=== PATIENT | male | born 1960 | race Caucasian/White ===

== ENCOUNTER 2018-02-21 11:53 | Inpatient (IN) ==
[2018-02-21 12:33] LABS: Basophils # 0.1 K/mcL (0.0-0.2); Basophils % 0.4 %; Eosinophils # 0.3 K/mcL (0.0-0.6); Eosinophils % 2.4 %; Hematocrit 29.4 % (37.5-50.1); Hemoglobin 9.6 g/dL (12.9-16.9); Immature Granulocytes % 0.3 % (0-4); Lymphocytes # 1.3 K/mcL (0.6-4.6); Lymphocytes % 10.5 %; Mean Corpuscular HGB Conc 32.7 g/dL (31.6-35.5); Mean Corpuscular Hemoglobin 32.9 pg (28.0-33.3); Mean Corpuscular Volume 100.7 fL (83.0-100.0); Mean Platelet Volume 10.5 fL (9.4-12.4); Monocytes % 7.6 %; Neutrophils # 9.9 K/mcL (1.6-8.9); Platelet Count 193 K/mcL (140-400); Red Blood Count 2.92 M/mcL (4.19-5.50); Red Cell Distribution Width 15.3 % (11.5-14.5); Segmented Neutrophils % 78.8 %
[2018-02-21 12:40] LABS: Prothrombin Time 10.8 Seconds (9.4-12.1)
[2018-02-21 12:43] LABS: Activated Partial Thrombo Time 26.6 Seconds (26.0-36.0)
[2018-02-21 12:55] LABS: Alanine Aminotransferase 22 Units/L (7-52); Albumin 2.5 g/dL (3.5-5.7); Albumin/Globulin Ratio 0.8 (1.1-2.2); Alkaline Phosphatase 65 Units/L (34-104); Aspartate Amino Transferase 26 Units/L (13-39); BUN/Creatinine Ratio 18 (6-26); Bilirubin,Direct 0.2 mg/dL (0.0-0.2); Bilirubin,Indirect 0.3 mg/dL (0.0-1.2); Bilirubin,Total 0.5 mg/dL (0.3-1.0); Blood Urea Nitrogen 62 mg/dL (6-20); Calcium 7.8 mg/dL (8.6-10.3); Carbon Dioxide 25 mEq/L (23-29); Chloride 92 mEq/L (98-107); Glucose 368 mg/dL (70-105); Osmolality,Calculated 291 (280-300); Sodium 124 mEq/L (136-145); Total Protein 5.5 g/dL (6.4-8.9); eGFR For African Americans 22 (> 60); eGFR For Non-African Americans 18 (> 60)
[2018-02-21 12:56] LABS: Troponin I < 0.03 ng/mL (< 0.04)
--- NOTE | 2018-02-21 14:05 | Emergency Department Note ---
Disposition Clinical Impression: Pleural effusion, Hyperkalemia, End stage renal disease Disposition: Admitted As Inpatient Condition: Fair Time of Disposition: 15:20 General Adult HPI - General Chief complaint: ED General Medical Stated complaint: ill Time Seen by Provider: 02/21/18 12:03 Source: EMS Mode of arrival: EMS Limitations: no limitations Nursing Notes Reviewed: Yes Vital Signs Reviewed: Yes - History of Present Illness HPI Narrative: Patient presents emergency room from [facility] where he had issues today with his tracheostomy tube as well as possibly pulling out his dialysis catheter is in his right chest wall. They also requested blood cultures being drawn considering the patient did have a newly elevated white blood cell count today. No other acute issues noted. Patient was brought here by EMS. Onset (ago): hour(s) Location: chest Radiation: non-radiation Pain Severity: moderate Pain Scale: 7 Quality: constant Consistency: constant Improves with: nothing Worsens with: nothing Associated symptoms: Reports: cough, diaphoresis, shortness of breath - Related Data Home Medications Medication Instructions Recorded Confirmed Amlodipine Besylate 10 mg GTUBE DAILY 11/25/17 11/25/17 Atorvastatin Calcium [Lipitor] 40 mg GTUBE DAILY 11/25/17 11/25/17 Cyanocobalamin (B-12) [Vitamin B12] 1,000 mcg GTUBE DAILY 11/25/17 11/25/17 Docusate [Colace] 50 mg GTUBE DAILY 11/25/17 11/25/17 Folic Acid 1 mg GTUBE DAILY 11/25/17 11/25/17 Folic Acid/Vit Bcomp,C [Renal 1 tab GTUBE DAILY 11/25/17 11/25/17 Vitamin Tablet] Insulin Regular Human [HumuLIN R] 0 unit 11/25/17 11/25/17 LORazepam [Ativan] 0.5 mg GTUBE Q6H 11/25/17 11/25/17 Levothyroxine Sodium [Synthroid] 300 mcg GTUBE DAILY 11/25/17 11/25/17 Metoprolol Tartrate [Lopressor] 50 mg GTUBE BID 11/25/17 11/25/17 Oxycodone HCl [Oxaydo] 5 mg GTUBE Q6H PRN 11/25/17 11/25/17 Pantoprazole Sodium [Protonix] 40 mg GTUBE DAILY 11/25/17 11/25/17 Sennosides/Docusate Sodium 1 each GTUBE BID 11/25/17 11/25/17 [Senna-S Tablet] cloNIDine HCl [CloNIDine HCl] 0.1 mg GTUBE BID 11/25/17 11/25/17 hydrOXYzine HCl [Hydroxyzine HCl] 25 mg GTUBE Q6H PRN 11/25/17 11/25/17 Acetaminophen [Non-Aspirin] 650 mg PO Q4H PRN 02/21/18 02/21/18 Aspirin [Lo-Dose Aspirin EC] 81 mg GTUBE DAILY 02/21/18 02/21/18 Calcitriol 0.5 mcg GTUBE TID 02/21/18 02/21/18 Carvedilol [Coreg] 25 mg GTUBE BID 02/21/18 02/21/18 Dextrose [Glucose Gel] 15 gm PO AD PRN 02/21/18 02/21/18 Diphenhydramine HCl/Zinc Acet 1 appl TP TID PRN 02/21/18 02/21/18 [Itch Relief Cream] Insulin Glargine,Hum.rec.anlog 5 unit SQ HS 02/21/18 02/21/18 [Basaglar Kwikpen U-100] LORazepam [Ativan] 0.5 mg GTUBE Q6H PRN 02/21/18 02/21/18 Renal Vitamin [Renal Caps Softgel] 1 mg GTUBE DAILY 02/21/18 02/21/18 Ticagrelor [Brilinta] 90 mg GTUBE BID 02/21/18 02/21/18 hydrALAZINE [HydrALAZINE] 25 mg PO Q6HR 02/21/18 02/21/18 Allergies Allergy/AdvReac Type Severity Reaction Status Date / Time No Known Allergies Allergy Verified 11/25/17 20:12 All systems ED: reviewed and negative except as stated. Review of Systems: As Per HPI Constitutional: Denies: fever, chills, weakness Cardiovascular: Reports: dyspnea on exertion, orthopnea. Denies: chest pain, palpitations, edema Respiratory: Reports: dyspnea, sputum production. Denies: cough, wheezes Gastrointestinal: Denies: nausea, vomiting, diarrhea Genitourinary: Denies: dysuria, frequency Musculoskeletal: Denies: back pain, neck pain Neurological: Denies: headache Past Medical History - Past Medical History Attestation: Yes The following information was validated with the patient. Source: patient Medical history: Reports: cardiomyopathy, CVA, diabetes, dialysis, GERD, hyperlipidemia, hypertension, liver disease, renal disease, thyroid disease, other Surgical history: Reports: tracheostomy, other (AV shunt - left arm, vascular access line - right upper arm) Psychiatric history: Reports: anxiety - Social History Smoking Status: Former smoker Alcohol use: Reports: none Drug use: Reports: none Physical Exam - General Limitations: no limitations General appearance: alert, in no apparent distress - Head Head exam: atraumatic, normocephalic, normal inspection - Eye Eye exam: Present: normal appearance, PERRL, EOMI - ENT ENT exam: normal exam, normal oropharynx, mucous membranes moist - Neck Neck exam: Present: normal inspection, full ROM, trachea midline. Absent: tenderness - Chest Chest inspection: Present: normal inspection - Respiratory Respiratory exam: Present: respiratory distress, accessory muscle use, other. Absent: wheezes, stridor - Cardiovascular Cardiovascular exam: Present: regular rate, normal rhythm, normal heart sounds - Abdominal Exam Abdominal exam: Present: soft, Non-Tender. Absent: tenderness, distention, guarding, rebound, rigidity - Extremities Exam Extremities exam: Present: normal inspection, full ROM, normal capillary refill. Absent: tenderness - Back Exam Back exam: Present: normal inspection - Neurological Exam Neurological exam: Present: alert, oriented X3 - Skin Skin exam: Present: warm, dry, intact, normal color Course Course Narrative: Patient seen and examined some arrival by EMS. 57-year-old male presents to the emergency room for evaluation of shortness of breath and congestion here today. He has a tracheostomy as well as a right permacath in the chest wall and a fissure on the left lower forearm. Patient has not had any fevers. Patient is currently getting vancomycin at his nursing facility. Patient had elevated white blood cell count yesterday. Nursing staff is concerned about possible infection requested blood cultures be drawn. Patient has stable vital signs on presentation. He is alert she follows commands and answers questions appropriately. He has had difficulty talking as he does not have the piece for his tracheostomy to speak. Let us do this morning because he felt like he could not breathe. Second incident with that happened the patient probably could not move. Patient told that his anterior chest wall and grabbed onto the dialysis catheter. I am concerned that he may have pulled out. The dialysis catheter appears to be an appropriate place at this time with sutures still intact. Patient's fissure on the left arm appears to be stable. He did get dialysis yesterday. Screening labs will be completed at this time chest x-ray and EKG. Patient otherwise is in no distress at this point. Lungs are diminished on the left side right side does have some intermittent coarse crackles. He does have secretions coming out from the tracheostomy site. Disposition pending the full workup and treatment course. Otherwise the patient has no other complaints. He said he pulled it out on accident when he got scared with his difficulty in breathing. Disposition pending the full workup and treatment course - Reevaluation(s) Reevaluation #1: Chest x-ray shows a left-sided opacified pleural effusion. This could be the source the patient's shortness of breath is causing the symptoms here today. Vital signs remain stable. Patient's labs appear to be unremarkable except for elevated creatinine as well as BUN and and potassium today. Patient did give her course of dialysis yesterday. Unknown etiology to this at this time. Interventional radiology was contacted and are happy to evaluate the patient discussed thoracentesis to see if it helps with the symptomatic presentation. Dr. Mahoney the on-call neurologist was also contacted 11 know about the abnormal labs at this time. Patient will most have a requirement admission secondary to the labs as well as the patient will require observation after the thoracentesis was completed. The fluid will be sent for culture. Patient is otherwise comfortable. Interventional radiology will evaluate Time: 14:00 Reevaluation #2: Patient was discussed with the hospitalist Dr. Chavez. She works at the patient for further management. No other acute concerns or issues noted this time. Patient is otherwise clinically stable Time: 15:13 Vital Signs Temperature 99.0 F 02/21/18 11:56 Pulse Rate 70 02/21/18 11:56 Respiratory Rate 18 02/21/18 11:56 Blood Pressure 148/53 02/21/18 11:56 O2 Sat by Pulse Oximetry 98 02/21/18 11:56 Temperature 99.0 F 02/21/18 11:56 Pulse Rate 69 02/21/18 13:57 Respiratory Rate 12 02/21/18 13:57 Blood Pressure 153/82 02/21/18 13:57 O2 Sat by Pulse Oximetry 100 02/21/18 13:57 Oxygen Delivery Oxygen Delivery Trach Mask Medical Decision Making - MDM Narrative Medical decision making narrative: Shortness of breath, right pleural effusion, - Medical Records Medical records reviewed: Yes I reviewed the patient's medical records. - Lab Data Lab results reviewed: Yes I reviewed the patient's lab results. Result diagrams: 02/21/18 12:09 02/21/18 12:09 Lab Results 02/21/18 02/21/18 02/21/18 Range/Units 12:09 12:09 12:09 WBC 12.5 H (4.3-11.1) K/mcL RBC 2.92 L (4.19-5.50) M/mcL Hgb 9.6 L (12.9-16.9) g/dL Hct 29.4 L (37.5-50.1) % MCV 100.7 H (83.0-100.0) fL MCH 32.9 (28.0-33.3) pg MCHC 32.7 (31.6-35.5) g/dL RDW 15.3 H (11.5-14.5) % Plt Count 193 (140-400) K/mcL MPV 10.5 (9.4-12.4) fL Immature Gran % 0.3 (0-4) % Seg Neutrophils % 78.8 % Lymphocytes % 10.5 % Monocytes % 7.6 % Eosinophils % 2.4 % Basophils % 0.4 % Neutrophils # 9.9 H (1.6-8.9) K/mcL Lymphocytes # 1.3 (0.6-4.6) K/mcL Monocytes # 1.0 (0.0-1.3) K/mcL Eosinophils # 0.3 (0.0-0.6) K/mcL Basophils # 0.1 (0.0-0.2) K/mcL PT 10.8 (9.4-12.1) Seconds INR 1.0 APTT 26.6 (26.0-36.0) Seconds Sodium 124 L (136-145) mEq/L Potassium 6.0 H (3.5-5.1) mEq/L Chloride 92 L (98-107) mEq/L Carbon Dioxide 25 (23-29) mEq/L BUN 62 H (6-20) mg/dL Creatinine 3.51 H (0.70-1.30) mg/dL Est GFR ( Amer) 22 L (> 60) Est GFR (Non-Af Amer) 18 L (> 60) BUN/Creatinine Ratio 18 (6-26) Glucose 368 H (70-105) mg/dL Calculated Osmolality 291 (280-300) Calcium 7.8 L (8.6-10.3) mg/dL Phosphorus 4.0 (2.7-4.5) mg/dL Magnesium 2.0 (1.6-2.6) mg/dL Total Bilirubin 0.5 (0.3-1.0) mg/dL Direct Bilirubin 0.2 (0.0-0.2) mg/dL Indirect Bilirubin 0.3 (0.0-1.2) mg/dL AST 26 (13-39) Units/L ALT 22 (7-52) Units/L Alkaline Phosphatase 65 (34-104) Units/L Troponin I < 0.03 (< 0.04) ng/mL Serum Total Protein 5.5 L (6.4-8.9) g/dL Albumin 2.5 L (3.5-5.7) g/dL Globulin 3.0 (2.4-3.5) g/dL Albumin/Globulin Ratio 0.8 L (1.1-2.2) - Radiology Data Radiology results reviewed: Yes I reviewed the patient's radiology results. Chest x-ray completed that shows left-sided - EKG Data EKG #1 EKG attestation: Yes I reviewed and interpreted this EKG. EKG results narrative: EKG shows sinus rhythm. Ventricular rate is 70. AK interval 190. QRS duration of 128. QTC of 469. [place] appears to be slightly rightward deviated. The EKG from 12/04/17 was reviewed and shows similar morphology as well as intervals. Patient is otherwise currently stable. No acute signs of ST segment elevation or abnormality at this time. No acute signs of WPW or Brugada syndrome.
[2018-02-21] MEDS ORDERED: Insulin Human Regular 10 UNIT in 0.9 % Sodium Chloride 10 ML IV ONE (15:16)
[2018-02-21 15:43] LABS: RBC,Pleural Fluid < 0.002 M/mcL
[2018-02-21 15:44] LABS: Appearance of Pleural Fl Clear (Clear)
[2018-02-21] MEDS ORDERED: Naloxone 0.4 MG/ML INJ IVP PRN (16:43)
[2018-02-21] MEDS ORDERED: Acetaminophen 325 MG TABLET PO PRN (16:43)
[2018-02-21] MEDS ORDERED: hydrOXYzine pamoate 25 MG CAPSULE PO PRN (16:57)
[2018-02-21] MEDS ORDERED: *HR* LORazepam 0.5 MG TABLET GTUBE PRN (16:57)
[2018-02-21] MEDS ORDERED: DiphenhydraMINE CREAM 28.4 GM TUBE TP PRN (16:57)
[2018-02-21] MEDS ORDERED: *HR* OxyCODONE Immed Rel 5 MG TABLET GTUBE PRN (16:57)
[2018-02-21] MEDS ORDERED: D5% in Water 1,000 ML IVC PRN (17:06)
[2018-02-21] MEDS ORDERED: Dextrose Gel 15 GM/37.5 ML TUBE PO PRN ×2 (17:06)
[2018-02-21] MEDS: hydrALAZINE 25 MG TABLET PO SCH ×2 (17:35→23:12)
[2018-02-21] MEDS: *HR* LORazepam 0.5 MG TABLET GTUBE SCH ×2 (17:35→22:13)
[2018-02-21] MEDS ORDERED: Levofloxacin 750 MG/150 ML 750 MG/150 ML BAG IVPB ONE (18:00)
[2018-02-21 18:59] LABS: Hepatitis B Surface Antigen Nonreactive (Nonreactive)
--- NOTE | 2018-02-21 19:42 | Internal Med History&Physical ---
<SurajArtem Hendrix - Last Filed: 02/21/18 22:34> Date of Encounter: 02/21/18 Time of Encounter: 14:30 Internal Medicine - H&P: HPI Chief complaint: SOB/Dyspnea Admitted From: Emergency Dept Plans for Post Hospital Care: Home History of present illness: Mr. 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 Due to sx, pt. pulled out his tracheostomy tube and tried to pull out his dialysis catheter from his right chest wall d/t panic and confusion. Patient reports cough, diaphoresis, SOB, and dyspnea but denies recent illness, fever, chills, nausea, vomiting, headache , changes in vision, chest congestion, chest pain, palpitations, unusual bleeding, abdominal pain, diarrhea, constipation, dizziness, lightheadedness, pre-syncope, or syncope. Past Med Surg Social Fam HX - Past Medical History Source: patient, old records reviewed Medical history: cardiomyopathy, CVA (2012 x1, 2016 x2), diabetes, dialysis, GERD, hyperlipidemia, hypertension, liver disease, renal disease, thyroid disease, other Psychiatric history: anxiety - Past Surgical History Surgical History: tracheostomy, other - Social History Smoking Status: Former smoker Packs per day: 1 PPD - Reports quitting in 2012 Alcohol use: none Drug use: none Current living situation: Assisted Living Activity Level: Wheelchair bound Recent Out of Country Travel Within the Last 8 Weeks: No Exposure or Possible Exposure to Illness During Travel: No - Family History Mother History Unknown: Yes Race: Family Member Ethnicity: Non- Living Status: Age at : 83 Cause of : Heart valve failure Hx Family Cardiac Disorders: Yes (CAD) Father Race: Family Member Ethnicity: Non- Living Status: Age at : 80 Hx Family Cardiac Disorders: Yes (HD) Brother Race: Family Member Ethnicity: Non- Living Status: Age at : 33 Cause of : AIDS Hx Family Autoimmune Disorders: Yes (AIDS) Internal Medicine - H&P: Meds Amlodipine Besylate 10 mg GTUBE DAILY 11/25/17 [History] Atorvastatin Calcium [Lipitor] 40 mg GTUBE DAILY 11/25/17 [History] Cyanocobalamin (B-12) [Vitamin B12] 1,000 mcg GTUBE DAILY 11/25/17 [History] Docusate [Colace] 50 mg GTUBE DAILY 11/25/17 [History] Folic Acid 1 mg GTUBE DAILY 11/25/17 [History] Folic Acid/Vit Bcomp,C [Renal Vitamin Tablet] 1 tab GTUBE DAILY 11/25/17 [ History] Insulin Regular Human [HumuLIN R] 0 unit SQ QID PRN 11/25/17 [History] LORazepam [Ativan] 0.5 mg GTUBE Q6H 11/25/17 [History] Levothyroxine Sodium [Synthroid] 300 mcg GTUBE DAILY 11/25/17 [History] Oxycodone HCl [Oxaydo] 5 mg GTUBE Q6H PRN 11/25/17 [History] Pantoprazole Sodium [Protonix] 40 mg GTUBE DAILY 11/25/17 [History] Sennosides/Docusate Sodium [Senna-S Tablet] 1 each GTUBE BID 11/25/17 [History] cloNIDine HCl [CloNIDine HCl] 0.1 mg GTUBE BID 11/25/17 [History] hydrOXYzine HCl [Hydroxyzine HCl] 25 mg GTUBE Q6H PRN 11/25/17 [History] Acetaminophen [Non-Aspirin] 650 mg PO Q4H PRN 02/21/18 [History] Aspirin [Lo-Dose Aspirin EC] 81 mg GTUBE DAILY 02/21/18 [History] Calcitriol 0.5 mcg GTUBE MOWEFR 02/21/18 [History] Carvedilol [Coreg] 25 mg GTUBE BID 02/21/18 [History] Dextrose [Glucose Gel] 15 gm PO AD PRN 02/21/18 [History] Diphenhydramine HCl/Zinc Acet [Itch Relief Cream] 1 appl TP TID PRN 02/21/18 [ History] Insulin Glargine,Hum.rec.anlog [Basaglar Kwikpen U-100] 5 unit SQ HS 02/21/18 [ History] LORazepam [Ativan] 0.5 mg GTUBE Q6H PRN 02/21/18 [History] Renal Vitamin [Renal Caps Softgel] 1 mg GTUBE DAILY 02/21/18 [History] Ticagrelor [Brilinta] 90 mg GTUBE BID 02/21/18 [History] hydrALAZINE [HydrALAZINE] 25 mg PO Q6HR 02/21/18 [History] 3 Allergy/AdvReac Type Severity Reaction Status Date / Time No Known Allergies Allergy Verified 11/25/17 20:12 All Systems PM: A 10-system review of systems was performed and is negative for pertinent findings except as documented above in the HPI. - Constitutional Constitutional: as per HPI, no chills, no fever(s), no night sweats - EENT Eyes: no change in vision, no discharge, no pain, no photophobia Ears: no ear discharge, no ear pain, no tinnitus Nose, mouth and throat: no dysphagia, no nasal discharge, no neck pain, no sore throat - Cardiovascular Cardiovascular ROS IM: as per HPI, diaphoresis, dyspnea, dyspnea on exertion, no chest pain, no lightheadedness, no palpitations, no syncope - Respiratory Respiratory: as per HPI, cough, dyspnea, dyspnea on exertion, no wheezing, no excessive phlegm production - Gastrointestinal Gastrointestinal: as per HPI, no abdominal pain, no diarrhea, no hematemesis, no hematochezia, no melena, no nausea, no vomiting - Genitourinary Genitourinary ROS male: as per HPI - Musculoskeletal Musculoskeletal ROS IM: no numbness, no tingling - Integumentary Integumentary IM: no rash, no unusual bruising - Neurological Neurological ROS: no confusion, no convulsions, no focal weakness, no numbness, no tingling, no tremor(s) - Psychiatric Psychiatric: as per HPI, anxiety - Endocrine Endocrine IM: as per HPI - Hematologic/Lymphatic Hematologic/Lymphatic: no easy bruising - Allergic/Immunologic Allergic/Immunologic: as per HPI - Constitutional Vitals: Temp Pulse Resp BP Pulse Ox 98 F 64 18 156/78 99 02/21/18 16:41 02/21/18 16:41 02/21/18 16:41 02/21/18 16:41 02/21/18 16:41 General appearance: Present: cooperative, mild distress (Respiratory w/coughing) , A&O X 3, pleasant, answers questions appropriately - Head Head exam: Present: atraumatic, normocephalic - Eye Eye exam: Present: PERRL, conjuntiva pink, sclera anicteric Pupils: Present: PERRL - ENT ENT exam: Present: normal exam - Neck Neck exam general surgery: Present: normal inspection, supple, trachea midline. Absent: lymphadenopathy - Respiratory Respiratory exam: Present: CTAB. Absent: accessory muscle use, rales, rhonchi, wheezes - Cardiovascular Cardiovascular exam: Present: RRR, +S1, +S2. Absent: diastolic murmur, gallop, rubs, systolic murmur - GI/Abdominal GI/Abdominal exam: Present: normal bowel sounds, soft, no peritoneal signs. Absent: distended, tenderness - Rectal Rectal exam: Present: deferred - Additional comments: exam deferred. - Extremities Exam Extremities exam: Present: warm, radial pulses palpable and symmetrical. Absent : calf tenderness, cyanotic, pedal edema - Back Exam Back exam: Present: normal inspection - Neurological Exam Neurological exam: Present: alert, CN II-XII intact, oriented X3, no focal deficits. Absent: pronater drift, facial droop, speech deficit - Psychiatric Psychiatric exam: Present: anxious - Skin Skin exam: Present: erythema (Bilateral arms), excoriation (Bilateral arms) Internal Med - H&P Results - Labs CBC & Chem 7: 02/21/18 12:09 02/21/18 13:43 - EKG Data EKG shows normal: sinus rhythm - EKG Data Prior EKG available for review: yes Interpretation IM: suggestive of ischemia EKG comments: 02/21/18 19:51 EKG dated 12/04/17 shows sinus rhythm with borderline right axis deviation, low QRS voltage in extremity leads, and nonspecific ST and T-wave abnormality. EKG dated 02/21/18 shows sinus rhythm with marked right axis deviation and septal myocardial infarction of indeterminate age. - Diagnostic Studies Chest x-ray Additional comments: Impressions Chest X-Ray 02/21/18 12:13 IMPRESSION: 1. Large left pleural effusion with complete opacification of the left thorax 2. Pulmonary vascular congestion with small right pleural effusion D/ / Francisco Javier Valencia MD / Francisco Javier Valencia MD Interpreting Provider: Francisco Javier Valencia MD Chest X-Ray 02/21/18 14:08 IMPRESSION: Overlying items external to the patient limit evaluation but no definite evidence for pneumothorax is seen status post thoracentesis. Marked interval improvement to left pleural effusion with possible trace persisting effusion. Marked improved aeration to the left lung with still some patchy/streaky opacities to the left mid to lower lung zones which may relate to atelectasis or infiltrates. Stable streaky right basilar opacities which may relate to atelectasis or infiltrates as well. Stable pulmonary vascular congestion. D/ / 02/21/2018 14:34:52 Rob Augustine MD / jay Interpreting Provider: Rob Augustine MD Other Images Additional comments: Impressions Thoracentesis Ultrasound 02/21/18 00:00 IMPRESSION: Successful ultrasound guided thoracentesis. D/ / Marshall Ortega MD / Marshall Ortega MD Interpreting Provider: Marshall Ortega MD - Assessment and plan (1) Leukocytosis Current Visit: Yes Status: Acute Assessment and plan: Acute leukocytosis w/WBC of 12.5 [address] admission. CXR and CT of chest today shows marked improved aeration to left lung with still some patchy/dyspnea bases to left mid to lower lung zones which may relate to atelectasis or infiltrates. Stable streaky right basilar cup bases which may relate to atelectasis or infiltrates as well. Pt. reports that he has been at a SNF for 8 months for rehabilitation. CXR suspicious for infection process. Will treat as HCAP d/t current LOS at SNF. Pt. does not currently meet sepsis criteria w/HR of 68 and RR of 15. Lactic acid pending. Will monitor pt. and f/u labs for signs of increasing infection and/or sepsis criteria. IVPB levaquin 750 mg ONCE today followed by 500 mg Q48HR starting on d/t current renal dysfunction. Blood cultures 2 ordered sputum culture with Gram stain ordered. Respiratory infection panel ordered. Legionella and strep pneumoniae antigens ordered. Will adjust abx coverage based on culture and panel results. Pt. discussed w/ Dr. Chavez who agrees w/plan of care. Pt. is high risk for further morbidity d/ t current hypoxia/SOB/dyspnea, suspected infection process and leukocytosis, ESRD on dialysis, hx, and risk factors. Inpatient. Qualifiers: Leukocytosis type: unspecified Qualified Code(s): D72.829 - Elevated white blood cell count, unspecified (2) SOB (shortness of breath) Current Visit: Yes Status: Acute Assessment and plan: Acute SOB and dyspnea r/t left pleural effusion and suspected HCAP. DuoNebs Q4HR scheduled. Mucinex for cough. Supplemental O2 w/titration and SpO2 monitoring. Falls/safety precautions. (3) Hyperkalemia Current Visit: Yes Status: Acute Assessment and plan: Acute hyperkalemia w/potassium of 6.0 on admission. Pt. received calcium gluconate in the ED. Monitor follow-up labs for potassium level at 04:00. (4) Pleural effusion Current Visit: Yes Status: Acute Assessment and plan: Hx of left pleural effusion. CXR today shows marked interval improvement in left pleural effusion with possible trace persisting effusion. (5) History of CVA (cerebrovascular accident) Current Visit: Yes Status: Chronic Assessment and plan: Hx of CVA in 2012 and two in 2016 w/residual left-sided weakness. Pt. reports using wheelchair. PT/OT consults ordered for rehabilitation needs. Falls/safety precautions, up with assist, and bed rest w/bedside commode w/assist only. (6) Diabetes Current Visit: Yes Status: Chronic Assessment and plan: Hx of chronic diabetes. Continue patient's Levemir 5 units SQ at bedtime and add low-dose correction sliding scale insulin with hypoglycemic protocol. BG checks before meals at bedtime. A1c in a.m. labs. Qualifiers: Diabetes mellitus type: type 2 Diabetes mellitus buttermaker continuous churn insulin use: unspecified buttermaker continuous churn insulin use status Diabetes mellitus complication status : with unspecified complications Qualified Code(s): E11.8 - Type 2 diabetes mellitus with unspecified complications (7) ESRD on dialysis Current Visit: Yes Status: Chronic Assessment and plan: Hx of ESRD on dialysis. Renal diet. Continue pts. renal vitamin. Will use IV fluids judiciously if warranted. Nephrology consulted in ED and I appreciate the consult. (8) GERD (gastroesophageal reflux disease) Current Visit: Yes Status: Chronic Assessment and plan: Hx of chronic GERD. IVP Phenergan 12.5 mg Q6HR PRN for N/V. Continue pts. PO Protonix. Qualifiers: Esophagitis presence: esophagitis presence not specified Qualified Code(s) : K21.9 - Gastro-esophageal reflux disease without esophagitis (9) HLD (hyperlipidemia) Current Visit: Yes Status: Chronic Assessment and plan: Hx of chronic HLD. Lipid panel in a.m. labs. Continue pts. Lipitor. Qualifiers: Hyperlipidemia type: pure hypercholesterolemia Qualified Code(s): E78.00 - Pure hypercholesterolemia, unspecified; E78.0 - Pure hypercholesterolemia (10) HTN (hypertension) Current Visit: Yes Status: Chronic Assessment and plan: Hx of chronic HTN. Monitor pt. and VS. Continue pts. Amlodipine and hydralazine. Qualifiers: Hypertension type: essential hypertension Qualified Code(s): I10 - Essential (primary) hypertension (11) Thyroid disease Current Visit: Yes Status: Chronic Assessment and plan: Hx of chronic thyroid disease. TSH and Free T4 in a.m. labs. Continue pts. Synthroid. (12) Liver disease Current Visit: Yes Status: Chronic Assessment and plan: Hx of chronic liver disease. AST 26 and ALT 22 on admission. Hepatitis B panel ordered. (13) Anemia Current Visit: Yes Status: Chronic Assessment and plan: Hx of chronic anemia w/Hgb of 9.6 qand Hct of 29.4 on admission which is at or near pts. recent baselines. Pt. denies unusual bleeding. Monitor H/H in f/u labs and continue patient's folic acid and B12. Qualifiers: Anemia type: unspecified type Qualified Code(s): D64.9 - Anemia, unspecified (14) DVT prophylaxis Current Visit: Yes Status: Acute Assessment and plan: Continue patient's Brilinta for DVT prophylaxis. Monitor patient for signs of bleeding. - Time Spent With Patient Total time spent is greater than 50% in coordination of care (as documented) at patient's floor/unit and/or counseling patient: Greater than 35 minutes <Inge Chavez - Last Filed: 03/03/18 02:02> Date of Encounter: 02/21/18 Internal Medicine - H&P: HPI History of present illness: Mr. Landaverde is a 57 year old male All Systems PM: A 10-system review of systems was performed and is negative for pertinent findings except as documented above in the HPI. - Constitutional Vitals: Temp Pulse Resp BP Pulse Ox 98.7 F 62 18 1555/74 98 02/22/18 07:14 02/22/18 07:14 02/22/18 07:23 02/22/18 07:14 02/22/18 07:23 Internal Med - H&P Results - Labs CBC & Chem 7: 03/02/18 08:35 03/01/18 04:00 Labs: Short CBC 02/22/18 Range/Units 03:25 WBC 10.0 (4.3-11.1) K/mcL Hgb 9.1 L (12.9-16.9) g/dL Hct 26.6 L (37.5-50.1) % Plt Count 175 (140-400) K/mcL Neutrophils # 6.5 (1.6-8.9) K/mcL BMP 02/22/18 03:25 Sodium 127 L Potassium 5.1 Chloride 94 L Carbon Dioxide 26 BUN 69 H Creatinine 3.69 H Glucose 68 L Calcium 7.9 L Liver Function 02/22/18 Range/Units 03:25 Total Bilirubin 0.3 (0.3-1.0) mg/dL AST 17 (13-39) Units/L ALT 18 (7-52) Units/L Alkaline Phosphatase 60 (34-104) Units/L Albumin 2.3 L (3.5-5.7) g/dL - Attending Attestation I personally and independently interviewed and examined the patient with MANUFACTURING LABORER, and I reviewed the patient's medical record . I am in agreement with the assessment and proposed treatment plan. I discussed my findings and recommendation with the patient and answer all questions. The patient's medical records were edited to accurately reflect this encounter. - Assessment and plan (1) Pleural effusion Current Visit: Yes Status: Acute (2) Hyperkalemia Current Visit: Yes Status: Resolved (3) History of CVA (cerebrovascular accident) Current Visit: Yes Status: Chronic (4) Diabetes Current Visit: Yes Status: Chronic Qualifiers: Diabetes mellitus type: type 2 Diabetes mellitus buttermaker continuous churn insulin use: unspecified buttermaker continuous churn insulin use status Diabetes mellitus complication status : with unspecified complications Qualified Code(s): E11.8 - Type 2 diabetes mellitus with unspecified complications (5) ESRD on dialysis Current Visit: Yes Status: Chronic (6) GERD (gastroesophageal reflux disease) Current Visit: Yes Status: Chronic Qualifiers: Esophagitis presence: esophagitis presence not specified Qualified Code(s) : K21.9 - Gastro-esophageal reflux disease without esophagitis (7) HLD (hyperlipidemia) Current Visit: Yes Status: Chronic Qualifiers: Hyperlipidemia type: pure hypercholesterolemia Qualified Code(s): E78.00 - Pure hypercholesterolemia, unspecified; E78.0 - Pure hypercholesterolemia (8) HTN (hypertension) Current Visit: Yes Status: Chronic Qualifiers: Hypertension type: essential hypertension Qualified Code(s): I10 - Essential (primary) hypertension (9) Thyroid disease Current Visit: Yes Status: Chronic (10) Liver disease Current Visit: Yes Status: Chronic (11) DVT prophylaxis Current Visit: Yes Status: Acute (12) SOB (shortness of breath) Current Visit: Yes Status: Acute (13) Leukocytosis Current Visit: Yes Status: Acute Qualifiers: Leukocytosis type: unspecified Qualified Code(s): D72.829 - Elevated white blood cell count, unspecified (14) Anemia Current Visit: Yes Status: Chronic Qualifiers: Anemia type: unspecified type Qualified Code(s): D64.9 - Anemia, unspecified - Time Spent With Patient Total time spent is greater than 50% in coordination of care (as documented) at patient's floor/unit and/or counseling patient:
[2018-02-21] MEDS: Insulin DETEMIR 100 UNIT/ML X5UNITS SQ SCH (19:48)
[2018-02-21] MEDS: cloNIDine HCl 0.1 MG TABLET GTUBE SCH (19:48)
[2018-02-21] MEDS: Sennosides/Docusate Sodium TABLET GTUBE SCH (19:48)
[2018-02-21] MEDS: *HR* Ticagrelor 90 MG TABLET GTUBE SCH (19:48)
[2018-02-21] MEDS: Nystatin POWDER 30 GM BOTTLE TP SCH (19:52)
[2018-02-21 20:00] LABS: Adenovirus Not Detected (Not Detect); Bordetella Pertussis Not Detected (Not Detect); Chlamydophila pneumoniae Not Detected (Not Detect); Coronavirus 229E Not Detected (Not Detect); Coronavirus HKU1 Not Detected (Not Detect); Coronavirus NL63 Not Detected (Not Detect); Coronavirus OC43 Not Detected (Not Detect); Human Metapneumovirus Not Detected (Not Detect); Human Rhinovirus/Enterovirus Not Detected (Not Detect); Influenza A Subtype 2009 H1 Not Detected (Not Detect); Influenza A Untypeable Not Detected (Not Detect); Influenza B Not Detected (Not Detect); Mycoplasma pneumoniae Not Detected (Not Detect); Parainfluenza Virus 1 Not Detected (Not Detect); Parainfluenza Virus 2 Not Detected (Not Detect); Parainfluenza Virus 3 Not Detected (Not Detect); Parainfluenza Virus 4 Not Detected (Not Detect); Respiratory Syncytial Virus Not Detected (Not Detect)
[2018-02-21] MEDS ORDERED: *HR* Promethazine 25 MG/ML VIAL IVP PRN (20:24)
[2018-02-21] MEDS: Ipratropium/Albuterol Neb 3 ML IH SCH (21:35)
[2018-02-21] MEDS: Insulin LISPRO 300 UNITS/3 ML VIAL SQ SCH (21:50)
[2018-02-21] MEDS: 0.9 % Sodium Chloride 1,000 ML IVC SCH (23:40)
[2018-02-22] MEDS: Ipratropium/Albuterol Neb 3 ML IH SCH ×7 (00:12→23:28)
[2018-02-22 03:39] LABS: Basophils # 0.1 K/mcL (0.0-0.2); Basophils % 0.6 %; Eosinophils % 9.6 %; Hematocrit 26.6 % (37.5-50.1); Hemoglobin 9.1 g/dL (12.9-16.9); Immature Granulocytes % 0.3 % (0-4); Lymphocytes # 1.4 K/mcL (0.6-4.6); Lymphocytes % 13.7 %; Mean Corpuscular HGB Conc 34.2 g/dL (31.6-35.5); Mean Corpuscular Hemoglobin 34.5 pg (28.0-33.3); Mean Corpuscular Volume 100.8 fL (83.0-100.0); Mean Platelet Volume 10.3 fL (9.4-12.4); Monocytes # 1.1 K/mcL (0.0-1.3); Neutrophils # 6.5 K/mcL (1.6-8.9); Platelet Count 175 K/mcL (140-400); Red Blood Count 2.64 M/mcL (4.19-5.50); Red Cell Distribution Width 15.2 % (11.5-14.5); Segmented Neutrophils % 64.8 %
[2018-02-22 03:52] LABS: Hepatitis B Surface Antibody 144.68 mIU/mL
[2018-02-22 04:02] LABS: Albumin 2.3 g/dL (3.5-5.7); Albumin/Globulin Ratio 0.9 (1.1-2.2); Bilirubin,Total 0.3 mg/dL (0.3-1.0); Calcium 7.9 mg/dL (8.6-10.3); Globulin 2.6 g/dL (2.4-3.5); Potassium 5.1 mEq/L (3.5-5.1); Total Protein 4.9 g/dL (6.4-8.9)
[2018-02-22 04:17] LABS: Thyroid Stimulating Hormone 15.077 mcIU/mL (0.340-5.600)
[2018-02-22] MEDS: Sennosides/Docusate Sodium TABLET GTUBE SCH ×2 (06:31→21:24)
[2018-02-22] MEDS: Docusate Oral Soln 100 MG/10 ML UDC PO SCH ×2 (06:31→08:14)
[2018-02-22] MEDS: *HR* Dextrose 50 % in Water (Syg) 50 ML SYRINGE IVP PRN (06:37)
--- NOTE | 2018-02-22 07:18 | Electrocardiograph Report ---
[employer] Test Date: 2018-02-21 Pat Name: Sriram Landaverde Department: 102 Room: 2A16 Gender: M [employer]: Am : 1960 Requested By: Giacomo Vides Order Number: [id number] Reading MD: Ricardo Chavez Measurements Intervals [place] Rate: 70 P: 79 [place]: 190 QRS: 112 QRSD: 128 T: 119 QT: 448 QTc: 469 Interpretive Statements SINUS RHYTHM MARKED RIGHT AXIS DEVIATION [QRS AXIS > 100] SEPTAL MYOCARDIAL INFARCTION [40+ ms Q WAVE IN V1/V2], OF INDETERMINATE AGE Electronically Signed On 02-22-2018 7:16:36 EDT by Ricardo Chavez
[2018-02-22] MEDS: Insulin LISPRO 300 UNITS/3 ML VIAL SQ SCH ×4 (07:31→21:36)
[2018-02-22] MEDS: hydrALAZINE 25 MG TABLET PO SCH ×3 (08:14→23:51)
[2018-02-22] MEDS ORDERED: VIT BCOMP C GTUBE SCH (09:00)
[2018-02-22] MEDS ORDERED: FOLIC ACID GTUBE SCH (09:00)
[2018-02-22] MEDS ORDERED: [UNRECOGNIZED DRUG - OTHER] GTUBE SCH (09:00)
[2018-02-22] MEDS: *HR* LORazepam 0.5 MG TABLET GTUBE SCH ×4 (09:16→22:48)
[2018-02-22] MEDS: Aspirin Enteric Coated 81 MG Tablet PO SCH (09:17)
[2018-02-22] MEDS: Renal Vitamin 1 MG CAPSULE PO SCH (09:18)
[2018-02-22] MEDS: Folic Acid 1 MG TABLET GTUBE SCH (09:18)
[2018-02-22] MEDS: Cyanocobalamin (B-12) 1,000 MCG TABLET GTUBE SCH (09:18)
[2018-02-22] MEDS: *HR* Ticagrelor 90 MG TABLET GTUBE SCH ×2 (09:19→21:35)
--- NOTE | 2018-02-22 11:17 | Pulmonology Consult Note ---
<Bill Jordan - Last Filed: 02/22/18 12:45> Date of Encounter: 02/22/18 Time of Encounter: 10:59 Assessment and Plan (1) Pleural effusion Current Visit: Yes Status: Acute After reviewing the chest x-rays patient did have a left-sided pleural effusion as well as a small right-sided pleural effusion. Emergency Department 750 mL of straw-colored fluid was removed from the left side of the chest. Patient does have history of chronic pleural effusions. This most likely is a transudate of substance and is secondarily to his CHF and ESRD causing it. Patient most likely will need chronic removal fluid from his chest is going to be a chronic issue for him. After the fluid removed he was completely symptom free and had no shortness of breath after that. Patient is feeling well at this time. Patient currently is being treated with vancomycin and is currently on day 8 from the nursing facility. This is all due to secondary from a pneumonia. He does not show any signs of sepsis or infection at this time so it is very low likelihood that the effusion is caused by an infectious process. If so he is still being treated with antibiotics anyways. There is nothing that needs to be done at this time urgently from a pulmonology standpoint. Most of his lungs to be taken on the outpatient clinic. Pulmonology would recommend a Pleurx catheter they can be placed in the outpatient setting and also follow-up with pulmonology taking get regular follow -ups to be sure the pleural effusion to be well taking care of. Otherwise pulmonology is signing off the case if you have any further questions feel free to contact us (2) Tracheostomy care Current Visit: Yes Status: Acute Patient does have a tracheostomy tube which was replaced yesterday. It does seem to the clean there is no sites of infection. Continue normal tracheostomy care. (3) End stage renal disease Current Visit: Yes Status: Chronic Patient does have chronic kidney disease is dialysis 3 days a week. This can definitely make his pleural effusions were says he does have poor renal function therefore fluid does build up in the lungs. Recommend he continues to his normal dialysis treatment. Patient's creatinine today is 3.69 this is around his baseline. We will allow the nephrology and primary team to care for this (4) Diabetes Current Visit: Yes Status: Chronic Patient does have type 2 diabetes he is insulin-dependent will have primary team Qualifiers: Diabetes mellitus type: type 2 Diabetes mellitus termite technician insulin use: unspecified termite technician insulin use status Diabetes mellitus complication status : with unspecified complications Qualified Code(s): E11.8 - Type 2 diabetes mellitus with unspecified complications (5) DVT prophylaxis Current Visit: Yes Status: Acute Primary team is managing with subcutaneous heparin History of Present Illness Consult date: 02/22/18 Requesting physician: Kendrick Salgado Reason for consult: pleural effusion Chief complaint: Pulled trach and dialysis catheter out History of present illness: 57-year-old male with past medical history of tracheostomy, ESRD with dialysis, 3 days a week dialysis, hypertension, cardiomegaly, GERD, hyperlipidemia, diabetes mellitus, CHF, stop smoking approximately 5 years ago but did have a 40 -pack-year history. He otherwise has had no lung problems as far as heis been no COPD or asthma Presented to the emergency department on 02/21/18 for pulling out his tracheostomy as well as possibly his dialysis catheter. This is all due to that they believed his agitation and confusion. Patient is in a assisted has been for approximately 8 months. The trach was replaced in the emergency department. He hemodialysis catheter was in place and did not need to be replaced. It is still functioning fine. We did a chest x-ray to check placement of the trach they did notice a left-sided pleural effusion as patient also had complaints of shortness of breath. In this setting they had interventional radiology do a thoracentesis with a move 750 mL of straw-colored fluid. Patient does have chronic history of pleural effusions as these most likely are transient sedated from CHF and nephrotic syndrome from his ESRD. Patient has had a thoracentesis done approximately 3 times since this October. Patient is unsure if he is following pulmonology as he is very confused when you get a history. Although he said his previous thoracentesis have been done at [facility]. After the thoracentesis patient said that his shortness of breath was completely alleviated and he felt much better. He also reports the trachea is feeling much better. He says that he is always back to where he feels like is his baseline. Past Med Surg Social Fam HX - Past Medical History Medical history: cardiomyopathy, CVA (2013 x1, 2016 x2), diabetes, dialysis, GERD, hyperlipidemia, hypertension, liver disease, renal disease, thyroid disease, other Psychiatric history: anxiety - Past Surgical History Surgical History: tracheostomy, other - Social History Smoking Status: Former smoker Packs per day: 1 PPD - Reports quitting in 2012 Alcohol use: none Drug use: none - Family History Mother History Unknown: Yes Race: Family Member Ethnicity: Non- Living Status: Age at : 83 Cause of : Heart valve failure Hx Family Cardiac Disorders: Yes (CAD) Father Race: Family Member Ethnicity: Non- Living Status: Age at : 80 Hx Family Cardiac Disorders: Yes (HD) Brother Race: Family Member Ethnicity: Non- Living Status: Age at : 33 Cause of : AIDS Hx Family Autoimmune Disorders: Yes (AIDS) Medications and Allergies Amlodipine Besylate 10 mg GTUBE DAILY 11/25/17 [History] Atorvastatin Calcium [Lipitor] 40 mg GTUBE DAILY 11/25/17 [History] Cyanocobalamin (B-12) [Vitamin B12] 1,000 mcg GTUBE DAILY 11/25/17 [History] Docusate [Colace] 50 mg GTUBE DAILY 11/25/17 [History] Folic Acid 1 mg GTUBE DAILY 11/25/17 [History] Folic Acid/Vit Bcomp,C [Renal Vitamin Tablet] 1 tab GTUBE DAILY 11/25/17 [ History] Insulin Regular Human [HumuLIN R] 0 unit SQ QID PRN 11/25/17 [History] LORazepam [Ativan] 0.5 mg GTUBE Q6H 11/25/17 [History] Levothyroxine Sodium [Synthroid] 300 mcg GTUBE DAILY 11/25/17 [History] Oxycodone HCl [Oxaydo] 5 mg GTUBE Q6H PRN 11/25/17 [History] Pantoprazole Sodium [Protonix] 40 mg GTUBE DAILY 11/25/17 [History] Sennosides/Docusate Sodium [Senna-S Tablet] 1 each GTUBE BID 11/25/17 [History] cloNIDine HCl [CloNIDine HCl] 0.1 mg GTUBE BID 11/25/17 [History] hydrOXYzine HCl [Hydroxyzine HCl] 25 mg GTUBE Q6H PRN 11/25/17 [History] Acetaminophen [Non-Aspirin] 650 mg PO Q4H PRN 02/21/18 [History] Aspirin [Lo-Dose Aspirin EC] 81 mg GTUBE DAILY 02/21/18 [History] Calcitriol 0.5 mcg GTUBE MOWEFR 02/21/18 [History] Carvedilol [Coreg] 25 mg GTUBE BID 02/21/18 [History] Dextrose [Glucose Gel] 15 gm PO AD PRN 02/21/18 [History] Diphenhydramine HCl/Zinc Acet [Itch Relief Cream] 1 appl TP TID PRN 02/21/18 [ History] Insulin Glargine,Hum.rec.anlog [Basaglar Kwikpen U-100] 5 unit SQ HS 02/21/18 [ History] LORazepam [Ativan] 0.5 mg GTUBE Q6H PRN 02/21/18 [History] Renal Vitamin [Renal Caps Softgel] 1 mg GTUBE DAILY 02/21/18 [History] Ticagrelor [Brilinta] 90 mg GTUBE BID 02/21/18 [History] hydrALAZINE [HydrALAZINE] 25 mg PO Q6HR 02/21/18 [History] 3 Allergy/AdvReac Type Severity Reaction Status Date / Time No Known Allergies Allergy Verified 11/25/17 20:12 All Systems: The remainder of the systems were reviewed and are negative - Constitutional Constitutional: no chills, no fatigue, no fever(s), no headache(s), no weakness - EENT Eyes: no loss of vision Ears: no decreased hearing, no tinnitus Nose, mouth and throat: no dizziness, no dry mouth, no sore throat - Cardiovascular Cardiovascular: no chest pain, no dyspnea, no edema, no palpitations - Respiratory Respiratory: no cough, no dyspnea, no hemoptysis, no wheezing, no snoring, no chest congestion, no pain with cough - Gastrointestinal Gastrointestinal: no abdominal pain, no cramping, no diarrhea, no nausea, no vomiting - Genitourinary Genitourinary: no dysuria - Musculoskeletal Musculoskeletal: no joint pain, no weakness, no back pain, no joint swelling - Integumentary Integumentary: no erythema, no rash - Neurological Neurological: no dizziness, no headache(s), no lack of coordination, no numbness , no paresthesias, no syncope, no weakness - Endocrine Endocrine: no cold intolerance, no fatigue, no flushing - Hematologic/Lymphatic Hematologic/Lymphatic: no easy bleeding, no easy bruising - Allergic/Immunologic Allergic/Immunologic: no tongue swelling, no throat swelling, no uticaria, no wheezing Physical Examination Vital Signs: Vital Signs, Last 4 Hours Temp Pulse Resp BP Pulse Ox 02/22/18 10:49 97.8 F 70 18 163/93 96 02/22/18 07:23 18 98 02/22/18 07:14 98.7 F 62 18 1555/74 98 General appearance: no acute distress Eyes: nonicteric ENT: oropharynx moist Neck: supple, other (Tracheostomy tube is present looks clean cc no infection around the site no competition) Effort: normal Inspection: normal Auscultation: right: rales, bilateral: wheezes Cardiovascular: regular rate and rhythm Gastrointestinal: normoactive bowel sounds, non-distended Integumentary: normal Extremities: no cyanosis, no edema, no clubbing Musculoskeletal: no deformities, ROM normal normal mental status, non-focal exam, pupils equal and round, motor strength normal and symmetric Results - Laboratory Findings CBC and BMP: 02/22/18 03:25 02/22/18 03:25 PT/INR, D-dimer PT 10.8 Seconds (9.4-12.1) 02/21/18 12:09 Abnormal lab findings: Abnormal lab results RBC 2.64 M/mcL (4.19-5.50) L 02/22/18 03:25 Hgb 9.1 g/dL (12.9-16.9) L 02/22/18 03:25 Hct 26.6 % (37.5-50.1) L 02/22/18 03:25 MCV 100.8 fL (83.0-100.0) H 02/22/18 03:25 MCH 34.5 pg (28.0-33.3) H 02/22/18 03:25 RDW 15.2 % (11.5-14.5) H 02/22/18 03:25 Eosinophils # 1.0 K/mcL (0.0-0.6) H 02/22/18 03:25 Sodium 127 mEq/L (136-145) L 02/22/18 03:25 Chloride 94 mEq/L (98-107) L 02/22/18 03:25 BUN 69 mg/dL (6-20) H 02/22/18 03:25 Creatinine 3.69 mg/dL (0.70-1.30) H 02/22/18 03:25 Est GFR ( Amer) 21 (> 60) L 02/22/18 03:25 Est GFR (Non-Af Amer) 17 (> 60) L 02/22/18 03:25 Glucose 68 mg/dL (70-105) L 02/22/18 03:25 Calcium 7.9 mg/dL (8.6-10.3) L 02/22/18 03:25 Serum Total Protein 4.9 g/dL (6.4-8.9) L 02/22/18 03:25 Albumin 2.3 g/dL (3.5-5.7) L 02/22/18 03:25 Albumin/Globulin Ratio 0.9 (1.1-2.2) L 02/22/18 03:25 HDL Cholesterol 25 mg/dL (40-59) L 02/22/18 03:25 TSH 15.077 mcIU/mL (0.340-5.600) H 02/22/18 03:25 - Microbiology Findings Microbiology Findings: Microbiology, Last 48 Hours 02/21/18 18:00 Sputum Culture - Preliminary Sputum 02/21/18 18:50 Legionella Antigen - Final Urine,Clean Catch Streptococcus pneumoniae Antigen (M - Final - Diagnostic Findings Chest x-ray: report reviewed, image reviewed - Clinical Findings Intake & Output: Intake & Output 02/21/18 02/22/18 02/22/18 23:59 07:59 15:59 Intake Total 260 / 260 360 / 360 360 / 360 Balance 260 / 260 360 / 360 360 / 360 Weight 66.9 kg Consult Discharge Plan - Plan Referrals: Paco Sheikh MD [Primary Care Provider] - <Vicky Husain M - Last Filed: 02/22/18 16:13> Date of Encounter: 02/22/18 All Systems: The remainder of the systems were reviewed and are negative Physical Examination Vital Signs: Vital Signs, Last 4 Hours Temp Pulse Resp BP Pulse Ox 02/22/18 15:26 97.9 F 77 16 146/74 97 Results - Laboratory Findings CBC and BMP: 02/22/18 03:25 02/22/18 03:25 PT/INR, D-dimer PT 10.8 Seconds (9.4-12.1) 02/21/18 12:09 Abnormal lab findings: Abnormal lab results RBC 2.64 M/mcL (4.19-5.50) L 02/22/18 03:25 Hgb 9.1 g/dL (12.9-16.9) L 02/22/18 03:25 Hct 26.6 % (37.5-50.1) L 02/22/18 03:25 MCV 100.8 fL (83.0-100.0) H 02/22/18 03:25 MCH 34.5 pg (28.0-33.3) H 02/22/18 03:25 RDW 15.2 % (11.5-14.5) H 02/22/18 03:25 Eosinophils # 1.0 K/mcL (0.0-0.6) H 02/22/18 03:25 Sodium 127 mEq/L (136-145) L 02/22/18 03:25 Chloride 94 mEq/L (98-107) L 02/22/18 03:25 BUN 69 mg/dL (6-20) H 02/22/18 03:25 Creatinine 3.69 mg/dL (0.70-1.30) H 02/22/18 03:25 Est GFR ( Amer) 21 (> 60) L 02/22/18 03:25 Est GFR (Non-Af Amer) 17 (> 60) L 02/22/18 03:25 Glucose 68 mg/dL (70-105) L 02/22/18 03:25 POC Glucose 119 mg/dL (70-99) H 02/22/18 10:56 Calcium 7.9 mg/dL (8.6-10.3) L 02/22/18 03:25 Serum Total Protein 4.9 g/dL (6.4-8.9) L 02/22/18 03:25 Albumin 2.3 g/dL (3.5-5.7) L 02/22/18 03:25 Albumin/Globulin Ratio 0.9 (1.1-2.2) L 02/22/18 03:25 HDL Cholesterol 25 mg/dL (40-59) L 02/22/18 03:25 TSH 15.077 mcIU/mL (0.340-5.600) H 02/22/18 03:25 - Microbiology Findings Microbiology Findings: Microbiology, Last 48 Hours 02/22/18 11:45 Sputum Culture - Preliminary Sputum 02/21/18 18:00 Sputum Culture - Preliminary Sputum 02/21/18 18:50 Legionella Antigen - Final Urine,Clean Catch Streptococcus pneumoniae Antigen (M - Final - Clinical Findings Intake & Output: Intake & Output 02/22/18 02/22/18 02/22/18 07:59 15:59 23:59 Intake Total 360 / 360 1600 / 1600 Balance 360 / 360 1600 / 1600 Weight 66.9 kg - Attending Attestation I examined this patient and my medical decision-making was reviewed with the Resident Physician. I agree with the documented findings, disposition and treatment plan as described except to the extent set forth below. Patient seen and examined. Labs, radiology, chart personally reviewed. Agree with resident's history and physical, assessment, plan with following comments: COUNTY TREASURER: Patient follows commands, Pulmonary: Acceptable oxygenation and ventilation and patient has a tracheostomy. Review chest x-ray and evidence of large pleural effusion which was drained and clinically patient has improved. They suspect this is transudate if in nature and checking with lab to see if they have the fluid for analysis. Patient with underlying renal and cardiac disease and this is expected to reaccumulate and they have explained to him syndrome Pleurx pleural catheter for management in the future since symptomatically he has improved with thoracentesis and he will think about it. An alternative would be repeated thoracentesis in the future. Thank you for the consultation and please call for any questions.
[2018-02-22] MEDS: cloNIDine HCl 0.1 MG TABLET GTUBE SCH ×2 (11:22→21:35)
--- NOTE | 2018-02-22 12:24 | Nephrology Consult Note ---
Date of Encounter: 02/22/18 Time of Encounter: 12:22 Assessment and Plan (1) End stage renal disease Current Visit: Yes Status: Chronic Patient will undergo dialysis today using his tunneled dialysis catheter. Be placed on Aranesp for maintenance of his anemia. (2) Anemia in CKD (chronic kidney disease) Current Visit: Yes Status: Acute Qualifiers: Chronic kidney disease stage: on chronic dialysis Qualified Code(s): N18.6 - End stage renal disease; D63.1 - Anemia in chronic kidney disease; Z99.2 - Dependence on renal dialysis (3) Pleural effusion Current Visit: Yes Status: Acute History of Present Illness - History of Present Illness This is a 57-year-old male with end-stage renal disease. He receives dialysis and [place] every Tuesday. Patient was admitted with worsening shortness of breath. Chest x-ray showed complete opacification of the left chest. He underwent a thoracentesis in the emergency room with improvement in his symptoms. He is scheduled for his usual dialysis today. Patient has chronic respiratory failure and has a trach collar in place. He says he feels better but continues to experience some shortness of breath. He denies any fevers chills or chest pain. He has a right tunnel dialysis catheter in place to the left arm AV fistula which is not quite mature. Past Med Surg Social Fam HX - Past Medical History Medical history: cardiomyopathy, CVA (2012 x1, 2016 x2), diabetes, dialysis, GERD, hyperlipidemia, hypertension, liver disease, renal disease, thyroid disease, other Psychiatric history: anxiety - Past Surgical History Surgical History: tracheostomy, other - Social History Smoking Status: Former smoker Packs per day: 1 PPD - Reports quitting in 2012 Alcohol use: none Drug use: none - Family History Mother History Unknown: Yes Race: Family Member Ethnicity: Non- Living Status: Age at : 83 Cause of : Heart valve failure Hx Family Cardiac Disorders: Yes (CAD) Father Race: Family Member Ethnicity: Non- Living Status: Age at : 80 Hx Family Cardiac Disorders: Yes (HD) Brother Race: Family Member Ethnicity: Non- Living Status: Age at : 33 Cause of : AIDS Hx Family Autoimmune Disorders: Yes (AIDS) Medications and Allergies Amlodipine Besylate 10 mg GTUBE DAILY 11/25/17 [History] Atorvastatin Calcium [Lipitor] 40 mg GTUBE DAILY 11/25/17 [History] Cyanocobalamin (B-12) [Vitamin B12] 1,000 mcg GTUBE DAILY 11/25/17 [History] Docusate [Colace] 50 mg GTUBE DAILY 11/25/17 [History] Folic Acid 1 mg GTUBE DAILY 11/25/17 [History] Folic Acid/Vit Bcomp,C [Renal Vitamin Tablet] 1 tab GTUBE DAILY 11/25/17 [ History] Insulin Regular Human [HumuLIN R] 0 unit SQ QID PRN 11/25/17 [History] LORazepam [Ativan] 0.5 mg GTUBE Q6H 11/25/17 [History] Levothyroxine Sodium [Synthroid] 300 mcg GTUBE DAILY 11/25/17 [History] Oxycodone HCl [Oxaydo] 5 mg GTUBE Q6H PRN 11/25/17 [History] Pantoprazole Sodium [Protonix] 40 mg GTUBE DAILY 11/25/17 [History] Sennosides/Docusate Sodium [Senna-S Tablet] 1 each GTUBE BID 11/25/17 [History] cloNIDine HCl [CloNIDine HCl] 0.1 mg GTUBE BID 11/25/17 [History] hydrOXYzine HCl [Hydroxyzine HCl] 25 mg GTUBE Q6H PRN 11/25/17 [History] Acetaminophen [Non-Aspirin] 650 mg PO Q4H PRN 02/21/18 [History] Aspirin [Lo-Dose Aspirin EC] 81 mg GTUBE DAILY 02/21/18 [History] Calcitriol 0.5 mcg GTUBE MOWEFR 02/21/18 [History] Carvedilol [Coreg] 25 mg GTUBE BID 02/21/18 [History] Dextrose [Glucose Gel] 15 gm PO AD PRN 02/21/18 [History] Diphenhydramine HCl/Zinc Acet [Itch Relief Cream] 1 appl TP TID PRN 02/21/18 [ History] Insulin Glargine,Hum.rec.anlog [Basaglar Kwikpen U-100] 5 unit SQ HS 02/21/18 [ History] LORazepam [Ativan] 0.5 mg GTUBE Q6H PRN 02/21/18 [History] Renal Vitamin [Renal Caps Softgel] 1 mg GTUBE DAILY 02/21/18 [History] Ticagrelor [Brilinta] 90 mg GTUBE BID 02/21/18 [History] hydrALAZINE [HydrALAZINE] 25 mg PO Q6HR 02/21/18 [History] 3 Allergy/AdvReac Type Severity Reaction Status Date / Time No Known Allergies Allergy Verified 11/25/17 20:12 Review of Systems Constitutional: as per HPI, weakness Eyes: bilateral: blurred vision (patient denies), diplopia (patient denies) Nose, mouth and throat: no dizziness, no headache(s) Cardiovascular: as per HPI, dyspnea, dyspnea on exertion Respiratory: cough, dyspnea, dyspnea on exertion Gastrointestinal: no abdominal pain, no change in bowel habits Musculoskeletal: no muscle weakness, no numbness Integumentary: no hirsutism, no striae Neurological: as per HPI Psychiatric: no depression, no difficulty concentrating Endocrine: as per HPI Hematologic/Lymphatic: no easy bruising, no lymphadenopathy Allergic/Immunologic: as per HPI Exam - Vital Signs Vital signs: Initial Vital Signs Temp Pulse Resp BP Pulse Ox 99.0 F 70 18 148/53 98 02/21/18 11:56 02/21/18 11:56 02/21/18 11:56 02/21/18 11:56 02/21/18 11:56 Vital Signs - Last 8 Hours Temp Pulse Resp BP Pulse Ox 02/22/18 11:27 18 97 02/22/18 10:49 97.8 F 70 18 163/93 96 02/22/18 07:23 18 98 02/22/18 07:14 98.7 F 62 18 1555/74 98 Intake and Output 02/21/18 02/22/18 02/22/18 23:59 07:59 15:59 Intake Total 260 / 260 360 / 360 360 / 360 Balance 260 / 260 360 / 360 360 / 360 Intake: Oral 260 / 260 360 / 360 360 / 360 Other: Meal MEATLOAF AND MASHED POTATOES sneha grah[employer] Breakfast Percent of Meal Consumed 80% 100% 100% # Urine Diapers 1 Weight 66.9 kg Blood Glucose* 307 84 119 Patient Weight 02/22/18 23:59 Weight 66.9 kg - General Appearance Exam: Patient is alert and oriented. He is in no acute distress. He is able to talk. Trach collar is in place. Blood pressures 163/93. Temperature 97.8. Lungs mage breath sounds bilaterally. Heart regular rate and rhythm with a 2/6 EJECTION murmur. Abdomen is benign. There is no lower extremity swelling. As a tunnel dialysis catheter in the right chest and an immature AV fistula in the left upper extremity. Results - Lab Results 02/22/18 03:25 02/22/18 03:25 Most recent lab results Calcium 7.9 mg/dL (8.6-10.3) L 02/22/18 03:25 Phosphorus 4.0 mg/dL (2.7-4.5) 02/21/18 12:09 Magnesium 2.0 mg/dL (1.6-2.6) 02/22/18 03:25 Consult Discharge Plan - Plan Referrals: Paco Sheikh MD [Primary Care Provider] -
[2018-02-22] MEDS ORDERED: *HR* Heparin 10,000 UNIT/10 ML VIAL IV PRN (12:28)
[2018-02-22] MEDS ORDERED: 0.9 % Sodium Chloride 250 ML IVC PRN ×2 (12:28)
[2018-02-22] MEDS ORDERED: 0.9 % Sodium Chloride 1,000 ML PRIME SCH (12:30)
[2018-02-22] MEDS: 0.9 % Sodium Chloride 1,000 ML IVC SCH (12:49)
[2018-02-22] MEDS ORDERED: Darbepoetin 100 MCG/0.5 ML SYRINGE SQ SCH (15:00)
[2018-02-22] MEDS: *HR* Heparin 5,000 UNIT/ML VIAL SQ SCH (17:10)
--- NOTE | 2018-02-22 19:45 | Internal Med Progress Note ---
Date of Encounter: 02/23/18 Time of Encounter: 11:00 - Assessment and plan (1) HCAP (healthcare-associated pneumonia) Current Visit: Yes Status: Acute Assessment and plan: Patient with leukocytosis with concerns for infiltrate on imaging Continue coverage for HCAP now (2) Pleural effusion Current Visit: Yes Status: Acute Assessment and plan: Status post thoracentesis, chest x-ray showed marked interval improvement in left pleural effusion with possible trace persisting effusion. Pulmonology consulted with recommendations for Pleurx catheter as an outpatient (3) Hyperkalemia Current Visit: Yes Status: Acute Assessment and plan: Acute hyperkalemia w/potassium of 6.0 on admission. Pt. received calcium gluconate in the ED. Continue to monitor (4) Diabetes Current Visit: Yes Status: Chronic Assessment and plan: Continue home medications Qualifiers: Diabetes mellitus type: type 2 Diabetes mellitus termite treater insulin use: unspecified termite treater insulin use status Diabetes mellitus complication status : with unspecified complications Qualified Code(s): E11.8 - Type 2 diabetes mellitus with unspecified complications (5) ESRD on dialysis Current Visit: Yes Status: Chronic Assessment and plan: Hx of ESRD on dialysis. Renal diet. Nephrology following (6) GERD (gastroesophageal reflux disease) Current Visit: Yes Status: Chronic Assessment and plan: Continue home medications Qualifiers: Esophagitis presence: esophagitis presence not specified Qualified Code(s) : K21.9 - Gastro-esophageal reflux disease without esophagitis (7) HLD (hyperlipidemia) Current Visit: Yes Status: Chronic Assessment and plan: Continue Statin Qualifiers: Hyperlipidemia type: pure hypercholesterolemia Qualified Code(s): E78.00 - Pure hypercholesterolemia, unspecified; E78.0 - Pure hypercholesterolemia (8) HTN (hypertension) Current Visit: Yes Status: Chronic Qualifiers: Hypertension type: essential hypertension Qualified Code(s): I10 - Essential (primary) hypertension - Time Spent With Patient Total time spent is greater than 50% in coordination of care (as documented) at patient's floor/unit and/or counseling patient: - Subjective Interval history: Patient reported that shortness of breath has improved this morning - Constitutional Vitals: Temp Pulse Resp BP Pulse Ox 97.9 F 77 18 146/74 98 02/22/18 15:26 02/22/18 15:26 02/22/18 16:25 02/22/18 17:09 02/22/18 16:25 General appearance: Present: cooperative, mild distress (Respiratory w/coughing) , A&O X 3, pleasant, answers questions appropriately - Respiratory Respiratory exam: Present: CTAB. Absent: accessory muscle use (Decreased breath sounds all left side), rales, rhonchi, wheezes - Cardiovascular Cardiovascular exam: Present: RRR, +S1, +S2. Absent: diastolic murmur, gallop, rubs, systolic murmur Internal Medicine: Result - Labs CBC & Chem 7: 02/23/18 04:00 02/23/18 04:00 Labs: Short CBC 02/22/18 Range/Units 03:25 WBC 10.0 (4.3-11.1) K/mcL Hgb 9.1 L (12.9-16.9) g/dL Hct 26.6 L (37.5-50.1) % Plt Count 175 (140-400) K/mcL Neutrophils # 6.5 (1.6-8.9) K/mcL BMP 02/22/18 03:25 Sodium 127 L Potassium 5.1 Chloride 94 L Carbon Dioxide 26 BUN 69 H Creatinine 3.69 H Glucose 68 L Calcium 7.9 L Liver Function 02/22/18 Range/Units 03:25 Total Bilirubin 0.3 (0.3-1.0) mg/dL AST 17 (13-39) Units/L ALT 18 (7-52) Units/L Alkaline Phosphatase 60 (34-104) Units/L Albumin 2.3 L (3.5-5.7) g/dL - ABG Interpretation ABG results: PT/INR, D-dimer PT 10.8 Seconds (9.4-12.1) 02/21/18 12:09 Consult Discharge Plan - Plan Referrals: Paco Sheikh MD [Primary Care Provider] -
[2018-02-22] MEDS: Insulin DETEMIR 100 UNIT/ML X5UNITS SQ SCH (21:35)
[2018-02-22] MEDS: amLODIPine 5 MG TABLET GTUBE SCH (21:35)
[2018-02-22] MEDS: Nystatin POWDER 30 GM BOTTLE TP SCH ×2 (21:49→23:47)
[2018-02-22] MEDS: Piperacillin/Tazobactam 3.375 GM in 0.9 % Sodium Chloride Mini Bag 100 ML IVPB SCH (22:48)
[2018-02-23] MEDS: *HR* OxyCODONE Immed Rel 5 MG TABLET GTUBE PRN (01:05)
[2018-02-23 02:39] LABS: blaKPC Carbapenem-Resist Gene Not Detected (Not Detect)
[2018-02-23] MEDS: *HR* Dextrose 50 % in Water (Syg) 50 ML SYRINGE IVP PRN ×3 (02:39→08:14)
[2018-02-23 02:40] LABS: Acinetobacter baumannii by PCR Not Detected (Not Detect); Candida albicans by PCR Not Detected (Not Detect); Candida glabrata by PCR Not Detected (Not Detect); Candida krusei by PCR Not Detected (Not Detect); Candida parapsilosis by PCR Not Detected (Not Detect); Candida tropicalis by PCR Not Detected (Not Detect); Enterococcus by PCR Not Detected (Not Detect); Escherichia coli by PCR Not Detected (Not Detect); Klebsiella oxytoca by PCR Not Detected (Not Detect); Klebsiella pneumoniae by PCR Not Detected (Not Detect); Pseudomonas aeruginosa by PCR Not Detected (Not Detect); Serratia marcescens by PCR Not Detected (Not Detect); Staphylococcus aureus by PCR Not Detected (Not Detect); Streptococcus agalactiae(B)PCR Not Detected (Not Detect); Streptococcus by PCR Not Detected (Not Detect); Streptococcus pneumoniae PCR Not Detected (Not Detect); Streptococcus pyogenes (A) PCR Not Detected (Not Detect); mecA Methicillin-Resist Gene ***DETECTED*** (Not Detect); vanA/B Vancomycin-Resist Genes Not Detected (Not Detect)
[2018-02-23] MEDS: Ipratropium/Albuterol Neb 3 ML IH SCH ×6 (03:16→23:29)
[2018-02-23 04:44] LABS: Basophils # 0.1 K/mcL (0.0-0.2); Basophils % 0.6 %; Eosinophils # 0.7 K/mcL (0.0-0.6); Eosinophils % 7.2 %; Hemoglobin 9.5 g/dL (12.9-16.9); Immature Granulocytes % 0.3 % (0-4); Lymphocytes # 0.6 K/mcL (0.6-4.6); Lymphocytes % 6.1 %; Mean Corpuscular HGB Conc 32.8 g/dL (31.6-35.5); Mean Corpuscular Hemoglobin 32.5 pg (28.0-33.3); Mean Corpuscular Volume 99.3 fL (83.0-100.0); Mean Platelet Volume 10.2 fL (9.4-12.4); Monocytes # 0.9 K/mcL (0.0-1.3); Monocytes % 9.6 %; Neutrophils # 7.4 K/mcL (1.6-8.9); Platelet Count 190 K/mcL (140-400); Red Blood Count 2.92 M/mcL (4.19-5.50); Red Cell Distribution Width 15.2 % (11.5-14.5); Segmented Neutrophils % 76.2 %
[2018-02-23 04:53] LABS: Albumin 2.4 g/dL (3.5-5.7); Albumin/Globulin Ratio 0.9 (1.1-2.2); Bilirubin,Total 0.4 mg/dL (0.3-1.0); Calcium 7.7 mg/dL (8.6-10.3); Globulin 2.8 g/dL (2.4-3.5); Potassium 4.2 mEq/L (3.5-5.1); Total Protein 5.2 g/dL (6.4-8.9)
[2018-02-23] MEDS: Piperacillin/Tazobactam 3.375 GM in 0.9 % Sodium Chloride Mini Bag 100 ML IVPB SCH ×2 (06:05→18:22)
[2018-02-23] MEDS: hydrALAZINE 25 MG TABLET PO SCH ×4 (06:06→17:08)
[2018-02-23] MEDS: *HR* LORazepam 0.5 MG TABLET GTUBE SCH ×3 (06:06→17:08)
[2018-02-23] MEDS: Renal Vitamin 1 MG CAPSULE PO SCH (08:15)
[2018-02-23] MEDS: *HR* Ticagrelor 90 MG TABLET GTUBE SCH (08:15)
[2018-02-23] MEDS: Docusate Oral Soln 100 MG/10 ML UDC PO SCH (08:15)
[2018-02-23] MEDS: Cyanocobalamin (B-12) 1,000 MCG TABLET GTUBE SCH (08:15)
[2018-02-23] MEDS: amLODIPine 5 MG TABLET GTUBE SCH (08:15)
[2018-02-23] MEDS: Sennosides/Docusate Sodium TABLET GTUBE SCH ×2 (08:15→21:43)
[2018-02-23] MEDS: cloNIDine HCl 0.1 MG TABLET GTUBE SCH (08:15)
[2018-02-23] MEDS: Aspirin Enteric Coated 81 MG Tablet PO SCH (08:15)
[2018-02-23] MEDS: Folic Acid 1 MG TABLET GTUBE SCH (08:15)
[2018-02-23] MEDS: Insulin LISPRO 300 UNITS/3 ML VIAL SQ SCH ×4 (08:16→21:45)
[2018-02-23] MEDS: *HR* Heparin 5,000 UNIT/ML VIAL SQ SCH ×2 (08:16→18:21)
[2018-02-23] MEDS: Nystatin POWDER 30 GM BOTTLE TP SCH ×2 (08:26→21:49)
[2018-02-23] MEDS ORDERED: Aminoglycoside Consult 1 EACH MC ONE (09:15)
--- NOTE | 2018-02-23 09:50 | Nephrology Progress Note ---
Date of Encounter: 02/23/18 Time of Encounter: 08:50 - Assessment and Plan (1) ESRD on dialysis Current Visit: Yes Status: Chronic No HD today, keeping MWF schedule. (2) Pleural effusion Current Visit: Yes Status: Acute Subjective Interval history: Sitting up in bed, watching tv. States breathing easier. No new complaints. Objective - Vital Signs Vital signs: Vital Signs Temp Pulse Resp BP Pulse Ox 02/23/18 07:33 18 97 02/23/18 06:47 96.8 F L 67 16 129/68 97 02/23/18 04:38 97.4 F L 61 18 130/70 96 02/23/18 03:16 18 96 02/23/18 01:30 82 143/74 02/23/18 01:06 83 155/77 02/23/18 00:35 81 159/79 02/23/18 00:00 85 188/98 02/22/18 23:28 18 96 02/22/18 23:20 99.2 F 82 18 207/80 96 02/22/18 22:30 97.3 F L 20 179/73 02/22/18 22:15 171/68 02/22/18 22:00 176/78 02/22/18 21:52 98 02/22/18 21:45 184/71 02/22/18 21:30 176/67 02/22/18 21:15 163/63 02/22/18 21:00 153/62 02/22/18 20:45 146/56 02/22/18 20:30 150/59 02/22/18 20:15 150/59 02/22/18 20:00 161/66 02/22/18 19:45 169/69 02/22/18 19:30 168/68 02/22/18 19:15 97.2 F L 18 164/69 02/22/18 17:09 146/74 02/22/18 16:25 18 98 02/22/18 15:26 97.9 F 77 16 146/74 97 02/22/18 11:27 18 97 02/22/18 10:49 97.8 F 70 18 163/93 96 Intake and Output 02/22/18 02/23/18 02/23/18 23:59 07:59 15:59 Intake Total 600 / 600 1000 / 1000 Output Total 3600 / 3600 Balance -3000 / -3000 1000 / 1000 Intake: IV Fluids 1000 / 1000 0.9 % Sodium Chloride 1,000 ML 900 / 900 @ 75 mls/hr IVC .[id number] [facility] Rx #:[id number] Zosyn 3.375 GM In 0.9 % Sodium 100 / 100 Chloride (Mini-Bag +) 100 ML @ 25 mls/hr IVPB Q12HR [facility] Rx#: [id number] Oral 0 / 0 Intake, Rinseback and Flushes 600 / 600 Output: Urine 0 / 0 Total Dialysis (HD) Output 3600 / 3600 Other: Blood Glucose* 298 41 130 Hemodialysis Net Fluid Removed 3000 (mL) - General Appearance General appearance: Present: well-developed, well-nourished, appears started age EENT: Present: mucous membranes moist Neck: Present: no JVD Respiratory: Present: clear Cardiology: Present: no edema Dialysis Vascular Access: Venous Catheter Gastrointestinal: Present: normoactive bowel sounds, no tenderness Integumentary: Present: warm and dry Neurologic: Present: alert and oriented x3 - Lab 02/23/18 04:00 02/23/18 04:00 Most recent lab results Calcium 7.7 mg/dL (8.6-10.3) L 02/23/18 04:00 Phosphorus 4.0 mg/dL (2.7-4.5) 02/21/18 12:09 Magnesium 2.0 mg/dL (1.6-2.6) 02/22/18 03:25 Consult Discharge Plan - Plan Referrals: Paco Sheikh MD [Primary Care Provider] -
[2018-02-23 12:42] LABS: Triiodothyronine (T3) Free 1.4 pg/mL (2.50-3.90)
[2018-02-23] MEDS: Acetaminophen 325 MG TABLET PO PRN (17:08)
[2018-02-23] MEDS ORDERED: Levofloxacin 500 MG/100 ML 500 MG/100 ML BAG IVPB SCH (18:00)
--- NOTE | 2018-02-23 19:14 | Internal Med Progress Note ---
Date of Encounter: 02/23/18 Time of Encounter: 11:00 - Assessment and plan (1) HCAP (healthcare-associated pneumonia) Current Visit: Yes Status: Acute Assessment and plan: Patient with leukocytosis with concerns for infiltrate on imaging Patient growing gram-negative rods and sputum culture; sensitivities pending Continue coverage for HCAP with IV Levaquin, IV Zosyn and IV vancomycin (2) Pleural effusion Current Visit: Yes Status: Acute Assessment and plan: Status post thoracentesis, chest x-ray showed marked interval improvement in left pleural effusion with possible trace persisting effusion. Pulmonology consulted with recommendations for Pleurx catheter as an outpatient (3) Hyperkalemia Current Visit: Yes Status: Resolved Assessment and plan: Resolved; continue to monitor (4) Diabetes Current Visit: Yes Status: Chronic Assessment and plan: Continue home medications Qualifiers: Diabetes mellitus type: type 2 Diabetes mellitus terminal make up operator insulin use: unspecified terminal make up operator insulin use status Diabetes mellitus complication status : with unspecified complications Qualified Code(s): E11.8 - Type 2 diabetes mellitus with unspecified complications (5) ESRD on dialysis Current Visit: Yes Status: Chronic Assessment and plan: Hx of ESRD on dialysis. Renal diet. Nephrology following (6) GERD (gastroesophageal reflux disease) Current Visit: Yes Status: Chronic Assessment and plan: Continue home medications Qualifiers: Esophagitis presence: esophagitis presence not specified Qualified Code(s) : K21.9 - Gastro-esophageal reflux disease without esophagitis (7) HLD (hyperlipidemia) Current Visit: Yes Status: Chronic Assessment and plan: Continue Statin Qualifiers: Hyperlipidemia type: pure hypercholesterolemia Qualified Code(s): E78.00 - Pure hypercholesterolemia, unspecified; E78.0 - Pure hypercholesterolemia (8) HTN (hypertension) Current Visit: Yes Status: Chronic Assessment and plan: Hx of chronic HTN. Monitor pt. and VS. Continue pts. Amlodipine and hydralazine. Qualifiers: Hypertension type: essential hypertension Qualified Code(s): I10 - Essential (primary) hypertension (9) DVT prophylaxis Current Visit: Yes Status: Acute Assessment and plan: Subcutaneous heparin - Time Spent With Patient Total time spent is greater than 50% in coordination of care (as documented) at patient's floor/unit and/or counseling patient: - Subjective Interval history: Patient reported that shortness of breath has improved this morning Patient was found to have gram-negative rods in sputum culture in addition to Gram-positive cocci and blood cultures - Constitutional Vitals: Temp Pulse Resp BP Pulse Ox 97.3 F L 70 16 129/51 95 02/23/18 16:10 02/23/18 16:10 02/23/18 16:10 02/23/18 16:10 02/23/18 16:10 General appearance: Present: cooperative, mild distress (Respiratory w/coughing) , A&O X 3, pleasant, no acute distress, answers questions appropriately - Respiratory Respiratory exam: Present: CTAB. Absent: accessory muscle use, rales, rhonchi, wheezes - Cardiovascular Cardiovascular exam: Present: RRR, +S1, +S2. Absent: diastolic murmur, gallop, rubs, systolic murmur Internal Medicine: Result - Labs CBC & Chem 7: 02/23/18 04:00 02/23/18 04:00 Labs: Short CBC 02/23/18 Range/Units 04:00 WBC 9.7 (4.3-11.1) K/mcL Hgb 9.5 L (12.9-16.9) g/dL Hct 29.0 L (37.5-50.1) % Plt Count 190 (140-400) K/mcL Neutrophils # 7.4 (1.6-8.9) K/mcL BMP 02/23/18 04:00 Sodium 133 L Potassium 4.2 Chloride 98 Carbon Dioxide 28 BUN 39 H Creatinine 2.75 H Glucose 98 Calcium 7.7 L Liver Function 02/23/18 Range/Units 04:00 Total Bilirubin 0.4 (0.3-1.0) mg/dL AST 22 (13-39) Units/L ALT 19 (7-52) Units/L Alkaline Phosphatase 64 (34-104) Units/L Albumin 2.4 L (3.5-5.7) g/dL - ABG Interpretation ABG results: PT/INR, D-dimer PT 10.8 Seconds (9.4-12.1) 02/21/18 12:09 Consult Discharge Plan - Plan Referrals: Paco Sheikh MD [Primary Care Provider] -
[2018-02-23] MEDS: cloNIDine HCl 0.1 MG TABLET PO SCH (21:43)
[2018-02-23] MEDS: *HR* Ticagrelor 90 MG TABLET PO SCH (21:44)
[2018-02-24] MEDS: hydrALAZINE 25 MG TABLET PO SCH ×5 (00:20→23:02)
[2018-02-24] MEDS: *HR* LORazepam 0.5 MG TABLET GTUBE SCH ×5 (00:20→22:11)
[2018-02-24] MEDS: *HR* OxyCODONE Immed Rel 5 MG TABLET GTUBE PRN (00:21)
[2018-02-24] MEDS: Ipratropium/Albuterol Neb 3 ML IH SCH ×5 (03:50→19:35)
[2018-02-24 05:03] LABS: Basophils # 0.1 K/mcL (0.0-0.2); Basophils % 1.4 %; Eosinophils % 15.6 %; Hematocrit 26.5 % (37.5-50.1); Immature Granulocytes % 0.5 % (0-4); Lymphocytes # 1.2 K/mcL (0.6-4.6); Mean Corpuscular Hemoglobin 34.1 pg (28.0-33.3); Mean Corpuscular Volume 100.4 fL (83.0-100.0); Mean Platelet Volume 10.4 fL (9.4-12.4); Monocytes # 1.1 K/mcL (0.0-1.3); Platelet Count 188 K/mcL (140-400); Red Blood Count 2.64 M/mcL (4.19-5.50); Red Cell Distribution Width 15.3 % (11.5-14.5); Segmented Neutrophils % 46.5 %
[2018-02-24 05:26] LABS: Albumin 2.3 g/dL (3.5-5.7); Albumin/Globulin Ratio 0.9 (1.1-2.2); Bilirubin,Total 0.4 mg/dL (0.3-1.0); Calcium 7.8 mg/dL (8.6-10.3); Globulin 2.6 g/dL (2.4-3.5); Potassium 5.9 mEq/L (3.5-5.1); Total Protein 4.9 g/dL (6.4-8.9)
[2018-02-24] MEDS: Piperacillin/Tazobactam 3.375 GM in 0.9 % Sodium Chloride Mini Bag 100 ML IVPB SCH (05:35)
[2018-02-24] MEDS: *HR* Heparin 5,000 UNIT/ML VIAL SQ SCH ×2 (05:35→17:12)
[2018-02-24] MEDS: Docusate Oral Soln 100 MG/10 ML UDC PO SCH (07:58)
[2018-02-24] MEDS: amLODIPine 5 MG TABLET GTUBE SCH (07:58)
[2018-02-24] MEDS: cloNIDine HCl 0.1 MG TABLET PO SCH ×2 (07:58→21:19)
[2018-02-24] MEDS: *HR* Ticagrelor 90 MG TABLET PO SCH ×2 (08:25→21:19)
[2018-02-24] MEDS: Cyanocobalamin (B-12) 1,000 MCG TABLET GTUBE SCH (08:25)
[2018-02-24] MEDS: Renal Vitamin 1 MG CAPSULE PO SCH (08:26)
[2018-02-24] MEDS: Folic Acid 1 MG TABLET GTUBE SCH (08:26)
[2018-02-24] MEDS: Insulin LISPRO 300 UNITS/3 ML VIAL SQ SCH ×4 (08:26→20:58)
[2018-02-24] MEDS: Aspirin Enteric Coated 81 MG Tablet PO SCH (08:26)
[2018-02-24] MEDS: Nystatin POWDER 30 GM BOTTLE TP SCH ×2 (08:26→22:04)
[2018-02-24] MEDS: Sennosides/Docusate Sodium TABLET GTUBE SCH ×2 (08:27→21:19)
[2018-02-24] MEDS ORDERED: Insulin DETEMIR 100 UNIT/ML X5UNITS SQ SCH (11:45)
--- NOTE | 2018-02-24 13:52 | Nephrology Progress Note ---
Date of Encounter: 02/24/18 Time of Encounter: 13:10 - Assessment and Plan (1) ESRD on dialysis Current Visit: Yes Status: Chronic HD today, keeping MWF schedule. Orders given. (2) Pleural effusion Current Visit: Yes Status: Acute Subjective Interval history: Sitting up in bed, watching tv. States breathing easier. No new complaints. Trach>O2 Objective - Vital Signs Vital signs: Vital Signs Temp Pulse Resp BP Pulse Ox 02/24/18 11:30 18 97 02/24/18 11:05 97.8 F 68 17 185/82 97 02/24/18 08:37 97 02/24/18 07:00 98.9 F 74 18 130/70 97 02/24/18 05:20 98.2 F 66 18 122/70 99 02/24/18 03:51 14 97 02/23/18 23:29 16 97 02/23/18 22:51 97.6 F 67 16 131/56 99 02/23/18 20:14 97.8 F 71 18 114/68 95 02/23/18 19:55 16 98 02/23/18 16:10 97.3 F L 70 16 129/51 95 02/23/18 15:44 18 96 Intake and Output 02/23/18 02/24/18 02/24/18 23:59 07:59 15:59 Intake Total 800 / 800 240 / 240 Output Total 50 / 50 Balance 800 / 800 190 / 190 Intake: IV Fluids 800 / 800 Dextrose 5% 1,000 ML @ 100 mls/ 700 / 700 hr IVC .Q10H [facility] Rx#:[id number] Zosyn 3.375 GM In 0.9 % Sodium 100 / 100 Chloride (Mini-Bag +) 100 ML @ 25 mls/hr IVPB Q12HR [facility] Rx#: [id number] Oral 240 / 240 Output: Urine 50 / 50 Other: Meal Breakfast Percent of Meal Consumed 100% # Voids 1 Blood Glucose* 406 396 295 - General Appearance General appearance: Present: well-developed, well-nourished, appears started age EENT: Present: mucous membranes moist Neck: Present: no JVD Respiratory: Present: clear Cardiology: Present: no edema, regular rate, regular rhythm Gastrointestinal: Present: normoactive bowel sounds, no tenderness Integumentary: Present: warm and dry - Lab 02/24/18 04:00 05/25/18 04:54 Most recent lab results Calcium 7.8 mg/dL (8.6-10.3) L 02/24/18 04:54 Phosphorus 4.0 mg/dL (2.7-4.5) 02/21/18 12:09 Magnesium 2.0 mg/dL (1.6-2.6) 02/22/18 03:25 Consult Discharge Plan - Plan Referrals: Paco Sheikh MD [Primary Care Provider] - (patient is from [facility])
[2018-02-24] MEDS ORDERED: *HR* Heparin 10,000 UNIT/10 ML VIAL IV PRN (14:01)
[2018-02-24] MEDS ORDERED: 0.9 % Sodium Chloride 250 ML IVC PRN (14:01)
[2018-02-24] MEDS ORDERED: 0.9 % Sodium Chloride 1,000 ML PRIME SCH (14:15)
--- NOTE | 2018-02-24 19:25 | Internal Med Progress Note ---
Date of Encounter: 02/24/18 Time of Encounter: 11:00 - Assessment and plan (1) HCAP (healthcare-associated pneumonia) Current Visit: Yes Status: Acute Assessment and plan: Patient with leukocytosis with concerns for infiltrate on imaging Patient growing Klebsiella with ESBL; sensitivities pending Continue coverage for HCAP with IV Levaquin, IV Zosyn and IV vancomycin (2) Pleural effusion Current Visit: Yes Status: Acute Assessment and plan: Status post thoracentesis, chest x-ray showed marked interval improvement in left pleural effusion with possible trace persisting effusion. Pulmonology consulted with recommendations for Pleurx catheter as an outpatient (3) Hyperkalemia Current Visit: Yes Status: Resolved Assessment and plan: Resolved; continue to monitor (4) Diabetes Current Visit: Yes Status: Chronic Assessment and plan: Continue home medications Qualifiers: Diabetes mellitus type: type 2 Diabetes mellitus terminal block assembler insulin use: unspecified terminal block assembler insulin use status Diabetes mellitus complication status : with unspecified complications Qualified Code(s): E11.8 - Type 2 diabetes mellitus with unspecified complications (5) ESRD on dialysis Current Visit: Yes Status: Chronic Assessment and plan: Hx of ESRD on dialysis. Renal diet. Nephrology following (6) GERD (gastroesophageal reflux disease) Current Visit: Yes Status: Chronic Assessment and plan: Continue home medications Qualifiers: Esophagitis presence: esophagitis presence not specified Qualified Code(s) : K21.9 - Gastro-esophageal reflux disease without esophagitis (7) HLD (hyperlipidemia) Current Visit: Yes Status: Chronic Assessment and plan: Continue Statin Qualifiers: Hyperlipidemia type: pure hypercholesterolemia Qualified Code(s): E78.00 - Pure hypercholesterolemia, unspecified; E78.0 - Pure hypercholesterolemia (8) HTN (hypertension) Current Visit: Yes Status: Chronic Assessment and plan: Hx of chronic HTN. Monitor pt. and VS. Continue pts. Amlodipine and hydralazine. Qualifiers: Hypertension type: essential hypertension Qualified Code(s): I10 - Essential (primary) hypertension (9) DVT prophylaxis Current Visit: Yes Status: Acute Assessment and plan: Subcutaneous heparin - Time Spent With Patient Total time spent is greater than 50% in coordination of care (as documented) at patient's floor/unit and/or counseling patient: - Subjective Interval history: Patient reports improvement in shortness of breath since starting IV antibiotics. - Constitutional Vitals: Temp Pulse Resp BP Pulse Ox 98.1 F 70 22 137/56 100 02/24/18 19:01 02/24/18 16:57 02/24/18 19:01 02/24/18 19:01 02/24/18 16:57 General appearance: Present: cooperative, mild distress (Respiratory w/coughing) , A&O X 3, pleasant, no acute distress, answers questions appropriately - Respiratory Respiratory exam: Present: CTAB. Absent: accessory muscle use, rales, rhonchi, wheezes - Cardiovascular Cardiovascular exam: Present: RRR, +S1, +S2. Absent: diastolic murmur, gallop, rubs, systolic murmur - GI/Abdominal GI/Abdominal exam: Present: soft. Absent: distended Internal Medicine: Result - Labs CBC & Chem 7: 02/24/18 04:00 02/24/18 04:54 Labs: Short CBC 02/24/18 Range/Units 04:00 WBC 6.4 (4.3-11.1) K/mcL Hgb 9.0 L (12.9-16.9) g/dL Hct 26.5 L (37.5-50.1) % Plt Count 188 (140-400) K/mcL Neutrophils # 3.0 (1.6-8.9) K/mcL BMP 02/24/18 04:54 Sodium 125 L Potassium 5.9 H Chloride 92 L Carbon Dioxide 25 BUN 50 H Creatinine 3.46 H Glucose 380 H Calcium 7.8 L Liver Function 02/24/18 Range/Units 04:54 Total Bilirubin 0.4 (0.3-1.0) mg/dL AST 19 (13-39) Units/L ALT 17 (7-52) Units/L Alkaline Phosphatase 58 (34-104) Units/L Albumin 2.3 L (3.5-5.7) g/dL - ABG Interpretation ABG results: PT/INR, D-dimer PT 10.8 Seconds (9.4-12.1) 02/21/18 12:09 Consult Discharge Plan - Plan Referrals: Paco Sheikh MD [Primary Care Provider] - (patient is from [facility])
[2018-02-24] MEDS: *HR* Dextrose 50 % in Water (Syg) 50 ML SYRINGE IVP PRN (20:48)
[2018-02-25] MEDS: Ipratropium/Albuterol Neb 3 ML IH SCH ×7 (00:01→23:26)
[2018-02-25] MEDS: *HR* LORazepam 0.5 MG TABLET GTUBE SCH ×4 (04:19→22:49)
[2018-02-25 04:55] LABS: Basophils # 0.1 K/mcL (0.0-0.2); Eosinophils # 0.8 K/mcL (0.0-0.6); Eosinophils % 9.6 %; Hematocrit 28.1 % (37.5-50.1); Hemoglobin 9.2 g/dL (12.9-16.9); Immature Granulocytes % 0.6 % (0-4); Lymphocytes # 1.3 K/mcL (0.6-4.6); Mean Corpuscular HGB Conc 32.7 g/dL (31.6-35.5); Mean Corpuscular Hemoglobin 32.4 pg (28.0-33.3); Mean Corpuscular Volume 98.9 fL (83.0-100.0); Mean Platelet Volume 10.3 fL (9.4-12.4); Monocytes # 1.3 K/mcL (0.0-1.3); Monocytes % 15.7 %; Neutrophils # 4.6 K/mcL (1.6-8.9); Platelet Count 213 K/mcL (140-400); Red Blood Count 2.84 M/mcL (4.19-5.50); Red Cell Distribution Width 15.4 % (11.5-14.5); Segmented Neutrophils % 57.1 %
[2018-02-25] MEDS: hydrALAZINE 25 MG TABLET PO SCH ×4 (05:07→22:08)
[2018-02-25] MEDS: *HR* Heparin 5,000 UNIT/ML VIAL SQ SCH ×2 (05:07→18:10)
[2018-02-25] MEDS: *HR* OxyCODONE Immed Rel 5 MG TABLET GTUBE PRN ×2 (05:07→22:09)
[2018-02-25 05:09] LABS: Albumin 2.3 g/dL (3.5-5.7); Albumin/Globulin Ratio 0.8 (1.1-2.2); Bilirubin,Total 0.4 mg/dL (0.3-1.0); Calcium 7.8 mg/dL (8.6-10.3); Potassium 5.3 mEq/L (3.5-5.1); Total Protein 5.3 g/dL (6.4-8.9)
--- NOTE | 2018-02-25 08:30 | Nephrology Progress Note ---
Date of Encounter: 02/25/18 Time of Encounter: 08:10 - Assessment and Plan (1) ESRD on dialysis Current Visit: Yes Status: Chronic HD today, keeping MWF schedule. Orders given. (2) Pleural effusion Current Visit: Yes Status: Acute Subjective Interval history: Sitting up in bed, watching tv. States breathing easier. No new complaints. Feeding self breakfast. Trach>O2 Objective - Vital Signs Vital signs: Vital Signs Temp Pulse Resp BP Pulse Ox 02/25/18 07:25 16 95 02/25/18 07:20 98.3 F 82 18 159/70 95 02/25/18 06:07 97.6 F 71 16 142/70 93 02/25/18 03:37 15 97 02/25/18 01:30 98.2 F 82 15 159/83 97 02/25/18 00:03 15 95 02/24/18 20:00 97.8 F 91 15 129/78 95 02/24/18 19:38 18 95 02/24/18 19:01 98.1 F 22 137/56 02/24/18 18:15 131/42 02/24/18 18:00 129/44 02/24/18 17:45 128/44 02/24/18 17:30 123/42 02/24/18 17:15 133/47 02/24/18 17:00 121/41 02/24/18 16:57 97.4 F L 70 18 124/49 100 02/24/18 16:45 124/49 02/24/18 16:30 116/74 02/24/18 16:15 125/48 02/24/18 16:00 113/48 02/24/18 15:45 130/42 02/24/18 15:30 97.3 F L 18 131/48 02/24/18 11:30 18 97 02/24/18 11:05 97.8 F 68 17 185/82 97 02/24/18 08:37 97 Intake and Output 02/24/18 02/25/18 02/25/18 23:59 07:59 15:59 Intake Total 380 / 380 340 / 340 Output Total 2600 / 2600 40 / 40 Balance -2220 / -2220 300 / 300 Intake: Oral 360 / 360 340 / 340 Other 20 / 20 Output: Urine 0 / 0 40 / 40 Total Dialysis (HD) Output 2600 / 2600 Other: Blood Glucose* 90 274 Hemodialysis Net Fluid Removed 2000 (mL) - General Appearance General appearance: Present: well-developed, well-nourished, appears started age EENT: Present: mucous membranes moist Neck: Present: no JVD Respiratory: Present: clear Cardiology: Present: no edema, regular rate, regular rhythm Dialysis Vascular Access: Venous Catheter Gastrointestinal: Present: normoactive bowel sounds, no tenderness Integumentary: Present: warm and dry Psychiatric: Present: mood/affect appropriate, cooperative - Lab 02/25/18 04:00 02/25/18 04:00 Most recent lab results Calcium 7.8 mg/dL (8.6-10.3) L 02/25/18 04:00 Phosphorus 4.0 mg/dL (2.7-4.5) 02/21/18 12:09 Magnesium 2.0 mg/dL (1.6-2.6) 02/22/18 03:25 Consult Discharge Plan - Plan Referrals: Paco Sheikh MD [Primary Care Provider] - (patient is from [facility])
[2018-02-25] MEDS: Docusate Oral Soln 100 MG/10 ML UDC PO SCH (10:37)
[2018-02-25] MEDS: *HR* Ticagrelor 90 MG TABLET PO SCH ×2 (10:37→22:09)
[2018-02-25] MEDS: amLODIPine 5 MG TABLET GTUBE SCH (10:37)
[2018-02-25] MEDS: Renal Vitamin 1 MG CAPSULE PO SCH (10:37)
[2018-02-25] MEDS: Sennosides/Docusate Sodium TABLET GTUBE SCH ×2 (10:37→22:09)
[2018-02-25] MEDS: Aspirin Enteric Coated 81 MG Tablet PO SCH (10:37)
[2018-02-25] MEDS: Cyanocobalamin (B-12) 1,000 MCG TABLET GTUBE SCH (10:38)
[2018-02-25] MEDS: cloNIDine HCl 0.1 MG TABLET PO SCH ×2 (10:38→22:09)
[2018-02-25] MEDS: Folic Acid 1 MG TABLET GTUBE SCH (10:38)
[2018-02-25] MEDS: Insulin LISPRO 300 UNITS/3 ML VIAL SQ SCH ×4 (10:38→21:37)
[2018-02-25] MEDS ORDERED: Ipratropium/Albuterol Neb 3 ML IH PRN ×2 (10:50→13:49)
[2018-02-25] MEDS: Nystatin POWDER 30 GM BOTTLE TP SCH ×2 (11:50→22:28)
[2018-02-25] MEDS ORDERED: levoFLOXacin 500 MG TABLET PO SCH (18:00)
--- NOTE | 2018-02-25 18:46 | Internal Med Progress Note ---
Date of Encounter: 02/25/18 Time of Encounter: 11:00 - Assessment and plan (1) HCAP (healthcare-associated pneumonia) Current Visit: Yes Status: Acute Assessment and plan: Patient with leukocytosis with concerns for infiltrate on imaging Patient growing Klebsiella with ESBL in addition to Acinetobacter with multi- drug-resistant Continue coverage for HCAP with IV Levaquin, IV Zosyn and IV vancomycin Infectious disease consulted for recommendations (2) Pleural effusion Current Visit: Yes Status: Acute Assessment and plan: Status post thoracentesis, chest x-ray showed marked interval improvement in left pleural effusion with possible trace persisting effusion. Pulmonology consulted with recommendations for Pleurx catheter as an outpatient (3) Hyperkalemia Current Visit: Yes Status: Resolved Assessment and plan: Resolved; continue to monitor (4) Diabetes Current Visit: Yes Status: Chronic Assessment and plan: Continue home medications Qualifiers: Diabetes mellitus type: type 2 Diabetes mellitus shelter insulin use: unspecified shelter insulin use status Diabetes mellitus complication status : with unspecified complications Qualified Code(s): E11.8 - Type 2 diabetes mellitus with unspecified complications (5) ESRD on dialysis Current Visit: Yes Status: Chronic Assessment and plan: Hx of ESRD on dialysis. Renal diet. Nephrology following (6) GERD (gastroesophageal reflux disease) Current Visit: Yes Status: Chronic Assessment and plan: Continue home medications Qualifiers: Esophagitis presence: esophagitis presence not specified Qualified Code(s) : K21.9 - Gastro-esophageal reflux disease without esophagitis (7) HLD (hyperlipidemia) Current Visit: Yes Status: Chronic Assessment and plan: Continue Statin Qualifiers: Hyperlipidemia type: pure hypercholesterolemia Qualified Code(s): E78.00 - Pure hypercholesterolemia, unspecified; E78.0 - Pure hypercholesterolemia (8) HTN (hypertension) Current Visit: Yes Status: Chronic Assessment and plan: Hx of chronic HTN. Monitor pt. and VS. Continue pts. Amlodipine and hydralazine. Qualifiers: Hypertension type: essential hypertension Qualified Code(s): I10 - Essential (primary) hypertension (9) DVT prophylaxis Current Visit: Yes Status: Acute Assessment and plan: Subcutaneous heparin - Time Spent With Patient Total time spent is greater than 50% in coordination of care (as documented) at patient's floor/unit and/or counseling patient: - Subjective Interval history: Patient reports improvement in shortness of breath since starting IV antibiotics. Patient found to have Acinetobacter on cultures today - Constitutional Vitals: Temp Pulse Resp BP Pulse Ox 97.9 F 66 16 140/73 96 02/25/18 15:07 02/25/18 15:07 02/25/18 15:56 02/25/18 15:07 02/25/18 15:56 General appearance: Present: cooperative, mild distress (Respiratory w/coughing) , A&O X 3, pleasant, no acute distress, answers questions appropriately - Respiratory Respiratory exam: Present: CTAB. Absent: accessory muscle use, rales, rhonchi, wheezes - Cardiovascular Cardiovascular exam: Present: RRR, +S1, +S2. Absent: diastolic murmur, gallop, rubs, systolic murmur Internal Medicine: Result - Labs CBC & Chem 7: 02/25/18 04:00 02/25/18 04:00 Labs: Short CBC 02/25/18 Range/Units 04:00 WBC 8.0 (4.3-11.1) K/mcL Hgb 9.2 L (12.9-16.9) g/dL Hct 28.1 L (37.5-50.1) % Plt Count 213 (140-400) K/mcL Neutrophils # 4.6 (1.6-8.9) K/mcL BMP 02/25/18 04:00 Sodium 130 L Potassium 5.3 H Chloride 95 L Carbon Dioxide 27 BUN 31 H Creatinine 2.55 H Glucose 248 H Calcium 7.8 L Liver Function 02/25/18 Range/Units 04:00 Total Bilirubin 0.4 (0.3-1.0) mg/dL AST 22 (13-39) Units/L ALT 18 (7-52) Units/L Alkaline Phosphatase 61 (34-104) Units/L Albumin 2.3 L (3.5-5.7) g/dL - ABG Interpretation ABG results: PT/INR, D-dimer PT 10.8 Seconds (9.4-12.1) 02/21/18 12:09 Consult Discharge Plan - Plan Referrals: Paco Sheikh MD [Primary Care Provider] - (patient is from [facility])
[2018-02-26] MEDS: Ipratropium/Albuterol Neb 3 ML IH SCH ×6 (03:42→23:28)
[2018-02-26 04:52] LABS: Basophils # 0.1 K/mcL (0.0-0.2); Basophils % 1.2 %; Eosinophils # 1.3 K/mcL (0.0-0.6); Eosinophils % 17.2 %; Hematocrit 28.2 % (37.5-50.1); Hemoglobin 9.2 g/dL (12.9-16.9); Immature Granulocytes % 0.9 % (0-4); Lymphocytes # 1.9 K/mcL (0.6-4.6); Lymphocytes % 24.9 %; Mean Corpuscular HGB Conc 32.6 g/dL (31.6-35.5); Mean Corpuscular Hemoglobin 32.4 pg (28.0-33.3); Mean Corpuscular Volume 99.3 fL (83.0-100.0); Mean Platelet Volume 10.1 fL (9.4-12.4); Monocytes # 1.3 K/mcL (0.0-1.3); Monocytes % 16.7 %; Platelet Count 234 K/mcL (140-400); Red Blood Count 2.84 M/mcL (4.19-5.50); Red Cell Distribution Width 15.5 % (11.5-14.5); Segmented Neutrophils % 39.1 %
[2018-02-26 05:12] LABS: Albumin 2.3 g/dL (3.5-5.7); Albumin/Globulin Ratio 0.9 (1.1-2.2); Bilirubin,Total 0.3 mg/dL (0.3-1.0); Calcium 7.9 mg/dL (8.6-10.3); Globulin 2.7 g/dL (2.4-3.5); Potassium 5.9 mEq/L (3.5-5.1)
[2018-02-26] MEDS: *HR* Heparin 5,000 UNIT/ML VIAL SQ SCH ×2 (06:03→18:34)
[2018-02-26] MEDS: *HR* LORazepam 0.5 MG TABLET GTUBE SCH ×4 (06:06→23:04)
[2018-02-26] MEDS: hydrALAZINE 25 MG TABLET PO SCH ×4 (06:06→22:21)
--- NOTE | 2018-02-26 08:34 | Nephrology Progress Note ---
Date of Encounter: 02/26/18 Time of Encounter: 08:15 - Assessment and Plan (1) ESRD on dialysis Current Visit: Yes Status: Chronic No HD today, keeping MWF schedule. (2) Pleural effusion Current Visit: Yes Status: Acute Subjective Interval history: Sitting up in bed, watching tv. States breathing easier. No new complaints. Feeding self breakfast. Trach>O2 Objective - Vital Signs Vital signs: Vital Signs Temp Pulse Resp BP Pulse Ox 02/26/18 07:06 97.4 F L 73 16 143/77 93 02/26/18 04:35 97.6 F 71 18 143/80 96 02/26/18 03:43 17 98 02/25/18 23:26 18 97 02/25/18 23:21 97.6 F 73 18 119/65 98 02/25/18 20:24 18 93 02/25/18 20:19 97.6 F 78 18 136/77 93 02/25/18 15:56 16 96 02/25/18 15:07 97.9 F 66 16 140/73 95 02/25/18 11:32 98.5 F 79 21 160/81 94 02/25/18 11:19 16 95 02/25/18 11:02 92 Intake and Output 02/25/18 02/26/18 02/26/18 23:59 07:59 15:59 Intake Total 260 / 260 100 / 100 Output Total 100 / 100 0 / 0 Balance 160 / 160 100 / 100 Intake: IV Fluids 100 / 100 INVanz 500 MG In 0.9 % Sodium 100 / 100 Chloride 100 ML @ 100 mls/hr IVPB Q24H [facility] Rx#:[id number] Oral 240 / 240 0 / 0 Other 20 / 20 Output: Urine 100 / 100 0 / 0 Other: Weight 67.3 kg Blood Glucose* 100 190 Patient Weight 02/26/18 23:59 Weight 67.3 kg - General Appearance General appearance: Present: well-developed, well-nourished, appears started age EENT: Present: mucous membranes moist Neck: Present: no JVD Respiratory: Present: clear Cardiology: Present: edema, regular rate, regular rhythm Additional Comments: mild LE Dialysis Vascular Access: Venous Catheter Gastrointestinal: Present: normoactive bowel sounds, no tenderness Integumentary: Present: warm and dry Psychiatric: Present: mood/affect appropriate, cooperative - Lab 02/26/18 04:35 02/26/18 04:35 Most recent lab results Calcium 7.9 mg/dL (8.6-10.3) L 02/26/18 04:35 Phosphorus 4.0 mg/dL (2.7-4.5) 02/21/18 12:09 Magnesium 2.0 mg/dL (1.6-2.6) 02/22/18 03:25 Consult Discharge Plan - Plan Referrals: Paco Sheikh MD [Primary Care Provider] - (patient is from [facility])
[2018-02-26] MEDS: Aspirin Enteric Coated 81 MG Tablet PO SCH (09:05)
[2018-02-26] MEDS: *HR* Ticagrelor 90 MG TABLET PO SCH ×2 (09:05→22:21)
[2018-02-26] MEDS: Sennosides/Docusate Sodium TABLET GTUBE SCH ×2 (09:06→22:21)
[2018-02-26] MEDS: amLODIPine 5 MG TABLET GTUBE SCH (09:06)
[2018-02-26] MEDS: Renal Vitamin 1 MG CAPSULE PO SCH (09:06)
[2018-02-26] MEDS: cloNIDine HCl 0.1 MG TABLET PO SCH ×2 (09:06→22:21)
[2018-02-26] MEDS: Folic Acid 1 MG TABLET GTUBE SCH (09:06)
[2018-02-26] MEDS: Cyanocobalamin (B-12) 1,000 MCG TABLET GTUBE SCH (09:06)
[2018-02-26] MEDS: Docusate Oral Soln 100 MG/10 ML UDC PO SCH (09:07)
[2018-02-26] MEDS: Insulin LISPRO 300 UNITS/3 ML VIAL SQ SCH ×4 (09:07→22:22)
[2018-02-26] MEDS: Nystatin POWDER 30 GM BOTTLE TP SCH ×2 (12:34→22:31)
[2018-02-26] MEDS: Acetaminophen 325 MG TABLET PO PRN (14:21)
--- NOTE | 2018-02-26 17:55 | Internal Med Progress Note ---
Date of Encounter: 02/26/18 Time of Encounter: 11:00 - Assessment and plan (1) HCAP (healthcare-associated pneumonia) Current Visit: Yes Status: Acute Assessment and plan: Patient found to have Klebsiella with ESBL in addition to Acinetobacter with [id number] Continue coverage with ertapenem for now Patient still with productive cough but improving Infectious disease consulted for recommendations (2) Pleural effusion Current Visit: Yes Status: Acute Assessment and plan: Status post thoracentesis, chest x-ray showed marked interval improvement in left pleural effusion with possible trace persisting effusion. Pulmonology consulted with recommendations for Pleurx catheter as an outpatient (3) Hyperkalemia Current Visit: Yes Status: Resolved Assessment and plan: Resolved; continue to monitor (4) Diabetes Current Visit: Yes Status: Chronic Assessment and plan: Continue home medications Qualifiers: Diabetes mellitus type: type 2 Diabetes mellitus prison insulin use: unspecified prison insulin use status Diabetes mellitus complication status : with unspecified complications Qualified Code(s): E11.8 - Type 2 diabetes mellitus with unspecified complications (5) ESRD on dialysis Current Visit: Yes Status: Chronic Assessment and plan: Hx of ESRD on dialysis. Renal diet. Nephrology following (6) GERD (gastroesophageal reflux disease) Current Visit: Yes Status: Chronic Assessment and plan: Continue home medications Qualifiers: Esophagitis presence: esophagitis presence not specified Qualified Code(s) : K21.9 - Gastro-esophageal reflux disease without esophagitis (7) HLD (hyperlipidemia) Current Visit: Yes Status: Chronic Assessment and plan: Continue Statin Qualifiers: Hyperlipidemia type: pure hypercholesterolemia Qualified Code(s): E78.00 - Pure hypercholesterolemia, unspecified; E78.0 - Pure hypercholesterolemia (8) HTN (hypertension) Current Visit: Yes Status: Chronic Assessment and plan: Hx of chronic HTN. Monitor pt. and VS. Continue pts. Amlodipine and hydralazine. Qualifiers: Hypertension type: essential hypertension Qualified Code(s): I10 - Essential (primary) hypertension (9) DVT prophylaxis Current Visit: Yes Status: Acute Assessment and plan: Subcutaneous heparin - Time Spent With Patient Total time spent is greater than 50% in coordination of care (as documented) at patient's floor/unit and/or counseling patient: - Subjective Interval history: Patient with HCAP secondary to Klebsiella pneumonia ESBL and Acinetobacter Patient with improving productive cough on IV antibiotics - Constitutional Vitals: Temp Pulse Resp BP Pulse Ox 98.4 F 69 18 151/67 97 02/26/18 15:45 02/26/18 15:45 02/26/18 15:45 02/26/18 15:45 02/26/18 15:45 General appearance: Present: cooperative, mild distress (Respiratory w/coughing) , A&O X 3, pleasant, no acute distress, answers questions appropriately - Respiratory Respiratory exam: Present: CTAB. Absent: accessory muscle use, rales, rhonchi, wheezes - Cardiovascular Cardiovascular exam: Present: RRR, +S1, +S2. Absent: diastolic murmur, gallop, rubs, systolic murmur - Skin Skin exam: Present: normal color Internal Medicine: Result - Labs CBC & Chem 7: 02/26/18 04:35 02/26/18 04:35 Labs: Short CBC 02/26/18 Range/Units 04:35 WBC 7.6 (4.3-11.1) K/mcL Hgb 9.2 L (12.9-16.9) g/dL Hct 28.2 L (37.5-50.1) % Plt Count 234 (140-400) K/mcL Neutrophils # 3.0 (1.6-8.9) K/mcL BMP 02/26/18 04:35 Sodium 129 L Potassium 5.9 H Chloride 94 L Carbon Dioxide 29 BUN 40 H Creatinine 3.53 H Glucose 168 H Calcium 7.9 L Liver Function 02/26/18 Range/Units 04:35 Total Bilirubin 0.3 (0.3-1.0) mg/dL AST 35 (13-39) Units/L ALT 22 (7-52) Units/L Alkaline Phosphatase 60 (34-104) Units/L Albumin 2.3 L (3.5-5.7) g/dL - ABG Interpretation ABG results: PT/INR, D-dimer PT 10.8 Seconds (9.4-12.1) 02/21/18 12:09 Consult Discharge Plan - Plan Referrals: Paco Sheikh MD [Primary Care Provider] - (patient is from [facility])
[2018-02-26] MEDS: *HR* OxyCODONE Immed Rel 5 MG TABLET GTUBE PRN (22:21)
[2018-02-27] MEDS: Acetaminophen 325 MG TABLET PO PRN ×2 (01:37→17:56)
[2018-02-27] MEDS: Ipratropium/Albuterol Neb 3 ML IH SCH ×6 (03:31→23:45)
[2018-02-27] MEDS: *HR* LORazepam 0.5 MG TABLET GTUBE SCH ×4 (05:53→23:16)
[2018-02-27] MEDS: hydrALAZINE 25 MG TABLET PO SCH ×4 (05:53→23:16)
[2018-02-27] MEDS: *HR* Heparin 5,000 UNIT/ML VIAL SQ SCH ×2 (05:53→19:23)
[2018-02-27] MEDS: Insulin LISPRO 300 UNITS/3 ML VIAL SQ SCH ×4 (07:37→20:27)
[2018-02-27] MEDS: Cyanocobalamin (B-12) 1,000 MCG TABLET GTUBE SCH (07:41)
[2018-02-27] MEDS: *HR* Ticagrelor 90 MG TABLET PO SCH ×2 (07:41→20:21)
[2018-02-27] MEDS: Aspirin Enteric Coated 81 MG Tablet PO SCH (07:41)
[2018-02-27] MEDS: Docusate Oral Soln 100 MG/10 ML UDC PO SCH (07:41)
[2018-02-27] MEDS: Folic Acid 1 MG TABLET GTUBE SCH (07:41)
[2018-02-27] MEDS: Renal Vitamin 1 MG CAPSULE PO SCH (07:41)
[2018-02-27] MEDS: Sennosides/Docusate Sodium TABLET GTUBE SCH ×2 (07:41→20:21)
[2018-02-27] MEDS: Nystatin POWDER 30 GM BOTTLE TP SCH ×2 (07:42→20:50)
[2018-02-27] MEDS: cloNIDine HCl 0.1 MG TABLET PO SCH ×2 (07:52→20:21)
[2018-02-27] MEDS: amLODIPine 5 MG TABLET GTUBE SCH (07:52)
--- NOTE | 2018-02-27 08:43 | Nephrology Progress Note ---
Date of Encounter: 02/27/18 Time of Encounter: 08:15 - Assessment and Plan (1) ESRD on dialysis Current Visit: Yes Status: Chronic HD today, keeping MWF schedule. Orders given. (2) Pleural effusion Current Visit: Yes Status: Acute Subjective Interval history: Sitting up in bed, watching tv. States feels breathing somewhat more difficult. Conversing well, no respiratory difficulty noted. Feeding self breakfast. Trach >O2 Objective - Vital Signs Vital signs: Vital Signs Temp Pulse Resp BP Pulse Ox 02/27/18 08:01 97 02/27/18 07:30 16 97 02/27/18 07:18 98.5 F 73 22 139/66 97 02/27/18 03:41 97.5 F L 72 18 144/78 96 02/27/18 03:37 16 98 02/27/18 00:06 97.5 F L 71 18 134/80 100 02/26/18 23:34 14 98 02/26/18 21:05 14 97 02/26/18 19:44 94.4 F L 67 18 124/57 96 02/26/18 15:45 98.4 F 69 18 151/67 97 02/26/18 15:11 16 151/67 99 02/26/18 11:08 16 151/67 97 02/26/18 10:29 99.6 F 88 19 119/77 97 02/26/18 09:51 93 Intake and Output 02/26/18 02/27/18 02/27/18 23:59 07:59 15:59 Intake Total 360 / 360 480 / 480 Output Total 115 / 115 Balance 360 / 360 365 / 365 Intake: IV Fluids 100 / 100 INVanz 500 MG In 0.9 % Sodium 100 / 100 Chloride 100 ML @ 100 mls/hr IVPB Q24H LAMIN Rx#:[id number] Oral 240 / 240 480 / 480 Other 20 / 20 Output: Urine 115 / 115 Other: Meal sneha ghrams Percent of Meal Consumed 100% Stool Size Moderate Moderate Stool Consistency loose loose Stool Color Brown Brown # Bowel Movements 1 1 Weight 67 kg Blood Glucose* 279 450 Patient Weight 02/27/18 23:59 Weight 67 kg - General Appearance General appearance: Present: well-developed, well-nourished, appears started age EENT: Present: mucous membranes moist Neck: Present: no JVD Respiratory: Present: clear Cardiology: Present: no edema, regular rate, regular rhythm Dialysis Vascular Access: Venous Catheter Gastrointestinal: Present: normoactive bowel sounds, no tenderness Integumentary: Present: warm and dry Psychiatric: Present: mood/affect appropriate, cooperative - Lab 02/26/18 04:35 02/26/18 04:35 Most recent lab results Calcium 7.9 mg/dL (8.6-10.3) L 02/26/18 04:35 Phosphorus 4.0 mg/dL (2.7-4.5) 02/21/18 12:09 Magnesium 2.0 mg/dL (1.6-2.6) 02/22/18 03:25 Consult Discharge Plan - Plan Referrals: Paco Sheikh MD [Primary Care Provider] - (patient is from [facility])
[2018-02-27 09:10] LABS: Basophils # 0.1 K/mcL (0.0-0.2); Basophils % 1.3 %; Eosinophils # 1.3 K/mcL (0.0-0.6); Eosinophils % 15.9 %; Hematocrit 26.9 % (37.5-50.1); Immature Granulocytes % 1.4 % (0-4); Lymphocytes # 1.7 K/mcL (0.6-4.6); Lymphocytes % 19.7 %; Mean Corpuscular HGB Conc 33.5 g/dL (31.6-35.5); Mean Corpuscular Volume 101.5 fL (83.0-100.0); Mean Platelet Volume 10.6 fL (9.4-12.4); Monocytes # 0.7 K/mcL (0.0-1.3); Monocytes % 8.2 %; Neutrophils # 4.5 K/mcL (1.6-8.9); Nucleated Red Blood Cells 0.2 /100 WBC (0); Platelet Count 276 K/mcL (140-400); Red Blood Count 2.65 M/mcL (4.19-5.50); Red Cell Distribution Width 15.9 % (11.5-14.5); Segmented Neutrophils % 53.5 %
[2018-02-27 09:22] LABS: Albumin 2.4 g/dL (3.5-5.7); Albumin/Globulin Ratio 0.9 (1.1-2.2); Bilirubin,Total 0.3 mg/dL (0.3-1.0); Calcium 7.9 mg/dL (8.6-10.3); Globulin 2.8 g/dL (2.4-3.5); Total Protein 5.2 g/dL (6.4-8.9)
[2018-02-27] MEDS ORDERED: 0.9 % Sodium Chloride 250 ML IVC PRN (12:10)
[2018-02-27] MEDS ORDERED: 0.9 % Sodium Chloride 1,000 ML PRIME SCH (12:15)
[2018-02-27] MEDS ORDERED: Albuterol 2.5 MG/3 ML NEBULIZER IH PRN (14:38)
[2018-02-27] MEDS ORDERED: *HR* LORazepam 2 MG/ML VIAL IVP ONE ×2 (15:47→16:54)
[2018-02-27 16:01] LABS: ABG Base Excess 6 mEq/L (-2 to 3); ABG HCO3 29 mEq/L (21-27); ABG Oxygen Saturation 92 % (95-98); ABG PCO2 35 mmHg (35-45); ABG PH 7.53 pH Units (7.32-7.45); ABG PO2 57 mmHg (85-104); ABG TCO2 30 mEq/L (20-26)
[2018-02-27] MEDS: *HR* Dextrose 50 % in Water (Syg) 50 ML SYRINGE IVP PRN ×4 (16:12→19:24)
[2018-02-27] MEDS ORDERED: *HR* LORazepam 2 MG/ML VIAL ONE (16:56)
[2018-02-27] MEDS ORDERED: Furosemide 40 MG/4 ML VIAL ONE (17:13)
--- NOTE | 2018-02-27 18:38 | Internal Med Progress Note ---
Date of Encounter: 02/27/18 Time of Encounter: 11:00 - Assessment and plan (1) Acute and chronic respiratory failure with hypoxia Current Visit: Yes Status: Acute Assessment and plan: Patient reports of increasing difficulty with breathing and now febrile this afternoon with hypoxia Patient was suctioned by respiratory therapist with no improvement in symptoms ABGs showed pH of 7.53, PCO2 of 35 and PaO2 of 57 Transportation Engineering Technician notified and evaluated the patient this afternoon with recommendations to transfer to intensive care unit and place on ventilator (2) HCAP (healthcare-associated pneumonia) Current Visit: Yes Status: Acute Assessment and plan: Patient found to have Klebsiella with ESBL in addition to Acinetobacter with [id number] Patient had been on ertapenem but resistant Infectious disease consult pending Discussed with pharmacist earlier on in the afternoon to discuss options. Pharmacist called back later on in the day due to concerns of change in status of patient reported by floor nurse with recommendations to start Colistin until patient can be evaluated by infectious disease Infectious disease consult pending for recommendations (3) Pleural effusion Current Visit: Yes Status: Acute Assessment and plan: Status post thoracentesis, chest x-ray showed marked interval improvement in left pleural effusion with possible trace persisting effusion. 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 Renal diet. Nephrology following (7) GERD (gastroesophageal reflux disease) Current Visit: Yes Status: Chronic Assessment and plan: Continue home medications Qualifiers: Esophagitis presence: esophagitis presence not specified Qualified Code(s) : K21.9 - Gastro-esophageal reflux disease without esophagitis (8) HLD (hyperlipidemia) Current Visit: Yes Status: Chronic Assessment and plan: Continue Statin Qualifiers: Hyperlipidemia type: pure hypercholesterolemia Qualified Code(s): E78.00 - Pure hypercholesterolemia, unspecified; E78.0 - Pure hypercholesterolemia (9) HTN (hypertension) Current Visit: Yes Status: Chronic Assessment and plan: Hx of chronic HTN. Monitor pt. and VS. Continue pts. Amlodipine and hydralazine. Qualifiers: Hypertension type: essential hypertension Qualified Code(s): I10 - Essential (primary) hypertension (10) DVT prophylaxis Current Visit: Yes Status: Acute Assessment and plan: Subcutaneous heparin - Time Spent With Patient Total time spent is greater than 50% in coordination of care (as documented) at patient's floor/unit and/or counseling patient: - Subjective Interval history: Patient with HCAP secondary to Klebsiella pneumonia ESBL and Acinetobacter with multidrug resistance Patient now febrile this afternoon with hypoxia Transportation Engineering Technician notified and evaluated the patient this afternoon with recommendations to transfer to intensive care unit and place on ventilator - Constitutional Vitals: Temp Pulse Resp BP Pulse Ox 102.6 F H 98 34 162/64 100 02/27/18 18:00 02/27/18 18:00 02/27/18 18:00 02/27/18 18:00 02/27/18 18:00 General appearance: Present: cooperative, mild distress (Respiratory w/coughing) , A&O X 3, pleasant, no acute distress, answers questions appropriately - Respiratory Respiratory exam: Present: accessory muscle use, respiratory distress - Cardiovascular Cardiovascular exam: Present: RRR, +S1, +S2. Absent: diastolic murmur, gallop, rubs, systolic murmur Internal Medicine: Result - Labs CBC & Chem 7: 02/27/18 08:42 02/27/18 08:42 Labs: Short CBC 02/27/18 Range/Units 08:42 WBC 8.4 (4.3-11.1) K/mcL Hgb 9.0 L (12.9-16.9) g/dL Hct 26.9 L (37.5-50.1) % Plt Count 276 (140-400) K/mcL Neutrophils # 4.5 (1.6-8.9) K/mcL BMP 02/27/18 08:42 Sodium 127 L Potassium 6.0 H Chloride 92 L Carbon Dioxide 23 BUN 49 H Creatinine 4.48 H Glucose 418 H Calcium 7.9 L Liver Function 02/27/18 Range/Units 08:42 Total Bilirubin 0.3 (0.3-1.0) mg/dL AST 40 H (13-39) Units/L ALT 27 (7-52) Units/L Alkaline Phosphatase 67 (34-104) Units/L Albumin 2.4 L (3.5-5.7) g/dL - ABG Interpretation ABG results: ABG ABG pH 7.53 pH Units (7.32-7.45) H 02/27/18 15:56 ABG pCO2 35 mmHg (35-45) 02/27/18 15:56 ABG pO2 57 mmHg (85-104) L 02/27/18 15:56 ABG O2 Saturation 92 % (95-98) L 02/27/18 15:56 PT/INR, D-dimer PT 10.8 Seconds (9.4-12.1) 02/21/18 12:09 - Impressions Impressions Chest X-Ray 02/27/18 15:41 IMPRESSION: Increase in left pleural effusion. D/ / Maxine Jesus MD / Maxine Jesus MD Interpreting Provider: Maxine Jesus MD Consult Discharge Plan - Plan Referrals: Paco Sheikh MD [Primary Care Provider] - (patient is from [facility])
[2018-02-27] MEDS ORDERED: COLISTIN IVPB SCH (19:00)
[2018-02-27] MEDS ORDERED: SODIUM CHLORIDE 0.9% IVPB SCH (19:00)
--- NOTE | 2018-02-27 19:11 | Pulmonology Progress Note ---
Date of Encounter: 02/27/18 Time of Encounter: 16:50 Assessment and Plan (1) Acute and chronic respiratory failure with hypoxia Current Visit: Yes Status: Acute Patient has worsening Acute on Chronic respiratory failure . The ABG shows worsening hypoxic respiratory failure with respiratory alkalosis will repeat CXR as these shortness of breadth for the past few days suspect his pleural effusion might have worsened will repeat CXR . For the current V/Q mismatch worsening contributed most likely due to worsening pleural effusion with bilateral bibasilar atelectasis which is chronic . Will transfer him to the ICU for his acute worsening of chronic hypoxic respiratory failure . (2) Pleural effusion Current Visit: Yes Status: Acute Patient has chronic left sided pleural effusion suspect this slowly accumulating over few days will repeat CXR if it worsening will do Thoracentesis might need Pleurex catheter insertion as an outpatient . (3) CHF (congestive heart failure) Current Visit: Yes Status: Acute Patient has CHF managment according to primary Qualifiers: Heart failure chronicity: acute on chronic Qualified Code(s): I50.9 - Heart failure, unspecified (4) ESRD on dialysis Current Visit: Yes Status: Acute Patient is on MWF Hemodialysis . Subjective Principal diagnosis: Acute on chronic hypoxic respiratory failure Interval history: 57 year old male with past medical history significant for CHF , ESRD pulmonary was consulted for pleural effusion which was drained initially in the ER patient was doing well after thoracentesis suddenly was past one day he increased shortness of breadth called by the hospitalist that increased shortness of breadth ABG showed Respiratory alkalosis with acute on chronic hypoxic respiratory failure , patient denies any chest pain just only shortness of breadth not much secretions from the tracheostomy . Because of worsening work of breathing with worsening hypoxic respiratory failure shifted to ICU for positive pressure ventilation . Objective PUL Vital signs: Last Vital Signs Temp 102.6 F H 02/27/18 18:00 Pulse 98 02/27/18 18:00 Resp 34 02/27/18 18:00 BP 162/64 02/27/18 18:00 Pulse Ox 100 02/27/18 18:00 General appearance: appears uncomfortable Effort: mildly labored Auscultation: left: diminished breath sounds, bilateral: rales (some scattered bibasilar rales ) Ventilator Settings Ventilator Settings: Ventilator Settings, Last 8 Hours Ventilator Tidal Volume 400 Setting Ventilator Tidal Volume 400 Setting Ventilator Respiratory Rate 12 Setting Ventilator Respiratory Rate 12 Setting Actual Respiratory Rate 33 Actual Respiratory Rate 37 Positive End Expiratory 5 Pressure Positive End Expiratory 5 Pressure Peak Inspiratory Airway 18 Pressure Peak Inspiratory Airway 14 Pressure Results - Laboratory Findings CBC and BMP: 02/27/18 08:42 02/27/18 08:42 ABG ABG pH 7.53 pH Units (7.32-7.45) H 02/27/18 15:56 ABG pCO2 35 mmHg (35-45) 02/27/18 15:56 ABG pO2 57 mmHg (85-104) L 02/27/18 15:56 ABG O2 Saturation 92 % (95-98) L 02/27/18 15:56 PT/INR, D-dimer PT 10.8 Seconds (9.4-12.1) 02/21/18 12:09 Abnormal lab findings: Abnormal lab results RBC 2.65 M/mcL (4.19-5.50) L 02/27/18 08:42 Hgb 9.0 g/dL (12.9-16.9) L 02/27/18 08:42 Hct 26.9 % (37.5-50.1) L 02/27/18 08:42 MCV 101.5 fL (83.0-100.0) H 02/27/18 08:42 MCH 34.0 pg (28.0-33.3) H 02/27/18 08:42 RDW 15.9 % (11.5-14.5) H 02/27/18 08:42 Eosinophils # 1.3 K/mcL (0.0-0.6) H 02/27/18 08:42 Nucleated RBCs/100 WBC 0.2 /100 WBC (0) H 02/27/18 08:42 ABG pH 7.53 pH Units (7.32-7.45) H 02/27/18 15:56 ABG pO2 57 mmHg (85-104) L 02/27/18 15:56 ABG HCO3 29 mEq/L (21-27) H 02/27/18 15:56 ABG Total CO2 30 mEq/L (20-26) H 02/27/18 15:56 ABG O2 Saturation 92 % (95-98) L 02/27/18 15:56 ABG Base Excess 6 mEq/L (-2 to 3) H 02/27/18 15:56 Sodium 127 mEq/L (136-145) L 02/27/18 08:42 Potassium 6.0 mEq/L (3.5-5.1) H 02/27/18 08:42 Chloride 92 mEq/L (98-107) L 02/27/18 08:42 BUN 49 mg/dL (6-20) H 02/27/18 08:42 Creatinine 4.48 mg/dL (0.70-1.30) H 02/27/18 08:42 Est GFR ( Amer) 16 (> 60) L 02/27/18 08:42 Est GFR (Non-Af Amer) 14 (> 60) L 02/27/18 08:42 Glucose 418 mg/dL (70-105) H 02/27/18 08:42 POC Glucose 400 mg/dL (70-99) H 02/27/18 07:10 Calcium 7.9 mg/dL (8.6-10.3) L 02/27/18 08:42 AST 40 Units/L (13-39) H 02/27/18 08:42 Serum Total Protein 5.2 g/dL (6.4-8.9) L 02/27/18 08:42 Albumin 2.4 g/dL (3.5-5.7) L 02/27/18 08:42 Albumin/Globulin Ratio 0.9 (1.1-2.2) L 02/27/18 08:42 HDL Cholesterol 25 mg/dL (40-59) L 02/22/18 03:25 TSH 15.077 mcIU/mL (0.340-5.600) H 02/22/18 03:25 Free T3 1.40 pg/mL (2.50-3.90) L 02/23/18 11:54 Staphylococcus sp PCR DETECTED (Not Detect) A 02/21/18 12:09 mecA-Methicil Res Gene DETECTED (Not Detect) A 02/21/18 12:09 - Microbiology Findings Microbiology Findings: Microbiology, Last 48 Hours 02/22/18 11:45 Sputum Culture - Final Sputum Acinetobacter baumannii MDRO#2 Acinetobacter baumannii MDRO - Clinical Findings Intake & Output: Intake & Output 02/27/18 02/27/18 02/27/18 07:59 15:59 23:59 Intake Total 480 / 480 600 / 600 100 / 100 Output Total 115 / 115 3600 / 3600 Balance 365 / 365 -3000 / -3000 100 / 100 Weight 67 kg 67 kg Consult Discharge Plan - Plan Referrals: Paco Sheikh MD [Primary Care Provider] - (patient is from [facility])
[2018-02-28] MEDS: Ipratropium/Albuterol Neb 3 ML IH SCH ×5 (03:39→19:53)
[2018-02-28] MEDS: hydrALAZINE 25 MG TABLET PO SCH ×4 (04:34→23:20)
[2018-02-28] MEDS: *HR* LORazepam 0.5 MG TABLET GTUBE SCH ×4 (04:34→23:19)
[2018-02-28] MEDS: *HR* Heparin 5,000 UNIT/ML VIAL SQ SCH ×2 (04:39→17:35)
--- NOTE | 2018-02-28 07:12 | Pulmonology Progress Note ---
<Bill Jordan - Last Filed: 02/28/18 12:54> Date of Encounter: 02/28/18 Time of Encounter: 07:11 Assessment and Plan (1) Acute and chronic respiratory failure with hypoxia Current Visit: Yes Status: Acute Patient with worsening acute on chronic respiratory failure ABG showed worsening hypoxic respiratory failure with respiratory alkalosis. Repeat chest x-rays done which did show a pleural effusion. It is recommended that we do thoracentesis to remove this. When further evaluating patient wepatient did have a LifeVest and after doing chart review we did not find where he seen cardiology here says probably had an outside facility that he has these cardiac problems and is being seen there. This most likely is chronic pleural effusion that he is currently having. He did come back with positive sputum's including Klebsiella with ESBL in addition to Acetobacter with multidrug resistance. Patient was placed on ertapenem IDs also consulted and they recommended Colestin. Plan is to do a thoracentesis after we get echocardiogram to be sure patient's heart function can handle as well as getting basic labs. Plan Ventilator management with tracheostomy care. Thoracentesis to remove pleural effusion feel fluid as well as getting Gram stain and cell counts DuoNeb's as needed (2) HCAP (healthcare-associated pneumonia) Current Visit: Yes Status: Acute Patient does live in a nursing facility so when he got diagnosed with pneumonia and had positive sputum cultures he was treated his hospital acquired pneumonia. Cultures came back positive for Klebsiella with ESBL in addition to back to with [id number]. He is currently on ertapenem as well as Colstin Infectious disease is following we appreciate their recommendations Tylenol for fever Daily monitoring of labs (3) Pleural effusion Current Visit: Yes Status: Acute Patient does have pleural effusion based on chest x-ray that is worsening from when he is previously drained in the emergency department. It is unknown the sources part is chronic due to patient's worsening CHF or could be an underlying disease. Thoracentesis Repeat chest x-ray Gram stain and cell count of pleural fluid. (4) Tracheostomy care Current Visit: Yes Status: Acute Continue tracheostomy care (5) End stage renal disease Current Visit: Yes Status: Chronic History of ESRD on dialysis. Renal diet. Nephrology is following. 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 Patient does have a tracheostomy tube. He did have a pleural effusion that seems to be worsening from when we first saw him as a consult earlier in the week after he had it first drained in the emergency department department when he first arrived here. He did have worsening shortness of breath and that is why we are cold again. ABG was done and showed her story alkalosis with acute on chronic hypoxic respiratory failure patient that time did not have any chest pain only short of breath. Patient did well overnight after transferring to the ICU. He was moved to the ventilator which is helping with his shortness of breath. Objective PUL Vital signs: Last Vital Signs Temp 98.3 F 02/28/18 04:00 Pulse 77 02/28/18 06:00 Resp 19 02/28/18 06:00 BP 147/64 02/28/18 06:00 Pulse Ox 97 02/28/18 06:00 General appearance: no acute distress, alert Eyes: nonicteric ENT: oropharynx moist Neck: supple Effort: normal Auscultation: bilateral: diminished breath sounds, rales Cardiovascular: regular rate and rhythm Gastrointestinal: normoactive bowel sounds, soft, non-tender, non-distended Integumentary: normal Extremities: no cyanosis, no edema, no clubbing Musculoskeletal: no deformities, ROM normal normal mental status, non-focal exam, pupils equal and round, motor strength normal and symmetric Ventilator Settings Ventilator Settings: Ventilator Settings, Last 8 Hours Ventilator Tidal Volume 400 Setting Ventilator Tidal Volume 400 Setting Ventilator Tidal Volume 400 Setting Ventilator Tidal Volume 400 Setting Ventilator Tidal Volume 400 Setting Ventilator Tidal Volume 400 Setting Ventilator Tidal Volume 400 Setting Ventilator Tidal Volume 400 Setting Ventilator Tidal Volume 400 Setting Ventilator Tidal Volume 400 Setting Ventilator Tidal Volume 400 Setting Ventilator Respiratory Rate 12 Setting Ventilator Respiratory Rate 12 Setting Ventilator Respiratory Rate 12 Setting Ventilator Respiratory Rate 12 Setting Ventilator Respiratory Rate 12 Setting Ventilator Respiratory Rate 12 Setting Ventilator Respiratory Rate 12 Setting Ventilator Respiratory Rate 12 Setting Ventilator Respiratory Rate 12 Setting Ventilator Respiratory Rate 12 Setting Ventilator Respiratory Rate 12 Setting Actual Respiratory Rate 19 Actual Respiratory Rate 20 Actual Respiratory Rate 31 Actual Respiratory Rate 19 Actual Respiratory Rate 20 Actual Respiratory Rate 19 Actual Respiratory Rate 18 Actual Respiratory Rate 22 Actual Respiratory Rate 22 Actual Respiratory Rate 19 Actual Respiratory Rate 18 Positive End Expiratory 5 Pressure Positive End Expiratory 5 Pressure Positive End Expiratory 5 Pressure Positive End Expiratory 5 Pressure Positive End Expiratory 5 Pressure Positive End Expiratory 5 Pressure Positive End Expiratory 5 Pressure Positive End Expiratory 5 Pressure Positive End Expiratory 5 Pressure Positive End Expiratory 5 Pressure Positive End Expiratory 5 Pressure Peak Inspiratory Airway 11 Pressure Peak Inspiratory Airway 11 Pressure Peak Inspiratory Airway 17 Pressure Peak Inspiratory Airway 12 Pressure Peak Inspiratory Airway 11 Pressure Peak Inspiratory Airway 12 Pressure Peak Inspiratory Airway 12 Pressure Peak Inspiratory Airway 11 Pressure Peak Inspiratory Airway 11 Pressure Peak Inspiratory Airway 11 Pressure Peak Inspiratory Airway 10 Pressure Results - Laboratory Findings CBC and BMP: 02/28/18 07:16 02/28/18 07:16 ABG ABG pH 7.53 pH Units (7.32-7.45) H 02/27/18 15:56 ABG pCO2 35 mmHg (35-45) 02/27/18 15:56 ABG pO2 57 mmHg (85-104) L 02/27/18 15:56 ABG O2 Saturation 92 % (95-98) L 02/27/18 15:56 PT/INR, D-dimer PT 10.8 Seconds (9.4-12.1) 02/21/18 12:09 Abnormal lab findings: Abnormal lab results RBC 2.65 M/mcL (4.19-5.50) L 02/27/18 08:42 Hgb 9.0 g/dL (12.9-16.9) L 02/27/18 08:42 Hct 26.9 % (37.5-50.1) L 02/27/18 08:42 MCV 101.5 fL (83.0-100.0) H 02/27/18 08:42 MCH 34.0 pg (28.0-33.3) H 02/27/18 08:42 RDW 15.9 % (11.5-14.5) H 02/27/18 08:42 Eosinophils # 1.3 K/mcL (0.0-0.6) H 02/27/18 08:42 Nucleated RBCs/100 WBC 0.2 /100 WBC (0) H 02/27/18 08:42 ABG pH 7.53 pH Units (7.32-7.45) H 02/27/18 15:56 ABG pO2 57 mmHg (85-104) L 02/27/18 15:56 ABG HCO3 29 mEq/L (21-27) H 02/27/18 15:56 ABG Total CO2 30 mEq/L (20-26) H 02/27/18 15:56 ABG O2 Saturation 92 % (95-98) L 02/27/18 15:56 ABG Base Excess 6 mEq/L (-2 to 3) H 02/27/18 15:56 Sodium 127 mEq/L (136-145) L 02/27/18 08:42 Potassium 6.0 mEq/L (3.5-5.1) H 02/27/18 08:42 Chloride 92 mEq/L (98-107) L 02/27/18 08:42 BUN 49 mg/dL (6-20) H 02/27/18 08:42 Creatinine 4.48 mg/dL (0.70-1.30) H 02/27/18 08:42 Est GFR ( Amer) 16 (> 60) L 02/27/18 08:42 Est GFR (Non-Af Amer) 14 (> 60) L 02/27/18 08:42 Glucose 418 mg/dL (70-105) H 02/27/18 08:42 POC Glucose 108 mg/dL (70-99) H 02/27/18 23:23 Calcium 7.9 mg/dL (8.6-10.3) L 02/27/18 08:42 AST 40 Units/L (13-39) H 02/27/18 08:42 Serum Total Protein 5.2 g/dL (6.4-8.9) L 02/27/18 08:42 Albumin 2.4 g/dL (3.5-5.7) L 02/27/18 08:42 Albumin/Globulin Ratio 0.9 (1.1-2.2) L 02/27/18 08:42 HDL Cholesterol 25 mg/dL (40-59) L 02/22/18 03:25 TSH 15.077 mcIU/mL (0.340-5.600) H 02/22/18 03:25 Free T3 1.40 pg/mL (2.50-3.90) L 02/23/18 11:54 Staphylococcus sp PCR DETECTED (Not Detect) A 02/21/18 12:09 mecA-Methicil Res Gene DETECTED (Not Detect) A 02/21/18 12:09 - Microbiology Findings Microbiology Findings: Microbiology, Last 48 Hours 02/22/18 11:45 Sputum Culture - Final Sputum Acinetobacter baumannii MDRO#2 Acinetobacter baumannii MDRO - Diagnostic Findings Chest x-ray: report reviewed, image reviewed - Clinical Findings Intake & Output: Intake & Output 02/27/18 02/27/18 02/28/18 15:59 23:59 07:59 Intake Total 600 / 600 250 / 250 0 / 0 Output Total 3600 / 3600 0 / 0 0 / 0 Balance -3000 / -3000 250 / 250 0 / 0 Weight 67 kg Consult Discharge Plan - Plan Referrals: Paco Sheikh MD [Primary Care Provider] - (patient is from [facility]) <Vicente Meadows - Last Filed: 02/28/18 22:15> Date of Encounter: 02/28/18 Assessment and Plan (1) Acute and chronic respiratory failure with hypoxia Current Visit: Yes Status: Acute (2) Pleural effusion Current Visit: Yes Status: Acute (3) CHF (congestive heart failure) Current Visit: Yes Status: Acute Qualifiers: Heart failure chronicity: acute on chronic Qualified Code(s): I50.9 - Heart failure, unspecified (4) ESRD on dialysis Current Visit: Yes Status: Acute Objective PUL Vital signs: Last Vital Signs Temp 96.8 F L 02/28/18 20:00 Pulse 64 02/28/18 22:00 Resp 16 02/28/18 22:00 BP 106/50 02/28/18 22:00 Pulse Ox 93 02/28/18 22:00 Results - Laboratory Findings CBC and BMP: 02/28/18 07:16 02/28/18 07:16 ABG ABG pH 7.53 pH Units (7.32-7.45) H 02/27/18 15:56 ABG pCO2 35 mmHg (35-45) 02/27/18 15:56 ABG pO2 57 mmHg (85-104) L 02/27/18 15:56 ABG O2 Saturation 92 % (95-98) L 02/27/18 15:56 PT/INR, D-dimer PT 11.6 Seconds (9.4-12.1) 02/28/18 06:51 Abnormal lab findings: Abnormal lab results WBC 17.8 K/mcL (4.3-11.1) H D 02/28/18 07:16 RBC 2.38 M/mcL (4.19-5.50) L 02/28/18 07:16 Hgb 8.1 g/dL (12.9-16.9) L 02/28/18 07:16 Hct 24.6 % (37.5-50.1) L 02/28/18 07:16 MCV 103.4 fL (83.0-100.0) H 02/28/18 07:16 MCH 34.0 pg (28.0-33.3) H 02/28/18 07:16 RDW 16.8 % (11.5-14.5) H 02/28/18 07:16 Neutrophils # 12.7 K/mcL (1.6-8.9) H 02/28/18 07:16 Monocytes # 1.5 K/mcL (0.0-1.3) H 02/28/18 07:16 Eosinophils # 1.3 K/mcL (0.0-0.6) H 02/28/18 07:16 Nucleated RBCs/100 WBC 0.2 /100 WBC (0) H 02/27/18 08:42 APTT 44.6 Seconds (26.0-36.0) H D 02/28/18 06:51 ABG pH 7.53 pH Units (7.32-7.45) H 02/27/18 15:56 ABG pO2 57 mmHg (85-104) L 02/27/18 15:56 ABG HCO3 29 mEq/L (21-27) H 02/27/18 15:56 ABG Total CO2 30 mEq/L (20-26) H 02/27/18 15:56 ABG O2 Saturation 92 % (95-98) L 02/27/18 15:56 ABG Base Excess 6 mEq/L (-2 to 3) H 02/27/18 15:56 Sodium 131 mEq/L (136-145) L 02/28/18 07:16 Chloride 95 mEq/L (98-107) L 02/28/18 07:16 BUN 31 mg/dL (6-20) H 02/28/18 07:16 Creatinine 3.48 mg/dL (0.70-1.30) H 02/28/18 07:16 Est GFR ( Amer) 22 (> 60) L 02/28/18 07:16 Est GFR (Non-Af Amer) 18 (> 60) L 02/28/18 07:16 Glucose 289 mg/dL (70-105) H 02/28/18 07:16 POC Glucose 103 mg/dL (70-99) H 02/28/18 19:29 Calcium 7.7 mg/dL (8.6-10.3) L 02/28/18 07:16 AST 40 Units/L (13-39) H 02/27/18 08:42 Serum Total Protein 5.2 g/dL (6.4-8.9) L 02/27/18 08:42 Albumin 2.4 g/dL (3.5-5.7) L 02/27/18 08:42 Albumin/Globulin Ratio 0.9 (1.1-2.2) L 02/27/18 08:42 HDL Cholesterol 25 mg/dL (40-59) L 02/22/18 03:25 TSH 15.077 mcIU/mL (0.340-5.600) H 02/22/18 03:25 Free T3 1.40 pg/mL (2.50-3.90) L 02/23/18 11:54 Pleural Appearance Hazy (Clear) A 02/28/18 15:20 Staphylococcus sp PCR DETECTED (Not Detect) A 02/21/18 12:09 mecA-Methicil Res Gene DETECTED (Not Detect) A 02/21/18 12:09 - Microbiology Findings Microbiology Findings: Microbiology, Last 48 Hours 02/22/18 11:45 Sputum Culture - Final Sputum Acinetobacter baumannii MDRO#2 Acinetobacter baumannii MDRO - Clinical Findings Intake & Output: Intake & Output 02/28/18 02/28/18 02/28/18 07:59 15:59 23:59 Intake Total 50 / 50 50 / 50 410 / 410 Output Total 0 / 0 900 / 900 Balance 50 / 50 50 / 50 -490 / -490 Weight 67 kg - Attending Attestation I saw and evaluated this patient and my medical decision-making was reviewed with the Resident Physician. I agree with the documented findings, disposition and treatment plan as described except to the extent set forth below. We independently had [id number] contact with the patient Patient seen and examined at bedside Labs, radiology, chart personally reviewed. Management was reviewed during multidisciplinary critical care rounds. TWISTER HAND:Patient is conscious follows commands when he becomes hypoglycemic he becomes drowsy Pulm: Patient is on ventilatory with minimal PEEP and FIO2 acceptable oxygenation and ventilation . The CXR showed Left sided pleural effusion concern for transudative vs exudative parapneumonic effusion with increased white count and Fever will tap the pleural effusion. HCAP with MDRO Acinetobacter and Klebsiella on Ertapenem and Colistin according to ID . Will get CT chest w/o contrast to look for any pneumonia or signs of CHF Cards: Fluid overload contributed by systolic heart failure and diastolic dysfunction .Salt and water restriction and fluid managment with dialysis FEN-GI:Advance diet as tolerated Renal:ESRD on MWF dialysis ID: Patient has probable bacterial tracheobronchitis vs pneumonia sputum growing MDRO organisms Heme/Onc: Reviewed on DVT prophylaxis Endo: Glucose Monitored Patient has brittle diabetes will reduce the dose of supplemental insulin will do Q1 hr blood sugar checks Integ/MSK: Skin Care per routine ICU Nursing Protocol to prevent ulcers. Lines: All lines examined without evidence of infection : Dispo: High chance of respiratory decline CODE: Full Code
[2018-02-28] MEDS: cloNIDine HCl 0.1 MG TABLET PO SCH ×2 (07:16→21:01)
[2018-02-28] MEDS: Folic Acid 1 MG TABLET GTUBE SCH (07:16)
[2018-02-28] MEDS: Sennosides/Docusate Sodium TABLET GTUBE SCH ×2 (07:16→21:21)
[2018-02-28] MEDS: *HR* Ticagrelor 90 MG TABLET PO SCH ×2 (07:16→21:22)
[2018-02-28] MEDS: amLODIPine 5 MG TABLET GTUBE SCH (07:16)
[2018-02-28] MEDS: Docusate Oral Soln 100 MG/10 ML UDC PO SCH (07:16)
[2018-02-28] MEDS: Cyanocobalamin (B-12) 1,000 MCG TABLET GTUBE SCH (07:16)
[2018-02-28] MEDS: Aspirin Enteric Coated 81 MG Tablet PO SCH (07:17)
[2018-02-28 07:42] LABS: INR 1.1; Prothrombin Time 11.6 Seconds (9.4-12.1)
[2018-02-28] MEDS: Insulin LISPRO 300 UNITS/3 ML VIAL SQ SCH ×4 (07:43→20:29)
[2018-02-28 07:45] LABS: Activated Partial Thrombo Time 44.6 Seconds (26.0-36.0)
[2018-02-28 07:47] LABS: Basophils # 0.1 K/mcL (0.0-0.2); Basophils % 0.7 %; Eosinophils # 1.3 K/mcL (0.0-0.6); Eosinophils % 7.4 %; Hematocrit 24.6 % (37.5-50.1); Hemoglobin 8.1 g/dL (12.9-16.9); Immature Granulocytes % 0.5 % (0-4); Lymphocytes % 11.5 %; Mean Corpuscular HGB Conc 32.9 g/dL (31.6-35.5); Mean Corpuscular Volume 103.4 fL (83.0-100.0); Mean Platelet Volume 10.4 fL (9.4-12.4); Monocytes # 1.5 K/mcL (0.0-1.3); Monocytes % 8.3 %; Platelet Count 243 K/mcL (140-400); Red Blood Count 2.38 M/mcL (4.19-5.50); Red Cell Distribution Width 16.8 % (11.5-14.5); Segmented Neutrophils % 71.6 %
[2018-02-28 07:48] LABS: Lymphocytes # 2.1 K/mcL (0.6-4.6); Neutrophils # 12.7 K/mcL (1.6-8.9)
[2018-02-28] MEDS: Renal Vitamin 1 MG CAPSULE PO SCH (07:48)
[2018-02-28 07:55] LABS: Calcium 7.7 mg/dL (8.6-10.3); Potassium 5.1 mEq/L (3.5-5.1)
--- NOTE | 2018-02-28 08:58 | Infectious Disease Consult ---
Date of Encounter: 02/28/18 Time of Encounter: 08:39 Assessment and Plan (1) Sepsis Status: Acute Assessment and plan: Patient has leukocytosis and fever Presumed source is pneumonia due to Acinetobacter and Klebsiella ESBL Currently on colistin and ertapenem Patient's fever and white count are new last 24 hours Initial blood cultures are negative, will recheck today Qualifiers: Sepsis type: sepsis due to unspecified organism Qualified Code(s): A41.9 - Sepsis, unspecified organism (2) Tracheobronchitis Status: Acute Assessment and plan: Causative organism: Acinetobacter and ESBL Klebsiella Chest x-ray shows bibasilar opacities and an increased left pleural effusion, no clear pneumonia Sputum culture was positive for Acinetobacter baumannii and Klebsiella pneumonia ESBL Colonization vs true infection Patient had a fever last night increased leukocytosis this morning Currently on colistin 100 mg daily and ertapenem 500 mg daily Initial blood cultures are no growth to date Repeat blood cultures pending Will order chest CT to further evaluate chest pathology (3) Pleural effusion Status: Acute Assessment and plan: Cause unclear May be parapneumonic effusion setting pneumonia as discussed above Could also be related to underlying cardiomyopathy and end-stage renal disease Initial thoracentesis performed in the emergency department revealed 216 total nucleated cells with 52% neutrophils Cytology was negative for malignant cells Unfortunately this initial fluid was not sent for culture or LDH/protein analysis Repeat thoracentesis is planned for today per primary team Recommend cell count, pH, Gram stain, culture, LDH, total protein (4) Acute and chronic respiratory failure with hypoxia Status: Acute Assessment and plan: Chronic tracheostomy present Requiring ventilatory support at this time Further management per pulmonary (5) ESRD on dialysis Status: Chronic Assessment and plan: Currently has right chest permacath for access Access area appears clean dry and intact Will perform peripheral blood cultures today If positive the patient may need blood cultures drawn from his permacath Further management per nephrology (6) History of CVA (cerebrovascular accident) Status: Chronic (7) Diabetes Status: Chronic Qualifiers: Diabetes mellitus type: type 2 Diabetes mellitus retirement insulin use: unspecified intermodal 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 service insulin use status Diabetes mellitus complication status : with unspecified complications Qualified Code(s): E11.8 - Type 2 diabetes mellitus with unspecified complications (8) GERD (gastroesophageal reflux disease) Status: Chronic Qualifiers: Esophagitis presence: esophagitis presence not specified Qualified Code(s) : K21.9 - Gastro-esophageal reflux disease without esophagitis (9) HLD (hyperlipidemia) Status: Chronic Qualifiers: Hyperlipidemia type: pure hypercholesterolemia Qualified Code(s): E78.00 - Pure hypercholesterolemia, unspecified; E78.0 - Pure hypercholesterolemia Infectious Disease HPI - Data of Consult Patient: new to practice Consult date: 02/28/18 Requesting Physician: Kendrick Salgado Primary Care Provider: Paco Sheikh MD - Consult Narrative Reason for consult: Acinetobacter pneumonia History of present illness: Mr. Landaverde is a 57 year old male with history of cardiomyopathy, multiple CVAs, ESRD on dialysis, diabetes, hypertension, hyperlipidemia, chronic respiratory failure with tracheostomy present. Patient was admitted on February 21 due to concerns for shortness of breath and confusion. Infectious disease was consulted due to Acinetobacter and Klebsiella pneumonia. Patient is a 57-year-old male with history as stated above. Patient currently cannot speak with his tracheostomy that to the present so history is obtained from the medical record. There is no family at bedside. Patient was apparently becoming more short of breath and [facility]. He was pulling at his trach and pulling at his right chest permacath. Provider at [facility] ([facility]) had requested the blood cultures be drawn due to concerns for infection. Patient was being treated for an unclear infection with vancomycin as an outpatient. During the patient's hospitalization sputum culture returns positive for Klebsiella ESBL and Acinetobacter. At this time patient states that he feels okay and feels like his breathing is okay. He denies that he is not in any pain. He is unable to verbalize any specific complaints. Upon arrival patient was afebrile, had a leukocytosis of 12.5. His white count had normalized however this morning had increased to 17.8. Patient had a temperature of 102.6 Fahrenheit last night. CC: Kendrick Salgado Past Med Surg Social Fam HX - Past Medical History Medical history: cardiomyopathy, CVA (2013 x1, 2016 x2), diabetes, dialysis, GERD, hyperlipidemia, hypertension, liver disease, renal disease, thyroid disease, other Psychiatric history: anxiety - Past Surgical History Surgical History: tracheostomy, other - Social History Smoking Status: Former smoker Packs per day: 1 PPD - Reports quitting in 2012 Alcohol use: none Drug use: none - Family History Mother History Unknown: Yes Race: Family Member Ethnicity: Non- Living Status: Age at : 83 Cause of : Heart valve failure Hx Family Cardiac Disorders: Yes (CAD) Father Race: Family Member Ethnicity: Non- Living Status: Age at : 80 Hx Family Cardiac Disorders: Yes (HD) Brother Race: Family Member Ethnicity: Non- Living Status: Age at : 33 Cause of : AIDS Hx Family Autoimmune Disorders: Yes (AIDS) Infectious Disease-CN:Meds Amlodipine Besylate 10 mg GTUBE DAILY 11/25/17 [History] Atorvastatin Calcium [Lipitor] 40 mg GTUBE DAILY 11/25/17 [History] Cyanocobalamin (B-12) [Vitamin B12] 1,000 mcg GTUBE DAILY 11/25/17 [History] Docusate [Colace] 50 mg GTUBE DAILY 11/25/17 [History] Folic Acid 1 mg GTUBE DAILY 11/25/17 [History] Folic Acid/Vit Bcomp,C [Renal Vitamin Tablet] 1 tab GTUBE DAILY 11/25/17 [ History] Insulin Regular Human [HumuLIN R] 0 unit SQ QID PRN 11/25/17 [History] LORazepam [Ativan] 0.5 mg GTUBE Q6H 11/25/17 [History] Levothyroxine Sodium [Synthroid] 300 mcg GTUBE DAILY 11/25/17 [History] Oxycodone HCl [Oxaydo] 5 mg GTUBE Q6H PRN 11/25/17 [History] Pantoprazole Sodium [Protonix] 40 mg GTUBE DAILY 11/25/17 [History] Sennosides/Docusate Sodium [Senna-S Tablet] 1 each GTUBE BID 11/25/17 [History] cloNIDine HCl [CloNIDine HCl] 0.1 mg GTUBE BID 11/25/17 [History] hydrOXYzine HCl [Hydroxyzine HCl] 25 mg GTUBE Q6H PRN 11/25/17 [History] Acetaminophen [Non-Aspirin] 650 mg PO Q4H PRN 02/21/18 [History] Aspirin [Lo-Dose Aspirin EC] 81 mg GTUBE DAILY 02/21/18 [History] Calcitriol 0.5 mcg GTUBE MOWEFR 02/21/18 [History] Carvedilol [Coreg] 25 mg GTUBE BID 02/21/18 [History] Dextrose [Glucose Gel] 15 gm PO AD PRN 02/21/18 [History] Diphenhydramine HCl/Zinc Acet [Itch Relief Cream] 1 appl TP TID PRN 02/21/18 [ History] Insulin Glargine,Hum.rec.anlog [Basaglar Kwikpen U-100] 5 unit SQ HS 02/21/18 [ History] LORazepam [Ativan] 0.5 mg GTUBE Q6H PRN 02/21/18 [History] Renal Vitamin [Renal Caps Softgel] 1 mg GTUBE DAILY 02/21/18 [History] Ticagrelor [Brilinta] 90 mg GTUBE BID 02/21/18 [History] hydrALAZINE [HydrALAZINE] 25 mg PO Q6HR 02/21/18 [History] 3 Allergy/AdvReac Type Severity Reaction Status Date / Time No Known Allergies Allergy Verified 11/25/17 20:12 ROS unobtainable: other (due to tracheostomy) Exam - Constitutional Vitals: Temp Pulse Resp BP Pulse Ox 97.8 F 72 23 188/88 98 02/28/18 08:00 02/28/18 08:00 02/28/18 08:00 02/28/18 08:00 02/28/18 08:00 General appearance: cooperative, no acute distress - Head Head exam: Present: atraumatic, normal inspection, normocephalic - Eye Eye exam: Present: EOMI, PERRL - ENT ENT exam: Present: mucous membranes moist - Neck Additional comments: Tracheostomy present - Respiratory Respiratory exam: Present: decreased breath sounds. Absent: rales, rhonchi, wheezes - Cardiovascular Cardiovascular exam: Present: RRR. Absent: diastolic murmur, systolic murmur - GI/Abdominal GI/Abdominal exam: Present: diminished bowel sounds, soft. Absent: distended, tenderness - Extremities Exam Extremities exam: Absent: pedal edema - Neurological Exam Neurological exam: Present: alert - Psychiatric Psychiatric exam: Present: normal affect, normal mood Infectious Disease CN: Results - Labs CBC & Chem 7: 03/01/18 04:00 03/01/18 04:00 Cultures: Cultures 02/22/18 11:45 Sputum Culture - Final Sputum Acinetobacter baumannii MDRO#2 Acinetobacter baumannii MDRO 02/23/18 11:54 Blood Culture - Preliminary Peripheral Venipuncture No growth. 02/23/18 11:54 Blood Culture - Preliminary Peripheral Venipuncture No growth. 02/21/18 18:00 Sputum Culture - Final Sputum Klebsiella pneumoniae ESBL 02/21/18 18:50 Legionella Antigen - Final Urine,Clean Catch Streptococcus pneumoniae Antigen (M - Final Serology: Serology 02/21/18 02/21/18 Range/Units 18:08 17:36 Chlamy pneumoniae PCR Not Detected (Not Detect) Adenovirus (PCR) Not Detected (Not Detect) B. pertussis DNA (PCR) Not Detected (Not Detect) B.parapertussis DNA PCR Not Detected (Not Detect) Coronavirus OC43 (PCR) Not Detected (Not Detect) Coronavirus HKU1 (PCR) Not Detected (Not Detect) Coronavirus 229E (PCR) Not Detected (Not Detect) Coronavirus NL63 (PCR) Not Detected (Not Detect) Hep Bs Antigen Nonreactive (Nonreactive) Hep Bs Antibody 144.68 mIU/mL Human Metapneumovir PCR Not Detected (Not Detect) Influenza A (H1) PCR Not Detected (Not Detect) Influ A (H1N1/09) PCR Not Detected (Not Detect) Influenza A (H3) PCR Not Detected (Not Detect) Influenza A Untype (PCR) Not Detected (Not Detect) Influenza Type B (PCR) Not Detected (Not Detect) M.pneumoniae DNA (PCR) Not Detected (Not Detect) Parainfluenza 1 (PCR) Not Detected (Not Detect) Parainfluenza 2 (PCR) Not Detected (Not Detect) Parainfluenza 3 (PCR) Not Detected (Not Detect) Parainfluenza 4 (PCR) Not Detected (Not Detect) RSV (PCR) Not Detected (Not Detect) Entero/Rhino (PCR) Not Detected (Not Detect) Consult Discharge Plan - Plan Referrals: Paco Sheikh MD [Primary Care Provider] - (patient is from [facility]) - Attending Attestation I examined this patient and my medical decision-making was reviewed with the Resident Physician. I agree with the documented findings, disposition and treatment plan as described except to the extent set forth below. This is an addendum to original report dictated by resident physician. Please refer to his note for full details. patient with PMH mentioned below including chronic respiratory failure with tracheostomy and PEG tube who is unable to give me a good history so most of the info taken from medical records and nursing staff.patient had Acute on chronic respiratory distress. patient came in and was evaluated. initial Xray revealed pleural effusion but didnt mention a nayan pneumonia. sputum grew puente resistant A baumanni two types and ESBL. patient was started on colistin and ertapenem and we were asked to evaluate the patient make further recommendations.exam of the patient shows no abdominal pain, no diarrhea, dialysls cath right chest okay with no obvious infection. patient is complaining of hand pain on the left but nursing tells me that he was tied down when he was confused. NO decubitus ulcers.CT was eventually performed today and it revealed multi lobar pneumonia and large pleural effusion. Thoracentesis performed and 900 or so ML sent for analysis. A/P: sepsis multi lobar pneumonia - causative organism is Acinetobacter and ESBL large pleural effusion - previous thoracentesis reveals transudative. repeat pending chronic respiratory failure peg tube hand pain - etiology not clear; if no improvement, consider imaging ESRD on HD Recommendations: get blood cultures x 2 check urine legionella and pneumococcal antigen check RIP continue colistin (dose adjust based on dialysis) continue ertapenemduration of treatment 14 days await fluid analysis and cultures on thoracentesis monitor labs and for drug toxicity
--- NOTE | 2018-02-28 09:49 | Nephrology Progress Note ---
Date of Encounter: 02/28/18 Time of Encounter: 09:20 - Assessment and Plan (1) ESRD on dialysis Current Visit: Yes Status: Chronic No HD today, keeping MWF schedule. (2) Pleural effusion Current Visit: Yes Status: Acute Subjective Principal diagnosis: Acute on chronic hypoxic respiratory failure Interval history: Transferred to ICU for increasing respiratpry failure. Trach>vent FIO2 30, peep 5. CXR-increased pleural effusion. Per nursing ECHO today followed by thorocentesis. Objective - Vital Signs Vital signs: Vital Signs Temp Pulse Resp BP Pulse Ox 02/28/18 09:00 64 24 144/55 97 02/28/18 08:59 18 98 02/28/18 08:00 97.8 F 72 23 188/88 98 02/28/18 07:31 24 95 02/28/18 07:30 78 02/28/18 07:00 73 25 141/103 94 02/28/18 06:00 77 19 147/64 97 02/28/18 05:52 20 202/82 97 02/28/18 05:00 71 31 202/82 93 02/28/18 04:00 98.3 F 73 19 142/50 96 02/28/18 03:40 20 171/62 96 02/28/18 03:00 75 19 171/62 96 02/28/18 02:00 98.3 F 74 18 187/76 96 02/28/18 01:02 22 137/47 100 02/28/18 01:00 76 22 137/47 100 02/28/18 00:00 73 19 152/70 100 02/27/18 23:45 18 182/69 100 02/27/18 23:00 98.4 F 74 21 137/46 100 02/27/18 22:00 79 26 117/45 100 02/27/18 21:42 20 144/58 100 02/27/18 21:00 78 22 161/60 100 02/27/18 20:00 84 23 155/61 100 02/27/18 19:50 22 152/58 100 02/27/18 19:45 87 22 152/58 100 02/27/18 19:00 86 22 152/58 100 02/27/18 18:00 102.6 F H 98 34 162/64 100 02/27/18 17:50 37 162/88 100 02/27/18 16:52 100.0 F H 112 42 162/88 93 02/27/18 15:35 16 96 02/27/18 15:10 97.4 F L 18 149/56 02/27/18 14:50 137/42 02/27/18 14:35 121/47 02/27/18 14:20 145/58 02/27/18 14:05 147/45 02/27/18 13:50 141/58 02/27/18 13:35 133/67 02/27/18 13:20 113/48 02/27/18 13:05 124/40 02/27/18 12:50 119/44 02/27/18 12:35 114/40 02/27/18 12:20 117/38 02/27/18 12:05 121/38 02/27/18 11:50 98.6 F 22 126/40 02/27/18 11:28 16 97 02/27/18 10:35 98.4 F 67 20 123/66 96 Intake and Output 02/27/18 02/28/18 02/28/18 23:59 07:59 15:59 Intake Total 250 / 250 50 / 50 Output Total 0 / 0 0 / 0 Balance 250 / 250 50 / 50 Intake: IV Fluids 150 / 150 Coly-Mycin M PARENTERAL 250 MG 50 / 50 In 0.9 % Sodium Chloride 50 ML @ 100 mls/hr IVPB Q48H [facility] Rx#: [id number] INVanz 500 MG In 0.9 % Sodium 100 / 100 Chloride 100 ML @ 100 mls/hr IVPB Q24H [facility] Rx#:[id number] Oral 0 / 0 Free Water 100 / 100 50 / 50 Output: Urine 0 / 0 0 / 0 Other: Weight 67 kg Blood Glucose* 108 206 291 Patient Weight 02/28/18 23:59 Weight 67 kg - General Appearance General appearance: Present: well-developed, well-nourished, appears started age EENT: Present: mucous membranes moist Neck: Present: no JVD Respiratory: Present: clear Cardiology: Present: regular rate, regular rhythm Additional Comments: pedal Dialysis Vascular Access: Venous Catheter Gastrointestinal: Present: hypoactive bowel sounds Integumentary: Present: warm and dry Psychiatric: Present: cooperative - Lab 02/28/18 07:16 02/28/18 07:16 Most recent lab results ABG pH 7.53 pH Units (7.32-7.45) H 02/27/18 15:56 ABG pCO2 35 mmHg (35-45) 02/27/18 15:56 ABG pO2 57 mmHg (85-104) L 02/27/18 15:56 ABG HCO3 29 mEq/L (21-27) H 02/27/18 15:56 ABG O2 Saturation 92 % (95-98) L 02/27/18 15:56 Calcium 7.7 mg/dL (8.6-10.3) L 02/28/18 07:16 Phosphorus 4.0 mg/dL (2.7-4.5) 02/21/18 12:09 Magnesium 2.0 mg/dL (1.6-2.6) 02/22/18 03:25 Consult Discharge Plan - Plan Referrals: Paco Sheikh MD [Primary Care Provider] - (patient is from [facility])
[2018-02-28] MEDS ORDERED: Lacri-Lube 3.5 GM TUBE BOTH EYES PRN (10:41)
[2018-02-28] MEDS: Nystatin POWDER 30 GM BOTTLE TP SCH ×2 (10:57→21:22)
[2018-02-28] MEDS: Lacri-Lube 3.5 GM TUBE BOTH EYES SCH ×4 (11:42→23:20)
[2018-02-28] MEDS: Acetaminophen 325 MG TABLET PO PRN ×2 (13:14→23:28)
--- NOTE | 2018-02-28 15:36 | Procedure Note ---
<Bill Jordan - Last Filed: 02/28/18 15:33> Date of procedure: 02/28/18 Pre-op diagnosis: Pleural effusion Post-op diagnosis: same Procedure: Thoracentesis Date: 02/28/18 Time: 1534 Indictation: Pleural effusion Academy Director: Dr. Bill Jordan Field Nurse: Dr. Miah Bravo Attending: Dr. Meadows Timeout was completed verifying correct patient, procedure, site, positioning, as special equipment if applicable. The patient's left side was prepped and draped in a sterile manner after the appropriate infiltration level was confirmed by ultrasound and marked. 1% lidocaine was used to NSI and the surrounding skin. A finder needle was then used to locate the fluid and [ default value] fluid was obtained. An 11 blade scalpel was used to make the incision. The thoracentesis catheter was then threaded without difficulty. The patient had 900ml. The attending physician was present for the entire procedure. A postprocedure chest x-ray was ordered. Estimated blood loss: Minimal. The patient tolerated the procedure well and there were no consultations. Anesthesia: local Surgeon: Bill Jordan Was there an assistant at surgery present: Yes Field Nurse: Miah Bravo Estimated blood loss (cc): 2 Specimen: Pleural fluid for cytology Pathology: none sent Condition: stable Disposition: ICU <Vicente Meadows - Last Filed: 02/28/18 22:04> Procedure: I was present during the entire procedure assisted the resident in critical steps
[2018-02-28 16:01] LABS: RBC,Pleural Fluid 0.002 M/mcL
[2018-02-28 16:07] LABS: Appearance of Pleural Fl Hazy (Clear)
[2018-02-28 16:34] LABS: Amylase,Pleural Fluid 16 Units/L (No Ref Range); Glucose,Pleural Fluid 112 mg/dL (No Ref Range); LDH,Pleural Fluid 68 Units/L (No Ref Range); Total Protein,Pleural Fluid < 3.0 g/dL (No Ref Range); Triglycerides, Pleural Fluid 10 mg/dL (No Ref Range)
[2018-02-28] MEDS ORDERED: Colistin (Colistimethate) 100 MG in 0.9 % Sodium Chloride 50 ML IVPB SCH (18:00)
[2018-02-28] MEDS: Chlorhexidine Rinse 15 ML MOUTHWASH MM SCH (21:05)
[2018-03-01] MEDS: *HR* OxyCODONE Immed Rel 5 MG TABLET GTUBE PRN ×4 (00:46→23:05)
[2018-03-01] MEDS: Lacri-Lube 3.5 GM TUBE BOTH EYES SCH ×2 (02:16→07:25)
[2018-03-01] MEDS: Ipratropium/Albuterol Neb 3 ML IH SCH ×7 (03:34→23:24)
[2018-03-01] MEDS: *HR* LORazepam 0.5 MG TABLET GTUBE SCH ×4 (03:41→23:05)
[2018-03-01 03:52] LABS: Basophils # 0.1 K/mcL (0.0-0.2); Basophils % 0.6 %; Eosinophils # 1.3 K/mcL (0.0-0.6); Eosinophils % 10.1 %; Hematocrit 26.7 % (37.5-50.1); Hemoglobin 8.9 g/dL (12.9-16.9); Immature Granulocytes % 0.7 % (0-4); Lymphocytes # 1.3 K/mcL (0.6-4.6); Lymphocytes % 10.1 %; Mean Corpuscular HGB Conc 33.3 g/dL (31.6-35.5); Mean Corpuscular Hemoglobin 34.2 pg (28.0-33.3); Mean Corpuscular Volume 102.7 fL (83.0-100.0); Mean Platelet Volume 10.6 fL (9.4-12.4); Monocytes % 7.6 %; Platelet Count 264 K/mcL (140-400); Red Cell Distribution Width 16.9 % (11.5-14.5); Segmented Neutrophils % 70.9 %
[2018-03-01 04:04] LABS: Calcium 8.2 mg/dL (8.6-10.3); Potassium 5.4 mEq/L (3.5-5.1)
[2018-03-01] MEDS: *HR* Heparin 5,000 UNIT/ML VIAL SQ SCH ×2 (05:01→17:36)
[2018-03-01] MEDS: hydrALAZINE 25 MG TABLET PO SCH ×3 (05:02→17:37)
[2018-03-01] MEDS ORDERED: *HR* Heparin 10,000 UNIT/10 ML VIAL IV PRN ×3 (05:22→10:51)
[2018-03-01] MEDS ORDERED: 0.9 % Sodium Chloride 250 ML IVC PRN ×2 (05:22→10:51)
[2018-03-01] MEDS ORDERED: 0.9 % Sodium Chloride 2,000 ML ONE (07:10)
[2018-03-01] MEDS: Chlorhexidine Rinse 15 ML MOUTHWASH MM SCH (07:26)
[2018-03-01] MEDS: Docusate Oral Soln 100 MG/10 ML UDC PO SCH (07:42)
[2018-03-01] MEDS: Sennosides/Docusate Sodium TABLET GTUBE SCH (07:43)
[2018-03-01] MEDS: Aspirin Enteric Coated 81 MG Tablet PO SCH (07:43)
[2018-03-01] MEDS: Renal Vitamin 1 MG CAPSULE PO SCH (07:43)
[2018-03-01] MEDS: Folic Acid 1 MG TABLET GTUBE SCH (07:43)
[2018-03-01] MEDS: Cyanocobalamin (B-12) 1,000 MCG TABLET GTUBE SCH (07:43)
[2018-03-01] MEDS: *HR* Ticagrelor 90 MG TABLET PO SCH (07:43)
[2018-03-01] MEDS: Insulin LISPRO 300 UNITS/3 ML VIAL SQ SCH (07:55)
[2018-03-01] MEDS ORDERED: Insulin LISPRO 300 UNITS/3 ML VIAL SQ SCH ×2 (08:00→12:00)
[2018-03-01] MEDS ORDERED: Pantoprazole 40 MG VIAL IVP SCH (09:00)
--- NOTE | 2018-03-01 09:17 | Pulmonology Progress Note ---
<Bill Jordan - Last Filed: 03/01/18 11:02> Date of Encounter: 03/01/18 Time of Encounter: 09:14 Assessment and Plan (1) Acute and chronic respiratory failure with hypoxia Current Visit: Yes Status: Acute Patient with worsening acute on chronic respiratory failure ABG showed worsening hypoxic respiratory failure with respiratory alkalosis. Repeat chest x-rays done which did show a pleural effusion. It is recommended that we do thoracentesis to remove this. When further evaluating patient wepatient did have a LifeVest and after doing chart review we did not find where he seen cardiology here says probably had an outside facility that he has these cardiac problems and is being seen there. This most likely is chronic pleural effusion that he is currently having. He did come back with positive sputum's including Klebsiella with ESBL in addition to Acinobacter with multidrug resistance. Patient was placed on ertapenem IDs also consulted and they recommended Colestin. Patient is no longer on the ventilator Echocardiogram was done which showed 25% aVF with diastolic dysfunction, pulmonary hypertension. LifeVest was taken off while he was in the ICU. This most likely nonmalignant based on cell count. Culture still pending. Plan tracheostomy care. Thoracentesis done yesterday we will repeat again on the right side today. Left side was done yesterday DuoNeb's as needed (2) HCAP (healthcare-associated pneumonia) Current Visit: Yes Status: Acute Patient does live in a nursing facility so when he got diagnosed with pneumonia and had positive sputum cultures he was treated his hospital acquired pneumonia. Cultures came back positive for Klebsiella with ESBL in addition to back to with [id number]. He is currently on ertapenem as well as Colstin Infectious disease is following we appreciate their recommendations Tylenol for fever Daily monitoring of labs (3) Pleural effusion Current Visit: Yes Status: Acute Patient does have pleural effusion based on chest x-ray that is worsening from when he is previously drained in the emergency department. It is unknown the sources part is chronic due to patient's worsening CHF or could be an underlying disease. Thoracentesis Repeat chest x-ray Gram stain and cell count of pleural fluid. (4) Tracheostomy care Current Visit: Yes Status: Acute Continue tracheostomy care (5) End stage renal disease Current Visit: Yes Status: Chronic History of ESRD on dialysis. Renal diet. Nephrology is following. Tuesday dialysis schedule (6) Diabetes Current Visit: Yes Status: Chronic Continue home medications Patient did become hypoglycemic when he was placed on the full sliding scale. Due to this we had to give D50 patient responded well. Patient is now eating food by mouth. Changed sliding scale to the HS scale but to be done ACHS Qualifiers: Diabetes mellitus type: type 2 Diabetes mellitus detention insulin use: unspecified detention insulin use status Diabetes mellitus complication status : with unspecified complications Qualified Code(s): E11.8 - Type 2 diabetes mellitus with unspecified complications (7) DVT prophylaxis Current Visit: Yes Status: Acute Subcutaneous heparin Subjective Principal diagnosis: Acute on chronic hypoxic respiratory failure Interval history: Patient did well overnight he is beginning to take food by mouth. Patient did have a hypoglycemic episode yesterday her blood sugar was down to 22 doses was likely due to him being on a too high of insulin sliding scale as he was given 8 units in the morning due to an elevated glucose. Patient responded well to D50. He also should do better now he is now eating solid food. Patient doing well at this time. CT of his chest was done which did show pleural effusion also on his right side. Plan is to thoracentesis today. Patient is doing well and was likely is not needing ICU treatment so plan is to transfer out today Objective PUL Vital signs: Last Vital Signs Temp 98.2 F 03/01/18 08:00 Pulse 84 03/01/18 07:55 Resp 22 03/01/18 07:00 BP 151/69 03/01/18 07:00 Pulse Ox 91 03/01/18 07:00 General appearance: no acute distress, alert Eyes: nonicteric ENT: oropharynx moist Neck: supple Effort: normal Auscultation: right: rales, bilateral: diminished breath sounds Cardiovascular: regular rate and rhythm Gastrointestinal: normoactive bowel sounds, soft, non-tender, non-distended Integumentary: normal Extremities: no cyanosis, no edema, no clubbing Musculoskeletal: no deformities, ROM normal normal mental status, non-focal exam, pupils equal and round, motor strength normal and symmetric Results - Laboratory Findings CBC and BMP: 03/01/18 04:00 03/01/18 04:00 ABG ABG pH 7.53 pH Units (7.32-7.45) H 02/27/18 15:56 ABG pCO2 35 mmHg (35-45) 02/27/18 15:56 ABG pO2 57 mmHg (85-104) L 02/27/18 15:56 ABG O2 Saturation 92 % (95-98) L 02/27/18 15:56 PT/INR, D-dimer PT 11.6 Seconds (9.4-12.1) 02/28/18 06:51 Abnormal lab findings: Abnormal lab results WBC 12.7 K/mcL (4.3-11.1) H 03/01/18 04:00 RBC 2.60 M/mcL (4.19-5.50) L 03/01/18 04:00 Hgb 8.9 g/dL (12.9-16.9) L 03/01/18 04:00 Hct 26.7 % (37.5-50.1) L 03/01/18 04:00 MCV 102.7 fL (83.0-100.0) H 03/01/18 04:00 MCH 34.2 pg (28.0-33.3) H 03/01/18 04:00 RDW 16.9 % (11.5-14.5) H 03/01/18 04:00 Neutrophils # 9.0 K/mcL (1.6-8.9) H 03/01/18 04:00 Eosinophils # 1.3 K/mcL (0.0-0.6) H 03/01/18 04:00 Nucleated RBCs/100 WBC 0.2 /100 WBC (0) H 02/27/18 08:42 APTT 44.6 Seconds (26.0-36.0) H D 02/28/18 06:51 ABG pH 7.53 pH Units (7.32-7.45) H 02/27/18 15:56 ABG pO2 57 mmHg (85-104) L 02/27/18 15:56 ABG HCO3 29 mEq/L (21-27) H 02/27/18 15:56 ABG Total CO2 30 mEq/L (20-26) H 02/27/18 15:56 ABG O2 Saturation 92 % (95-98) L 02/27/18 15:56 ABG Base Excess 6 mEq/L (-2 to 3) H 02/27/18 15:56 Sodium 132 mEq/L (136-145) L 03/01/18 04:00 Potassium 5.4 mEq/L (3.5-5.1) H 03/01/18 04:00 Chloride 95 mEq/L (98-107) L 03/01/18 04:00 BUN 34 mg/dL (6-20) H 03/01/18 04:00 Creatinine 4.01 mg/dL (0.70-1.30) H 03/01/18 04:00 Est GFR ( Amer) 19 (> 60) L 03/01/18 04:00 Est GFR (Non-Af Amer) 15 (> 60) L 03/01/18 04:00 Glucose 200 mg/dL (70-105) H 03/01/18 04:00 POC Glucose 144 mg/dL (70-99) H 02/28/18 23:34 Calcium 8.2 mg/dL (8.6-10.3) L 03/01/18 04:00 AST 40 Units/L (13-39) H 02/27/18 08:42 Serum Total Protein 5.2 g/dL (6.4-8.9) L 02/27/18 08:42 Albumin 2.4 g/dL (3.5-5.7) L 02/27/18 08:42 Albumin/Globulin Ratio 0.9 (1.1-2.2) L 02/27/18 08:42 HDL Cholesterol 25 mg/dL (40-59) L 02/22/18 03:25 TSH 15.077 mcIU/mL (0.340-5.600) H 02/22/18 03:25 Free T3 1.40 pg/mL (2.50-3.90) L 02/23/18 11:54 Pleural Appearance Hazy (Clear) A 02/28/18 15:20 Staphylococcus sp PCR DETECTED (Not Detect) A 02/21/18 12:09 mecA-Methicil Res Gene DETECTED (Not Detect) A 02/21/18 12:09 - Microbiology Findings Microbiology Findings: Microbiology, Last 48 Hours 02/23/18 11:54 Blood Culture - Final Peripheral Venipuncture No growth. 02/23/18 11:54 Blood Culture - Final Peripheral Venipuncture No growth. 02/28/18 15:20 Body Fluid Culture - Preliminary Pleural Fluid 02/22/18 11:45 Sputum Culture - Final Sputum Acinetobacter baumannii MDRO#2 Acinetobacter baumannii MDRO - Clinical Findings Intake & Output: Intake & Output 02/28/18 03/01/18 03/01/18 23:59 07:59 15:59 Intake Total 510 / 510 Output Total 900 / 900 0 / 0 Balance -390 / -390 Weight 73.5 kg Consult Discharge Plan - Plan Referrals: Paco Sheikh MD [Primary Care Provider] - (patient is from [facility]) <Vicente Meadows - Last Filed: 03/01/18 22:19> Date of Encounter: 03/01/18 Assessment and Plan (1) Acute and chronic respiratory failure with hypoxia Current Visit: Yes Status: Acute (2) Pleural effusion Current Visit: Yes Status: Acute (3) CHF (congestive heart failure) Current Visit: Yes Status: Acute Qualifiers: Heart failure chronicity: acute on chronic Qualified Code(s): I50.9 - Heart failure, unspecified (4) ESRD on dialysis Current Visit: Yes Status: Acute Objective PUL Vital signs: Last Vital Signs Temp 99.3 F 03/01/18 21:18 Pulse 86 03/01/18 20:00 Resp 20 03/01/18 20:00 BP 152/59 03/01/18 20:00 Pulse Ox 89 03/01/18 20:00 Results - Laboratory Findings CBC and BMP: 03/01/18 04:00 03/01/18 04:00 ABG ABG pH 7.53 pH Units (7.32-7.45) H 02/27/18 15:56 ABG pCO2 35 mmHg (35-45) 02/27/18 15:56 ABG pO2 57 mmHg (85-104) L 02/27/18 15:56 ABG O2 Saturation 92 % (95-98) L 02/27/18 15:56 PT/INR, D-dimer PT 11.6 Seconds (9.4-12.1) 02/28/18 06:51 Abnormal lab findings: Abnormal lab results WBC 12.7 K/mcL (4.3-11.1) H 03/01/18 04:00 RBC 2.60 M/mcL (4.19-5.50) L 03/01/18 04:00 Hgb 8.9 g/dL (12.9-16.9) L 03/01/18 04:00 Hct 26.7 % (37.5-50.1) L 03/01/18 04:00 MCV 102.7 fL (83.0-100.0) H 03/01/18 04:00 MCH 34.2 pg (28.0-33.3) H 03/01/18 04:00 RDW 16.9 % (11.5-14.5) H 03/01/18 04:00 Neutrophils # 9.0 K/mcL (1.6-8.9) H 03/01/18 04:00 Eosinophils # 1.3 K/mcL (0.0-0.6) H 03/01/18 04:00 Nucleated RBCs/100 WBC 0.2 /100 WBC (0) H 02/27/18 08:42 APTT 44.6 Seconds (26.0-36.0) H D 02/28/18 06:51 ABG pH 7.53 pH Units (7.32-7.45) H 02/27/18 15:56 ABG pO2 57 mmHg (85-104) L 02/27/18 15:56 ABG HCO3 29 mEq/L (21-27) H 02/27/18 15:56 ABG Total CO2 30 mEq/L (20-26) H 02/27/18 15:56 ABG O2 Saturation 92 % (95-98) L 02/27/18 15:56 ABG Base Excess 6 mEq/L (-2 to 3) H 02/27/18 15:56 Sodium 132 mEq/L (136-145) L 03/01/18 04:00 Potassium 5.4 mEq/L (3.5-5.1) H 03/01/18 04:00 Chloride 95 mEq/L (98-107) L 03/01/18 04:00 BUN 34 mg/dL (6-20) H 03/01/18 04:00 Creatinine 4.01 mg/dL (0.70-1.30) H 03/01/18 04:00 Est GFR ( Amer) 19 (> 60) L 03/01/18 04:00 Est GFR (Non-Af Amer) 15 (> 60) L 03/01/18 04:00 Glucose 200 mg/dL (70-105) H 03/01/18 04:00 POC Glucose 144 mg/dL (70-99) H 02/28/18 23:34 Calcium 8.2 mg/dL (8.6-10.3) L 03/01/18 04:00 AST 40 Units/L (13-39) H 02/27/18 08:42 Serum Total Protein 5.2 g/dL (6.4-8.9) L 02/27/18 08:42 Albumin 2.4 g/dL (3.5-5.7) L 02/27/18 08:42 Albumin/Globulin Ratio 0.9 (1.1-2.2) L 02/27/18 08:42 HDL Cholesterol 25 mg/dL (40-59) L 02/22/18 03:25 TSH 15.077 mcIU/mL (0.340-5.600) H 02/22/18 03:25 Free T3 1.40 pg/mL (2.50-3.90) L 02/23/18 11:54 Pleural Appearance Hazy (Clear) A 02/28/18 15:20 Staphylococcus sp PCR DETECTED (Not Detect) A 02/21/18 12:09 mecA-Methicil Res Gene DETECTED (Not Detect) A 02/21/18 12:09 - Microbiology Findings Microbiology Findings: Microbiology, Last 48 Hours 02/23/18 11:54 Blood Culture - Final Peripheral Venipuncture No growth. 02/23/18 11:54 Blood Culture - Final Peripheral Venipuncture No growth. 02/28/18 15:20 Body Fluid Culture - Preliminary Pleural Fluid - Clinical Findings Intake & Output: Intake & Output 03/01/18 03/01/18 03/01/18 07:59 15:59 23:59 Intake Total 960 / 960 170 / 170 Output Total 0 / 0 2600 / 2600 0 / 0 Balance -1640 / -1640 170 / 170 Weight 73.5 kg 75 kg - Attending Attestation - Attending Attestation I saw and evaluated this patient and my medical decision-making was reviewed with the Resident Physician. I agree with the documented findings, disposition and treatment plan as described except to the extent set forth below. We independently had [id number] contact with the patient Patient seen and examined at bedside Labs, radiology, chart personally reviewed. Management was reviewed during multidisciplinary critical care rounds. CENTER MGR:Patient is conscious follows commands when he becomes hypoglycemic he becomes drowsy Pulm: Patient is on Trach collar off ventilator patient had thoracentesis and dialysis has acceptable oxygenation and ventilation Cards: Fluid overload contributed by systolic heart failure and diastolic dysfunction .Salt and water restriction and fluid managment with dialysis FEN-GI:Advance diet as tolerated Renal:ESRD on MWF dialysis ID: Patient has probable bacterial tracheobronchitis vs pneumonia sputum growing MDRO organisms ID following antibiotics according to ID . Heme/Onc: Reviewed on DVT prophylaxis Endo: Glucose Monitored Patient has brittle diabetes will STOP short acting insulin will switch back to his home basal insulin Integ/MSK: Skin Care per routine ICU Nursing Protocol to prevent ulcers. Lines: All lines examined without evidence of infection : Dispo: Patient can be transferred to [facility] tele CODE: Full Code
--- NOTE | 2018-03-01 09:28 | Infectious Disease Progress No ---
Date of Encounter: 03/01/18 Time of Encounter: 09:26 - Assessment and Plan (1) Sepsis Current Visit: Yes Status: Acute Patient had leukocytosis and fever Leukocytosis improved and patient afebrile the past 24 hours Presumed source is pneumonia due to Acinetobacter and Klebsiella ESBL Currently on colistin and ertapenem Initial blood cultures are negative Repeat blood cultures are pending Qualifiers: Sepsis type: sepsis due to unspecified organism Qualified Code(s): A41.9 - Sepsis, unspecified organism (2) Pneumonia Current Visit: Yes Status: Acute Causative organism: Acinetobacter and ESBL Klebsiella Chest x-ray shows bibasilar opacities and an increased left pleural effusion Chest CT shows multiple focal pneumonia with large pleural effusion Sputum culture was positive for Acinetobacter baumannii and Klebsiella pneumonia ESBL Leukocytosis improved, afebrile past 24 hours Currently on colistin 100 mg daily and ertapenem 500 mg daily Continue both for now as the patient is clinically improving, consider discontinuing ertapenem if the patient continues to improve however if this is changed we will need to add coverage for strep pneumoniae as colistin has no strep pneumo coverage Duration will be based on clinical course but likely 14 days Initial blood cultures are no growth to date Repeat blood cultures pending Risk for infection panel pending Strep and legionella urinary antigens are unable to be obtained as the patient does not make any urine Pleural fluid culture pending, Gram stain was negative Patient is ESRD, dose adjust antibiotics accordingly Qualifiers: Pneumonia type: due to other aerobic Gram-negative bacteria Laterality: unspecified laterality Lung location: unspecified part of lung Qualified Code(s): J15.6 - Pneumonia due to other Gram-negative bacteria (3) Pleural effusion Current Visit: Yes Status: Acute Transitive effusion with predominance of mesothelial cells Gram stain negative, Culture pending (4) Acute and chronic respiratory failure with hypoxia Current Visit: Yes Status: Acute Chronic tracheostomy present Now requiring trach mask Further management per pulmonary (5) ESRD on dialysis Current Visit: Yes Status: Chronic Currently his right chest PermCath for access Area appears clean dry and intact Further management per nephrology (6) History of CVA (cerebrovascular accident) Current Visit: Yes Status: Chronic (7) Diabetes Current Visit: Yes Status: Chronic Qualifiers: Diabetes mellitus type: type 2 Diabetes mellitus fdc insulin use: unspecified fdc insulin use status Diabetes mellitus complication status : with unspecified complications Qualified Code(s): E11.8 - Type 2 diabetes mellitus with unspecified complications (8) GERD (gastroesophageal reflux disease) Current Visit: Yes Status: Chronic Qualifiers: Esophagitis presence: esophagitis presence not specified Qualified Code(s) : K21.9 - Gastro-esophageal reflux disease without esophagitis (9) HLD (hyperlipidemia) Current Visit: Yes Status: Chronic Qualifiers: Hyperlipidemia type: pure hypercholesterolemia Qualified Code(s): E78.00 - Pure hypercholesterolemia, unspecified; E78.0 - Pure hypercholesterolemia - Subjective Interval history: Patient seen and examined at bedside. Patient is awake and alert however not performed given his tracheostomy and not having a speaking valve at this time. He reports pain in his back but denies shortness of breath, cough, increased sputum production. Infect Dis PN-Objective Data - Labs CBC & Chem 7: 03/01/18 04:00 03/01/18 04:00 Labs: Laboratory Results - last 24 hr 02/28/18 02/28/18 02/28/18 03:49 11:40 15:03 WBC RBC Hgb Hct MCV MCH MCHC RDW Plt Count MPV Immature Gran % Seg Neutrophils % Lymphocytes % Monocytes % Eosinophils % Basophils % Neutrophils # Lymphocytes # Monocytes # Eosinophils # Basophils # Sodium Potassium Chloride Carbon Dioxide BUN Creatinine Est GFR ( Amer) Est GFR (Non-Af Amer) BUN/Creatinine Ratio Glucose POC Glucose 206 H 78 22 L* Calculated Osmolality Calcium Lactate Dehydrogenase Pleural Fluid Volume Pleural Appearance Pleural pH Pleural RBC Pleural Tot Nuc Cell Pleural Neutrophils Pleural Band Neuts Pleural Eosinophils Pleural Basophils Pleural Lymphocytes % Pleural Monocytes % Pleural Other Cells % Pleural Total Protein Pleural Albumin Pleural LDH Pleural Glucose Pleural Amylase Pleural Cholesterol Pleural Triglycerides 02/28/18 02/28/18 02/28/18 15:04 15:20 15:20 WBC RBC Hgb Hct MCV MCH MCHC RDW Plt Count MPV Immature Gran % Seg Neutrophils % Lymphocytes % Monocytes % Eosinophils % Basophils % Neutrophils # Lymphocytes # Monocytes # Eosinophils # Basophils # Sodium Potassium Chloride Carbon Dioxide BUN Creatinine Est GFR ( Amer) Est GFR (Non-Af Amer) BUN/Creatinine Ratio Glucose POC Glucose 22 L* 94 Calculated Osmolality Calcium Lactate Dehydrogenase Pleural Fluid Volume 800.0 Pleural Appearance Hazy A Pleural pH 8.00 Pleural RBC 0.002 Pleural Tot Nuc Cell 225 Pleural Neutrophils 30.0 Pleural Band Neuts Test Not Performed Pleural Eosinophils 5.0 Pleural Basophils Test Not Performed Pleural Lymphocytes % 14.0 Pleural Monocytes % 10.0 Pleural Other Cells % 41.0 Pleural Total Protein Pleural Albumin Pleural LDH Pleural Glucose Pleural Amylase Pleural Cholesterol Pleural Triglycerides 02/28/18 02/28/18 02/28/18 15:20 15:54 16:25 WBC RBC Hgb Hct MCV MCH MCHC RDW Plt Count MPV Immature Gran % Seg Neutrophils % Lymphocytes % Monocytes % Eosinophils % Basophils % Neutrophils # Lymphocytes # Monocytes # Eosinophils # Basophils # Sodium Potassium Chloride Carbon Dioxide BUN Creatinine Est GFR ( Amer) Est GFR (Non-Af Amer) BUN/Creatinine Ratio Glucose POC Glucose 64 L 125 H Calculated Osmolality Calcium Lactate Dehydrogenase Pleural Fluid Volume Pleural Appearance Pleural pH Pleural RBC Pleural Tot Nuc Cell Pleural Neutrophils Pleural Band Neuts Pleural Eosinophils Pleural Basophils Pleural Lymphocytes % Pleural Monocytes % Pleural Other Cells % Pleural Total Protein < 3.0 Pleural Albumin < 1.5 Pleural LDH 68 Pleural Glucose 112 Pleural Amylase 16 Pleural Cholesterol < 25 Pleural Triglycerides 10 02/28/18 02/28/18 03/01/18 19:29 23:34 04:00 WBC 12.7 H RBC 2.60 L Hgb 8.9 L Hct 26.7 L MCV 102.7 H MCH 34.2 H MCHC 33.3 RDW 16.9 H Plt Count 264 MPV 10.6 Immature Gran % 0.7 Seg Neutrophils % 70.9 Lymphocytes % 10.1 Monocytes % 7.6 Eosinophils % 10.1 Basophils % 0.6 Neutrophils # 9.0 H Lymphocytes # 1.3 Monocytes # 1.0 Eosinophils # 1.3 H Basophils # 0.1 Sodium Potassium Chloride Carbon Dioxide BUN Creatinine Est GFR ( Amer) Est GFR (Non-Af Amer) BUN/Creatinine Ratio Glucose POC Glucose 103 H 144 H Calculated Osmolality Calcium Lactate Dehydrogenase Pleural Fluid Volume Pleural Appearance Pleural pH Pleural RBC Pleural Tot Nuc Cell Pleural Neutrophils Pleural Band Neuts Pleural Eosinophils Pleural Basophils Pleural Lymphocytes % Pleural Monocytes % Pleural Other Cells % Pleural Total Protein Pleural Albumin Pleural LDH Pleural Glucose Pleural Amylase Pleural Cholesterol Pleural Triglycerides 03/01/18 04:00 WBC RBC Hgb Hct MCV MCH MCHC RDW Plt Count MPV Immature Gran % Seg Neutrophils % Lymphocytes % Monocytes % Eosinophils % Basophils % Neutrophils # Lymphocytes # Monocytes # Eosinophils # Basophils # Sodium 132 L Potassium 5.4 H Chloride 95 L Carbon Dioxide 27 BUN 34 H Creatinine 4.01 H Est GFR ( Amer) 19 L Est GFR (Non-Af Amer) 15 L BUN/Creatinine Ratio 8 Glucose 200 H POC Glucose Calculated Osmolality 287 Calcium 8.2 L Lactate Dehydrogenase 151 Pleural Fluid Volume Pleural Appearance Pleural pH Pleural RBC Pleural Tot Nuc Cell Pleural Neutrophils Pleural Band Neuts Pleural Eosinophils Pleural Basophils Pleural Lymphocytes % Pleural Monocytes % Pleural Other Cells % Pleural Total Protein Pleural Albumin Pleural LDH Pleural Glucose Pleural Amylase Pleural Cholesterol Pleural Triglycerides Cultures: Cultures 02/23/18 11:54 Blood Culture - Final Peripheral Venipuncture No growth. 02/23/18 11:54 Blood Culture - Final Peripheral Venipuncture No growth. 02/28/18 15:20 Body Fluid Culture - Preliminary Pleural Fluid 02/22/18 11:45 Sputum Culture - Final Sputum Acinetobacter baumannii MDRO#2 Acinetobacter baumannii MDRO 02/21/18 18:00 Sputum Culture - Final Sputum Klebsiella pneumoniae ESBL 02/21/18 18:50 Legionella Antigen - Final Urine,Clean Catch Streptococcus pneumoniae Antigen (M - Final Serology 02/28/18 02/28/18 02/21/18 Range/Units 15:20 15:20 18:08 Pleural Fluid Volume 800.0 mL Pleural Appearance Hazy A (Clear) Pleural pH 8.00 (No Ref Range) pH Units Pleural RBC 0.002 (0.000 - 0.002) M/mcL Pleural Tot Nuc Cell 225 (0-1000) TNC/mcL Pleural Neutrophils 30.0 % Pleural Band Neuts Test Not Performed Pleural Eosinophils 5.0 % Pleural Basophils Test Not Performed Pleural Lymphocytes % 14.0 % Pleural Monocytes % 10.0 % Pleural Other Cells % 41.0 % Pleural Total Protein < 3.0 (No Ref Range) g/dL Pleural Albumin < 1.5 (No Ref Range) g/dL Pleural LDH 68 (No Ref Range) Units/L Pleural Glucose 112 (No Ref Range) mg/dL Pleural Amylase 16 (No Ref Range) Units/L Pleural Cholesterol < 25 (No Ref Range) mg/dL Pleural Triglycerides 10 (No Ref Range) mg/dL Chlamy pneumoniae PCR Not Detected (Not Detect) Adenovirus (PCR) Not Detected (Not Detect) B. pertussis DNA (PCR) Not Detected (Not Detect) B.parapertussis DNA PCR Not Detected (Not Detect) Coronavirus OC43 (PCR) Not Detected (Not Detect) Coronavirus HKU1 (PCR) Not Detected (Not Detect) Coronavirus 229E (PCR) Not Detected (Not Detect) Coronavirus NL63 (PCR) Not Detected (Not Detect) Hep Bs Antigen (Nonreactive) Hep Bs Antibody mIU/mL Human Metapneumovir PCR Not Detected (Not Detect) Influenza A (H1) PCR Not Detected (Not Detect) Influ A (H1N1/09) PCR Not Detected (Not Detect) Influenza A (H3) PCR Not Detected (Not Detect) Influenza A Untype (PCR) Not Detected (Not Detect) Influenza Type B (PCR) Not Detected (Not Detect) M.pneumoniae DNA (PCR) Not Detected (Not Detect) Parainfluenza 1 (PCR) Not Detected (Not Detect) Parainfluenza 2 (PCR) Not Detected (Not Detect) Parainfluenza 3 (PCR) Not Detected (Not Detect) Parainfluenza 4 (PCR) Not Detected (Not Detect) RSV (PCR) Not Detected (Not Detect) Entero/Rhino (PCR) Not Detected (Not Detect) 02/21/18 Range/Units 17:36 Pleural Fluid Volume mL Pleural Appearance (Clear) Pleural pH (No Ref Range) pH Units Pleural RBC (0.000 - 0.002) M/mcL Pleural Tot Nuc Cell (0-1000) TNC/mcL Pleural Neutrophils % Pleural Band Neuts Pleural Eosinophils % Pleural Basophils Pleural Lymphocytes % % Pleural Monocytes % % Pleural Other Cells % % Pleural Total Protein (No Ref Range) g/dL Pleural Albumin (No Ref Range) g/dL Pleural LDH (No Ref Range) Units/L Pleural Glucose (No Ref Range) mg/dL Pleural Amylase (No Ref Range) Units/L Pleural Cholesterol (No Ref Range) mg/dL Pleural Triglycerides (No Ref Range) mg/dL Chlamy pneumoniae PCR (Not Detect) Adenovirus (PCR) (Not Detect) B. pertussis DNA (PCR) (Not Detect) B.parapertussis DNA PCR (Not Detect) Coronavirus OC43 (PCR) (Not Detect) Coronavirus HKU1 (PCR) (Not Detect) Coronavirus 229E (PCR) (Not Detect) Coronavirus NL63 (PCR) (Not Detect) Hep Bs Antigen Nonreactive (Nonreactive) Hep Bs Antibody 144.68 mIU/mL Human Metapneumovir PCR (Not Detect) Influenza A (H1) PCR (Not Detect) Influ A (H1N1/09) PCR (Not Detect) Influenza A (H3) PCR (Not Detect) Influenza A Untype (PCR) (Not Detect) Influenza Type B (PCR) (Not Detect) M.pneumoniae DNA (PCR) (Not Detect) Parainfluenza 1 (PCR) (Not Detect) Parainfluenza 2 (PCR) (Not Detect) Parainfluenza 3 (PCR) (Not Detect) Parainfluenza 4 (PCR) (Not Detect) RSV (PCR) (Not Detect) Entero/Rhino (PCR) (Not Detect) - Impressions Impressions Echocardiogram 02/28/18 11:06 Impressions: LVEF 30%. Moderate concentric left ventricular hypertrophy. Moderate left ventricular diastolic dysfunction. Mildly dilated right ventricle with mildly reduced function. Mild aortic regurgitation. Mild tricuspid regurgitation. Borderline mild pulmonary hypertension. Left Ventricular Wall Motion: Rest Echo Findings The apex, apical inferior, mid inferior, basal inferior, apical anterior, mid anterior, basal anterior, apical septal, mid inferior septal, basal inferior septal, apical lateral, mid anterior lateral, basal anterior lateral, mid anterior septal, mid inferior lateral, basal anterior septal and basal inferior lateral wilder were hypokinetic. Findings: Study Quality * Technically adequate exam. ECG Findings * Normal sinus rhythm. Left Ventricle * LVEF 30%. * Normal LV chamber size. * Moderate concentric left ventricular hypertrophy. * Moderate left ventricular diastolic dysfunction. Right Ventricle * Mildly dilated right ventricle with mildly reduced function. Left Atrium * Severely dilated left atrium. Right Atrium * Mildly dilated right atrium. Aortic Valve * No aortic stenosis. * Trileaflet aortic valve. * Mild aortic regurgitation. Mitral Valve * Mildly thickened mitral valve leaflets. * Trace mitral regurgitation. * No mitral stenosis. Tricuspid Valve * Normal tricuspid valve structure. * Mild tricuspid regurgitation. * Bordelrine mild pulmonary hypertension. Pulmonic Valve * Normal pulmonic valve structure and function. * Trace pulmonic regurgitation. Aorta * Normally sized aortic root. Pericardium * The pericardium appears normal. IVC * The IVC is not well evaluated. Pleural Effusion * Plleural effusion. Pulmonary Artery * Normal visualized portions of the main pulmonary artery. Chest X-Ray 02/28/18 15:30 IMPRESSION: Decreased size of left-sided pleural effusion. No evidence of pneumothorax status post thoracentesis. Persistent findings of pulmonary edema with bilateral pleural effusions and bibasilar airspace disease. D/ / Suzanne Cox MD / Suzanne Cox MD Interpreting Provider: Suzanne Cox MD Chest CT 02/28/18 16:00 IMPRESSION: [id number] right and moderate left pleural effusions with multifocal bilateral airspace disease likely representing pneumonia, with probable component of passive atelectasis dependently. . Four-chamber cardiac enlargement. Some ground-glass opacity within the right lung as well as a few septal lines raises the possibility of edema. D/ / Annalise Addison Cha, MD / Annalise Addison Cha, MD Interpreting Provider: Annalise Addison Cha, MD Exam - Constitutional Vitals: Temp Pulse Resp BP Pulse Ox 98.2 F 84 22 151/69 91 03/01/18 08:00 03/01/18 07:55 03/01/18 07:00 03/01/18 07:00 03/01/18 07:00 General appearance: no acute distress - Neck Additional comments: Tracheostomy with trach mask present - Respiratory Respiratory exam: Present: decreased breath sounds. Absent: rales, rhonchi, wheezes - Cardiovascular Cardiovascular exam: Present: RRR. Absent: diastolic murmur, systolic murmur - GI/Abdominal GI/Abdominal exam: Present: soft. Absent: distended, tenderness - Extremities Exam Extremities exam: Absent: pedal edema - Neurological Exam Neurological exam: Present: alert Consult Discharge Plan - Plan Referrals: Paco Sheikh MD [Primary Care Provider] - (patient is from [facility]) - Attending Attestation I examined this patient and my medical decision-making was reviewed with the Resident Physician. I agree with the documented findings, disposition and treatment plan as described except to the extent set forth below.
[2018-03-01] MEDS: Nystatin POWDER 30 GM BOTTLE TP SCH (09:56)
[2018-03-01] MEDS: amLODIPine 5 MG TABLET GTUBE SCH (09:56)
[2018-03-01] MEDS: cloNIDine HCl 0.1 MG TABLET PO SCH (09:56)
[2018-03-01] MEDS ORDERED: hydrOXYzine pamoate 25 MG CAPSULE PO PRN (10:51)
[2018-03-01] MEDS ORDERED: Albuterol 2.5 MG/3 ML NEBULIZER IH PRN (10:51)
[2018-03-01] MEDS ORDERED: Dextrose Gel 15 GM/37.5 ML TUBE PO PRN ×2 (10:51)
[2018-03-01] MEDS ORDERED: *HR* Promethazine 25 MG/ML VIAL IVP PRN (10:51)
[2018-03-01] MEDS ORDERED: D5% in Water 1,000 ML IVC PRN (10:51)
[2018-03-01] MEDS ORDERED: 0.9 % Sodium Chloride 1,000 ML PRIME SCH (10:51)
[2018-03-01] MEDS ORDERED: Acetaminophen 325 MG TABLET PO PRN (10:51)
[2018-03-01] MEDS ORDERED: Darbepoetin 100 MCG/0.5 ML SYRINGE SQ SCH (10:51)
[2018-03-01] MEDS ORDERED: *HR* LORazepam 0.5 MG TABLET GTUBE PRN (10:51)
[2018-03-01] MEDS ORDERED: *HR* Dextrose 50 % in Water (Syg) 50 ML SYRINGE IVP PRN (10:51)
[2018-03-01] MEDS ORDERED: DiphenhydraMINE CREAM 28.4 GM TUBE TP PRN (10:51)
[2018-03-01] MEDS ORDERED: Naloxone 0.4 MG/ML INJ IVP PRN (10:51)
--- NOTE | 2018-03-01 13:24 | Nephrology Progress Note ---
Date of Encounter: 03/01/18 Time of Encounter: 13:00 - Assessment and Plan (1) ESRD on dialysis Current Visit: Yes Status: Chronic HD today, keeping MWF schedule. Orders given. (2) Pleural effusion Current Visit: Yes Status: Acute Subjective Principal diagnosis: Acute on chronic hypoxic respiratory failure Interval history: Seen on HD in ICU. S/P left thorocentesis yesterday for 900cc with plans for right thorocentesis today. trach>O2 Objective - Vital Signs Vital signs: Vital Signs Temp Pulse Resp BP Pulse Ox 03/01/18 13:05 158/62 03/01/18 12:50 125/65 03/01/18 12:35 126/58 03/01/18 12:20 139/65 03/01/18 12:05 98.0 F 151/65 03/01/18 11:50 156/70 03/01/18 11:35 179/70 03/01/18 11:28 24 93 03/01/18 11:20 150/59 03/01/18 11:05 117/56 03/01/18 11:00 92 24 127/56 91 03/01/18 10:50 135/61 03/01/18 10:35 123/46 03/01/18 10:20 136/54 03/01/18 10:05 99.3 F 22 133/62 03/01/18 09:00 84 22 143/64 92 03/01/18 08:00 98.2 F 03/01/18 07:55 84 03/01/18 07:36 30 92 03/01/18 07:00 82 22 151/69 91 03/01/18 06:00 82 18 154/64 90 03/01/18 05:00 83 22 156/60 91 03/01/18 04:00 97.9 F 78 20 150/65 90 03/01/18 03:35 21 89 03/01/18 03:00 78 22 150/65 90 03/01/18 02:00 69 20 139/61 89 03/01/18 01:00 67 20 130/60 90 03/01/18 00:00 96.0 F L 61 16 105/40 96 02/28/18 23:00 61 18 102/36 92 02/28/18 22:00 64 16 106/50 93 05/29/18 21:00 58 16 99/43 94 02/28/18 20:00 96.8 F L 56 18 98/46 96 02/28/18 19:53 23 96 02/28/18 19:00 60 20 107/47 97 02/28/18 18:00 56 22 98/53 90 02/28/18 17:07 54 16 105/43 95 02/28/18 16:13 22 02/28/18 16:00 54 02/28/18 15:50 22 100 02/28/18 15:00 52 12 160/93 95 02/28/18 14:00 62 24 98 Intake and Output 02/28/18 03/01/18 03/01/18 23:59 07:59 15:59 Intake Total 510 / 510 960 / 960 Output Total 900 / 900 0 / 0 0 / 0 Balance -390 / -390 10 960 / 960 Intake: IV Fluids 150 / 150 Coly-Mycin M PARENTERAL 100 MG 50 / 50 In 0.9 % Sodium Chloride 50 ML @ 100 mls/hr IVPB Q24H [facility] Rx#: [id number] INVanz 500 MG In 0.9 % Sodium 100 / 100 Chloride 100 ML @ 100 mls/hr IVPB Q24H [facility] Rx#:[id number] Oral 360 / 360 10 / 10 360 / 360 Intake, Rinseback and Flushes 600 / 600 Output: Urine 0 / 0 0 / 0 Thoracentesis 900 / 900 Other: Meal snack/sneha grahams Lunch Percent of Meal Consumed 100% 10% Weight 73.5 kg 75 kg Blood Glucose* 144 80 Hemodialysis Net Fluid Removed 2600 (mL) Patient Weight 03/01/18 23:59 Weight 75 kg - General Appearance General appearance: Present: well-developed, well-nourished, appears started age EENT: Present: mucous membranes moist Neck: Present: no JVD Respiratory: Present: clear Additional Comments: diminished Cardiology: Present: edema, regular rate, regular rhythm Additional Comments: left ankle Dialysis Vascular Access: Venous Catheter Gastrointestinal: Present: normoactive bowel sounds, no tenderness Integumentary: Present: warm and dry Psychiatric: Present: mood/affect appropriate, cooperative - Lab 03/01/18 04:00 03/01/18 04:00 Most recent lab results ABG pH 7.53 pH Units (7.32-7.45) H 02/27/18 15:56 ABG pCO2 35 mmHg (35-45) 02/27/18 15:56 ABG pO2 57 mmHg (85-104) L 02/27/18 15:56 ABG HCO3 29 mEq/L (21-27) H 02/27/18 15:56 ABG O2 Saturation 92 % (95-98) L 02/27/18 15:56 Calcium 8.2 mg/dL (8.6-10.3) L 03/01/18 04:00 Phosphorus 4.0 mg/dL (2.7-4.5) 02/21/18 12:09 Magnesium 2.0 mg/dL (1.6-2.6) 02/22/18 03:25 Consult Discharge Plan - Plan Referrals: Paco Sheikh MD [Primary Care Provider] - (patient is from [facility])
--- NOTE | 2018-03-01 14:17 | Event Note ---
Date of Encounter: 03/01/18 Time of Encounter: 14:15 Attempted thoracentesis we did look with ultrasound and prepped the area during that time patient decided he did not want to be done and he halted the procedure. At that time we removed the drape clean them off and laid him back down in bed. We did call his power of employment attorney who said okay he can make his own decisions. At this time patient is able to make his own decisions he is alert and oriented. Patient is still going to be transferred to another floor. Patient just did undergo dialysis's they did remove 2 L of fluid. This probably did help with his pleural effusion as well.
[2018-03-01 14:54] LABS: Adenovirus Not Detected (Not Detect); Bordetella Pertussis Not Detected (Not Detect); Chlamydophila pneumoniae Not Detected (Not Detect); Coronavirus 229E Not Detected (Not Detect); Coronavirus HKU1 Not Detected (Not Detect); Coronavirus NL63 Not Detected (Not Detect); Coronavirus OC43 Not Detected (Not Detect); Human Metapneumovirus Not Detected (Not Detect); Human Rhinovirus/Enterovirus Not Detected (Not Detect); Influenza A Subtype 2009 H1 Not Detected (Not Detect); Influenza A Untypeable Not Detected (Not Detect); Influenza B Not Detected (Not Detect); Mycoplasma pneumoniae Not Detected (Not Detect); Parainfluenza Virus 1 Not Detected (Not Detect); Parainfluenza Virus 2 Not Detected (Not Detect); Parainfluenza Virus 3 Not Detected (Not Detect); Parainfluenza Virus 4 Not Detected (Not Detect); Respiratory Syncytial Virus Not Detected (Not Detect)
[2018-03-01] MEDS ORDERED: Colistin (Colistimethate) 100 MG in 0.9 % Sodium Chloride 50 ML IVPB SCH (18:00)
[2018-03-01] MEDS ORDERED: cloNIDine HCl 0.1 MG TABLET PO SCH (21:00)
[2018-03-01] MEDS ORDERED: Nystatin POWDER 30 GM BOTTLE TP SCH (21:00)
[2018-03-01] MEDS ORDERED: Sennosides/Docusate Sodium TABLET GTUBE SCH (21:00)
[2018-03-01] MEDS ORDERED: *HR* Ticagrelor 90 MG TABLET PO SCH (21:00)
[2018-03-02] MEDS: hydrALAZINE 25 MG TABLET PO SCH ×5 (00:03→23:57)
[2018-03-02] MEDS: Ipratropium/Albuterol Neb 3 ML IH SCH ×6 (03:41→19:51)
[2018-03-02] MEDS: *HR* LORazepam 0.5 MG TABLET GTUBE SCH ×4 (05:25→22:34)
[2018-03-02] MEDS: *HR* Heparin 5,000 UNIT/ML VIAL SQ SCH ×2 (05:25→16:54)
[2018-03-02] MEDS ORDERED: 0.9 % Sodium Chloride 1,000 ML PRIME SCH (07:37)
[2018-03-02] MEDS ORDERED: hydrOXYzine pamoate 25 MG CAPSULE PO PRN (07:37)
[2018-03-02] MEDS ORDERED: Albuterol 2.5 MG/3 ML NEBULIZER IH PRN (07:37)
[2018-03-02] MEDS ORDERED: DiphenhydraMINE CREAM 28.4 GM TUBE TP PRN (07:37)
[2018-03-02] MEDS ORDERED: Dextrose Gel 15 GM/37.5 ML TUBE PO PRN ×2 (07:37)
[2018-03-02] MEDS ORDERED: *HR* Heparin 10,000 UNIT/10 ML VIAL IV PRN ×2 (07:37)
[2018-03-02] MEDS ORDERED: *HR* Promethazine 25 MG/ML VIAL IVP PRN (07:37)
[2018-03-02] MEDS ORDERED: 0.9 % Sodium Chloride 250 ML IVC PRN (07:37)
[2018-03-02] MEDS ORDERED: Naloxone 0.4 MG/ML INJ IVP PRN (07:37)
[2018-03-02] MEDS ORDERED: D5% in Water 1,000 ML IVC PRN (07:37)
[2018-03-02] MEDS ORDERED: Darbepoetin 100 MCG/0.5 ML SYRINGE SQ SCH (07:37)
--- NOTE | 2018-03-02 08:58 | Nephrology Progress Note ---
Date of Encounter: 03/02/18 Time of Encounter: 08:25 - Assessment and Plan (1) ESRD on dialysis Current Visit: Yes Status: Chronic No HD today, keeping MWF schedule. (2) Pleural effusion Current Visit: Yes Status: Acute Subjective Principal diagnosis: Acute on chronic hypoxic respiratory failure Interval history: Trach > vent during night, back on O2 collar this AM. refused right thorocentesis yesterday. Objective - Vital Signs Vital signs: Vital Signs Temp Pulse Resp BP Pulse Ox 03/02/18 08:00 82 03/02/18 07:40 98.2 F 03/02/18 07:30 22 100 03/02/18 06:00 81 26 146/69 93 03/02/18 05:16 22 107/48 93 03/02/18 04:00 98.5 F 78 22 107/48 95 03/02/18 03:42 26 107/48 94 03/02/18 02:00 79 25 95 03/02/18 01:02 28 113/43 93 03/02/18 01:00 86 28 92 03/02/18 00:00 85 28 87 03/01/18 23:25 18 88 03/01/18 23:00 98.5 F 86 20 113/43 87 03/01/18 22:00 86 18 86 03/01/18 21:18 99.3 F 03/01/18 20:00 86 20 152/59 89 03/01/18 19:38 28 89 03/01/18 15:47 98.5 F 03/01/18 15:28 32 91 03/01/18 15:00 98 18 130/75 91 03/01/18 13:20 98.4 F 18 159/66 03/01/18 13:05 158/62 03/01/18 12:50 125/65 03/01/18 12:35 126/58 03/01/18 12:20 139/65 03/01/18 12:05 98.0 F 151/65 03/01/18 11:50 156/70 03/01/18 11:35 179/70 03/01/18 11:28 24 93 03/01/18 11:20 150/59 03/01/18 11:05 117/56 03/01/18 11:00 92 24 127/56 91 03/01/18 10:50 135/61 03/01/18 10:35 123/46 03/01/18 10:20 136/54 03/01/18 10:05 99.3 F 22 133/62 03/01/18 09:00 84 22 143/64 92 Intake and Output 03/01/18 03/02/18 03/02/18 23:59 07:59 15:59 Intake Total 220 / 220 0 / 0 Output Total 0 / 0 0 / 0 0 / 0 Balance 220 / 220 0 / 0 0 / 0 Intake: IV Fluids 50 / 50 Coly-Mycin M PARENTERAL 100 MG 50 / 50 In 0.9 % Sodium Chloride 50 ML @ 100 mls/hr IVPB Q24H [facility] Rx#: [id number] Oral 170 / 170 0 / 0 Output: Urine 0 / 0 0 / 0 Catheter 0 / 0 Other: Blood Glucose* 103 104 - General Appearance General appearance: Present: well-developed, well-nourished, appears started age EENT: Present: mucous membranes moist Neck: Present: no JVD Respiratory: Present: clear Additional Comments: diminished Cardiology: Present: edema, regular rate, regular rhythm Additional Comments: LLE only Dialysis Vascular Access: Venous Catheter Gastrointestinal: Present: normoactive bowel sounds, no tenderness Integumentary: Present: warm and dry Psychiatric: Present: mood/affect appropriate, cooperative - Lab 03/01/18 04:00 03/01/18 04:00 Most recent lab results ABG pH 7.53 pH Units (7.32-7.45) H 02/27/18 15:56 ABG pCO2 35 mmHg (35-45) 02/27/18 15:56 ABG pO2 57 mmHg (85-104) L 02/27/18 15:56 ABG HCO3 29 mEq/L (21-27) H 02/27/18 15:56 ABG O2 Saturation 92 % (95-98) L 02/27/18 15:56 Calcium 8.2 mg/dL (8.6-10.3) L 03/01/18 04:00 Phosphorus 4.0 mg/dL (2.7-4.5) 02/21/18 12:09 Magnesium 2.0 mg/dL (1.6-2.6) 02/22/18 03:25 Consult Discharge Plan - Plan Referrals: Paco Sheikh MD [Primary Care Provider] - (patient is from [facility])
[2018-03-02] MEDS ORDERED: Cyanocobalamin (B-12) 1,000 MCG TABLET GTUBE SCH (09:00)
[2018-03-02] MEDS ORDERED: Aspirin Enteric Coated 81 MG Tablet PO SCH (09:00)
[2018-03-02] MEDS ORDERED: amLODIPine 5 MG TABLET GTUBE SCH (09:00)
[2018-03-02] MEDS ORDERED: Folic Acid 1 MG TABLET GTUBE SCH (09:00)
[2018-03-02] MEDS ORDERED: Renal Vitamin 1 MG CAPSULE PO SCH (09:00)
[2018-03-02] MEDS ORDERED: Docusate Oral Soln 100 MG/10 ML UDC PO SCH (09:00)
[2018-03-02] MEDS ORDERED: Insulin DETEMIR 100 UNIT/ML X5UNITS SQ SCH ×2 (09:00)
--- NOTE | 2018-03-02 09:45 | Pulmonology Progress Note ---
<Bill Jordan - Last Filed: 03/02/18 09:42> Date of Encounter: 03/02/18 Time of Encounter: 09:43 Assessment and Plan (1) Acute and chronic respiratory failure with hypoxia Current Visit: Yes Status: Acute Patient with worsening acute on chronic respiratory failure ABG showed worsening hypoxic respiratory failure with respiratory alkalosis. Repeat chest x-rays done which did show a pleural effusion. It is recommended that we do thoracentesis to remove this. When further evaluating patient wepatient did have a LifeVest and after doing chart review we did not find where he seen cardiology here says probably had an outside facility that he has these cardiac problems and is being seen there. This most likely is chronic pleural effusion that he is currently having. He did come back with positive sputum's including Klebsiella with ESBL in addition to Acinobacter with multidrug resistance. Patient was placed on ertapenem IDs also consulted and they recommended Colestin. Patient is still needing the ventilator at night. Due to desaturations. This can still be managed in 2 N. Transfer orders and Echocardiogram was done which showed 25% aVF with diastolic dysfunction, pulmonary hypertension. LifeVest was taken off while he was in the ICU. This most likely nonmalignant based on cell count. Culture still pending. Plan tracheostomy care. Thoracentesis done on 529 of the left side. Patient declined having thoracentesis done on the right side. DuoNeb's as needed (2) HCAP (healthcare-associated pneumonia) Current Visit: Yes Status: Acute Patient does live in a nursing facility so when he got diagnosed with pneumonia and had positive sputum cultures he was treated his hospital acquired pneumonia. Cultures came back positive for Klebsiella with ESBL in addition to back to with [id number]. He is currently on ertapenem as well as Colstin Infectious disease is following we appreciate their recommendations Tylenol for fever Daily monitoring of labs (3) Pleural effusion Current Visit: Yes Status: Acute Patient does have pleural effusion based on chest x-ray that is worsening from when he is previously drained in the emergency department. It is unknown the sources part is chronic due to patient's worsening CHF or could be an underlying disease. Cell count of pleural fluid on the left side was transudate it. Final cultures are still pending Thoracentesis done 02/28/18 Repeat chest x-ray Gram stain and cell count of pleural fluid. (4) Tracheostomy care Current Visit: Yes Status: Acute Continue tracheostomy care (5) End stage renal disease Current Visit: Yes Status: Chronic History of ESRD on dialysis. Renal diet. Nephrology is following. Tuesday dialysis schedule (6) Diabetes Current Visit: Yes Status: Chronic Continue home medications Patient did become hypoglycemic when he was placed on the full sliding scale. Due to this we had to give D50 patient responded well. Patient is now eating food by mouth. Patient did not do well on sliding scale as he did become hypoglycemic a few times. Due to this we initially changed him over to Levemir daily. After checking blood sugars this morning he was 102 so we felt that given low blood sugars if we gave Levemir it would just further causing to be hypoglycemic. Due to this we put a stop and his Levemir we will just monitor it. 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 Overnight patient did have mild desaturation so is placed back on the ventilator and did well with that. Due to this we will change patient from being transferred to 2 a to 2 N. so that they can continue ventilator treatment at night. Patient did not have the thoracentesis yesterday of the right pleural cavity as he declined to have it done. Patient says is short of breath is getting better. Diuresis via dialysis is working well plan is still for dialysis tomorrow Objective PUL Vital signs: Last Vital Signs Temp 98.2 F 03/02/18 07:40 Pulse 82 03/02/18 08:00 Resp 22 03/02/18 07:30 BP 146/69 03/02/18 06:00 Pulse Ox 100 03/02/18 07:30 General appearance: no acute distress Eyes: nonicteric ENT: oropharynx moist Neck: supple Effort: normal Auscultation: right: diminished breath sounds, bilateral: rales Cardiovascular: regular rate and rhythm Gastrointestinal: normoactive bowel sounds, soft, non-tender, non-distended Integumentary: normal Extremities: no cyanosis, no edema, no clubbing Musculoskeletal: no deformities, ROM normal normal mental status, non-focal exam, pupils equal and round, motor strength normal and symmetric Ventilator Settings Ventilator Settings: Ventilator Settings, Last 8 Hours Ventilator Tidal Volume 400 Setting Ventilator Tidal Volume 400 Setting Ventilator Tidal Volume 400 Setting Ventilator Tidal Volume 400 Setting Ventilator Tidal Volume 400 Setting Ventilator Respiratory Rate 12 Setting Ventilator Respiratory Rate 12 Setting Ventilator Respiratory Rate 12 Setting Ventilator Respiratory Rate 12 Setting Ventilator Respiratory Rate 12 Setting Actual Respiratory Rate 26 Actual Respiratory Rate 22 Actual Respiratory Rate 22 Actual Respiratory Rate 26 Actual Respiratory Rate 25 Positive End Expiratory 5 Pressure Positive End Expiratory 5 Pressure Positive End Expiratory 5 Pressure Positive End Expiratory 5 Pressure Positive End Expiratory 5 Pressure Peak Inspiratory Airway 22 Pressure Peak Inspiratory Airway 21 Pressure Peak Inspiratory Airway 18 Pressure Peak Inspiratory Airway 12 Pressure Peak Inspiratory Airway 20 Pressure Results - Laboratory Findings CBC and BMP: 03/01/18 04:00 03/01/18 04:00 ABG ABG pH 7.53 pH Units (7.32-7.45) H 02/27/18 15:56 ABG pCO2 35 mmHg (35-45) 02/27/18 15:56 ABG pO2 57 mmHg (85-104) L 02/27/18 15:56 ABG O2 Saturation 92 % (95-98) L 02/27/18 15:56 PT/INR, D-dimer PT 11.6 Seconds (9.4-12.1) 02/28/18 06:51 Abnormal lab findings: Abnormal lab results WBC 12.7 K/mcL (4.3-11.1) H 03/01/18 04:00 RBC 2.60 M/mcL (4.19-5.50) L 03/01/18 04:00 Hgb 8.9 g/dL (12.9-16.9) L 03/01/18 04:00 Hct 26.7 % (37.5-50.1) L 03/01/18 04:00 MCV 102.7 fL (83.0-100.0) H 03/01/18 04:00 MCH 34.2 pg (28.0-33.3) H 03/01/18 04:00 RDW 16.9 % (11.5-14.5) H 03/01/18 04:00 Neutrophils # 9.0 K/mcL (1.6-8.9) H 03/01/18 04:00 Eosinophils # 1.3 K/mcL (0.0-0.6) H 03/01/18 04:00 Nucleated RBCs/100 WBC 0.2 /100 WBC (0) H 02/27/18 08:42 APTT 44.6 Seconds (26.0-36.0) H D 02/28/18 06:51 ABG pH 7.53 pH Units (7.32-7.45) H 02/27/18 15:56 ABG pO2 57 mmHg (85-104) L 02/27/18 15:56 ABG HCO3 29 mEq/L (21-27) H 02/27/18 15:56 ABG Total CO2 30 mEq/L (20-26) H 02/27/18 15:56 ABG O2 Saturation 92 % (95-98) L 02/27/18 15:56 ABG Base Excess 6 mEq/L (-2 to 3) H 02/27/18 15:56 Sodium 132 mEq/L (136-145) L 03/01/18 04:00 Potassium 5.4 mEq/L (3.5-5.1) H 03/01/18 04:00 Chloride 95 mEq/L (98-107) L 03/01/18 04:00 BUN 34 mg/dL (6-20) H 03/01/18 04:00 Creatinine 4.01 mg/dL (0.70-1.30) H 03/01/18 04:00 Est GFR ( Amer) 19 (> 60) L 03/01/18 04:00 Est GFR (Non-Af Amer) 15 (> 60) L 03/01/18 04:00 Glucose 200 mg/dL (70-105) H 03/01/18 04:00 POC Glucose 103 mg/dL (70-99) H 03/01/18 22:27 Calcium 8.2 mg/dL (8.6-10.3) L 03/01/18 04:00 AST 40 Units/L (13-39) H 02/27/18 08:42 Serum Total Protein 5.2 g/dL (6.4-8.9) L 02/27/18 08:42 Albumin 2.4 g/dL (3.5-5.7) L 02/27/18 08:42 Albumin/Globulin Ratio 0.9 (1.1-2.2) L 02/27/18 08:42 HDL Cholesterol 25 mg/dL (40-59) L 02/22/18 03:25 TSH 15.077 mcIU/mL (0.340-5.600) H 02/22/18 03:25 Free T3 1.40 pg/mL (2.50-3.90) L 02/23/18 11:54 Pleural Appearance Hazy (Clear) A 02/28/18 15:20 Staphylococcus sp PCR DETECTED (Not Detect) A 02/21/18 12:09 mecA-Methicil Res Gene DETECTED (Not Detect) A 02/21/18 12:09 - Microbiology Findings Microbiology Findings: Microbiology, Last 48 Hours 02/28/18 09:17 Blood Culture - Preliminary Peripheral Venipuncture No growth. 02/28/18 09:22 Blood Culture - Preliminary Peripheral Venipuncture No growth. 02/28/18 15:20 Body Fluid Culture - Preliminary Pleural Fluid 02/23/18 11:54 Blood Culture - Final Peripheral Venipuncture No growth. 02/23/18 11:54 Blood Culture - Final Peripheral Venipuncture No growth. - Clinical Findings Intake & Output: Intake & Output 03/01/18 03/02/18 03/02/18 23:59 07:59 15:59 Intake Total 220 / 220 0 / 0 120 / 120 Output Total 0 / 0 0 / 0 0 / 0 Balance 220 / 220 0 / 0 120 / 120 Consult Discharge Plan - Plan Referrals: Paco Sheikh MD [Primary Care Provider] - (patient is from [facility]) <Vicente Meadows - Last Filed: 03/03/18 00:38> Date of Encounter: 03/03/18 Assessment and Plan (1) Acute and chronic respiratory failure with hypoxia Current Visit: Yes Status: Acute (2) Pleural effusion Current Visit: Yes Status: Acute (3) CHF (congestive heart failure) Current Visit: Yes Status: Acute Qualifiers: Heart failure chronicity: acute on chronic Qualified Code(s): I50.9 - Heart failure, unspecified (4) ESRD on dialysis Current Visit: Yes Status: Acute Objective PUL Vital signs: Last Vital Signs Temp 97.9 F 03/03/18 00:11 Pulse 71 03/03/18 00:10 Resp 18 03/03/18 00:00 BP 136/69 03/03/18 00:00 Pulse Ox 99 03/03/18 00:00 Results - Laboratory Findings CBC and BMP: 03/02/18 08:35 03/01/18 04:00 ABG ABG pH 7.53 pH Units (7.32-7.45) H 02/27/18 15:56 ABG pCO2 35 mmHg (35-45) 02/27/18 15:56 ABG pO2 57 mmHg (85-104) L 02/27/18 15:56 ABG O2 Saturation 92 % (95-98) L 02/27/18 15:56 PT/INR, D-dimer PT 11.6 Seconds (9.4-12.1) 02/28/18 06:51 Abnormal lab findings: Abnormal lab results RBC 2.06 M/mcL (4.19-5.50) L 03/02/18 08:35 Hgb 7.1 g/dL (12.9-16.9) L D 03/02/18 08:35 Hct 21.4 % (37.5-50.1) L 03/02/18 08:35 MCV 103.9 fL (83.0-100.0) H 03/02/18 08:35 MCH 34.5 pg (28.0-33.3) H 03/02/18 08:35 RDW 16.7 % (11.5-14.5) H 03/02/18 08:35 Eosinophils # 0.9 K/mcL (0.0-0.6) H 03/02/18 08:35 Nucleated RBCs/100 WBC 0.2 /100 WBC (0) H 02/27/18 08:42 APTT 44.6 Seconds (26.0-36.0) H D 02/28/18 06:51 ABG pH 7.53 pH Units (7.32-7.45) H 02/27/18 15:56 ABG pO2 57 mmHg (85-104) L 02/27/18 15:56 ABG HCO3 29 mEq/L (21-27) H 02/27/18 15:56 ABG Total CO2 30 mEq/L (20-26) H 02/27/18 15:56 ABG O2 Saturation 92 % (95-98) L 02/27/18 15:56 ABG Base Excess 6 mEq/L (-2 to 3) H 02/27/18 15:56 Sodium 132 mEq/L (136-145) L 03/01/18 04:00 Potassium 5.4 mEq/L (3.5-5.1) H 03/01/18 04:00 Chloride 95 mEq/L (98-107) L 03/01/18 04:00 BUN 34 mg/dL (6-20) H 03/01/18 04:00 Creatinine 4.01 mg/dL (0.70-1.30) H 03/01/18 04:00 Est GFR ( Amer) 19 (> 60) L 03/01/18 04:00 Est GFR (Non-Af Amer) 15 (> 60) L 03/01/18 04:00 Glucose 200 mg/dL (70-105) H 03/01/18 04:00 POC Glucose 103 mg/dL (70-99) H 03/01/18 22:27 Calcium 8.2 mg/dL (8.6-10.3) L 03/01/18 04:00 AST 40 Units/L (13-39) H 02/27/18 08:42 Serum Total Protein 5.2 g/dL (6.4-8.9) L 02/27/18 08:42 Albumin 2.4 g/dL (3.5-5.7) L 02/27/18 08:42 Albumin/Globulin Ratio 0.9 (1.1-2.2) L 02/27/18 08:42 HDL Cholesterol 25 mg/dL (40-59) L 02/22/18 03:25 TSH 15.077 mcIU/mL (0.340-5.600) H 02/22/18 03:25 Free T3 1.40 pg/mL (2.50-3.90) L 02/23/18 11:54 Pleural Appearance Hazy (Clear) A 02/28/18 15:20 Staphylococcus sp PCR DETECTED (Not Detect) A 02/21/18 12:09 mecA-Methicil Res Gene DETECTED (Not Detect) A 02/21/18 12:09 - Microbiology Findings Microbiology Findings: Microbiology, Last 48 Hours 02/28/18 09:17 Blood Culture - Preliminary Peripheral Venipuncture No growth. 02/28/18 09:22 Blood Culture - Preliminary Peripheral Venipuncture No growth. 02/28/18 15:20 Body Fluid Culture - Preliminary Pleural Fluid 02/23/18 11:54 Blood Culture - Final Peripheral Venipuncture No growth. 02/23/18 11:54 Blood Culture - Final Peripheral Venipuncture No growth. - Clinical Findings Intake & Output: Intake & Output 03/02/18 03/02/18 03/03/18 15:59 23:59 07:59 Intake Total 240 / 240 290 / 290 Output Total 0 / 0 Balance 240 / 240 290 / 290 Weight 75 kg 68.1 kg - Attending Attestation - Attending Attestation I saw and evaluated this patient and my medical decision-making was reviewed with the Resident Physician. I agree with the documented findings, disposition and treatment plan as described except to the extent set forth below. We independently had [id number] contact with the patient Patient seen and examined at bedside Labs, radiology, chart personally reviewed. Management was reviewed during multidisciplinary critical care rounds. 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 To use Ventilator at night.. Cards: Fluid overload contributed by systolic heart failure and diastolic dysfunction .Salt and water restriction and fluid managment with dialysis FEN-GI:Advance diet as tolerated Renal:ESRD on MWF dialysis ID: Patient has probable bacterial tracheobronchitis vs pneumonia sputum growing MDRO organisms ID following antibiotics according to ID . Heme/Onc: Reviewed on DVT prophylaxis Endo: Glucose Monitored Patient has brittle diabetes will STOP all insulin regimen Integ/MSK: Skin Care per routine ICU Nursing Protocol to prevent ulcers. Lines: All lines examined without evidence of infection : Dispo: Patient can be transferred to locr CODE: Full Code
[2018-03-02] MEDS: Docusate Oral Soln 100 MG/10 ML UDC PO SCH (09:53)
[2018-03-02] MEDS: amLODIPine 5 MG TABLET GTUBE SCH (09:53)
[2018-03-02] MEDS: Aspirin Enteric Coated 81 MG Tablet PO SCH (09:54)
[2018-03-02] MEDS: Cyanocobalamin (B-12) 1,000 MCG TABLET GTUBE SCH (09:54)
[2018-03-02] MEDS: Renal Vitamin 1 MG CAPSULE PO SCH (09:54)
[2018-03-02] MEDS: *HR* Ticagrelor 90 MG TABLET PO SCH ×2 (09:54→21:05)
[2018-03-02] MEDS: Folic Acid 1 MG TABLET GTUBE SCH (09:55)
[2018-03-02] MEDS: Nystatin POWDER 30 GM BOTTLE TP SCH ×2 (09:55→21:14)
[2018-03-02] MEDS: Sennosides/Docusate Sodium TABLET GTUBE SCH ×2 (09:55→21:05)
[2018-03-02] MEDS: cloNIDine HCl 0.1 MG TABLET PO SCH ×2 (09:55→21:05)
[2018-03-02 10:16] LABS: Basophils % 0.4 %; Eosinophils # 0.9 K/mcL (0.0-0.6); Eosinophils % 8.4 %; Hematocrit 21.4 % (37.5-50.1); Immature Granulocytes % 0.5 % (0-4); Lymphocytes # 1.6 K/mcL (0.6-4.6); Lymphocytes % 14.6 %; Mean Corpuscular HGB Conc 33.2 g/dL (31.6-35.5); Mean Corpuscular Hemoglobin 34.5 pg (28.0-33.3); Mean Corpuscular Volume 103.9 fL (83.0-100.0); Mean Platelet Volume 10.1 fL (9.4-12.4); Monocytes # 1.3 K/mcL (0.0-1.3); Monocytes % 11.6 %; Neutrophils # 7.2 K/mcL (1.6-8.9); Platelet Count 211 K/mcL (140-400); Red Blood Count 2.06 M/mcL (4.19-5.50); Red Cell Distribution Width 16.7 % (11.5-14.5); Segmented Neutrophils % 64.5 %
[2018-03-02 10:17] LABS: Hemoglobin 7.1 g/dL (12.9-16.9)
--- NOTE | 2018-03-02 10:25 | Infectious Disease Progress No ---
Date of Encounter: 03/02/18 Time of Encounter: 10:22 - Assessment and Plan (1) Sepsis Current Visit: Yes Status: Acute Patient had leukocytosis and fever Leukocytosis continues to improve and patient afebrile the past 48 hours Presumed source is pneumonia due to Acinetobacter and Klebsiella ESBL Currently on colistin and ertapenem Continue for now Initial blood cultures are negative Repeat blood cultures are no growth to date Qualifiers: Sepsis type: sepsis due to unspecified organism Qualified Code(s): A41.9 - Sepsis, unspecified organism (2) Pneumonia Current Visit: Yes Status: Acute Causative organism: Acinetobacter and ESBL Klebsiella Chest x-ray shows bibasilar opacities and an increased left pleural effusion Chest CT shows multiple focal pneumonia with large pleural effusion Sputum culture was positive for Acinetobacter baumannii and Klebsiella pneumonia ESBL Leukocytosis improved, afebrile past 24 hours Currently on colistin 100 mg daily and ertapenem 500 mg daily Continue colistin and ertapenem for now Duration will be based on clinical course but likely 14 days Initial blood cultures are no growth to date Repeat blood cultures NGTD Respiratory infection panel negative Strep and legionella urinary antigens are unable to be obtained as the patient does not make any urine Pleural fluid culture NGTD, Gram stain was negative Patient is ESRD, dose adjust antibiotics accordingly Qualifiers: Pneumonia type: due to other aerobic Gram-negative bacteria Laterality: unspecified laterality Lung location: unspecified part of lung Qualified Code(s): J15.6 - Pneumonia due to other Gram-negative bacteria (3) Pleural effusion Current Visit: Yes Status: Acute Transitive effusion with predominance of mesothelial cells Gram stain negative, Culture pending (4) Acute and chronic respiratory failure with hypoxia Current Visit: Yes Status: Acute Chronic tracheostomy present Now requiring trach mask Further management per pulmonary (5) ESRD on dialysis Current Visit: Yes Status: Chronic Currently his right chest PermCath for access Area appears clean dry and intact Further management per nephrology (6) History of CVA (cerebrovascular accident) Current Visit: Yes Status: Chronic (7) Diabetes Current Visit: Yes Status: Chronic Qualifiers: Diabetes mellitus type: type 2 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 mellitus 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 insulin 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: unspecified [facility] insulin use status Diabetes mellitus complication status : with unspecified complications Qualified Code(s): E11.8 - Type 2 diabetes mellitus with unspecified complications (8) GERD (gastroesophageal reflux disease) Current Visit: Yes Status: Chronic Qualifiers: Esophagitis presence: esophagitis presence not specified Qualified Code(s) : K21.9 - Gastro-esophageal reflux disease without esophagitis (9) HLD (hyperlipidemia) Current Visit: Yes Status: Chronic Qualifiers: Hyperlipidemia type: pure hypercholesterolemia Qualified Code(s): E78.00 - Pure hypercholesterolemia, unspecified; E78.0 - Pure hypercholesterolemia - Subjective Interval history: Patient seen and examined at bedside. Patient is awake and alert however not cannot speak given his tracheostomy and not having a speaking valve at this time. He reports that he feels better today, denies any pain. Denies fever, chills, shortness of breath, cough, increased sputum production. Overnight the patient had episodes of desaturation and was placed back on mechanical ventilation, he is tolerating trach mask well at this time Infect Dis PN-Objective Data - Labs CBC & Chem 7: 03/02/18 08:35 03/01/18 04:00 Labs: Laboratory Results - last 24 hr 03/01/18 03/01/18 03/01/18 07:43 11:24 13:25 WBC RBC Hgb Hct MCV MCH MCHC RDW Plt Count MPV Immature Gran % Seg Neutrophils % Lymphocytes % Monocytes % Eosinophils % Basophils % Neutrophils # Lymphocytes # Monocytes # Eosinophils # Basophils # POC Glucose 208 H 80 Chlamy pneumoniae PCR Not Detected Adenovirus (PCR) Not Detected B. pertussis DNA (PCR) Not Detected B.parapertussis DNA PCR Not Detected Coronavirus OC43 (PCR) Not Detected Coronavirus HKU1 (PCR) Not Detected Coronavirus 229E (PCR) Not Detected Coronavirus NL63 (PCR) Not Detected Human Metapneumovir PCR Not Detected Influenza A (H1) PCR Not Detected Influ A (H1N1/09) PCR Not Detected Influenza A (H3) PCR Not Detected Influenza A Untype (PCR) Not Detected Influenza Type B (PCR) Not Detected M.pneumoniae DNA (PCR) Not Detected Parainfluenza 1 (PCR) Not Detected Parainfluenza 2 (PCR) Not Detected Parainfluenza 3 (PCR) Not Detected Parainfluenza 4 (PCR) Not Detected RSV (PCR) Not Detected Entero/Rhino (PCR) Not Detected 03/01/18 03/01/18 03/01/18 14:02 15:35 20:15 WBC RBC Hgb Hct MCV MCH MCHC RDW Plt Count MPV Immature Gran % Seg Neutrophils % Lymphocytes % Monocytes % Eosinophils % Basophils % Neutrophils # Lymphocytes # Monocytes # Eosinophils # Basophils # POC Glucose 80 72 84 Chlamy pneumoniae PCR Adenovirus (PCR) B. pertussis DNA (PCR) B.parapertussis DNA PCR Coronavirus OC43 (PCR) Coronavirus HKU1 (PCR) Coronavirus 229E (PCR) Coronavirus NL63 (PCR) Human Metapneumovir PCR Influenza A (H1) PCR Influ A (H1N1) PCR Influenza A (H3) PCR Influenza A Untype (PCR) Influenza Type B (PCR) M.pneumoniae DNA (PCR) Parainfluenza 1 (PCR) Parainfluenza 2 (PCR) Parainfluenza 3 (PCR) Parainfluenza 4 (PCR) RSV (PCR) Entero/Rhino (PCR) 03/01/18 03/02/18 22:27 08:35 WBC 11.1 RBC 2.06 L Hgb 7.1 L D Hct 21.4 L MCV 103.9 H MCH 34.5 H MCHC 33.2 RDW 16.7 H Plt Count 211 MPV 10.1 Immature Gran % 0.5 Seg Neutrophils % 64.5 Lymphocytes % 14.6 Monocytes % 11.6 Eosinophils % 8.4 Basophils % 0.4 Neutrophils # 7.2 Lymphocytes # 1.6 Monocytes # 1.3 Eosinophils # 0.9 H Basophils # 0.0 POC Glucose 103 H Chlamy pneumoniae PCR Adenovirus (PCR) B. pertussis DNA (PCR) B.parapertussis DNA PCR Coronavirus OC43 (PCR) Coronavirus HKU1 (PCR) Coronavirus 229E (PCR) Coronavirus NL63 (PCR) Human Metapneumovir PCR Influenza A (H1) PCR Influ A (H1N1) PCR Influenza A (H3) PCR Influenza A Untype (PCR) Influenza Type B (PCR) M.pneumoniae DNA (PCR) Parainfluenza 1 (PCR) Parainfluenza 2 (PCR) Parainfluenza 3 (PCR) Parainfluenza 4 (PCR) RSV (PCR) Entero/Rhino (PCR) Cultures: Cultures 02/28/18 09:17 Blood Culture - Preliminary Peripheral Venipuncture No growth. 02/28/18 09:22 Blood Culture - Preliminary Peripheral Venipuncture No growth. 02/28/18 15:20 Body Fluid Culture - Preliminary Pleural Fluid 02/23/18 11:54 Blood Culture - Final Peripheral Venipuncture No growth. 02/23/18 11:54 Blood Culture - Final Peripheral Venipuncture No growth. 02/22/18 11:45 Sputum Culture - Final Sputum Acinetobacter baumannii MDRO#2 Acinetobacter baumannii MDRO 02/21/18 18:00 Sputum Culture - Final Sputum Klebsiella pneumoniae ESBL 02/21/18 18:50 Legionella Antigen - Final Urine,Clean Catch Streptococcus pneumoniae Antigen (M - Final Serology 03/01/18 02/28/18 02/28/18 Range/Units 13:25 15:20 15:20 Pleural Fluid Volume 800.0 mL Pleural Appearance Hazy A (Clear) Pleural pH 8.00 (No Ref Range) pH Units Pleural RBC 0.002 (0.000 - 0.002) M/mcL Pleural Tot Nuc Cell 225 (0-1000) TNC/mcL Pleural Neutrophils 30.0 % Pleural Band Neuts Test Not Performed Pleural Eosinophils 5.0 % Pleural Basophils Test Not Performed Pleural Lymphocytes % 14.0 % Pleural Monocytes % 10.0 % Pleural Other Cells % 41.0 % Pleural Total Protein < 3.0 (No Ref Range) g/dL Pleural Albumin < 1.5 (No Ref Range) g/dL Pleural LDH 68 (No Ref Range) Units/L Pleural Glucose 112 (No Ref Range) mg/dL Pleural Amylase 16 (No Ref Range) Units/L Pleural Cholesterol < 25 (No Ref Range) mg/dL Pleural Triglycerides 10 (No Ref Range) mg/dL Chlamy pneumoniae PCR Not Detected (Not Detect) Adenovirus (PCR) Not Detected (Not Detect) B. pertussis DNA (PCR) Not Detected (Not Detect) B.parapertussis DNA PCR Not Detected (Not Detect) Coronavirus OC43 (PCR) Not Detected (Not Detect) Coronavirus HKU1 (PCR) Not Detected (Not Detect) Coronavirus 229E (PCR) Not Detected (Not Detect) Coronavirus NL63 (PCR) Not Detected (Not Detect) Hep Bs Antigen (Nonreactive) Hep Bs Antibody mIU/mL Human Metapneumovir PCR Not Detected (Not Detect) Influenza A (H1) PCR Not Detected (Not Detect) Influ A (H1N1/09) PCR Not Detected (Not Detect) Influenza A (H3) PCR Not Detected (Not Detect) Influenza A Untype (PCR) Not Detected (Not Detect) Influenza Type B (PCR) Not Detected (Not Detect) M.pneumoniae DNA (PCR) Not Detected (Not Detect) Parainfluenza 1 (PCR) Not Detected (Not Detect) Parainfluenza 2 (PCR) Not Detected (Not Detect) Parainfluenza 3 (PCR) Not Detected (Not Detect) Parainfluenza 4 (PCR) Not Detected (Not Detect) RSV (PCR) Not Detected (Not Detect) Entero/Rhino (PCR) Not Detected (Not Detect) 02/21/18 02/21/18 Range/Units 18:08 17:36 Pleural Fluid Volume mL Pleural Appearance (Clear) Pleural pH (No Ref Range) pH Units Pleural RBC (0.000 - 0.002) M/mcL Pleural Tot Nuc Cell (0-1000) TNC/mcL Pleural Neutrophils % Pleural Band Neuts Pleural Eosinophils % Pleural Basophils Pleural Lymphocytes % % Pleural Monocytes % % Pleural Other Cells % % Pleural Total Protein (No Ref Range) g/dL Pleural Albumin (No Ref Range) g/dL Pleural LDH (No Ref Range) Units/L Pleural Glucose (No Ref Range) mg/dL Pleural Amylase (No Ref Range) Units/L Pleural Cholesterol (No Ref Range) mg/dL Pleural Triglycerides (No Ref Range) mg/dL Chlamy pneumoniae PCR Not Detected (Not Detect) Adenovirus (PCR) Not Detected (Not Detect) B. pertussis DNA (PCR) Not Detected (Not Detect) B.parapertussis DNA PCR Not Detected (Not Detect) Coronavirus OC43 (PCR) Not Detected (Not Detect) Coronavirus HKU1 (PCR) Not Detected (Not Detect) Coronavirus 229E (PCR) Not Detected (Not Detect) Coronavirus NL63 (PCR) Not Detected (Not Detect) Hep Bs Antigen Nonreactive (Nonreactive) Hep Bs Antibody 144.68 mIU/mL Human Metapneumovir PCR Not Detected (Not Detect) Influenza A (H1) PCR Not Detected (Not Detect) Influ A (H1N1/09) PCR Not Detected (Not Detect) Influenza A (H3) PCR Not Detected (Not Detect) Influenza A Untype (PCR) Not Detected (Not Detect) Influenza Type B (PCR) Not Detected (Not Detect) M.pneumoniae DNA (PCR) Not Detected (Not Detect) Parainfluenza 1 (PCR) Not Detected (Not Detect) Parainfluenza 2 (PCR) Not Detected (Not Detect) Parainfluenza 3 (PCR) Not Detected (Not Detect) Parainfluenza 4 (PCR) Not Detected (Not Detect) RSV (PCR) Not Detected (Not Detect) Entero/Rhino (PCR) Not Detected (Not Detect) Exam - Constitutional Vitals: Temp Pulse Resp BP Pulse Ox 98.2 F 84 22 146/69 97 03/02/18 07:40 03/02/18 09:00 03/02/18 09:00 03/02/18 09:55 03/02/18 09:00 - Neck Additional comments: Tracheostomy present - Respiratory Respiratory exam: Present: decreased breath sounds. Absent: rales, rhonchi, wheezes - Cardiovascular Cardiovascular exam: Present: RRR. Absent: diastolic murmur, systolic murmur - GI/Abdominal GI/Abdominal exam: Present: soft. Absent: distended, tenderness - Neurological Exam Neurological exam: Present: alert, no focal deficits Consult Discharge Plan - Plan Referrals: Paco Sheikh MD [Primary Care Provider] - (patient is from [facility]) - Attending Attestation I examined this patient and my medical decision-making was reviewed with the Resident Physician. I agree with the documented findings, disposition and treatment plan as described except to the extent set forth below.
[2018-03-02] MEDS: *HR* OxyCODONE Immed Rel 5 MG TABLET GTUBE PRN ×2 (16:48→22:34)
[2018-03-02] MEDS: Colistin (Colistimethate) 100 MG in 0.9 % Sodium Chloride 50 ML IVPB SCH (16:53)
[2018-03-03] MEDS: Ipratropium/Albuterol Neb 3 ML IH SCH ×7 (00:49→23:05)
[2018-03-03 04:12] LABS: Basophils % 0.3 %; Eosinophils # 0.9 K/mcL (0.0-0.6); Eosinophils % 8.8 %; Hematocrit 20.3 % (37.5-50.1); Hemoglobin 6.7 g/dL (12.9-16.9); Immature Granulocytes % 0.3 % (0-4); Lymphocytes # 1.5 K/mcL (0.6-4.6); Mean Corpuscular Hemoglobin 33.7 pg (28.0-33.3); Mean Platelet Volume 10.2 fL (9.4-12.4); Monocytes # 1.2 K/mcL (0.0-1.3); Monocytes % 12.7 %; Neutrophils # 5.9 K/mcL (1.6-8.9); Platelet Count 221 K/mcL (140-400); Red Blood Count 1.99 M/mcL (4.19-5.50); Red Cell Distribution Width 16.2 % (11.5-14.5); Segmented Neutrophils % 61.9 %
[2018-03-03 04:30] LABS: Calcium 8.1 mg/dL (8.6-10.3); Potassium 5.6 mEq/L (3.5-5.1)
[2018-03-03] MEDS: hydrALAZINE 25 MG TABLET PO SCH ×4 (05:21→23:52)
[2018-03-03] MEDS: *HR* Heparin 5,000 UNIT/ML VIAL SQ SCH ×2 (05:21→17:25)
[2018-03-03] MEDS: *HR* LORazepam 0.5 MG TABLET GTUBE SCH ×4 (05:21→23:58)
[2018-03-03] MEDS ORDERED: 0.9 % Sodium Chloride 250 ML ONE (06:35)
--- NOTE | 2018-03-03 08:32 | Infectious Disease Progress No ---
Date of Encounter: 03/03/18 Time of Encounter: 08:30 - Assessment and Plan (1) Sepsis Current Visit: Yes Status: Acute Patient had leukocytosis and fever Leukocytosis continues to improve and patient afebrile the past 48 hours Presumed source is pneumonia due to Acinetobacter and Klebsiella ESBL Currently on colistin and ertapenem Continue for now Initial blood cultures are negative Repeat blood cultures are no growth to date Qualifiers: Sepsis type: sepsis due to unspecified organism Qualified Code(s): A41.9 - Sepsis, unspecified organism (2) Pneumonia Current Visit: Yes Status: Acute Causative organism: Acinetobacter and ESBL Klebsiella Chest x-ray shows bibasilar opacities and an increased left pleural effusion Chest CT shows multiple focal pneumonia with large pleural effusion Sputum culture was positive for Acinetobacter baumannii and Klebsiella pneumonia ESBL Leukocytosis resolved, afebrile past 48 hours Currently on colistin 100 mg daily and ertapenem 500 mg daily Continue colistin and ertapenem for now Duration will be based on clinical course but likely 14 days Initial blood cultures are no growth to date Repeat blood cultures NGTD Respiratory infection panel negative Strep and legionella urinary antigens are unable to be obtained as the patient does not make any urine Pleural fluid culture NGTD, Gram stain was negative Patient is ESRD, dose adjust antibiotics accordingly Qualifiers: Pneumonia type: due to other aerobic Gram-negative bacteria Laterality: unspecified laterality Lung location: unspecified part of lung Qualified Code(s): J15.6 - Pneumonia due to other Gram-negative bacteria (3) Pleural effusion Current Visit: Yes Status: Acute Transitive effusion with predominance of mesothelial cells Gram stain negative, Culture NGTD (4) Acute and chronic respiratory failure with hypoxia Current Visit: Yes Status: Acute Chronic tracheostomy present Now requiring trach mask Further management per pulmonary (5) ESRD on dialysis Current Visit: Yes Status: Chronic Currently his right chest PermCath for access Area appears clean dry and intact Further management per nephrology (6) History of CVA (cerebrovascular accident) Current Visit: Yes Status: Chronic (7) Diabetes Current Visit: Yes Status: Chronic Qualifiers: Diabetes mellitus type: type 2 Diabetes mellitus alf insulin use: unspecified alf insulin use status Diabetes mellitus complication status : with unspecified complications Qualified Code(s): E11.8 - Type 2 diabetes mellitus with unspecified complications (8) GERD (gastroesophageal reflux disease) Current Visit: Yes Status: Chronic Qualifiers: Esophagitis presence: esophagitis presence not specified Qualified Code(s) : K21.9 - Gastro-esophageal reflux disease without esophagitis (9) HLD (hyperlipidemia) Current Visit: Yes Status: Chronic Qualifiers: Hyperlipidemia type: pure hypercholesterolemia Qualified Code(s): E78.00 - Pure hypercholesterolemia, unspecified; E78.0 - Pure hypercholesterolemia - Subjective Interval history: Patient seen and examined at bedside. Patient is awake and alert however not cannot speak given his tracheostomy and not having a speaking valve at this time. He reports that he feels pretty good today, denies any pain. Denies fever , chills, shortness of breath, cough, increased sputum production. Infect Dis PN-Objective Data - Labs CBC & Chem 7: 03/03/18 04:00 03/03/18 04:00 Labs: Laboratory Results - last 24 hr 03/02/18 03/02/18 03/02/18 04:37 07:12 08:35 WBC 11.1 RBC 2.06 L Hgb 7.1 L D Hct 21.4 L MCV 103.9 H MCH 34.5 H MCHC 33.2 RDW 16.7 H Plt Count 211 MPV 10.1 Immature Gran % 0.5 Seg Neutrophils % 64.5 Lymphocytes % 14.6 Monocytes % 11.6 Eosinophils % 8.4 Basophils % 0.4 Neutrophils # 7.2 Lymphocytes # 1.6 Monocytes # 1.3 Eosinophils # 0.9 H Basophils # 0.0 Sodium Potassium Chloride Carbon Dioxide BUN Creatinine Est GFR ( Amer) Est GFR (Non-Af Amer) BUN/Creatinine Ratio Glucose POC Glucose 93 104 H Calculated Osmolality Calcium Blood Type Antibody Screen Crossmatch 03/02/18 03/02/18 03/02/18 11:42 15:46 20:05 WBC RBC Hgb Hct MCV MCH MCHC RDW Plt Count MPV Immature Gran % Seg Neutrophils % Lymphocytes % Monocytes % Eosinophils % Basophils % Neutrophils # Lymphocytes # Monocytes # Eosinophils # Basophils # Sodium Potassium Chloride Carbon Dioxide BUN Creatinine Est GFR ( Amer) Est GFR (Non-Af Amer) BUN/Creatinine Ratio Glucose POC Glucose 149 H 151 H 120 H Calculated Osmolality Calcium Blood Type Antibody Screen Crossmatch 03/02/18 03/03/18 03/03/18 23:48 04:00 04:00 WBC 9.6 RBC 1.99 L Hgb 6.7 L Hct 20.3 L MCV 102.0 H MCH 33.7 H MCHC 33.0 RDW 16.2 H Plt Count 221 MPV 10.2 Immature Gran % 0.3 Seg Neutrophils % 61.9 Lymphocytes % 16.0 Monocytes % 12.7 Eosinophils % 8.8 Basophils % 0.3 Neutrophils # 5.9 Lymphocytes # 1.5 Monocytes # 1.2 Eosinophils # 0.9 H Basophils # 0.0 Sodium 133 L Potassium 5.6 H Chloride 98 Carbon Dioxide 27 BUN 33 H Creatinine 3.96 H Est GFR ( Amer) 19 L Est GFR (Non-Af Amer) 16 L BUN/Creatinine Ratio 8 Glucose 113 H POC Glucose 133 H Calculated Osmolality 284 Calcium 8.1 L Blood Type Antibody Screen Crossmatch 03/03/18 05:20 WBC RBC Hgb Hct MCV MCH MCHC RDW Plt Count MPV Immature Gran % Seg Neutrophils % Lymphocytes % Monocytes % Eosinophils % Basophils % Neutrophils # Lymphocytes # Monocytes # Eosinophils # Basophils # Sodium Potassium Chloride Carbon Dioxide BUN Creatinine Est GFR ( Amer) Est GFR (Non-Af Amer) BUN/Creatinine Ratio Glucose POC Glucose Calculated Osmolality Calcium Blood Type A POSITIVE Antibody Screen NEGATIVE Crossmatch See Detail Cultures: Cultures 02/28/18 15:20 Body Fluid Culture - Final Pleural Fluid 02/28/18 09:17 Blood Culture - Preliminary Peripheral Venipuncture No growth. 02/28/18 09:22 Blood Culture - Preliminary Peripheral Venipuncture No growth. 02/23/18 11:54 Blood Culture - Final Peripheral Venipuncture No growth. 02/23/18 11:54 Blood Culture - Final Peripheral Venipuncture No growth. 02/22/18 11:45 Sputum Culture - Final Sputum Acinetobacter baumannii MDRO#2 Acinetobacter baumannii MDRO 02/21/18 18:00 Sputum Culture - Final Sputum Klebsiella pneumoniae ESBL 02/21/18 18:50 Legionella Antigen - Final Urine,Clean Catch Streptococcus pneumoniae Antigen (M - Final Serology 03/01/18 02/28/18 02/28/18 Range/Units 13:25 15:20 15:20 Pleural Fluid Volume 800.0 mL Pleural Appearance Hazy A (Clear) Pleural pH 8.00 (No Ref Range) pH Units Pleural RBC 0.002 (0.000 - 0.002) M/mcL Pleural Tot Nuc Cell 225 (0-1000) TNC/mcL Pleural Neutrophils 30.0 % Pleural Band Neuts Test Not Performed Pleural Eosinophils 5.0 % Pleural Basophils Test Not Performed Pleural Lymphocytes % 14.0 % Pleural Monocytes % 10.0 % Pleural Other Cells % 41.0 % Pleural Total Protein < 3.0 (No Ref Range) g/dL Pleural Albumin < 1.5 (No Ref Range) g/dL Pleural LDH 68 (No Ref Range) Units/L Pleural Glucose 112 (No Ref Range) mg/dL Pleural Amylase 16 (No Ref Range) Units/L Pleural Cholesterol < 25 (No Ref Range) mg/dL Pleural Triglycerides 10 (No Ref Range) mg/dL Chlamy pneumoniae PCR Not Detected (Not Detect) Adenovirus (PCR) Not Detected (Not Detect) B. pertussis DNA (PCR) Not Detected (Not Detect) B.parapertussis DNA PCR Not Detected (Not Detect) Coronavirus OC43 (PCR) Not Detected (Not Detect) Coronavirus HKU1 (PCR) Not Detected (Not Detect) Coronavirus 229E (PCR) Not Detected (Not Detect) Coronavirus NL63 (PCR) Not Detected (Not Detect) Hep Bs Antigen (Nonreactive) Hep Bs Antibody mIU/mL Human Metapneumovir PCR Not Detected (Not Detect) Influenza A (H1) PCR Not Detected (Not Detect) Influ A (H1N1/09) PCR Not Detected (Not Detect) Influenza A (H3) PCR Not Detected (Not Detect) Influenza A Untype (PCR) Not Detected (Not Detect) Influenza Type B (PCR) Not Detected (Not Detect) M.pneumoniae DNA (PCR) Not Detected (Not Detect) Parainfluenza 1 (PCR) Not Detected (Not Detect) Parainfluenza 2 (PCR) Not Detected (Not Detect) Parainfluenza 3 (PCR) Not Detected (Not Detect) Parainfluenza 4 (PCR) Not Detected (Not Detect) RSV (PCR) Not Detected (Not Detect) Entero/Rhino (PCR) Not Detected (Not Detect) 02/21/18 02/21/18 Range/Units 18:08 17:36 Pleural Fluid Volume mL Pleural Appearance (Clear) Pleural pH (No Ref Range) pH Units Pleural RBC (0.000 - 0.002) M/mcL Pleural Tot Nuc Cell (0-1000) TNC/mcL Pleural Neutrophils % Pleural Band Neuts Pleural Eosinophils % Pleural Basophils Pleural Lymphocytes % % Pleural Monocytes % % Pleural Other Cells % % Pleural Total Protein (No Ref Range) g/dL Pleural Albumin (No Ref Range) g/dL Pleural LDH (No Ref Range) Units/L Pleural Glucose (No Ref Range) mg/dL Pleural Amylase (No Ref Range) Units/L Pleural Cholesterol (No Ref Range) mg/dL Pleural Triglycerides (No Ref Range) mg/dL Chlamy pneumoniae PCR Not Detected (Not Detect) Adenovirus (PCR) Not Detected (Not Detect) B. pertussis DNA (PCR) Not Detected (Not Detect) B.parapertussis DNA PCR Not Detected (Not Detect) Coronavirus OC43 (PCR) Not Detected (Not Detect) Coronavirus HKU1 (PCR) Not Detected (Not Detect) Coronavirus 229E (PCR) Not Detected (Not Detect) Coronavirus NL63 (PCR) Not Detected (Not Detect) Hep Bs Antigen Nonreactive (Nonreactive) Hep Bs Antibody 144.68 mIU/mL Human Metapneumovir PCR Not Detected (Not Detect) Influenza A (H1) PCR Not Detected (Not Detect) Influ A (H1N1/09) PCR Not Detected (Not Detect) Influenza A (H3) PCR Not Detected (Not Detect) Influenza A Untype (PCR) Not Detected (Not Detect) Influenza Type B (PCR) Not Detected (Not Detect) M.pneumoniae DNA (PCR) Not Detected (Not Detect) Parainfluenza 1 (PCR) Not Detected (Not Detect) Parainfluenza 2 (PCR) Not Detected (Not Detect) Parainfluenza 3 (PCR) Not Detected (Not Detect) Parainfluenza 4 (PCR) Not Detected (Not Detect) RSV (PCR) Not Detected (Not Detect) Entero/Rhino (PCR) Not Detected (Not Detect) Exam - Constitutional Vitals: Temp Pulse Resp BP Pulse Ox 98.2 F 79 20 121/62 97 03/03/18 07:22 03/03/18 07:22 03/03/18 07:22 03/03/18 07:22 03/03/18 07:22 - Respiratory Respiratory exam: Present: rhonchi (Right side). Absent: rales, wheezes - Cardiovascular Cardiovascular exam: Present: RRR. Absent: diastolic murmur, systolic murmur - GI/Abdominal GI/Abdominal exam: Present: normal bowel sounds, soft. Absent: distended, tenderness - Extremities Exam Extremities exam: Present: normal inspection - Neurological Exam Neurological exam: Present: alert. Absent: altered Consult Discharge Plan - Plan Referrals: Paco Sheikh MD [Primary Care Provider] - (patient is from [facility]) - Attending Attestation I examined this patient and my medical decision-making was reviewed with the Resident Physician. I agree with the documented findings, disposition and treatment plan as described except to the extent set forth below.
[2018-03-03] MEDS: Renal Vitamin 1 MG CAPSULE PO SCH (09:14)
[2018-03-03] MEDS: Docusate Oral Soln 100 MG/10 ML UDC PO SCH (09:14)
[2018-03-03] MEDS: Aspirin Enteric Coated 81 MG Tablet PO SCH (09:15)
[2018-03-03] MEDS: Folic Acid 1 MG TABLET GTUBE SCH (09:15)
[2018-03-03] MEDS: Sennosides/Docusate Sodium TABLET GTUBE SCH ×2 (09:15→20:08)
[2018-03-03] MEDS: amLODIPine 5 MG TABLET GTUBE SCH (09:16)
[2018-03-03] MEDS: cloNIDine HCl 0.1 MG TABLET PO SCH ×2 (09:16→20:08)
[2018-03-03] MEDS: *HR* Ticagrelor 90 MG TABLET PO SCH ×2 (09:16→20:08)
[2018-03-03] MEDS: Nystatin POWDER 30 GM BOTTLE TP SCH ×2 (09:18→22:30)
[2018-03-03] MEDS: Cyanocobalamin (B-12) 1,000 MCG TABLET GTUBE SCH (09:23)
--- NOTE | 2018-03-03 10:07 | Nephrology Progress Note ---
Date of Encounter: 03/03/18 Time of Encounter: 09:30 - Assessment and Plan (1) ESRD on dialysis Current Visit: Yes Status: Chronic Noted PRBC x 2 units ordered for Hgb 6.7. HD today, keeping MWF schedule. Orders given. (2) Pleural effusion Current Visit: Yes Status: Acute Subjective Principal diagnosis: Acute on chronic hypoxic respiratory failure Interval history: Trach > vent during night. Objective - Vital Signs Vital signs: Vital Signs Temp Pulse Resp BP Pulse Ox 03/03/18 08:00 77 20 134/63 96 03/03/18 07:22 98.2 F 79 20 121/62 97 03/03/18 07:13 17 105/53 97 03/03/18 07:07 98.6 F 80 22 105/53 97 03/03/18 06:46 28 131/64 93 03/03/18 06:00 86 20 129/78 100 03/03/18 05:06 97.9 F 03/03/18 04:00 72 18 129/73 100 03/03/18 03:41 21 132/86 94 03/03/18 02:00 72 18 133/65 94 03/03/18 00:49 28 129/64 92 03/03/18 00:11 97.9 F 03/03/18 00:10 71 03/03/18 00:00 71 18 136/69 99 03/02/18 22:00 68 18 129/63 96 03/02/18 20:37 98.9 F 03/02/18 20:10 73 03/02/18 20:00 73 20 116/59 94 03/02/18 19:51 18 92 03/02/18 16:42 98.6 F 03/02/18 15:22 16 93 03/02/18 15:00 72 22 103/44 97 03/02/18 13:00 74 22 116/60 92 03/02/18 11:49 98.6 F 03/02/18 11:11 16 94 03/02/18 11:00 84 Intake and Output 03/02/18 03/03/18 03/03/18 23:59 07:59 15:59 Intake Total 290 / 290 100 / 100 Balance 290 / 290 100 / 100 Intake: IV Fluids 50 / 50 100 / 100 Coly-Mycin M PARENTERAL 100 MG 50 / 50 In 0.9 % Sodium Chloride 50 ML @ 100 mls/hr IVPB Q24H [facility] Rx#: [id number] INVanz 500 MG In 0.9 % Sodium 100 / 100 Chloride 100 ML @ 100 mls/hr IVPB Q24H [facility] Rx#:[id number] Oral 240 / 240 Blood Product 0 / 0 Rbcs Leuko Poor As-1 Unit 0 / 0 [id number] Other: Meal Dinner Percent of Meal Consumed 25% # Urine Diapers 1 Weight 68.1 kg Blood Glucose* 120 105 Patient Weight 03/03/18 23:59 Weight 68.1 kg - General Appearance General appearance: Present: well-developed, well-nourished, appears started age EENT: Present: mucous membranes moist Neck: Present: no JVD Respiratory: Present: clear Additional Comments: diminished Cardiology: Present: edema, regular rate, regular rhythm Additional Comments: LLE Dialysis Vascular Access: Venous Catheter Gastrointestinal: Present: hypoactive bowel sounds, no tenderness Integumentary: Present: warm and dry Psychiatric: Present: mood/affect appropriate, cooperative - Lab 03/03/18 04:00 03/03/18 04:00 Most recent lab results ABG pH 7.53 pH Units (7.32-7.45) H 02/27/18 15:56 ABG pCO2 35 mmHg (35-45) 02/27/18 15:56 ABG pO2 57 mmHg (85-104) L 02/27/18 15:56 ABG HCO3 29 mEq/L (21-27) H 02/27/18 15:56 ABG O2 Saturation 92 % (95-98) L 02/27/18 15:56 Calcium 8.1 mg/dL (8.6-10.3) L 03/03/18 04:00 Phosphorus 4.0 mg/dL (2.7-4.5) 02/21/18 12:09 Magnesium 2.0 mg/dL (1.6-2.6) 02/22/18 03:25 Consult Discharge Plan - Plan Referrals: Paco Sheikh MD [Primary Care Provider] - (patient is from [facility])
[2018-03-03] MEDS ORDERED: 0.9 % Sodium Chloride 250 ML IVC PRN (11:27)
[2018-03-03] MEDS ORDERED: 0.9 % Sodium Chloride 1,000 ML PRIME SCH (11:30)
[2018-03-03] MEDS ORDERED: 0.9 % Sodium Chloride 2,000 ML ONE (12:11)
[2018-03-03] MEDS: *HR* OxyCODONE Immed Rel 5 MG TABLET GTUBE PRN ×2 (13:59→23:58)
[2018-03-03] MEDS: Acetaminophen 325 MG TABLET PO PRN (16:35)
[2018-03-03 16:44] LABS: Hematocrit 25.4 % (37.5-50.1); Hemoglobin 8.8 g/dL (12.9-16.9)
--- NOTE | 2018-03-03 17:20 | Internal Med Progress Note ---
Date of Encounter: 03/03/18 Time of Encounter: 08:30 - Assessment and plan (1) Acute and chronic respiratory failure with hypoxia Current Visit: Yes Status: Acute Assessment and plan: Due to pleural effusion and pneumonia. Status post left-sided thoracentesis. Continue IV antibiotics and current management. Improving. Patient does have chronic tracheostomy on oxygen and nocturnal ventilator support. (2) Anemia Current Visit: Yes Status: Chronic Assessment and plan: Acute on chronic anemia, likely related to end-stage renal disease. Hemoglobin dropped to 6.7 today. Receiving 2 units PRBC transfusion. Monitor hemoglobin closely. Receives Aranesp during hemodialysis. Qualifiers: Anemia type: unspecified type Qualified Code(s): D64.9 - Anemia, unspecified (3) Pleural effusion Current Visit: Yes Status: Acute Assessment and plan: Recurrent bilateral pleural effusions. Underwent thoracentesis twice. Case discussed with pulmonology, recommend Pleurx catheter due to the recurrent nature of effusion, given his dialysis dependence and volume buildup over the weekend. Discussed with interventional radiology, recommend repeat thoracentesis today and to consider tunneled Pleurx catheter just before discharge. Pleural fluid analysis showed nonmalignant transudative effusion. (4) Hyperkalemia Current Visit: Yes Status: Acute Assessment and plan: Secondary to renal failure. Plan for hemodialysis today. (5) Diabetes Current Visit: Yes Status: Chronic Assessment and plan: Patient noted to have multiple episodes of hypoglycemia. Off insulin. Blood sugars are currently well controlled. Continue Accu-Chek blood glucose monitoring and diabetic diet. 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 (7) GERD (gastroesophageal reflux disease) Current Visit: Yes Status: Chronic Qualifiers: Esophagitis presence: esophagitis presence not specified Qualified Code(s) : K21.9 - Gastro-esophageal reflux disease without esophagitis (8) HLD (hyperlipidemia) Current Visit: Yes Status: Chronic Qualifiers: Hyperlipidemia type: unspecified Qualified Code(s): E78.5 - Hyperlipidemia , unspecified (9) HTN (hypertension) Current Visit: Yes Status: Chronic Qualifiers: Hypertension type: essential hypertension Qualified Code(s): I10 - Essential (primary) hypertension (10) DVT prophylaxis Current Visit: Yes Status: Acute (11) CHF (congestive heart failure) Current Visit: Yes Status: Chronic Assessment and plan: Echocardiogram shows reduced EF around 30%, moderate diastolic dysfunction. Continue telemetry monitoring, beta vicky and volume removal with dialysis. Qualifiers: Heart failure type: combined systolic and diastolic Heart failure chronicity: acute on chronic Qualified Code(s): I50.43 - Acute on chronic combined systolic (congestive) and diastolic (congestive) heart failure (12) HCAP (healthcare-associated pneumonia) Current Visit: Yes Status: Acute Assessment and plan: One out of 2 peripheral blood cultures grew staph epidermidis, which is likely a contaminant. Sputum culture from February 21 grew ESBL Klebsiella. Sputum culture from February 22 grew Acinetobacter baumanii; ID recommedantions appreciated ; currently on IV Colistin and Ertapenem; supportive care and supplemental O2; - Time Spent With Patient Total time spent is greater than 50% in coordination of care (as documented) at patient's floor/unit and/or counseling patient: - Subjective Interval history: Patient is able to make signs and mouth words; no chest pain or shortness of breath. Receiving blood transfusion, awaiting hemodialysis. - Constitutional Vitals: Temp Pulse Resp BP Pulse Ox 97.6 F 64 17 162/67 96 03/03/18 16:00 03/03/18 16:00 03/03/18 16:40 03/03/18 16:40 03/03/18 16:00 General appearance: Present: A&O X 3, answers questions appropriately - Respiratory Respiratory exam: Present: decreased breath sounds (left base), CTAB (coarse breath sounds B/L, intermittent rhonchi). Absent: accessory muscle use, rales, rhonchi, wheezes - Cardiovascular Cardiovascular exam: Present: RRR, +S1, +S2, tachycardia. Absent: diastolic murmur, gallop, rubs, systolic murmur - GI/Abdominal GI/Abdominal exam: Present: normal bowel sounds, soft, no peritoneal signs. Absent: distended, tenderness - Extremities Exam Extremities exam: Present: pedal edema (2+ pitting pedal edema, left>right), warm, radial pulses palpable and symmetrical. Absent: calf tenderness, cyanotic Internal Medicine: Result - Labs CBC & Chem 7: 03/03/18 16:30 03/03/18 04:00 Labs: Short CBC 03/03/18 03/03/18 Range/Units 04:00 16:30 WBC 9.6 (4.3-11.1) K/mcL Hgb 6.7 L 8.8 L D (12.9-16.9) g/dL Hct 20.3 L 25.4 L (37.5-50.1) % Plt Count 221 (140-400) K/mcL Neutrophils # 5.9 (1.6-8.9) K/mcL BMP 03/03/18 04:00 Sodium 133 L Potassium 5.6 H Chloride 98 Carbon Dioxide 27 BUN 33 H Creatinine 3.96 H Glucose 113 H Calcium 8.1 L - ABG Interpretation ABG results: ABG ABG pH 7.53 pH Units (7.32-7.45) H 02/27/18 15:56 ABG pCO2 35 mmHg (35-45) 02/27/18 15:56 ABG pO2 57 mmHg (85-104) L 02/27/18 15:56 ABG O2 Saturation 92 % (95-98) L 02/27/18 15:56 PT/INR, D-dimer PT 11.6 Seconds (9.4-12.1) 02/28/18 06:51 - Impressions Impressions Chest X-Ray 03/03/18 11:59 IMPRESSION: Increasing left pleural effusion, moderate to large in size. No significant interval change in small to moderate right pleural effusion. Persistent diffuse bilateral airspace disease. D/ / Chad Siu MD / Chad Siu MD Interpreting Provider: Chad Siu MD Consult Discharge Plan - Plan Referrals: Paco Sheikh MD [Primary Care Provider] - (patient is from [facility])
[2018-03-03] MEDS: Colistin (Colistimethate) 100 MG in 0.9 % Sodium Chloride 50 ML IVPB SCH (18:08)
--- NOTE | 2018-03-03 18:27 | IR Procedure Note ---
Date of procedure: 03/03/18 Consent Obtained: Verbal consent Timeout: Correct patient and procedure verified, Correct site verified, Time out performed, Skin prep completed Local anesthetic: Lidocaine 1% Indications: Bilateral pleural effusions, L greater than right Procedure Performed: Left thoracentesis Was there an sales office assistant present: No Site/Technique: Left chest Results/Findings: Serosanguinous pleural fluid. 2L removed. Estimated blood loss (cc): 0 Complications: None; Tolerated procedure well Post Procedure Treatment Plan: Monitoring in pts room Specimen: to lab
[2018-03-04] MEDS: *HR* Dextrose 50 % in Water (Syg) 50 ML SYRINGE IVP PRN ×4 (00:01→16:00)
[2018-03-04] MEDS: Ipratropium/Albuterol Neb 3 ML IH SCH ×6 (03:18→23:29)
[2018-03-04 04:23] LABS: Basophils % 0.4 %; Eosinophils # 1.1 K/mcL (0.0-0.6); Eosinophils % 10.8 %; Hematocrit 23.5 % (37.5-50.1); Hemoglobin 8.2 g/dL (12.9-16.9); Immature Granulocytes % 0.4 % (0-4); Lymphocytes # 1.1 K/mcL (0.6-4.6); Mean Corpuscular HGB Conc 34.9 g/dL (31.6-35.5); Mean Corpuscular Volume 97.5 fL (83.0-100.0); Mean Platelet Volume 10.4 fL (9.4-12.4); Monocytes # 0.9 K/mcL (0.0-1.3); Monocytes % 9.1 %; Neutrophils # 6.7 K/mcL (1.6-8.9); Platelet Count 199 K/mcL (140-400); Red Blood Count 2.41 M/mcL (4.19-5.50); Red Cell Distribution Width 16.7 % (11.5-14.5); Segmented Neutrophils % 68.3 %
[2018-03-04 04:47] LABS: Calcium 7.8 mg/dL (8.6-10.3); Potassium 4.1 mEq/L (3.5-5.1)
[2018-03-04] MEDS: hydrALAZINE 25 MG TABLET PO SCH ×4 (05:54→22:48)
[2018-03-04] MEDS: *HR* LORazepam 0.5 MG TABLET GTUBE SCH ×4 (05:54→22:49)
[2018-03-04] MEDS: *HR* Heparin 5,000 UNIT/ML VIAL SQ SCH ×2 (05:54→17:12)
[2018-03-04] MEDS: *HR* OxyCODONE Immed Rel 5 MG TABLET GTUBE PRN ×3 (05:55→17:31)
[2018-03-04] MEDS: Cyanocobalamin (B-12) 1,000 MCG TABLET GTUBE SCH (08:16)
[2018-03-04] MEDS: Sennosides/Docusate Sodium TABLET GTUBE SCH ×2 (08:16→22:48)
[2018-03-04] MEDS: *HR* Ticagrelor 90 MG TABLET PO SCH ×2 (08:16→22:48)
[2018-03-04] MEDS: Docusate Oral Soln 100 MG/10 ML UDC PO SCH (08:16)
[2018-03-04] MEDS: amLODIPine 5 MG TABLET GTUBE SCH (08:17)
[2018-03-04] MEDS: Aspirin Enteric Coated 81 MG Tablet PO SCH (08:17)
[2018-03-04] MEDS: Nystatin POWDER 30 GM BOTTLE TP SCH ×2 (08:17→22:58)
[2018-03-04] MEDS: cloNIDine HCl 0.1 MG TABLET PO SCH ×2 (08:17→22:49)
[2018-03-04] MEDS: Folic Acid 1 MG TABLET GTUBE SCH (08:17)
--- NOTE | 2018-03-04 08:55 | Nephrology Progress Note ---
Date of Encounter: 03/04/18 Time of Encounter: 08:30 - Assessment and Plan (1) ESRD on dialysis Current Visit: Yes Status: Chronic Noted PRBC x 2 units ordered for Hgb 6.7. Bloody pleural fld may explain drop in Hgb. Fast recurring accumulation of pleural fld concerning for underlying process. No HD today, keeping MWF schedule. (2) Pleural effusion Current Visit: Yes Status: Acute Subjective Principal diagnosis: Acute on chronic hypoxic respiratory failure Interval history: Trach > vent during night. S/P left thorocentesis 2L. Nursing staff stales pleural fluid bloody. Objective - Vital Signs Vital signs: Vital Signs Temp Pulse Resp BP Pulse Ox 03/04/18 07:39 16 96 03/04/18 05:42 22 121/41 94 03/04/18 04:00 68 22 121/49 95 03/04/18 03:18 27 119/58 95 03/04/18 03:00 97.9 F 03/04/18 01:20 22 128/55 96 03/04/18 00:00 64 24 129/66 94 03/03/18 23:50 97.0 F L 03/03/18 23:05 21 119/49 95 03/03/18 20:00 71 20 103/72 93 03/03/18 19:54 98.6 F 03/03/18 19:51 18 97 03/03/18 18:00 68 28 164/60 97 03/03/18 16:40 17 162/67 03/03/18 16:30 145/52 03/03/18 16:15 122/35 03/03/18 16:00 97.6 F 64 24 115/42 96 03/03/18 15:45 126/62 03/03/18 15:30 128/50 03/03/18 15:28 28 152/52 97 03/03/18 15:15 152/52 03/03/18 15:00 96/46 03/03/18 14:45 136/48 03/03/18 14:38 98.4 F 67 28 137/54 03/03/18 14:30 117/38 03/03/18 14:15 137/54 03/03/18 14:00 65 24 101/78 97 03/03/18 13:45 121/45 03/03/18 13:30 98.7 F 18 115/48 03/03/18 12:00 97.7 F 62 20 116/49 97 03/03/18 11:05 35 136/59 98 03/03/18 10:00 74 35 136/59 91 03/03/18 09:00 97.7 F 62 25 120/52 Intake and Output 03/03/18 03/04/18 03/04/18 23:59 07:59 15:59 Intake Total 100 / 100 Output Total 3600 / 3600 0 / 0 Balance -3600 / -3600 0 / 0 100 / 100 Intake: Free Water 100 / 100 Output: Urine 0 / 0 0 / 0 Total Dialysis (HD) Output 3600 / 3600 Other: Weight 66.1 kg Blood Glucose* 43 102 Hemodialysis Net Fluid Removed 3000 (mL) - General Appearance General appearance: Present: well-developed, well-nourished, appears started age , chronically ill EENT: Present: mucous membranes moist Neck: Present: no JVD Additional Comments: diminished Cardiology: Present: no edema, regular rate, regular rhythm Dialysis Vascular Access: Venous Catheter Gastrointestinal: Present: hypoactive bowel sounds, no tenderness Integumentary: Present: warm and dry Psychiatric: Present: cooperative - Lab 03/04/18 03:50 03/04/18 03:50 Most recent lab results ABG pH 7.53 pH Units (7.32-7.45) H 02/27/18 15:56 ABG pCO2 35 mmHg (35-45) 02/27/18 15:56 ABG pO2 57 mmHg (85-104) L 02/27/18 15:56 ABG HCO3 29 mEq/L (21-27) H 02/27/18 15:56 ABG O2 Saturation 92 % (95-98) L 02/27/18 15:56 Calcium 7.8 mg/dL (8.6-10.3) L 03/04/18 03:50 Phosphorus 4.0 mg/dL (2.7-4.5) 02/21/18 12:09 Magnesium 2.0 mg/dL (1.6-2.6) 02/22/18 03:25 Consult Discharge Plan - Plan Referrals: Paco Sheikh MD [Primary Care Provider] - (patient is from [facility])
[2018-03-04] MEDS: Acetaminophen 325 MG TABLET PO PRN (08:59)
[2018-03-04] MEDS: Renal Vitamin 1 MG CAPSULE PO SCH (10:50)
[2018-03-04] MEDS: Colistin (Colistimethate) 100 MG in 0.9 % Sodium Chloride 50 ML IVPB SCH (17:14)
--- NOTE | 2018-03-04 17:24 | Internal Med Progress Note ---
Date of Encounter: 03/04/18 Time of Encounter: 09:00 - Assessment and plan (1) Acute and chronic respiratory failure with hypoxia Current Visit: Yes Status: Acute Assessment and plan: Due to pleural effusion and pneumonia. Status post left-sided thoracentesis yesterday, which was hemorrhagic per RN. Continue IV antibiotics and current management. d/w Pulmonology, may have been subpulmonic/splenic hemorrhage? Patient does have chronic tracheostomy on oxygen and nocturnal ventilator support. (2) Anemia Current Visit: Yes Status: Chronic Assessment and plan: Acute on chronic anemia, likely related to end-stage renal disease and hematologic pleural effusion. Hemoglobin improved to 8.2 status post 2 units PRBC transfusion. Monitor hemoglobin closely. Receives Aranesp during hemodialysis. Qualifiers: Anemia type: unspecified type Qualified Code(s): D64.9 - Anemia, unspecified (3) Pleural effusion Current Visit: Yes Status: Acute Assessment and plan: Recurrent bilateral pleural effusions. Underwent thoracentesis twice. Case discussed with pulmonology, recommend Pleurx catheter due to the recurrent nature of effusion, given his dialysis dependence and volume buildup over the weekend. Underwent repeat left-sided thoracentesis yesterday by IR. Plan for Pleurx catheter placement prior to discharge. Pleural fluid analysis showed nonmalignant transudative effusion. (4) Hyperkalemia Current Visit: Yes Status: Resolved (5) Diabetes Current Visit: Yes Status: Chronic Assessment and plan: Patient noted to have multiple episodes of hypoglycemia. Off insulin. Blood sugars are currently well controlled, with lowsugars during night. Continue Accu-Chek blood glucose monitoring and diabetic diet. Discussed with dietitian, who spoke to Desiree Ortiz, patient's retirement-he takes soft diet with thickened liquids as tolerated along with twice daily 2 opiates via PEG tube. Will resume this for now and monitor oral intake. 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: without correction use Diabetes mellitus complication status: with kidney complications Diabetes mellitus complication detail: with chronic kidney disease Chronic kidney disease stage: on chronic dialysis Qualified Code(s) : E11.22 - Type 2 diabetes mellitus with diabetic chronic kidney disease; N18.6 - End stage renal disease; Z99.2 - Dependence on renal dialysis (6) ESRD on dialysis Current Visit: Yes Status: Chronic Assessment and plan: Nephrology on board for dialysis needs; (7) GERD (gastroesophageal reflux disease) Current Visit: Yes Status: Chronic Qualifiers: Esophagitis presence: esophagitis presence not specified Qualified Code(s) : K21.9 - Gastro-esophageal reflux disease without esophagitis (8) HLD (hyperlipidemia) Current Visit: Yes Status: Chronic Qualifiers: Hyperlipidemia type: unspecified Qualified Code(s): E78.5 - Hyperlipidemia , unspecified (9) HTN (hypertension) Current Visit: Yes Status: Chronic Qualifiers: Hypertension type: essential hypertension Qualified Code(s): I10 - Essential (primary) hypertension (10) DVT prophylaxis Current Visit: Yes Status: Acute (11) CHF (congestive heart failure) Current Visit: Yes Status: Chronic Assessment and plan: Echocardiogram shows reduced EF around 30%, moderate diastolic dysfunction. Continue telemetry monitoring, beta vicky and volume removal with dialysis. Qualifiers: Heart failure type: combined systolic and diastolic Heart failure chronicity: acute on chronic Qualified Code(s): I50.43 - Acute on chronic combined systolic (congestive) and diastolic (congestive) heart failure (12) HCAP (healthcare-associated pneumonia) Current Visit: Yes Status: Acute Assessment and plan: One out of 2 peripheral blood cultures grew staph epidermidis, which is likely a contaminant. Sputum culture from February 21 grew ESBL Klebsiella. Sputum culture from February 22 grew Acinetobacter baumanii; ID recommedantions appreciated ; currently on IV Colistin and Ertapenem; supportive care and supplemental O2; - Time Spent With Patient Total time spent is greater than 50% in coordination of care (as documented) at patient's floor/unit and/or counseling patient: - Subjective Interval history: Noted to be drowsy today, wakes up to verbal stimuli. Very irritable and uncooperative today, pushing away not wanting to be examined. Intermittently desaturates; - Constitutional Vitals: Temp Pulse Resp BP Pulse Ox 98.1 F 62 23 93/47 95 03/04/18 16:11 03/04/18 16:00 03/04/18 16:00 03/04/18 16:03/04/18 16:00 General appearance: Present: A&O X 1. Absent: answers questions appropriately - Respiratory Respiratory exam: Present: CTAB (anterolaterally). Absent: accessory muscle use , rales, rhonchi, wheezes - Cardiovascular Cardiovascular exam: Present: RRR, +S1, +S2. Absent: diastolic murmur, gallop, rubs, systolic murmur - GI/Abdominal GI/Abdominal exam: Present: normal bowel sounds, soft, no peritoneal signs. Absent: distended, tenderness - Extremities Exam Extremities exam: Present: pedal edema (improved), warm, radial pulses palpable and symmetrical. Absent: calf tenderness, cyanotic Internal Medicine: Result - Labs CBC & Chem 7: 03/04/18 03:50 03/04/18 03:50 Labs: Short CBC 03/04/18 Range/Units 03:50 WBC 9.7 (4.3-11.1) K/mcL Hgb 8.2 L (12.9-16.9) g/dL Hct 23.5 L (37.5-50.1) % Plt Count 199 (140-400) K/mcL Neutrophils # 6.7 (1.6-8.9) K/mcL BMP 03/04/18 03:50 Sodium 135 L Potassium 4.1 D Chloride 98 Carbon Dioxide 31 H BUN 21 H Creatinine 2.94 H Glucose 81 Calcium 7.8 L - ABG Interpretation ABG results: ABG ABG pH 7.53 pH Units (7.32-7.45) H 02/27/18 15:56 ABG pCO2 35 mmHg (35-45) 02/27/18 15:56 ABG pO2 57 mmHg (85-104) L 02/27/18 15:56 ABG O2 Saturation 92 % (95-98) L 02/27/18 15:56 PT/INR, D-dimer PT 11.6 Seconds (9.4-12.1) 02/28/18 06:51 - Impressions Impressions Thoracentesis Ultrasound 03/03/18 10:44 IMPRESSION: Successful ultrasound guided thoracentesis. D/ / Christopher Ignacio MD / Christopher Ignacio MD Interpreting Provider: Christopher Ignacio MD Consult Discharge Plan - Plan Referrals: Paco Sheikh MD [Primary Care Provider] - (patient is from [facility])
[2018-03-05] MEDS: Ipratropium/Albuterol Neb 3 ML IH SCH ×6 (03:14→23:18)
[2018-03-05] MEDS: hydrALAZINE 25 MG TABLET PO SCH ×3 (06:07→17:26)
[2018-03-05] MEDS: *HR* OxyCODONE Immed Rel 5 MG TABLET GTUBE PRN ×3 (06:07→21:19)
[2018-03-05] MEDS: *HR* Heparin 5,000 UNIT/ML VIAL SQ SCH ×2 (06:07→17:25)
[2018-03-05] MEDS: *HR* LORazepam 0.5 MG TABLET GTUBE SCH ×3 (06:08→17:26)
--- NOTE | 2018-03-05 08:36 | Nephrology Progress Note ---
Date of Encounter: 03/05/18 Time of Encounter: 08:00 - Assessment and Plan (1) ESRD on dialysis Current Visit: Yes Status: Chronic No HD today, keeping MWF schedule. (2) Pleural effusion Current Visit: Yes Status: Acute Subjective Principal diagnosis: Acute on chronic hypoxic respiratory failure Interval history: Trach > vent during night. Trach collar this AM. Awake, watching tv., cooperative though nursing states pulls at trach at night. Objective - Vital Signs Vital signs: Vital Signs Temp Pulse Resp BP Pulse Ox 03/05/18 07:48 25 95 03/05/18 06:00 65 25 131/61 95 03/05/18 05:30 27 113/50 95 03/05/18 05:00 67 25 113/50 95 03/05/18 04:25 97.6 F 03/05/18 03:14 30 117/64 95 03/05/18 03:00 67 25 117/64 93 03/05/18 02:00 64 27 120/69 93 03/05/18 01:35 24 125/48 93 03/05/18 00:52 97.4 F L 03/05/18 00:00 65 27 125/48 94 03/04/18 23:29 28 125/51 91 03/04/18 23:00 64 27 125/51 93 03/04/18 22:00 64 27 121/46 92 03/04/18 21:28 23 114/52 94 03/04/18 21:00 63 27 114/52 92 03/04/18 20:00 62 27 118/56 97 03/04/18 19:51 21 118/50 95 03/04/18 19:45 98.0 F 03/04/18 19:00 63 25 118/50 93 03/04/18 18:00 64 35 120/45 89 03/04/18 17:55 26 110/50 90 03/04/18 16:11 98.1 F 03/04/18 16:00 98.1 F 62 23 93/47 95 03/04/18 15:36 21 106/48 96 03/04/18 14:00 58 21 106/48 96 03/04/18 12:08 96.6 F L 03/04/18 12:00 59 24 117/46 92 03/04/18 11:41 18 94 03/04/18 10:00 67 22 121/55 93 Intake and Output 03/04/18 03/05/18 03/05/18 23:59 07:59 15:59 Intake Total 250 / 250 200 / 200 Output Total 0 / 0 0 / 0 Balance 250 / 250 200 / 200 Intake: IV Fluids 100 / 100 INVanz 500 MG In 0.9 % Sodium 100 / 100 Chloride 100 ML @ 100 mls/hr IVPB Q24H [facility] Rx#:[id number] Free Water Intake Amount 150 / 150 200 / 200 Output: Urine 0 / 0 0 / 0 Other: Weight 66.3 kg Blood Glucose* 81 Patient Weight 03/05/18 23:59 Weight 66.3 kg - General Appearance General appearance: Present: well-developed, well-nourished, appears started age EENT: Present: mucous membranes moist Neck: Present: no JVD Respiratory: Present: rhonchi Cardiology: Present: no edema, regular rate, regular rhythm Dialysis Vascular Access: Venous Catheter Gastrointestinal: Present: hypoactive bowel sounds, no guarding Integumentary: Present: warm and dry Psychiatric: Present: cooperative - Lab 03/04/18 03:50 03/04/18 03:50 Most recent lab results ABG pH 7.53 pH Units (7.32-7.45) H 02/27/18 15:56 ABG pCO2 35 mmHg (35-45) 02/27/18 15:56 ABG pO2 57 mmHg (85-104) L 02/27/18 15:56 ABG HCO3 29 mEq/L (21-27) H 02/27/18 15:56 ABG O2 Saturation 92 % (95-98) L 02/27/18 15:56 Calcium 7.8 mg/dL (8.6-10.3) L 03/04/18 03:50 Phosphorus 4.0 mg/dL (2.7-4.5) 02/21/18 12:09 Magnesium 2.0 mg/dL (1.6-2.6) 02/22/18 03:25 Consult Discharge Plan - Plan Referrals: Paco Sheikh MD [Primary Care Provider] - (patient is from [facility])
[2018-03-05] MEDS: Cyanocobalamin (B-12) 1,000 MCG TABLET GTUBE SCH (08:50)
[2018-03-05] MEDS: Folic Acid 1 MG TABLET GTUBE SCH (08:51)
[2018-03-05] MEDS: cloNIDine HCl 0.1 MG TABLET PO SCH ×2 (08:51→21:02)
[2018-03-05] MEDS: amLODIPine 5 MG TABLET GTUBE SCH (08:51)
[2018-03-05] MEDS: *HR* Ticagrelor 90 MG TABLET PO SCH ×2 (08:51→21:02)
[2018-03-05] MEDS: Sennosides/Docusate Sodium TABLET GTUBE SCH ×2 (08:51→21:02)
[2018-03-05] MEDS: Renal Vitamin 1 MG CAPSULE PO SCH (08:52)
[2018-03-05] MEDS: Aspirin Enteric Coated 81 MG Tablet PO SCH (08:52)
[2018-03-05] MEDS: Nystatin POWDER 30 GM BOTTLE TP SCH ×2 (08:53→21:03)
[2018-03-05] MEDS: Docusate Oral Soln 100 MG/10 ML UDC PO SCH (08:54)
--- NOTE | 2018-03-05 16:08 | Internal Med Progress Note ---
Date of Encounter: 03/05/18 Time of Encounter: 08:30 - Assessment and plan (1) Acute and chronic respiratory failure with hypoxia Current Visit: Yes Status: Acute Assessment and plan: Due to pleural effusion and pneumonia. Patient does have chronic tracheostomy on oxygen and nocturnal ventilator support. (2) Anemia Current Visit: Yes Status: Chronic Assessment and plan: Acute on chronic anemia, likely related to end-stage renal disease and hematologic pleural effusion. Hemoglobin improved to 8.2 status post 2 units PRBC transfusion. Monitor hemoglobin closely. Receives Aranesp during hemodialysis. Qualifiers: Anemia type: unspecified type Qualified Code(s): D64.9 - Anemia, unspecified (3) Pleural effusion Current Visit: Yes Status: Acute Assessment and plan: Recurrent bilateral pleural effusions. Underwent thoracentesis 3 times during this admission. Case discussed with pulmonology, recommend Pleurx catheter due to the recurrent nature of effusion, given his dialysis dependence and volume buildup over the weekend. Plan for Pleurx catheter placement prior to discharge. Pleural fluid analysis showed nonmalignant transudative effusion. (4) Hyperkalemia Current Visit: Yes Status: Resolved (5) Diabetes Current Visit: Yes Status: Chronic Assessment and plan: Patient noted to have multiple episodes of hypoglycemia. Off insulin. Blood sugars are currently well controlled, with lowsugars during night. Continue Accu-Chek blood glucose monitoring and diabetic diet. Continue tube feeding BID along with oral diet as tolerated; Qualifiers: Diabetes mellitus type: type 2 Diabetes mellitus alf insulin use: without termite inspector use Diabetes mellitus complication status: with kidney complications Diabetes mellitus complication detail: with chronic kidney disease Chronic kidney disease stage: on chronic dialysis Qualified Code(s) : E11.22 - Type 2 diabetes mellitus with diabetic chronic kidney disease; N18.6 - End stage renal disease; Z99.2 - Dependence on renal dialysis (6) ESRD on dialysis Current Visit: Yes Status: Chronic Assessment and plan: Nephrology on board for dialysis needs; anticipate HD in am; (7) GERD (gastroesophageal reflux disease) Current Visit: Yes Status: Chronic Qualifiers: Esophagitis presence: esophagitis presence not specified Qualified Code(s) : K21.9 - Gastro-esophageal reflux disease without esophagitis (8) HLD (hyperlipidemia) Current Visit: Yes Status: Chronic Qualifiers: Hyperlipidemia type: unspecified Qualified Code(s): E78.5 - Hyperlipidemia , unspecified (9) HTN (hypertension) Current Visit: Yes Status: Chronic Qualifiers: Hypertension type: essential hypertension Qualified Code(s): I10 - Essential (primary) hypertension (10) DVT prophylaxis Current Visit: Yes Status: Acute (11) CHF (congestive heart failure) Current Visit: Yes Status: Chronic Assessment and plan: Echocardiogram shows reduced EF around 30%, moderate diastolic dysfunction. Continue telemetry monitoring, beta vicky and volume removal with dialysis. Qualifiers: Heart failure type: combined systolic and diastolic Heart failure chronicity: acute on chronic Qualified Code(s): I50.43 - Acute on chronic combined systolic (congestive) and diastolic (congestive) heart failure (12) HCAP (healthcare-associated pneumonia) Current Visit: Yes Status: Acute Assessment and plan: One out of 2 peripheral blood cultures grew staph epidermidis, which is likely a contaminant. Sputum culture from February 21 grew ESBL Klebsiella. Sputum culture from February 22 grew Acinetobacter baumanii; ID recommedantions appreciated ; currently on IV Colistin and Ertapenem; supportive care and supplemental O2; - Time Spent With Patient Total time spent is greater than 50% in coordination of care (as documented) at patient's floor/unit and/or counseling patient: - Subjective Interval history: Noted to be slightly drowsy, received pain meds and Ativan earlier this am; wakes up to verbal stimuli. - Constitutional Vitals: Temp Pulse Resp BP Pulse Ox 97.6 F 61 20 131/62 93 03/05/18 04:25 03/05/18 14:19 03/05/18 15:38 03/05/18 14:19 03/05/18 15:38 General appearance: Present: A&O X 1. Absent: answers questions appropriately - Respiratory Respiratory exam: Present: CTAB (on the right). Absent: accessory muscle use, rales, rhonchi, wheezes - Cardiovascular Cardiovascular exam: Present: RRR, +S1, +S2. Absent: diastolic murmur, gallop, rubs, systolic murmur - GI/Abdominal GI/Abdominal exam: Present: normal bowel sounds, soft (PEG in place), no peritoneal signs. Absent: distended, tenderness - Extremities Exam Extremities exam: Present: pedal edema (significantly improved), warm, radial pulses palpable and symmetrical. Absent: calf tenderness, cyanotic Internal Medicine: Result - Labs CBC & Chem 7: 06/02/18 03:50 03/04/18 03:50 - ABG Interpretation ABG results: ABG ABG pH 7.53 pH Units (7.32-7.45) H 02/27/18 15:56 ABG pCO2 35 mmHg (35-45) 02/27/18 15:56 ABG pO2 57 mmHg (85-104) L 02/27/18 15:56 ABG O2 Saturation 92 % (95-98) L 02/27/18 15:56 PT/INR, D-dimer PT 11.6 Seconds (9.4-12.1) 02/28/18 06:51 Consult Discharge Plan - Plan Referrals: aPco Sheikh MD [Primary Care Provider] - (patient is from [facility])
[2018-03-05] MEDS: Colistin (Colistimethate) 100 MG in 0.9 % Sodium Chloride 50 ML IVPB SCH (17:25)
[2018-03-06] MEDS: hydrALAZINE 25 MG TABLET PO SCH ×4 (00:06→18:49)
[2018-03-06] MEDS: *HR* LORazepam 0.5 MG TABLET GTUBE SCH ×2 (00:06→05:46)
[2018-03-06] MEDS: Ipratropium/Albuterol Neb 3 ML IH SCH ×6 (03:33→23:25)
[2018-03-06 05:03] LABS: Basophils # 0.1 K/mcL (0.0-0.2); Basophils % 0.6 %; Eosinophils # 1.2 K/mcL (0.0-0.6); Eosinophils % 14.8 %; Hematocrit 24.8 % (37.5-50.1); Hemoglobin 8.1 g/dL (12.9-16.9); Immature Granulocytes % 0.4 % (0-4); Lymphocytes # 1.2 K/mcL (0.6-4.6); Lymphocytes % 14.6 %; Mean Corpuscular HGB Conc 32.7 g/dL (31.6-35.5); Mean Platelet Volume 10.6 fL (9.4-12.4); Monocytes # 0.7 K/mcL (0.0-1.3); Monocytes % 8.4 %; Neutrophils # 4.9 K/mcL (1.6-8.9); Platelet Count 176 K/mcL (140-400); Red Blood Count 2.53 M/mcL (4.19-5.50); Red Cell Distribution Width 15.5 % (11.5-14.5); Segmented Neutrophils % 61.2 %
[2018-03-06 05:15] LABS: Albumin 2.2 g/dL (3.5-5.7); Calcium 7.9 mg/dL (8.6-10.3); Phosphorous 5.8 mg/dL (2.7-4.5)
[2018-03-06] MEDS: *HR* Heparin 5,000 UNIT/ML VIAL SQ SCH ×2 (05:46→18:45)
--- NOTE | 2018-03-06 07:56 | Pulmonology Consult Note ---
<Adam Meade - Last Filed: 03/06/18 07:58> Date of Encounter: 03/06/18 Time of Encounter: 07:53 Assessment and Plan (1) Pleural effusion Current Visit: Yes Status: Acute 1. Bedside ultrasound was performed on bilateral lungs and there are multiple septations and loculations that would not be amendable to Pleurx catheter placement 2. Would recommend continued medical management and optimization of his fluid status 3. Would be happy to consult again in the future, if necessary 4. Thank you for allowing us to take part in this patient's care History of Present Illness Consult date: 03/06/18 Requesting physician: Aimee Brenner Reason for consult: pleural effusion Chief complaint: consult for pleurx catheter placement History of present illness: Patient is a 57-year-old male who is tracheostomy dependent, presenting with volume overload secondary to CHF requiring dialysis. Patient required 3 thoracentesis procedures during this hospital admission for recurrent pleural effusions and we were consulted for possible Pleurx catheter placement. Past Med Surg Social Fam HX - Past Medical History Medical history: cardiomyopathy, CVA (2012 x1, 2015 x2), diabetes, dialysis, GERD, hyperlipidemia, hypertension, liver disease, renal disease, thyroid disease, other Additional medical history: dialysis port to right chest. respr failure. dialysis on tuesday, , and tuesday. 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 ischemic cardiomyopathy. infected left knee joint with enterococcus bacteremia Psychiatric history: anxiety - Past Surgical History Surgical History: tracheostomy, other Additional surgical history: trach. gtube - Social History Smoking Status: Former smoker Packs per day: 1 PPD - Reports quitting in 2012 Alcohol use: none Drug use: none - Family History Mother History Unknown: Yes Race: Family Member Ethnicity: Non- Living Status: Age at : 83 Cause of : Heart valve failure Hx Family Cardiac Disorders: Yes (CAD) Father Race: Family Member Ethnicity: Non- Living Status: Age at : 80 Hx Family Cardiac Disorders: Yes (HD) Brother Race: Family Member Ethnicity: Non- Living Status: Age at : 33 Cause of : AIDS Hx Family Autoimmune Disorders: Yes (AIDS) Medications and Allergies Amlodipine Besylate 10 mg GTUBE DAILY 11/25/17 [History] Atorvastatin Calcium [Lipitor] 40 mg GTUBE DAILY 11/25/17 [History] Cyanocobalamin (B-12) [Vitamin B12] 1,000 mcg GTUBE DAILY 11/25/17 [History] Docusate [Colace] 50 mg GTUBE DAILY 11/25/17 [History] Folic Acid 1 mg GTUBE DAILY 11/25/17 [History] Folic Acid/Vit Bcomp,C [Renal Vitamin Tablet] 1 tab GTUBE DAILY 11/25/17 [ History] Insulin Regular Human [HumuLIN R] 0 unit SQ QID PRN 11/25/17 [History] LORazepam [Ativan] 0.5 mg GTUBE Q6H 11/25/17 [History] Levothyroxine Sodium [Synthroid] 300 mcg GTUBE DAILY 11/25/17 [History] Oxycodone HCl [Oxaydo] 5 mg GTUBE Q6H PRN 11/25/17 [History] Pantoprazole Sodium [Protonix] 40 mg GTUBE DAILY 11/25/17 [History] Sennosides/Docusate Sodium [Senna-S Tablet] 1 each GTUBE BID 11/25/17 [History] cloNIDine HCl [CloNIDine HCl] 0.1 mg GTUBE BID 11/25/17 [History] hydrOXYzine HCl [Hydroxyzine HCl] 25 mg GTUBE Q6H PRN 11/25/17 [History] Acetaminophen [Non-Aspirin] 650 mg PO Q4H PRN 02/21/18 [History] Aspirin [Lo-Dose Aspirin EC] 81 mg GTUBE DAILY 02/21/18 [History] Calcitriol 0.5 mcg GTUBE MOWEFR 02/21/18 [History] Carvedilol [Coreg] 25 mg GTUBE BID 02/21/18 [History] Dextrose [Glucose Gel] 15 gm PO AD PRN 02/21/18 [History] Diphenhydramine HCl/Zinc Acet [Itch Relief Cream] 1 appl TP TID PRN 02/21/18 [ History] Insulin Glargine,Hum.rec.anlog [Basaglar Kwikpen U-100] 5 unit SQ HS 02/21/18 [ History] LORazepam [Ativan] 0.5 mg GTUBE Q6H PRN 02/21/18 [History] Renal Vitamin [Renal Caps Softgel] 1 mg GTUBE DAILY 02/21/18 [History] Ticagrelor [Brilinta] 90 mg GTUBE BID 02/21/18 [History] hydrALAZINE [HydrALAZINE] 25 mg PO Q6HR 02/21/18 [History] 3 Allergy/AdvReac Type Severity Reaction Status Date / Time No Known Allergies Allergy Verified 11/25/17 20:12 All Systems: The remainder of the systems were reviewed and are negative - Constitutional Constitutional: no fever(s) - EENT Nose, mouth and throat: dry mouth - Cardiovascular Cardiovascular: dyspnea, edema, leg edema, no chest pain - Respiratory Respiratory: dyspnea - Gastrointestinal Gastrointestinal: no abdominal pain - Musculoskeletal Musculoskeletal: weakness - Integumentary Integumentary: no rash Physical Examination Vital Signs: Vital Signs, Last 4 Hours Pulse Resp BP Pulse Ox 03/06/18 05:30 20 120/48 95 03/06/18 05:00 59 24 120/48 95 General appearance: no acute distress, alert Eyes: nonicteric ENT: oropharynx dry (And cracked) Effort: mildly labored Inspection: normal Auscultation: bilateral: diminished breath sounds, rales Cardiovascular: regular rate and rhythm Gastrointestinal: normoactive bowel sounds, non-distended Integumentary: normal Extremities: no cyanosis, no edema, no clubbing Musculoskeletal: no deformities normal mental status mood appropriate, affect normal Ventilator Settings Ventilator Settings: Ventilator Settings, Last 8 Hours Ventilator Tidal Volume 400 Setting Ventilator Tidal Volume 400 Setting Ventilator Tidal Volume 400 Setting Ventilator Respiratory Rate 12 Setting Ventilator Respiratory Rate 12 Setting Ventilator Respiratory Rate 12 Setting Actual Respiratory Rate 20 Actual Respiratory Rate 16 Actual Respiratory Rate 28 Positive End Expiratory 5 Pressure Positive End Expiratory 5 Pressure Positive End Expiratory 5 Pressure Peak Inspiratory Airway 24 Pressure Peak Inspiratory Airway 25 Pressure Peak Inspiratory Airway 18 Pressure Results - Laboratory Findings CBC and BMP: 03/06/18 04:42 03/06/18 04:42 ABG ABG pH 7.53 pH Units (7.32-7.45) H 02/27/18 15:56 ABG pCO2 35 mmHg (35-45) 02/27/18 15:56 ABG pO2 57 mmHg (85-104) L 02/27/18 15:56 ABG O2 Saturation 92 % (95-98) L 02/27/18 15:56 PT/INR, D-dimer PT 11.6 Seconds (9.4-12.1) 02/28/18 06:51 Abnormal lab findings: Abnormal lab results RBC 2.53 M/mcL (4.19-5.50) L 03/06/18 04:42 Hgb 8.1 g/dL (12.9-16.9) L 03/06/18 04:42 Hct 24.8 % (37.5-50.1) L 03/06/18 04:42 RDW 15.5 % (11.5-14.5) H 03/06/18 04:42 Eosinophils # 1.2 K/mcL (0.0-0.6) H 03/06/18 04:42 Nucleated RBCs/100 WBC 0.2 /100 WBC (0) H 02/27/18 08:42 APTT 44.6 Seconds (26.0-36.0) H D 02/28/18 06:51 ABG pH 7.53 pH Units (7.32-7.45) H 02/27/18 15:56 ABG pO2 57 mmHg (85-104) L 02/27/18 15:56 ABG HCO3 29 mEq/L (21-27) H 02/27/18 15:56 ABG Total CO2 30 mEq/L (20-26) H 02/27/18 15:56 ABG O2 Saturation 92 % (95-98) L 02/27/18 15:56 ABG Base Excess 6 mEq/L (-2 to 3) H 02/27/18 15:56 Sodium 133 mEq/L (136-145) L 03/06/18 04:42 Chloride 96 mEq/L (98-107) L 03/06/18 04:42 Carbon Dioxide 31 mEq/L (23-29) H 03/06/18 04:42 BUN 35 mg/dL (6-20) H 03/06/18 04:42 Creatinine 4.06 mg/dL (0.70-1.30) H 03/06/18 04:42 Est GFR ( Amer) 18 (> 60) L 03/06/18 04:42 Est GFR (Non-Af Amer) 15 (> 60) L 03/06/18 04:42 Glucose 197 mg/dL (70-105) H 03/06/18 04:42 POC Glucose 258 mg/dL (70-99) H 03/05/18 21:16 Calcium 7.9 mg/dL (8.6-10.3) L 03/06/18 04:42 Phosphorus 5.8 mg/dL (2.7-4.5) H 03/06/18 04:42 AST 40 Units/L (13-39) H 02/27/18 08:42 Serum Total Protein 5.2 g/dL (6.4-8.9) L 02/27/18 08:42 Albumin 2.2 g/dL (3.5-5.7) L 03/06/18 04:42 Albumin/Globulin Ratio 0.9 (1.1-2.2) L 02/27/18 08:42 HDL Cholesterol 25 mg/dL (40-59) L 02/22/18 03:25 TSH 15.077 mcIU/mL (0.340-5.600) H 02/22/18 03:25 Free T3 1.40 pg/mL (2.50-3.90) L 02/23/18 11:54 Pleural Appearance Hazy (Clear) A 02/28/18 15:20 Staphylococcus sp PCR DETECTED (Not Detect) A 02/21/18 12:09 mecA-Methicil Res Gene DETECTED (Not Detect) A 02/21/18 12:09 - Diagnostic Findings Chest x-ray: image reviewed CT scan - chest: image reviewed - Clinical Findings Intake & Output: Intake & Output 03/05/18 03/05/18 03/06/18 15:59 23:59 07:59 Intake Total 574 / 574 387 / 387 Output Total 0 / 0 175 / 175 0 / 0 Balance 574 / 574 212 / 212 0 / 0 Weight 65.1 kg Consult Discharge Plan - Plan Referrals: Paco Sheikh MD [Primary Care Provider] - (patient is from [facility]) <Vicky Husain - Last Filed: 03/06/18 08:38> Date of Encounter: 03/06/18 All Systems: The remainder of the systems were reviewed and are negative Physical Examination Vital Signs: Vital Signs, Last 4 Hours Pulse Resp BP Pulse Ox 03/06/18 08:11 20 92 03/06/18 05:30 20 120/48 95 03/06/18 05:00 59 24 120/48 95 Ventilator Settings Ventilator Settings: Ventilator Settings, Last 8 Hours Ventilator Tidal Volume 400 Setting Ventilator Tidal Volume 400 Setting Ventilator Tidal Volume 400 Setting Ventilator Respiratory Rate 12 Setting Ventilator Respiratory Rate 12 Setting Ventilator Respiratory Rate 12 Setting Actual Respiratory Rate 20 Actual Respiratory Rate 16 Actual Respiratory Rate 28 Positive End Expiratory 5 Pressure Positive End Expiratory 5 Pressure Positive End Expiratory 5 Pressure Peak Inspiratory Airway 24 Pressure Peak Inspiratory Airway 25 Pressure Peak Inspiratory Airway 18 Pressure Results - Laboratory Findings CBC and BMP: 03/06/18 04:42 03/06/18 04:42 ABG ABG pH 7.53 pH Units (7.32-7.45) H 02/27/18 15:56 ABG pCO2 35 mmHg (35-45) 02/27/18 15:56 ABG pO2 57 mmHg (85-104) L 02/27/18 15:56 ABG O2 Saturation 92 % (95-98) L 02/27/18 15:56 PT/INR, D-dimer PT 11.6 Seconds (9.4-12.1) 02/28/18 06:51 Abnormal lab findings: Abnormal lab results RBC 2.53 M/mcL (4.19-5.50) L 03/06/18 04:42 Hgb 8.1 g/dL (12.9-16.9) L 03/06/18 04:42 Hct 24.8 % (37.5-50.1) L 03/06/18 04:42 RDW 15.5 % (11.5-14.5) H 03/06/18 04:42 Eosinophils # 1.2 K/mcL (0.0-0.6) H 03/06/18 04:42 Nucleated RBCs/100 WBC 0.2 /100 WBC (0) H 02/27/18 08:42 APTT 44.6 Seconds (26.0-36.0) H D 02/28/18 06:51 ABG pH 7.53 pH Units (7.32-7.45) H 02/27/18 15:56 ABG pO2 57 mmHg (85-104) L 02/27/18 15:56 ABG HCO3 29 mEq/L (21-27) H 02/27/18 15:56 ABG Total CO2 30 mEq/L (20-26) H 02/27/18 15:56 ABG O2 Saturation 92 % (95-98) L 02/27/18 15:56 ABG Base Excess 6 mEq/L (-2 to 3) H 02/27/18 15:56 Sodium 133 mEq/L (136-145) L 03/06/18 04:42 Chloride 96 mEq/L (98-107) L 03/06/18 04:42 Carbon Dioxide 31 mEq/L (23-29) H 03/06/18 04:42 BUN 35 mg/dL (6-20) H 03/06/18 04:42 Creatinine 4.06 mg/dL (0.70-1.30) H 03/06/18 04:42 Est GFR ( Amer) 18 (> 60) L 03/06/18 04:42 Est GFR (Non-Af Amer) 15 (> 60) L 03/06/18 04:42 Glucose 197 mg/dL (70-105) H 03/06/18 04:42 POC Glucose 258 mg/dL (70-99) H 03/05/18 21:16 Calcium 7.9 mg/dL (8.6-10.3) L 03/06/18 04:42 Phosphorus 5.8 mg/dL (2.7-4.5) H 03/06/18 04:42 AST 40 Units/L (13-39) H 02/27/18 08:42 Serum Total Protein 5.2 g/dL (6.4-8.9) L 02/27/18 08:42 Albumin 2.2 g/dL (3.5-5.7) L 03/06/18 04:42 Albumin/Globulin Ratio 0.9 (1.1-2.2) L 02/27/18 08:42 HDL Cholesterol 25 mg/dL (40-59) L 02/22/18 03:25 TSH 15.077 mcIU/mL (0.340-5.600) H 02/22/18 03:25 Free T3 1.40 pg/mL (2.50-3.90) L 02/23/18 11:54 Pleural Appearance Hazy (Clear) A 02/28/18 15:20 Staphylococcus sp PCR DETECTED (Not Detect) A 02/21/18 12:09 mecA-Methicil Res Gene DETECTED (Not Detect) A 02/21/18 12:09 - Clinical Findings Intake & Output: Intake & Output 03/05/18 03/06/18 03/06/18 23:59 07:59 15:59 Intake Total 387 / 387 Output Total 175 / 175 0 / 0 Balance 212 / 212 0 / 0 Weight 65.1 kg - Attending Attestation I examined this patient and my medical decision-making was reviewed with the Resident Physician. I agree with the documented findings, disposition and treatment plan as described except to the extent set forth below. Patient seen and examined. Labs, radiology, chart personally reviewed. Agree with resident's history and physical, assessment, plan with following comments: PATTERN CLERK: Patient follows commands, Pulmonary: Acceptable oxygenation and ventilation and patient is on ventilator chronic vent. I have changed vent setting to VC plus for comfort. Bedside ultrasound was done and evidence of loculation in the left side which typically Pleurx pleural catheter is not indicated and right side fluid amount is not large enough to put the catheter. Symptomatic management is the best course for this patient. If fluid pocket become larger in size, consider serial thoracentesis or a Pleurx pleural catheter at that time.
[2018-03-06] MEDS: Docusate Oral Soln 100 MG/10 ML UDC PO SCH (07:57)
[2018-03-06] MEDS: *HR* Ticagrelor 90 MG TABLET PO SCH ×2 (07:58→21:09)
[2018-03-06] MEDS: Cyanocobalamin (B-12) 1,000 MCG TABLET GTUBE SCH (07:58)
[2018-03-06] MEDS: Folic Acid 1 MG TABLET GTUBE SCH (07:58)
[2018-03-06] MEDS: Sennosides/Docusate Sodium TABLET GTUBE SCH ×2 (07:58→21:10)
[2018-03-06] MEDS: Aspirin Enteric Coated 81 MG Tablet PO SCH (08:02)
[2018-03-06] MEDS: cloNIDine HCl 0.1 MG TABLET PO SCH ×2 (08:03→21:05)
[2018-03-06] MEDS: amLODIPine 5 MG TABLET GTUBE SCH (08:03)
[2018-03-06] MEDS: Renal Vitamin 1 MG CAPSULE PO SCH (08:04)
[2018-03-06] MEDS ORDERED: 0.9 % Sodium Chloride 250 ML IVC PRN (08:14)
--- NOTE | 2018-03-06 08:14 | Nephrology Progress Note ---
Date of Encounter: 03/06/18 Time of Encounter: 08:12 - Assessment and Plan (1) End stage renal disease Current Visit: Yes Status: Chronic The patient will undergo dialysis today on a 3K bath. Hemoglobin is low but stable at 8.1. We will check iron levels and make sure he is on Aranesp. (2) Anemia in CKD (chronic kidney disease) Current Visit: Yes Status: Acute Qualifiers: Chronic kidney disease stage: on chronic dialysis Qualified Code(s): N18.6 - End stage renal disease; D63.1 - Anemia in chronic kidney disease; Z99.2 - Dependence on renal dialysis (3) Pleural effusion Current Visit: Yes Status: Acute Subjective Principal diagnosis: Acute on chronic hypoxic respiratory failure Interval history: Patient is currently on the ventilator. He is alert and able to respond to questions. Vital signs are stable. He is scheduled for his usual dialysis today. Objective - Vital Signs Vital signs: Vital Signs Temp Pulse Resp BP Pulse Ox 03/06/18 05:30 20 120/48 95 03/06/18 05:00 59 24 120/48 95 03/06/18 03:33 16 108/65 98 03/06/18 02:00 97.5 F L 03/06/18 01:35 28 110/50 94 03/06/18 00:14 96.8 F L 03/06/18 00:00 58 17 103/45 96 03/05/18 23:18 24 119/53 91 03/05/18 21:11 97.3 F L 03/05/18 21:00 62 20 139/65 97 03/05/18 20:45 33 139/65 91 03/05/18 17:58 64 20 99/57 89 03/05/18 16:33 61 20 116/46 95 03/05/18 16:00 97.1 F L 03/05/18 15:38 20 93 03/05/18 14:19 61 20 131/62 89 03/05/18 12:34 65 12 129/59 92 03/05/18 12:00 96.9 F L 03/05/18 11:38 12 92 03/05/18 10:18 61 127/53 92 03/05/18 08:37 65 12 124/45 92 Intake and Output 03/05/18 03/06/18 03/06/18 23:59 07:59 15:59 Intake Total 387 / 387 Output Total 175 / 175 0 / 0 Balance 212 / 212 0 / 0 Intake: IV Fluids 150 / 150 Coly-Mycin M PARENTERAL 100 MG 50 / 50 In 0.9 % Sodium Chloride 50 ML @ 100 mls/hr IVPB Q24H [facility] Rx#: [id number] INVanz 500 MG In 0.9 % Sodium 100 / 100 Chloride 100 ML @ 100 mls/hr IVPB Q24H [facility] Rx#:[id number] Tube Feeding 237 / 237 Output: Urine 0 / 0 0 / 0 Catheter 175 / 175 Other: Meal Dinner Percent of Meal Consumed 30% Stool Size Large Small Stool Consistency loose soft soft Stool Color Brown Brown # Voids 1 Weight 65.1 kg Blood Glucose* 258 Patient Weight 03/06/18 23:59 Weight 65.1 kg - General Appearance Exam: Patient is on the ventilator. He is alert he is in no acute distress. Appears chronically ill. Lungs bilateral expiratory wheezing with diminished breath sounds. Heart regular rate and rhythm. Abdomen is benign. There is some mild lower extremity swelling. There is a tunnel dialysis catheter in the right chest and an AV fistula in the left upper extremity. - Lab 03/06/18 04:42 03/06/18 04:42 Most recent lab results ABG pH 7.53 pH Units (7.32-7.45) H 02/27/18 15:56 ABG pCO2 35 mmHg (35-45) 02/27/18 15:56 ABG pO2 57 mmHg (85-104) L 02/27/18 15:56 ABG HCO3 29 mEq/L (21-27) H 02/27/18 15:56 ABG O2 Saturation 92 % (95-98) L 02/27/18 15:56 Calcium 7.9 mg/dL (8.6-10.3) L 03/06/18 04:42 Phosphorus 5.8 mg/dL (2.7-4.5) H 03/06/18 04:42 Magnesium 2.0 mg/dL (1.6-2.6) 02/22/18 03:25 Consult Discharge Plan - Plan Referrals: Paco Sheikh MD [Primary Care Provider] - (patient is from [facility])
--- NOTE | 2018-03-06 11:45 | Infectious Disease Progress No ---
Date of Encounter: 03/06/18 Time of Encounter: 11:43 - Assessment and Plan (1) Sepsis Current Visit: Yes Status: Acute Patient had leukocytosis and fever Leukocytosis has resolved and patient afebrile the past 48 hours Presumed source is pneumonia due to Acinetobacter and Klebsiella ESBL Currently on colistin and ertapenem Continue for now Initial blood cultures are negative Repeat blood cultures are no growth to date Qualifiers: Sepsis type: sepsis due to unspecified organism Qualified Code(s): A41.9 - Sepsis, unspecified organism (2) Pneumonia Current Visit: Yes Status: Acute Causative organism: Acinetobacter and ESBL Klebsiella Chest x-ray shows bibasilar opacities and an increased left pleural effusion Chest CT shows multiple focal pneumonia with large pleural effusion Sputum culture was positive for Acinetobacter baumannii and Klebsiella pneumonia ESBL Leukocytosis resolved, afebrile past 48 hours Currently on colistin 100 mg daily and ertapenem 500 mg daily Will be discharged today on colistin until March 13 and ertapenem until March 11 to complete 14 day course Initial blood cultures are no growth to date Repeat blood cultures NGTD Respiratory infection panel negative Strep and legionella urinary antigens are unable to be obtained as the patient does not make any urine Pleural fluid culture NGTD, Gram stain was negative Patient is ESRD, dose adjust antibiotics accordingly Qualifiers: Pneumonia type: due to other aerobic Gram-negative bacteria Laterality: unspecified laterality Lung location: unspecified part of lung Qualified Code(s): J15.6 - Pneumonia due to other Gram-negative bacteria (3) Pleural effusion Current Visit: Yes Status: Acute Transitive effusion with predominance of mesothelial cells Gram stain negative, Culture NGTD (4) Diabetes Current Visit: Yes Status: Chronic Qualifiers: Diabetes mellitus type: type 2 Diabetes mellitus prison insulin use: without cable television access coordinator use Diabetes mellitus complication status: with kidney complications Diabetes mellitus complication detail: with chronic kidney disease Chronic kidney disease stage: on chronic dialysis Qualified Code(s) : E11.22 - Type 2 diabetes mellitus with diabetic chronic kidney disease; N18.6 - End stage renal disease; Z99.2 - Dependence on renal dialysis (5) HLD (hyperlipidemia) Current Visit: Yes Status: Chronic Qualifiers: Hyperlipidemia type: unspecified Qualified Code(s): E78.5 - Hyperlipidemia , unspecified (6) HTN (hypertension) Current Visit: Yes Status: Chronic Qualifiers: Hypertension type: essential hypertension Qualified Code(s): I10 - Essential (primary) hypertension (7) ESRD on dialysis Current Visit: Yes Status: Acute - Subjective Interval history: Pt seen and examined. He is unable to speak due to his tracheostomy but shakes his head when asked if he was in any pain or difficulty breathing. He also declined having any fever, nausea, vomiting, diarrhea. Per RN, the plan is to discharge him to correction today. Infect Dis PN-Objective Data - Labs CBC & Chem 7: 03/06/18 04:42 03/06/18 04:42 Labs: Laboratory Results - last 24 hr 03/05/18 03/05/18 03/05/18 07:57 12:14 15:46 WBC RBC Hgb Hct MCV MCH MCHC RDW Plt Count MPV Immature Gran % Seg Neutrophils % Lymphocytes % Monocytes % Eosinophils % Basophils % Neutrophils # Lymphocytes # Monocytes # Eosinophils # Basophils # Sodium Potassium Chloride Carbon Dioxide BUN Creatinine Est GFR ( Amer) Est GFR (Non-Af Amer) BUN/Creatinine Ratio Glucose POC Glucose 116 H 148 H 175 H Calculated Osmolality Calcium Phosphorus Albumin 03/05/18 03/06/18 03/06/18 21:16 04:42 04:42 WBC 8.0 RBC 2.53 L Hgb 8.1 L Hct 24.8 L MCV 98.0 MCH 32.0 MCHC 32.7 RDW 15.5 H Plt Count 176 MPV 10.6 Immature Gran % 0.4 Seg Neutrophils % 61.2 Lymphocytes % 14.6 Monocytes % 8.4 Eosinophils % 14.8 Basophils % 0.6 Neutrophils # 4.9 Lymphocytes # 1.2 Monocytes # 0.7 Eosinophils # 1.2 H Basophils # 0.1 Sodium 133 L Potassium 4.0 Chloride 96 L Carbon Dioxide 31 H BUN 35 H Creatinine 4.06 H Est GFR ( Amer) 18 L Est GFR (Non-Af Amer) 15 L BUN/Creatinine Ratio 9 Glucose 197 H POC Glucose 258 H Calculated Osmolality 289 Calcium 7.9 L Phosphorus 5.8 H Albumin 2.2 L Cultures: Cultures 02/28/18 09:17 Blood Culture - Final Peripheral Venipuncture No growth. 02/28/18 09:22 Blood Culture - Final Peripheral Venipuncture No growth. 02/28/18 15:20 Body Fluid Culture - Final Pleural Fluid 02/23/18 11:54 Blood Culture - Final Peripheral Venipuncture No growth. 02/23/18 11:54 Blood Culture - Final Peripheral Venipuncture No growth. 02/22/18 11:45 Sputum Culture - Final Sputum Acinetobacter baumannii MDRO#2 Acinetobacter baumannii MDRO 02/21/18 18:00 Sputum Culture - Final Sputum Klebsiella pneumoniae ESBL 02/21/18 18:50 Legionella Antigen - Final Urine,Clean Catch Streptococcus pneumoniae Antigen (M - Final Serology 03/01/18 02/28/18 02/28/18 Range/Units 13:25 15:20 15:20 Pleural Fluid Volume 800.0 mL Pleural Appearance Hazy A (Clear) Pleural pH 8.00 (No Ref Range) pH Units Pleural RBC 0.002 (0.000 - 0.002) M/mcL Pleural Tot Nuc Cell 225 (0-1000) TNC/mcL Pleural Neutrophils 30.0 % Pleural Band Neuts Test Not Performed Pleural Eosinophils 5.0 % Pleural Basophils Test Not Performed Pleural Lymphocytes % 14.0 % Pleural Monocytes % 10.0 % Pleural Other Cells % 41.0 % Pleural Total Protein < 3.0 (No Ref Range) g/dL Pleural Albumin < 1.5 (No Ref Range) g/dL Pleural LDH 68 (No Ref Range) Units/L Pleural Glucose 112 (No Ref Range) mg/dL Pleural Amylase 16 (No Ref Range) Units/L Pleural Cholesterol < 25 (No Ref Range) mg/dL Pleural Triglycerides 10 (No Ref Range) mg/dL Chlamy pneumoniae PCR Not Detected (Not Detect) Adenovirus (PCR) Not Detected (Not Detect) B. pertussis DNA (PCR) Not Detected (Not Detect) B.parapertussis DNA PCR Not Detected (Not Detect) Coronavirus OC43 (PCR) Not Detected (Not Detect) Coronavirus HKU1 (PCR) Not Detected (Not Detect) Coronavirus 229E (PCR) Not Detected (Not Detect) Coronavirus NL63 (PCR) Not Detected (Not Detect) Hep Bs Antigen (Nonreactive) Hep Bs Antibody mIU/mL Human Metapneumovir PCR Not Detected (Not Detect) Influenza A (H1) PCR Not Detected (Not Detect) Influ A (H1N1/09) PCR Not Detected (Not Detect) Influenza A (H3) PCR Not Detected (Not Detect) Influenza A Untype (PCR) Not Detected (Not Detect) Influenza Type B (PCR) Not Detected (Not Detect) M.pneumoniae DNA (PCR) Not Detected (Not Detect) Parainfluenza 1 (PCR) Not Detected (Not Detect) Parainfluenza 2 (PCR) Not Detected (Not Detect) Parainfluenza 3 (PCR) Not Detected (Not Detect) Parainfluenza 4 (PCR) Not Detected (Not Detect) RSV (PCR) Not Detected (Not Detect) Entero/Rhino (PCR) Not Detected (Not Detect) 02/21/18 02/21/18 Range/Units 18:08 17:36 Pleural Fluid Volume mL Pleural Appearance (Clear) Pleural pH (No Ref Range) pH Units Pleural RBC (0.000 - 0.002) M/mcL Pleural Tot Nuc Cell (0-1000) TNC/mcL Pleural Neutrophils % Pleural Band Neuts Pleural Eosinophils % Pleural Basophils Pleural Lymphocytes % % Pleural Monocytes % % Pleural Other Cells % % Pleural Total Protein (No Ref Range) g/dL Pleural Albumin (No Ref Range) g/dL Pleural LDH (No Ref Range) Units/L Pleural Glucose (No Ref Range) mg/dL Pleural Amylase (No Ref Range) Units/L Pleural Cholesterol (No Ref Range) mg/dL Pleural Triglycerides (No Ref Range) mg/dL Chlamy pneumoniae PCR Not Detected (Not Detect) Adenovirus (PCR) Not Detected (Not Detect) B. pertussis DNA (PCR) Not Detected (Not Detect) B.parapertussis DNA PCR Not Detected (Not Detect) Coronavirus OC43 (PCR) Not Detected (Not Detect) Coronavirus HKU1 (PCR) Not Detected (Not Detect) Coronavirus 229E (PCR) Not Detected (Not Detect) Coronavirus NL63 (PCR) Not Detected (Not Detect) Hep Bs Antigen Nonreactive (Nonreactive) Hep Bs Antibody 144.68 mIU/mL Human Metapneumovir PCR Not Detected (Not Detect) Influenza A (H1) PCR Not Detected (Not Detect) Influ A (H1N1/09) PCR Not Detected (Not Detect) Influenza A (H3) PCR Not Detected (Not Detect) Influenza A Untype (PCR) Not Detected (Not Detect) Influenza Type B (PCR) Not Detected (Not Detect) M.pneumoniae DNA (PCR) Not Detected (Not Detect) Parainfluenza 1 (PCR) Not Detected (Not Detect) Parainfluenza 2 (PCR) Not Detected (Not Detect) Parainfluenza 3 (PCR) Not Detected (Not Detect) Parainfluenza 4 (PCR) Not Detected (Not Detect) RSV (PCR) Not Detected (Not Detect) Entero/Rhino (PCR) Not Detected (Not Detect) Exam - Constitutional Vitals: Temp Pulse Resp BP Pulse Ox 97.4 F L 61 24 121/56 94 03/06/18 08:58 03/06/18 10:07 03/06/18 11:05 03/06/18 10:07 03/06/18 11:05 - Respiratory Respiratory exam: Present: rhonchi (right side) - Cardiovascular Cardiovascular exam: Present: RRR - GI/Abdominal GI/Abdominal exam: Present: normal bowel sounds, soft. Absent: tenderness - Extremities Exam Extremities exam: Present: pedal edema (2+) Consult Discharge Plan - Plan Additional Instructions: F/up with PCP in 1-2 weeks F/up with HD 3 times/week- MWF F/up with Cardiology in 3-4 weeks Referrals: Paco Sheikh MD [Primary Care Provider] - (patient is from [facility]) Prescriptions: Colistin (Colistimethate) [Coly-Mycin M Parenteral] 100 mg IV DAILY #7 vial Ertapenem [INVanz] 500 mg IVPB DAILY #3 vial - Attending Attestation I examined this patient and my medical decision-making was reviewed with the Resident Physician. I agree with the documented findings, disposition and treatment plan as described except to the extent set forth below. Nursing told me that the patient is taking oral intake and he is not choking. Still have some sputum production per tracheostomy but much improved. No decubitus ulcer. No residuals on tube feeding. Apparently patient is no longer being transferred because the correction will not take him with the current organisms growing.
[2018-03-06] MEDS ORDERED: 0.9 % Sodium Chloride 2,000 ML ONE (11:55)
--- NOTE | 2018-03-06 12:09 | Discharge Summary ---
- NOTES TO OUTPATIENT PROVIDER Notes to Outpatient Provider: MDR Klebsiella, Acinetobacter PNA, recurrent pleural effusion, may consider PleurX catheter as outpatient; Orders not resulted at time of discharge: Pending orders 02/28/18 07:33 Culture,Sputum with Gram Stain [RM] Routine 03/06/18 08:16 Iron Profile Routine Date of Encounter: 03/06/18 Time of Encounter: 08:40 - Discharge Diagnosis (1) Acute and chronic respiratory failure with hypoxia Priority: Primary Status: Acute (2) Anemia Priority: Primary Status: Chronic Qualifiers: Anemia type: unspecified type Qualified Code(s): D64.9 - Anemia, unspecified (3) Pleural effusion Priority: Primary Status: Acute (4) Hyperkalemia Priority: Primary Status: Resolved (5) Diabetes Priority: Secondary Status: Chronic Qualifiers: Diabetes mellitus type: type 2 Diabetes mellitus joint terminal attack controller insulin use: without mcc use Diabetes mellitus complication status: with kidney complications Diabetes mellitus complication detail: with chronic kidney disease Chronic kidney disease stage: on chronic dialysis Qualified Code(s) : E11.22 - Type 2 diabetes mellitus with diabetic chronic kidney disease; N18.6 - End stage renal disease; Z99.2 - Dependence on renal dialysis (6) ESRD on dialysis Priority: Secondary Status: Chronic (7) GERD (gastroesophageal reflux disease) Priority: Secondary Status: Chronic Qualifiers: Esophagitis presence: esophagitis presence not specified Qualified Code(s) : K21.9 - Gastro-esophageal reflux disease without esophagitis (8) HLD (hyperlipidemia) Priority: Secondary Status: Chronic Qualifiers: Hyperlipidemia type: unspecified Qualified Code(s): E78.5 - Hyperlipidemia , unspecified (9) HTN (hypertension) Priority: Secondary Status: Chronic Qualifiers: Hypertension type: essential hypertension Qualified Code(s): I10 - Essential (primary) hypertension (10) CHF (congestive heart failure) Priority: Secondary Status: Chronic Qualifiers: Heart failure type: combined systolic and diastolic Heart failure chronicity: acute on chronic Qualified Code(s): I50.43 - Acute on chronic combined systolic (congestive) and diastolic (congestive) heart failure (11) HCAP (healthcare-associated pneumonia) Priority: Primary Status: Acute Hospital course: Mr. Landaverde is a 57 year old male with the above medical problems who was admitted with severe shortness of breath and pulling out his tracheostomy tube. Patient was admitted to ICU and initially required ventilatory support through his tracheostomy. Pulmonology was consulted. Patient was noted to have bilateral pleural effusion, which was recurrent and patient underwent left- sided thoracentesis 3 times during this admission, mostly transudative noninfectious fluid. He was also started on broad-spectrum IV antibiotics for possible underlying pneumonia. Sputum cultures eventually grew ESBL Klebsiella pneumoniae and Acinetobacter baumanii. ID was consulted and he was started on IV colistin and ertapenem, recommended to complete a 14 day course. Case was discussed with pulmonology, Pleurx catheter was contemplated, but this is currently held as bedside ultrasound evaluation showed loculated pleural effusion and Pleurx catheter may not be of clear benefit at this time. He is otherwise medically stable for discharge with outpatient follow-up. Nephrology has been consulted and patient received regular hemodialysis sessions during his stay. Discharge discussed with: patient, nurse, linux consultant - Time Spent with Patient Total time spent providing and/or coordinating discharge services: Greater than 30 minutes (45 min) - Discharge Medications Prescriptions: Colistin (Colistimethate) [Coly-Mycin M Parenteral] 100 mg IV DAILY #7 vial Ertapenem [INVanz] 500 mg IVPB DAILY #3 vial Home Medications: Amlodipine Besylate 10 mg GTUBE DAILY 11/25/17 [History] Atorvastatin Calcium [Lipitor] 40 mg GTUBE DAILY 11/25/17 [History] Cyanocobalamin (B-12) [Vitamin B12] 1,000 mcg GTUBE DAILY 11/25/17 [History] Docusate [Colace] 50 mg GTUBE DAILY 11/25/17 [History] Folic Acid 1 mg GTUBE DAILY 11/25/17 [History] Folic Acid/Vit Bcomp,C [Renal Vitamin Tablet] 1 tab GTUBE DAILY 11/25/17 [ History] Levothyroxine Sodium [Synthroid] 300 mcg GTUBE DAILY 11/25/17 [History] Pantoprazole Sodium [Protonix] 40 mg GTUBE DAILY 11/25/17 [History] Sennosides/Docusate Sodium [Senna-S Tablet] 1 each GTUBE BID 11/25/17 [History] cloNIDine HCl [CloNIDine HCl] 0.1 mg GTUBE BID 11/25/17 [History] hydrOXYzine HCl [Hydroxyzine HCl] 25 mg GTUBE Q6H PRN 11/25/17 [History] Acetaminophen [Non-Aspirin] 650 mg PO Q4H PRN 02/21/18 [History] Aspirin [Lo-Dose Aspirin EC] 81 mg GTUBE DAILY 02/21/18 [History] Calcitriol 0.5 mcg GTUBE MOWEFR 02/21/18 [History] Carvedilol [Coreg] 25 mg GTUBE BID 02/21/18 [History] Dextrose [Glucose Gel] 15 gm PO AD PRN 02/21/18 [History] Diphenhydramine HCl/Zinc Acet [Itch Relief Cream] 1 appl TP TID PRN 02/21/18 [ History] Renal Vitamin [Renal Caps Softgel] 1 mg GTUBE DAILY 02/21/18 [History] Ticagrelor [Brilinta] 90 mg GTUBE BID 02/21/18 [History] hydrALAZINE [HydrALAZINE] 25 mg PO Q6HR 02/21/18 [History] Colistin (Colistimethate) [Coly-Mycin M Parenteral] 100 mg IV DAILY #7 vial 01/18 [Rx] Ertapenem [INVanz] 500 mg IVPB DAILY #3 vial 03/06/18 [Rx] Ipratropium/Albuterol Neb [Duoneb] 3 ml IH [id number] PRN inhsol 03/06/18 [Rx] LORazepam [Ativan] 0.5 mg GTUBE Q6H PRN 3 Days #10 03/06/18 [Rx] Oxycodone HCl [Oxaydo] 5 mg GTUBE Q6H PRN 5 Days #10 03/06/18 [Rx] Allergies/Adverse Reactions: 3 Allergy/AdvReac Type Severity Reaction Status Date / Time No Known Allergies Allergy Verified 11/25/17 20:12 Date of admission: 02/21/18 16:43 Primary care physician: Paco Sheikh MD Consults: 02/22/18 09:41 Consult to Pulmonology [CONS] Routine Consulting Provider: [facility] Reason for Consult: Pleural effusion Call Completed: Yes 02/22/18 12:30 Consult to Dialysis [CONS] ONCE Consult to Dialysis [CONS] ONCE 02/24/18 14:15 Consult to Dialysis [CONS] ONCE 02/25/18 08:40 Consult to Infectious Diseases [CONS] Routine Consulting Provider: Infectious Disease [facility] Reason for Consult: Acinetobacter and Klebsiella pneumonia Call Completed: Yes 02/27/18 12:15 Consult to Dialysis [CONS] ONCE 03/01/18 05:30 Consult to Dialysis [CONS] ONCE 03/03/18 11:30 Consult to Dialysis [CONS] ONCE 03/06/18 08:15 Consult to Dialysis [CONS] ONCE Discharging clinician: Aimee Brenner Anticipated date of discharge: 03/06/18 - Constitutional Vitals: Temp Pulse Resp BP Pulse Ox 97.4 F L 61 24 121/56 94 03/06/18 08:58 03/06/18 10:07 03/06/18 11:05 03/06/18 10:07 03/06/18 11:05 General appearance: Present: A&O X 2. Absent: answers questions appropriately - Respiratory Respiratory exam: Present: CTAB (on the right side). Absent: accessory muscle use, rales, rhonchi, wheezes - Cardiovascular Cardiovascular exam: Present: RRR, +S1, +S2. Absent: diastolic murmur, gallop, rubs, systolic murmur - Patient Status Disposition: Transfer SNF Condition: Fair Functional capacity at discharge: bed bound Overall status at discharge: patient is progressing back to baseline - Discharge Instructions Follow Up With: Paco Sheikh MD [Primary Care Provider] - (patient is from [facility]) Additional Instructions: F/up with PCP in 1-2 weeks F/up with HD 3 times/week- MWF F/up with Cardiology in 3-4 weeks - Diet and Activity Activity: as per physical therapy, wear oxygen at all times (via TC, on ventilator at night) Diet: diabetic diet, low salt diet, other (renal diet; mechanical soft diet with nectar thick liquids)
--- NOTE | 2018-03-06 12:19 | Physician Discharge Referral ---
ExtendedCare Referral Info Transfer To: [facility] Provider in Charge: Aimee Brenner Provider in Charge after Transfer: PCP Institutional Level of Care: Skilled - Diagnosis (1) Acute and chronic respiratory failure with hypoxia Priority: Primary Status: Acute (2) Anemia Priority: Primary Status: Chronic (3) Pleural effusion Priority: Primary Status: Acute (4) Hyperkalemia Priority: Primary Status: Resolved (5) Diabetes Priority: Secondary Status: Chronic (6) ESRD on dialysis Priority: Secondary Status: Chronic (7) GERD (gastroesophageal reflux disease) Priority: Secondary Status: Chronic (8) HLD (hyperlipidemia) Priority: Secondary Status: Chronic (9) HTN (hypertension) Priority: Secondary Status: Chronic (10) CHF (congestive heart failure) Priority: Secondary Status: Chronic (11) HCAP (healthcare-associated pneumonia) Priority: Primary Status: Acute (12) Hypothyroidism Priority: Secondary Status: Chronic (13) Tracheostomy in place Priority: Secondary Status: Chronic Expected Duration of Placement: hat and cap parts cutter hand Prognosis: Fair Aware of Diagnosis: Patient - Transfer Medications Prescriptions: Colistin (Colistimethate) [Coly-Mycin M Parenteral] 100 mg IV DAILY #7 vial Ertapenem [INVanz] 500 mg IVPB DAILY #3 vial Home Medications: Amlodipine Besylate 10 mg GTUBE DAILY 11/25/17 [History] Atorvastatin Calcium [Lipitor] 40 mg GTUBE DAILY 11/25/17 [History] Cyanocobalamin (B-12) [Vitamin B12] 1,000 mcg GTUBE DAILY 11/25/17 [History] Docusate [Colace] 50 mg GTUBE DAILY 11/25/17 [History] Folic Acid 1 mg GTUBE DAILY 11/25/17 [History] Folic Acid/Vit Bcomp,C [Renal Vitamin Tablet] 1 tab GTUBE DAILY 11/25/17 [ History] Levothyroxine Sodium [Synthroid] 300 mcg GTUBE DAILY 11/25/17 [History] Pantoprazole Sodium [Protonix] 40 mg GTUBE DAILY 11/25/17 [History] Sennosides/Docusate Sodium [Senna-S Tablet] 1 each GTUBE BID 11/25/17 [History] cloNIDine HCl [CloNIDine HCl] 0.1 mg GTUBE BID 11/25/17 [History] hydrOXYzine HCl [Hydroxyzine HCl] 25 mg GTUBE Q6H PRN 11/25/17 [History] Acetaminophen [Non-Aspirin] 650 mg PO Q4H PRN 02/21/18 [History] Aspirin [Lo-Dose Aspirin EC] 81 mg GTUBE DAILY 02/21/18 [History] Calcitriol 0.5 mcg GTUBE MOWEFR 02/21/18 [History] Carvedilol [Coreg] 25 mg GTUBE BID 02/21/18 [History] Dextrose [Glucose Gel] 15 gm PO AD PRN 02/21/18 [History] Diphenhydramine HCl/Zinc Acet [Itch Relief Cream] 1 appl TP TID PRN 02/21/18 [ History] Renal Vitamin [Renal Caps Softgel] 1 mg GTUBE DAILY 02/21/18 [History] Ticagrelor [Brilinta] 90 mg GTUBE BID 02/21/18 [History] hydrALAZINE [HydrALAZINE] 25 mg PO Q6HR 02/21/18 [History] Colistin (Colistimethate) [Coly-Mycin M Parenteral] 100 mg IV DAILY #7 vial 01/18 [Rx] Ertapenem [INVanz] 500 mg IVPB DAILY #3 vial 03/06/18 [Rx] Ipratropium/Albuterol Neb [Duoneb] 3 ml IH [id number] PRN inhsol 03/06/18 [Rx] LORazepam [Ativan] 0.5 mg GTUBE Q6H PRN 3 Days #10 03/06/18 [Rx] Oxycodone HCl [Oxaydo] 5 mg GTUBE Q6H PRN 5 Days #10 03/06/18 [Rx] Allergies/Adverse Reactions: 3 Allergy/AdvReac Type Severity Reaction Status Date / Time No Known Allergies Allergy Verified 11/25/17 20:12 - Respiratory Orders Oxygen / L per min (10-15L/min via TC; ventilator support at night) Smoking Cessation: Smoking cessation has been advised. For more information, call the [employer] Tobacco Quit Line at 2-711-CRXW-NOW. - Advance Directives Power of Automotive Parts Advisor: Yes Code Status: Full Code - Mobility Orders Ambulate - Rehabiliation Orders Rehab Potential: Fair Rehab Orders: ROM Exercises, Evaluation for Physical Therapy, Evaluation for Occupational Therapy, Evaluation for Speech Therapy - Diet Orders Mechanical Soft (nectar thick), Renal, Cardiac CERTIFICATION: I certify that the transfer of the above named patient to an Extended Care Facility is necessary for the continuing treatment of the diagnosis listed. The above information is true and accurate reflection of patient's current condition. Confidential - Redisclosure prohibited without a patient's written consent.
[2018-03-06] MEDS: Nystatin POWDER 30 GM BOTTLE TP SCH ×2 (12:46→21:15)
[2018-03-06] MEDS: Colistin (Colistimethate) 100 MG in 0.9 % Sodium Chloride 50 ML IVPB SCH (14:56)
[2018-03-06] MEDS: *HR* LORazepam 0.5 MG TABLET GTUBE PRN (18:45)
[2018-03-06] MEDS: *HR* OxyCODONE Immed Rel 5 MG TABLET GTUBE PRN (18:45)
[2018-03-07] MEDS: *HR* LORazepam 0.5 MG TABLET GTUBE PRN ×3 (00:24→20:24)
[2018-03-07] MEDS: hydrALAZINE 25 MG TABLET PO SCH ×4 (00:24→17:52)
[2018-03-07] MEDS: *HR* OxyCODONE Immed Rel 5 MG TABLET GTUBE PRN ×2 (00:24→20:24)
[2018-03-07] MEDS: Ipratropium/Albuterol Neb 3 ML IH SCH ×5 (03:50→19:37)
[2018-03-07] MEDS: *HR* Heparin 5,000 UNIT/ML VIAL SQ SCH ×2 (06:47→17:51)
[2018-03-07] MEDS: Docusate Oral Soln 100 MG/10 ML UDC PO SCH (08:05)
[2018-03-07] MEDS: Renal Vitamin 1 MG CAPSULE PO SCH (08:06)
[2018-03-07] MEDS: cloNIDine HCl 0.1 MG TABLET PO SCH ×2 (08:06→20:24)
[2018-03-07] MEDS: Cyanocobalamin (B-12) 1,000 MCG TABLET GTUBE SCH (08:06)
[2018-03-07] MEDS: Aspirin Enteric Coated 81 MG Tablet PO SCH (08:06)
[2018-03-07] MEDS: *HR* Ticagrelor 90 MG TABLET PO SCH ×2 (08:06→20:23)
[2018-03-07] MEDS: Folic Acid 1 MG TABLET GTUBE SCH (08:06)
[2018-03-07] MEDS: Sennosides/Docusate Sodium TABLET GTUBE SCH ×2 (08:07→20:23)
[2018-03-07] MEDS: amLODIPine 5 MG TABLET GTUBE SCH (08:07)
[2018-03-07] MEDS: Nystatin POWDER 30 GM BOTTLE TP SCH ×2 (08:07→20:47)
--- NOTE | 2018-03-07 12:13 | Infectious Disease Progress No ---
Date of Encounter: 03/07/18 Time of Encounter: 11:55 - Assessment and Plan (1) Sepsis Current Visit: Yes Status: Acute Patient had leukocytosis and fever Leukocytosis has resolved and patient afebrile the past 48 hours Presumed source is pneumonia due to Acinetobacter and Klebsiella ESBL seen on sputum Currently on colistin and ertapenem Continue for now Initial blood cultures are negative Repeat blood cultures are no growth to date Qualifiers: Sepsis type: sepsis due to unspecified organism Qualified Code(s): A41.9 - Sepsis, unspecified organism (2) Pneumonia Current Visit: Yes Status: Acute Causative organism: Acinetobacter and ESBL Klebsiella Chest x-ray shows bibasilar opacities and an increased left pleural effusion Chest CT shows multiple focal pneumonia with large pleural effusion Sputum culture was positive for Acinetobacter baumannii and Klebsiella pneumonia ESBL Leukocytosis resolved, afebrile past 48 hours Currently on colistin 100 mg daily and ertapenem 500 mg daily Will be discharged today on colistin until March 13 and ertapenem until March 11 to complete 14 day course Initial blood cultures are no growth to date Repeat blood cultures NGTD Respiratory infection panel negative Strep and legionella urinary antigens are unable to be obtained as the patient does not make any urine Pleural fluid culture NGTD, Gram stain was negative Patient is ESRD, dose adjust antibiotics accordingly Qualifiers: Pneumonia type: due to other aerobic Gram-negative bacteria Laterality: unspecified laterality Lung location: unspecified part of lung Qualified Code(s): J15.6 - Pneumonia due to other Gram-negative bacteria (3) Pleural effusion Current Visit: Yes Status: Acute Transitive effusion with predominance of mesothelial cells Gram stain negative, Culture NGTD (4) Diabetes Current Visit: Yes Status: Chronic Qualifiers: Diabetes mellitus type: type 2 Diabetes mellitus ferry terminal supervisor insulin use: without ferry terminal supervisor use Diabetes mellitus complication status: with kidney complications Diabetes mellitus complication detail: with chronic kidney disease Chronic kidney disease stage: on chronic dialysis Qualified Code(s) : E11.22 - Type 2 diabetes mellitus with diabetic chronic kidney disease; N18.6 - End stage renal disease; Z99.2 - Dependence on renal dialysis (5) HLD (hyperlipidemia) Current Visit: Yes Status: Chronic Qualifiers: Hyperlipidemia type: unspecified Qualified Code(s): E78.5 - Hyperlipidemia , unspecified (6) HTN (hypertension) Current Visit: Yes Status: Chronic Qualifiers: Hypertension type: essential hypertension Qualified Code(s): I10 - Essential (primary) hypertension (7) ESRD on dialysis Current Visit: Yes Status: Acute - Subjective Interval history: Pt seen and examined. He is unable to speak due to his tracheostomy but denies any issues with breathing or being in pain. According to RN, patient was not accepted at [facility] due to Acinetobacter in his culture. Infect Dis PN-Objective Data - Labs CBC & Chem 7: 03/08/18 04:00 03/08/18 04:00 Labs: Laboratory Results - last 24 hr 03/06/18 03/06/18 03/06/18 07:40 11:48 19:38 POC Glucose 166 H 144 H 125 H 03/06/18 23:43 POC Glucose 89 Cultures: Cultures 02/28/18 09:17 Blood Culture - Final Peripheral Venipuncture No growth. 02/28/18 09:22 Blood Culture - Final Peripheral Venipuncture No growth. 02/28/18 15:20 Body Fluid Culture - Final Pleural Fluid 02/23/18 11:54 Blood Culture - Final Peripheral Venipuncture No growth. 02/23/18 11:54 Blood Culture - Final Peripheral Venipuncture No growth. 02/22/18 11:45 Sputum Culture - Final Sputum Acinetobacter baumannii MDRO#2 Acinetobacter baumannii MDRO 02/21/18 18:00 Sputum Culture - Final Sputum Klebsiella pneumoniae ESBL 02/21/18 18:50 Legionella Antigen - Final Urine,Clean Catch Streptococcus pneumoniae Antigen (M - Final Serology 03/01/18 02/28/18 02/28/18 Range/Units 13:25 15:20 15:20 Pleural Fluid Volume 800.0 mL Pleural Appearance Hazy A (Clear) Pleural pH 8.00 (No Ref Range) pH Units Pleural RBC 0.002 (0.000 - 0.002) M/mcL Pleural Tot Nuc Cell 225 (0-1000) TNC/mcL Pleural Neutrophils 30.0 % Pleural Band Neuts Test Not Performed Pleural Eosinophils 5.0 % Pleural Basophils Test Not Performed Pleural Lymphocytes % 14.0 % Pleural Monocytes % 10.0 % Pleural Other Cells % 41.0 % Pleural Total Protein < 3.0 (No Ref Range) g/dL Pleural Albumin < 1.5 (No Ref Range) g/dL Pleural LDH 68 (No Ref Range) Units/L Pleural Glucose 112 (No Ref Range) mg/dL Pleural Amylase 16 (No Ref Range) Units/L Pleural Cholesterol < 25 (No Ref Range) mg/dL Pleural Triglycerides 10 (No Ref Range) mg/dL Chlamy pneumoniae PCR Not Detected (Not Detect) Adenovirus (PCR) Not Detected (Not Detect) B. pertussis DNA (PCR) Not Detected (Not Detect) B.parapertussis DNA PCR Not Detected (Not Detect) Coronavirus OC43 (PCR) Not Detected (Not Detect) Coronavirus HKU1 (PCR) Not Detected (Not Detect) Coronavirus 229E (PCR) Not Detected (Not Detect) Coronavirus NL63 (PCR) Not Detected (Not Detect) Hep Bs Antigen (Nonreactive) Hep Bs Antibody mIU/mL Human Metapneumovir PCR Not Detected (Not Detect) Influenza A (H1) PCR Not Detected (Not Detect) Influ A (H1N1/09) PCR Not Detected (Not Detect) Influenza A (H3) PCR Not Detected (Not Detect) Influenza A Untype (PCR) Not Detected (Not Detect) Influenza Type B (PCR) Not Detected (Not Detect) M.pneumoniae DNA (PCR) Not Detected (Not Detect) Parainfluenza 1 (PCR) Not Detected (Not Detect) Parainfluenza 2 (PCR) Not Detected (Not Detect) Parainfluenza 3 (PCR) Not Detected (Not Detect) Parainfluenza 4 (PCR) Not Detected (Not Detect) RSV (PCR) Not Detected (Not Detect) Entero/Rhino (PCR) Not Detected (Not Detect) 02/21/18 02/21/18 Range/Units 18:08 17:36 Pleural Fluid Volume mL Pleural Appearance (Clear) Pleural pH (No Ref Range) pH Units Pleural RBC (0.000 - 0.002) M/mcL Pleural Tot Nuc Cell (0-1000) TNC/mcL Pleural Neutrophils % Pleural Band Neuts Pleural Eosinophils % Pleural Basophils Pleural Lymphocytes % % Pleural Monocytes % % Pleural Other Cells % % Pleural Total Protein (No Ref Range) g/dL Pleural Albumin (No Ref Range) g/dL Pleural LDH (No Ref Range) Units/L Pleural Glucose (No Ref Range) mg/dL Pleural Amylase (No Ref Range) Units/L Pleural Cholesterol (No Ref Range) mg/dL Pleural Triglycerides (No Ref Range) mg/dL Chlamy pneumoniae PCR Not Detected (Not Detect) Adenovirus (PCR) Not Detected (Not Detect) B. pertussis DNA (PCR) Not Detected (Not Detect) B.parapertussis DNA PCR Not Detected (Not Detect) Coronavirus OC43 (PCR) Not Detected (Not Detect) Coronavirus HKU1 (PCR) Not Detected (Not Detect) Coronavirus 229E (PCR) Not Detected (Not Detect) Coronavirus NL63 (PCR) Not Detected (Not Detect) Hep Bs Antigen Nonreactive (Nonreactive) Hep Bs Antibody 144.68 mIU/mL Human Metapneumovir PCR Not Detected (Not Detect) Influenza A (H1) PCR Not Detected (Not Detect) Influ A (H1N1/09) PCR Not Detected (Not Detect) Influenza A (H3) PCR Not Detected (Not Detect) Influenza A Untype (PCR) Not Detected (Not Detect) Influenza Type B (PCR) Not Detected (Not Detect) M.pneumoniae DNA (PCR) Not Detected (Not Detect) Parainfluenza 1 (PCR) Not Detected (Not Detect) Parainfluenza 2 (PCR) Not Detected (Not Detect) Parainfluenza 3 (PCR) Not Detected (Not Detect) Parainfluenza 4 (PCR) Not Detected (Not Detect) RSV (PCR) Not Detected (Not Detect) Entero/Rhino (PCR) Not Detected (Not Detect) Exam - Constitutional Vitals: Temp Pulse Resp BP Pulse Ox 98.5 F 68 25 111/57 95 03/07/18 07:47 03/07/18 10:00 03/07/18 11:21 03/07/18 10:00 03/07/18 11:21 General appearance: cooperative, no acute distress, thin - Head Head exam: Present: atraumatic, normocephalic - Neck Additional comments: tracheostomy present - Respiratory Respiratory exam: Present: rhonchi (R>L). Absent: respiratory distress, tachypnea - Cardiovascular Cardiovascular exam: Present: RRR. Absent: diastolic murmur, irregular rhythm, systolic murmur - GI/Abdominal GI/Abdominal exam: Present: normal bowel sounds, soft. Absent: tenderness - Extremities Exam Extremities exam: Present: pedal edema (L > R) - VTE Documentation of Mechanical Device: Intermittent pneumatic compression device Consult Discharge Plan - Plan Additional Instructions: F/up with PCP in 1-2 weeks F/up with HD 3 times/week- MWF F/up with Cardiology in 3-4 weeks Referrals: Paco Sheikh MD [Primary Care Provider] - (patient is from [facility]) Prescriptions: Colistin (Colistimethate) [Coly-Mycin M Parenteral] 100 mg IV DAILY #7 vial Ertapenem [INVanz] 500 mg IVPB DAILY #3 vial - Attending Attestation I examined this patient and my medical decision-making was reviewed with the Resident Physician. I agree with the documented findings, disposition and treatment plan as described except to the extent set forth below.
[2018-03-07] MEDS: Colistin (Colistimethate) 100 MG in 0.9 % Sodium Chloride 50 ML IVPB SCH (17:51)
[2018-03-08] MEDS: Ipratropium/Albuterol Neb 3 ML IH SCH ×5 (00:02→15:03)
[2018-03-08] MEDS: hydrALAZINE 25 MG TABLET PO SCH ×4 (00:45→17:20)
[2018-03-08] MEDS: *HR* LORazepam 0.5 MG TABLET GTUBE PRN (03:50)
[2018-03-08 05:28] LABS: Hematocrit 25.2 % (37.5-50.1); Hemoglobin 8.4 g/dL (12.9-16.9); Mean Corpuscular HGB Conc 33.3 g/dL (31.6-35.5); Mean Corpuscular Hemoglobin 33.1 pg (28.0-33.3); Mean Corpuscular Volume 99.2 fL (83.0-100.0); Mean Platelet Volume 10.8 fL (9.4-12.4); Platelet Count 169 K/mcL (140-400); Red Blood Count 2.54 M/mcL (4.19-5.50); Red Cell Distribution Width 15.6 % (11.5-14.5)
[2018-03-08 05:42] LABS: Calcium 8.2 mg/dL (8.6-10.3); Potassium 3.8 mEq/L (3.5-5.1)
[2018-03-08] MEDS: *HR* Heparin 5,000 UNIT/ML VIAL SQ SCH ×2 (06:19→16:51)
[2018-03-08] MEDS: Sennosides/Docusate Sodium TABLET GTUBE SCH (09:22)
[2018-03-08] MEDS: Docusate Oral Soln 100 MG/10 ML UDC PO SCH (09:22)
[2018-03-08] MEDS: amLODIPine 5 MG TABLET GTUBE SCH (09:23)
[2018-03-08] MEDS: Folic Acid 1 MG TABLET GTUBE SCH (09:23)
[2018-03-08] MEDS: Aspirin Enteric Coated 81 MG Tablet PO SCH (09:23)
[2018-03-08] MEDS: *HR* Ticagrelor 90 MG TABLET PO SCH (09:23)
[2018-03-08] MEDS: cloNIDine HCl 0.1 MG TABLET PO SCH (09:23)
[2018-03-08] MEDS: Cyanocobalamin (B-12) 1,000 MCG TABLET GTUBE SCH (09:24)
[2018-03-08] MEDS: Nystatin POWDER 30 GM BOTTLE TP SCH (09:25)
[2018-03-08] MEDS ORDERED: 0.9 % Sodium Chloride 250 ML IVC PRN (10:02)
--- NOTE | 2018-03-08 10:02 | Nephrology Progress Note ---
Date of Encounter: 03/08/18 Time of Encounter: 10:01 - Assessment and Plan (1) End stage renal disease Current Visit: Yes Status: Chronic The patient will undergo dialysis today. Orders have been submitted. (2) Anemia in CKD (chronic kidney disease) Current Visit: Yes Status: Acute Qualifiers: Chronic kidney disease stage: on chronic dialysis Qualified Code(s): N18.6 - End stage renal disease; D63.1 - Anemia in chronic kidney disease; Z99.2 - Dependence on renal dialysis (3) Pleural effusion Current Visit: Yes Status: Acute Subjective Principal diagnosis: Acute on chronic hypoxic respiratory failure Interval history: Patient is currently on the ventilator. He appears less alert today. Heart rate is in the high 40s. He is scheduled for dialysis today. FiO2 requirement is currently at 50%. Objective - Vital Signs Vital signs: Vital Signs Temp Pulse Resp BP Pulse Ox 03/08/18 08:00 50 22 106/60 95 03/08/18 07:29 96.4 F L 03/08/18 07:28 35 111/59 96 03/08/18 06:28 55 27 111/59 98 03/08/18 05:07 96.7 F L 03/08/18 03:55 54 22 106/32 03/08/18 03:54 29 92/45 94 03/08/18 02:35 28 113/36 96 03/08/18 00:50 56 25 113/56 96 03/08/18 00:45 96.4 F L 03/08/18 00:03 33 140/53 96 03/07/18 22:15 33 140/53 95 03/07/18 22:00 58 28 95 03/07/18 21:19 96.1 F L 03/07/18 20:00 59 24 140/53 96 03/07/18 19:37 36 116/57 95 03/07/18 17:54 16 97 03/07/18 16:42 97.6 F 03/07/18 15:57 25 90 03/07/18 14:00 71 116/57 90 03/07/18 12:23 97.5 F L 03/07/18 12:00 66 111/57 96 03/07/18 11:21 25 95 Intake and Output 03/07/18 03/08/18 03/08/18 23:59 07:59 15:59 Intake Total 587 / 587 100 / 100 Balance 587 / 587 100 / 100 Intake: IV Fluids 150 / 150 Coly-Mycin M PARENTERAL 100 MG 50 / 50 In 0.9 % Sodium Chloride 50 ML @ 100 mls/hr IVPB Q24H [facility] Rx#: [id number] INVanz 500 MG In 0.9 % Sodium 100 / 100 Chloride 100 ML @ 100 mls/hr IVPB Q24H [facility] Rx#:[id number] Tube Feeding 237 / 237 Free Water 100 / 100 Free Water Intake Amount 100 / 100 100 / 100 Other: # Voids 1 Weight 66.9 kg Blood Glucose* 177 177 Patient Weight 03/08/18 23:59 Weight 66.9 kg - General Appearance Exam: Patient is on the ventilator. In no acute distress. He appears less alert. Lungs bilateral rhonchi. Heart regular rate and rhythm. Abdomen is benign. There is no lower extremity swelling. There is an immature fistula in the left upper extremity. There is a tunnel dialysis catheter in the right chest. - Lab 03/08/18 04:00 03/08/18 04:00 Most recent lab results ABG pH 7.53 pH Units (7.32-7.45) H 02/27/18 15:56 ABG pCO2 35 mmHg (35-45) 02/27/18 15:56 ABG pO2 57 mmHg (85-104) L 02/27/18 15:56 ABG HCO3 29 mEq/L (21-27) H 02/27/18 15:56 ABG O2 Saturation 92 % (95-98) L 02/27/18 15:56 Calcium 8.2 mg/dL (8.6-10.3) L 03/08/18 04:00 Phosphorus 5.8 mg/dL (2.7-4.5) H 03/06/18 04:42 Magnesium 2.0 mg/dL (1.6-2.6) 02/22/18 03:25 - VTE Documentation of Mechanical Device: Intermittent pneumatic compression device Consult Discharge Plan - Plan Additional Instructions: F/up with PCP in 1-2 weeks F/up with HD 3 times/week- MWF F/up with Cardiology in 3-4 weeks Referrals: Paco Sheikh MD [Primary Care Provider] - ([facility]) Prescriptions: Colistin (Colistimethate) [Coly-Mycin M Parenteral] 100 mg IV DAILY #7 vial Ertapenem [INVanz] 500 mg IVPB DAILY #3 vial
--- NOTE | 2018-03-08 10:11 | Infectious Disease Progress No ---
Date of Encounter: 03/08/18 Time of Encounter: 10:09 - Assessment and Plan (1) Sepsis Status: Acute Patient had leukocytosis and fever Leukocytosis has resolved and patient afebrile the past 48 hours Presumed source is pneumonia due to Acinetobacter and Klebsiella ESBL seen on sputum Currently on colistin and ertapenem Continue for now Initial blood cultures are negative Repeat blood cultures are no growth to date Qualifiers: Sepsis type: sepsis due to unspecified organism Qualified Code(s): A41.9 - Sepsis, unspecified organism (2) Pneumonia Status: Acute Causative organism: Acinetobacter and ESBL Klebsiella Chest x-ray shows bibasilar opacities and an increased left pleural effusion Chest CT shows multiple focal pneumonia with large pleural effusion Sputum culture was positive for Acinetobacter baumannii and Klebsiella pneumonia ESBL Leukocytosis resolved, afebrile past 48 hours Currently on colistin 100 mg daily and ertapenem 500 mg daily Once accepted by [facility], will be discharged on colistin until March 13 and ertapenem until March 11 to complete 14 day course Initial blood cultures are no growth to date Repeat blood cultures NGTD Respiratory infection panel negative Strep and legionella urinary antigens are unable to be obtained as the patient does not make any urine Pleural fluid culture NGTD, Gram stain was negative Patient is ESRD, dose adjust antibiotics accordingly Qualifiers: Pneumonia type: due to other aerobic Gram-negative bacteria Laterality: unspecified laterality Lung location: unspecified part of lung Qualified Code(s): J15.6 - Pneumonia due to other Gram-negative bacteria (3) Pleural effusion Status: Acute Transitive effusion with predominance of mesothelial cells Gram stain negative, Culture NGTD (4) Diabetes Status: Chronic Qualifiers: Diabetes mellitus type: type 2 Diabetes mellitus long-term insulin use: without summer sessions director use Diabetes mellitus complication status: with kidney complications Diabetes mellitus complication detail: with chronic kidney disease Chronic kidney disease stage: on chronic dialysis Qualified Code(s) : E11.22 - Type 2 diabetes mellitus with diabetic chronic kidney disease; N18.6 - End stage renal disease; Z99.2 - Dependence on renal dialysis (5) HLD (hyperlipidemia) Status: Chronic Qualifiers: Hyperlipidemia type: unspecified Qualified Code(s): E78.5 - Hyperlipidemia , unspecified (6) HTN (hypertension) Status: Chronic Qualifiers: Hypertension type: essential hypertension Qualified Code(s): I10 - Essential (primary) hypertension (7) ESRD on dialysis Status: Acute - Subjective Interval history: Pt seen and examined. He is awake this morning and states his breathing is near his baseline. He does not endorse any pain. Per RN, patient did require restraints yesterday when he was pulling his trach, but currently is restraint free. Infect Dis PN-Objective Data - Labs CBC & Chem 7: 03/08/18 04:00 03/08/18 04:00 Labs: Laboratory Results - last 24 hr 03/07/18 03/07/18 03/07/18 04:06 07:24 11:50 WBC RBC Hgb Hct MCV MCH MCHC RDW Plt Count MPV Sodium Potassium Chloride Carbon Dioxide BUN Creatinine Est GFR ( Amer) Est GFR (Non-Af Amer) BUN/Creatinine Ratio Glucose POC Glucose 200 H 114 H 104 H Calculated Osmolality Calcium 03/07/18 03/07/18 03/08/18 15:10 19:53 00:11 WBC RBC Hgb Hct MCV MCH MCHC RDW Plt Count MPV Sodium Potassium Chloride Carbon Dioxide BUN Creatinine Est GFR ( Amer) Est GFR (Non-Af Amer) BUN/Creatinine Ratio Glucose POC Glucose 118 H 177 H 229 H Calculated Osmolality Calcium 03/08/18 03/08/18 04:00 04:00 WBC 8.3 RBC 2.54 L Hgb 8.4 L Hct 25.2 L MCV 99.2 MCH 33.1 MCHC 33.3 RDW 15.6 H Plt Count 169 MPV 10.8 Sodium 133 L Potassium 3.8 Chloride 98 Carbon Dioxide 30 H BUN 26 H Creatinine 3.46 H Est GFR ( Amer) 22 L Est GFR (Non-Af Amer) 18 L BUN/Creatinine Ratio 8 Glucose 207 H POC Glucose Calculated Osmolality 287 Calcium 8.2 L Cultures: Cultures 02/28/18 09:17 Blood Culture - Final Peripheral Venipuncture No growth. 02/28/18 09:22 Blood Culture - Final Peripheral Venipuncture No growth. 02/28/18 15:20 Body Fluid Culture - Final Pleural Fluid 02/23/18 11:54 Blood Culture - Final Peripheral Venipuncture No growth. 02/23/18 11:54 Blood Culture - Final Peripheral Venipuncture No growth. 02/22/18 11:45 Sputum Culture - Final Sputum Acinetobacter baumannii MDRO#2 Acinetobacter baumannii MDRO 02/21/18 18:00 Sputum Culture - Final Sputum Klebsiella pneumoniae ESBL 02/21/18 18:50 Legionella Antigen - Final Urine,Clean Catch Streptococcus pneumoniae Antigen (M - Final Serology 03/01/18 02/28/18 02/28/18 Range/Units 13:25 15:20 15:20 Pleural Fluid Volume 800.0 mL Pleural Appearance Hazy A (Clear) Pleural pH 8.00 (No Ref Range) pH Units Pleural RBC 0.002 (0.000 - 0.002) M/mcL Pleural Tot Nuc Cell 225 (0-1000) TNC/mcL Pleural Neutrophils 30.0 % Pleural Band Neuts Test Not Performed Pleural Eosinophils 5.0 % Pleural Basophils Test Not Performed Pleural Lymphocytes % 14.0 % Pleural Monocytes % 10.0 % Pleural Other Cells % 41.0 % Pleural Total Protein < 3.0 (No Ref Range) g/dL Pleural Albumin < 1.5 (No Ref Range) g/dL Pleural LDH 68 (No Ref Range) Units/L Pleural Glucose 112 (No Ref Range) mg/dL Pleural Amylase 16 (No Ref Range) Units/L Pleural Cholesterol < 25 (No Ref Range) mg/dL Pleural Triglycerides 10 (No Ref Range) mg/dL Chlamy pneumoniae PCR Not Detected (Not Detect) Adenovirus (PCR) Not Detected (Not Detect) B. pertussis DNA (PCR) Not Detected (Not Detect) B.parapertussis DNA PCR Not Detected (Not Detect) Coronavirus OC43 (PCR) Not Detected (Not Detect) Coronavirus HKU1 (PCR) Not Detected (Not Detect) Coronavirus 229E (PCR) Not Detected (Not Detect) Coronavirus NL63 (PCR) Not Detected (Not Detect) Hep Bs Antigen (Nonreactive) Hep Bs Antibody mIU/mL Human Metapneumovir PCR Not Detected (Not Detect) Influenza A (H1) PCR Not Detected (Not Detect) Influ A (H1N1/09) PCR Not Detected (Not Detect) Influenza A (H3) PCR Not Detected (Not Detect) Influenza A Untype (PCR) Not Detected (Not Detect) Influenza Type B (PCR) Not Detected (Not Detect) M.pneumoniae DNA (PCR) Not Detected (Not Detect) Parainfluenza 1 (PCR) Not Detected (Not Detect) Parainfluenza 2 (PCR) Not Detected (Not Detect) Parainfluenza 3 (PCR) Not Detected (Not Detect) Parainfluenza 4 (PCR) Not Detected (Not Detect) RSV (PCR) Not Detected (Not Detect) Entero/Rhino (PCR) Not Detected (Not Detect) 02/21/18 02/21/18 Range/Units 18:08 17:36 Pleural Fluid Volume mL Pleural Appearance (Clear) Pleural pH (No Ref Range) pH Units Pleural RBC (0.000 - 0.002) M/mcL Pleural Tot Nuc Cell (0-1000) TNC/mcL Pleural Neutrophils % Pleural Band Neuts Pleural Eosinophils % Pleural Basophils Pleural Lymphocytes % % Pleural Monocytes % % Pleural Other Cells % % Pleural Total Protein (No Ref Range) g/dL Pleural Albumin (No Ref Range) g/dL Pleural LDH (No Ref Range) Units/L Pleural Glucose (No Ref Range) mg/dL Pleural Amylase (No Ref Range) Units/L Pleural Cholesterol (No Ref Range) mg/dL Pleural Triglycerides (No Ref Range) mg/dL Chlamy pneumoniae PCR Not Detected (Not Detect) Adenovirus (PCR) Not Detected (Not Detect) B. pertussis DNA (PCR) Not Detected (Not Detect) B.parapertussis DNA PCR Not Detected (Not Detect) Coronavirus OC43 (PCR) Not Detected (Not Detect) Coronavirus HKU1 (PCR) Not Detected (Not Detect) Coronavirus 229E (PCR) Not Detected (Not Detect) Coronavirus NL63 (PCR) Not Detected (Not Detect) Hep Bs Antigen Nonreactive (Nonreactive) Hep Bs Antibody 144.68 mIU/mL Human Metapneumovir PCR Not Detected (Not Detect) Influenza A (H1) PCR Not Detected (Not Detect) Influ A (H1N1/09) PCR Not Detected (Not Detect) Influenza A (H3) PCR Not Detected (Not Detect) Influenza A Untype (PCR) Not Detected (Not Detect) Influenza Type B (PCR) Not Detected (Not Detect) M.pneumoniae DNA (PCR) Not Detected (Not Detect) Parainfluenza 1 (PCR) Not Detected (Not Detect) Parainfluenza 2 (PCR) Not Detected (Not Detect) Parainfluenza 3 (PCR) Not Detected (Not Detect) Parainfluenza 4 (PCR) Not Detected (Not Detect) RSV (PCR) Not Detected (Not Detect) Entero/Rhino (PCR) Not Detected (Not Detect) Exam - Constitutional Vitals: Temp Pulse Resp BP Pulse Ox 96.4 F L 50 22 106/60 95 03/08/18 07:29 03/08/18 08:00 03/08/18 08:00 03/08/18 08:00 03/08/18 08:00 General appearance: cooperative, thin - Neck Additional comments: tracheostomy patent - Respiratory Respiratory exam: Present: decreased breath sounds, wheezes. Absent: respiratory distress - Cardiovascular Cardiovascular exam: Present: bradycardia. Absent: irregular rhythm, systolic murmur, tachycardia - GI/Abdominal GI/Abdominal exam: Present: normal bowel sounds, soft. Absent: tenderness - Extremities Exam Extremities exam: Present: pedal edema - VTE Documentation of Mechanical Device: Intermittent pneumatic compression device Consult Discharge Plan - Plan Additional Instructions: F/up with PCP in 1-2 weeks F/up with HD 3 times/week- MWF F/up with Cardiology in 3-4 weeks Referrals: Paco Sheikh MD [Primary Care Provider] - (patient is from [facility]) Prescriptions: Colistin (Colistimethate) [Coly-Mycin M Parenteral] 100 mg IV DAILY #7 vial Ertapenem [INVanz] 500 mg IVPB DAILY #3 vial - Attending Attestation I examined this patient and my medical decision-making was reviewed with the Resident Physician. I agree with the documented findings, disposition and treatment plan as described except to the extent set forth below.
[2018-03-08] MEDS: Renal Vitamin 1 MG CAPSULE PO SCH (12:20)
--- NOTE | 2018-03-08 14:26 | Internal Med Progress Note ---
Date of Encounter: 03/08/18 Time of Encounter: 14:22 - Assessment and plan (1) HCAP (healthcare-associated pneumonia) Current Visit: Yes Status: Acute Assessment and plan: Sputum cultures eventually grew ESBL Klebsiella pneumoniae and Acinetobacter baumanii. ID was consulted and he was started on IV colistin and ertapenem, recommended to complete a 14 day course. (2) Acute and chronic respiratory failure with hypoxia Current Visit: Yes Status: Acute Assessment and plan: Acute on chronic, stated post tracheostomy, on trach mask (3) HLD (hyperlipidemia) Current Visit: Yes Status: Chronic Qualifiers: Hyperlipidemia type: unspecified Qualified Code(s): E78.5 - Hyperlipidemia , unspecified (4) HTN (hypertension) Current Visit: Yes Status: Chronic Qualifiers: Hypertension type: essential hypertension Qualified Code(s): I10 - Essential (primary) hypertension (5) Thyroid disease Current Visit: Yes Status: Chronic (6) CHF (congestive heart failure) Current Visit: Yes Status: Chronic Assessment and plan: Pleural effusion, stated post THORACENTESIS. Pulmonary was consulted. Pleurx catheter was not indicated due to loculated pleural effusion Qualifiers: Heart failure type: combined systolic and diastolic Heart failure chronicity: acute on chronic Qualified Code(s): I50.43 - Acute on chronic combined systolic (congestive) and diastolic (congestive) heart failure (7) ESRD on dialysis Current Visit: Yes Status: Acute Assessment and plan: Continue HD (8) Hypothyroidism Current Visit: Yes Status: Chronic Qualifiers: Hypothyroidism type: acquired Qualified Code(s): E03.9 - Hypothyroidism, unspecified (9) Tracheostomy in place Current Visit: Yes Status: Chronic - Time Spent With Patient Total time spent is greater than 50% in coordination of care (as documented) at patient's floor/unit and/or counseling patient: 25 - 35 minutes - Subjective Interval history: Mr. Landaverde is a 57 year old male with end-stage renal disease hypokalemia diabetes GERD hypertension hyperlipidemia chronic CHF recurrent respiratory failure stated post of tracheostomy who was admitted with severe shortness of breath and pulling out his tracheostomy tube. Patient was admitted to ICU and initially required ventilatory support through his tracheostomy. Pulmonology was consulted. Patient was noted to have bilateral pleural effusion, which was recurrent and patient underwent left-sided thoracentesis 3 times during this admission, mostly transudative noninfectious fluid. He was also started on broad-spectrum IV antibiotics for possible underlying pneumonia. Sputum cultures eventually grew ESBL Klebsiella pneumoniae and Acinetobacter baumanii. ID was consulted and he was started on IV colistin and ertapenem, recommended to complete a 14 day course. Overnight patient has no events, currently he is on trachea mask. Patient is drowsy, not answering questions. I discussed it with special education case manager Mary and ICU nurse, patient is going back to [facility] - Constitutional Vitals: Temp Pulse Resp BP Pulse Ox 96.4 F L 50 28 109/52 95 03/08/18 07:29 03/08/18 14:00 03/08/18 14:00 03/08/18 12:00 03/08/18 14:00 General appearance: Present: A&O X 2, mild distress. Absent: answers questions appropriately Exam: CONSTITUTIONAL: patient appears as an age appropriate male in no acute distress. EYES Clear sclerae, bilateral pupils are equal, reactive to light. EMOI. RESPIRATORY: No accessory muscle use, bilateral scanr crackles to auscultation, no wheezing, no crackles/rales. CARDIOVASCULAR: Regular heart rate, normal S1 and S2, no murmurs GASTROINTESTINAL: bowel sounds present, soft, no tenderness. MUSCULOSKELETAL: Joints in normal range of motion, no clubbing, + edema, no cyanosis. Bilateral peripheral pulses 2+. NEUROLOGIC: CN II to XII are grossly intact, no focal neurological deficit. Internal Medicine: Result - Labs CBC & Chem 7: 03/08/18 04:00 03/08/18 04:00 Labs: Short CBC 03/08/18 Range/Units 04:00 WBC 8.3 (4.3-11.1) K/mcL Hgb 8.4 L (12.9-16.9) g/dL Hct 25.2 L (37.5-50.1) % Plt Count 169 (140-400) K/mcL BMP 03/08/18 04:00 Sodium 133 L Potassium 3.8 Chloride 98 Carbon Dioxide 30 H BUN 26 H Creatinine 3.46 H Glucose 207 H Calcium 8.2 L - ABG Interpretation ABG results: ABG ABG pH 7.53 pH Units (7.32-7.45) H 02/27/18 15:56 ABG pCO2 35 mmHg (35-45) 02/27/18 15:56 ABG pO2 57 mmHg (85-104) L 02/27/18 15:56 ABG O2 Saturation 92 % (95-98) L 02/27/18 15:56 PT/INR, D-dimer PT 11.6 Seconds (9.4-12.1) 02/28/18 06:51 - VTE Documentation of Mechanical Device: Intermittent pneumatic compression device Consult Discharge Plan - Plan Additional Instructions: F/up with PCP in 1-2 weeks F/up with HD 3 times/week- MWF F/up with Cardiology in 3-4 weeks Referrals: Paco Sheikh MD [Primary Care Provider] - (patient is from [facility]) Prescriptions: Colistin (Colistimethate) [Coly-Mycin M Parenteral] 100 mg IV DAILY #7 vial Ertapenem [INVanz] 500 mg IVPB DAILY #3 vial
[2018-03-08] MEDS: Colistin (Colistimethate) 100 MG in 0.9 % Sodium Chloride 50 ML IVPB SCH (16:51)
[2018-03-08 17:39] VITALS: BP 120/56
[2018-03-09] MEDS ORDERED: Darbepoetin 150 MCG/0.3 ML SYRINGE SQ SCH (09:00)
[2018-03-09] MEDS ORDERED: Darbepoetin 100 MCG/0.5 ML SYRINGE SQ SCH (09:00)
== END 2018-03-08 18:15 | DRG 291 ==
LOC: 2ANU 11:53 → EMEROO 11:53 → 2ANU 16:18 → SUATTDRO 16:43 → ICNU 02-27 17:46
PROVIDERS: ADMIT Internal Medicine Nephrology; ATTEND Internal Medicine

== ENCOUNTER 2018-03-23 09:17 | Inpatient (IN) ==
--- NOTE | 2018-03-23 11:17 | Pulmonology Consult Note ---
<Vicky Husain M - Last Filed: 03/23/18 17:07> Date of Encounter: 03/23/18 Medications and Allergies Amlodipine Besylate 10 mg GTUBE DAILY 11/25/17 [History] Atorvastatin Calcium [Lipitor] 40 mg GTUBE DAILY 11/25/17 [History] Cyanocobalamin (B-12) [Vitamin B12] 1,000 mcg GTUBE DAILY 11/25/17 [History] Docusate [Colace] 50 mg GTUBE DAILY 11/25/17 [History] Folic Acid 1 mg GTUBE DAILY 11/25/17 [History] Levothyroxine Sodium [Synthroid] 300 mcg GTUBE DAILY 11/25/17 [History] Pantoprazole Sodium [Protonix] 40 mg GTUBE DAILY 11/25/17 [History] Sennosides/Docusate Sodium [Senna-S Tablet] 1 each GTUBE BID 11/25/17 [History] cloNIDine HCl [CloNIDine HCl] 0.1 mg GTUBE TID 11/25/17 [History] hydrOXYzine HCl [Hydroxyzine HCl] 25 mg GTUBE Q6H PRN 11/25/17 [History] Aspirin [Lo-Dose Aspirin EC] 81 mg GTUBE DAILY 02/21/18 [History] Carvedilol [Coreg] 25 mg GTUBE BID 02/21/18 [History] Renal Vitamin [Renal Caps Softgel] 1 mg GTUBE DAILY 02/21/18 [History] Ticagrelor [Brilinta] 90 mg GTUBE BID 02/21/18 [History] hydrALAZINE [HydrALAZINE] 50 mg PO Q6HR 02/21/18 [History] Ipratropium/Albuterol Neb [Duoneb] 3 ml IH [id number] PRN inhsol 03/06/18 [Rx] LORazepam [Ativan] 0.5 mg GTUBE Q6H PRN 3 Days #10 03/06/18 [Rx] Oxycodone HCl [Oxaydo] 5 mg GTUBE Q6H PRN 5 Days #10 03/06/18 [Rx] Insulin Glargine,Hum.rec.anlog [Lantus Solostar] 15 unit SQ QAM 03/23/18 [ History] Insulin Regular Human [HumuLIN R] 0 - 10 unit SQ TIDWM 03/23/18 [History] predniSONE [PredniSONE] See Taper PO DAILY 03/23/18 [History] 3 Allergy/AdvReac Type Severity Reaction Status Date / Time No Known Allergies Allergy Verified 03/23/18 12:09 All Systems: The remainder of the systems were reviewed and are negative Physical Examination Vital Signs: Vital Signs, Last 4 Hours Temp Pulse Resp BP Pulse Ox 03/23/18 17:00 71 16 142/68 97 03/23/18 15:49 22 144/65 96 03/23/18 15:48 98.4 F 70 22 144/65 96 03/23/18 15:32 73 15 143/67 96 Ventilator Settings Ventilator Settings: Ventilator Settings, Last 8 Hours Ventilator Tidal Volume 400 Setting Ventilator Tidal Volume 400 Setting Ventilator Tidal Volume 400 Setting Ventilator Tidal Volume 400 Setting Ventilator Tidal Volume 400 Setting Ventilator Respiratory Rate 12 Setting Ventilator Respiratory Rate 12 Setting Ventilator Respiratory Rate 12 Setting Ventilator Respiratory Rate 12 Setting Ventilator Respiratory Rate 12 Setting Actual Respiratory Rate 23 Actual Respiratory Rate 27 Actual Respiratory Rate 27 Actual Respiratory Rate 27 Actual Respiratory Rate 24 Positive End Expiratory 5 Pressure Positive End Expiratory 5 Pressure Positive End Expiratory 5 Pressure Positive End Expiratory 5 Pressure Positive End Expiratory 5 Pressure Peak Inspiratory Airway 20 Pressure Peak Inspiratory Airway 10 Pressure Peak Inspiratory Airway 10 Pressure Peak Inspiratory Airway 10 Pressure Results - Laboratory Findings CBC and BMP: 03/23/18 12:48 03/23/18 12:48 Abnormal lab findings: Abnormal lab results WBC 17.9 K/mcL (4.3-11.1) H 03/23/18 12:48 RBC 2.64 M/mcL (4.19-5.50) L 03/23/18 12:48 Hgb 8.6 g/dL (12.9-16.9) L 03/23/18 12:48 Hct 25.9 % (37.5-50.1) L 03/23/18 12:48 RDW 19.1 % (11.5-14.5) H 03/23/18 12:48 Plt Count 488 K/mcL (140-400) H 03/23/18 12:48 Neutrophils # 16.9 K/mcL (1.6-8.9) H 03/23/18 12:48 Lymphocytes # 0.5 K/mcL (0.6-4.6) L 03/23/18 12:48 VBG pH 7.47 pH Units (7.32-7.42) H 03/23/18 12:02 VBG pCO2 33 mmHg (41-51) L 03/23/18 12:02 VBG pO2 204 mmHg (25-50) H 03/23/18 12:02 Sodium 132 mEq/L (136-145) L 03/23/18 12:48 Potassium 5.2 mEq/L (3.5-5.1) H 03/23/18 12:48 BUN 92 mg/dL (6-20) H 03/23/18 12:48 Creatinine 2.74 mg/dL (0.70-1.30) H 03/23/18 12:48 Est GFR ( Amer) 29 (> 60) L 03/23/18 12:48 Est GFR (Non-Af Amer) 24 (> 60) L 03/23/18 12:48 BUN/Creatinine Ratio 34 (6-26) H 03/23/18 12:48 Glucose 353 mg/dL (70-105) H 03/23/18 12:48 POC Glucose 360 mg/dL (70-99) H 03/23/18 15:47 Calculated Osmolality 316 (280-300) H 03/23/18 12:48 Calcium 8.0 mg/dL (8.6-10.3) L 03/23/18 12:48 - Clinical Findings Intake & Output: Intake & Output 03/23/18 03/23/18 03/23/18 07:59 15:59 23:59 Intake Total 120 / 120 120 / 120 Balance 120 / 120 120 / 120 Weight 76.4 kg Consult Discharge Plan - Plan Referrals: Paco Sheikh MD [Primary Care Provider] - - Attending Attestation I examined this patient and my medical decision-making was reviewed with the Resident Physician. I agree with the documented findings, disposition and treatment plan as described except to the extent set forth below. Patient seen and examined. Labs, radiology, chart personally reviewed. Agree with resident's history and physical, assessment, plan with following comments: ADMINISTRATIVE DIETITIAN: Patient follows commands, Pulmonary: Acceptable oxygenation and ventilation and changed vent setting to his previous admission, however pH in alkalotic side and reduced his tidal volume. Patient with chronic pleural effusion but is not on any distress at this time. Previously ultrasound showed more complicated pleural effusion that would not be a good candidate for Pleurx pleural catheter, I will reevaluate him with bedside ultrasound and decide about the catheter. Cardiovascular: stable GI: Nutrition per dietary and GI prophylaxis per routine Heme: DVT prophylaxis per routine ID: Continue antibiotics and plan to de-escalation Renal; patient on hemodialysis Endorcine: blood glucose is monitored Lines: all lines checked and no evidence of infections Skin: skin care to prevent pressure ulcers per nursing routine care Overall prognosis. Thank you for consultation. <Jaziel Felder - Last Filed: 03/23/18 18:32> Date of Encounter: 03/23/18 Time of Encounter: 11:30 Assessment and Plan (1) Acute and chronic respiratory failure with hypoxia Current Visit: No Status: Acute Patient hypoxic upon arrival to ED. ABG showed O2 saturation of 61. Placed on mechanical vent via tracheostomy in ED. O2 saturation improved to 94%. Chest x- ray shows bilateral pleural effusions. Previous ultrasound showed more, care pleural effusion which would not make him a good Pleurx pleural catheter candidate. - Patient will be reevaluated with bedside ultrasound. XR/XR chest 1V portable IMPRESSION: 1. Pulmonary edema with moderate bilateral pleural effusions. D/ / Lc Fontenot MD / Lc Fontenot MD (2) Pleural effusion Current Visit: No Status: Acute Evidence of bilateral pleural effusion likely contributing to patient's symptoms of hypoxia. Patient will be evaluated for Pleurx catheter placement. EXAMINATION: SINGLE XRAY VIEW OF THE CHEST 03/23/2018 7:53 am COMPARISON: March 09, 2018 HISTORY: ORDERING SYSTEM PROVIDED HISTORY: sob Acute shortness of breath. Initial encounter. FINDINGS: Patient has a tracheostomy. Hemodialysis catheter tip overlies the right atrium. Moderate bilateral pleural effusions with bibasilar airspace opacities. Pulmonary vasculature is indistinct. XR/XR chest 1V portable IMPRESSION: 1. Pulmonary edema with moderate bilateral pleural effusions. D/ / Lc Fontenot MD / Lc Fontenot MD Interpreting Provider: Lc Fontenot MD (3) Leukocytosis Current Visit: No Status: Acute White blood cell count of 20.9. Patient has history of recent PNA with positive sputum's including Klebsiella with ESBL in addition to Acinobacter with multidrug resistance. on 03/04/18. - Consult infectious disease. Qualifiers: Leukocytosis type: unspecified Qualified Code(s): D72.829 - Elevated white blood cell count, unspecified (4) ESRD on dialysis Current Visit: No Status: Acute Dr. Mahoney from nephrology following patient. Patient is currently on hemodialysis. Creatinine is currently at 2.7 with a baseline from 2.5-3.5. (5) DVT prophylaxis Current Visit: No Status: Acute Heparin subcutaneously 5000 units twice a day. History of Present Illness Consult date: 03/23/18 Requesting physician: Kendrick Salgado Reason for consult: other (Pleural effusion) Chief complaint: SOB, weakness History of present illness: Patient is a 57-year-old male with past medical history of cardiomyopathy, CVA, diabetes, end-stage renal disease with a past surgical history of a tracheostomy in place that was initially admitted to the ED at [facility] for hypotension and hypoxia. Patient was originally undergoing hemodialysis in the morning and was transferred to [facility] when he reported symptoms of weakness. Blood gas showed a normal pH with low oxygen saturation of 61% with borderline respiratory acidosis. He was placed on ventilation via his tracheostomy. O2 sat was at 94% with normotensive blood pressure. Patient denied any feeling of shortness of breath at the time. Checks x-ray was done which revealed moderate bilateral pleural effusion. Dr. Boyer from nephrology was consult who agreed that patient should be transferred to [facility] hospitalist service for treatment of his pleural effusion. Pulmonology is consult to 4 evaluation for placement of Pleurx catheter. To note patient was recently admitted towards the end of January for bilateral pleural effusion with he underwent left-sided thoracentesis 3 times revealing transitive noninfectious fluid. He was treated for pneumonia which grew Klebsiella and Acinetobacter baumanii. He was discharged on March 08 and subsequently admitted again on March 09 through the at [facility] for episodes of hypoxia and hypotension. When seen today patient is unable to recall why he was transferred to the hospital. He is alert and oriented 3. He denies any chest pain but admits to shortness of breath. He denies any nausea, vomiting, abdominal pain, headaches, dizziness, fever, or chills. He says he felt weak earlier today but says he is feeling better now. Past Med Surg Social Fam HX - Past Medical History Medical history: cardiomyopathy, CVA, diabetes, dialysis, GERD, hyperlipidemia, hypertension, liver disease, renal disease, thyroid disease, other Additional medical history: ANEMIA Psychiatric history: anxiety - Past Surgical History Surgical History: orthopedic, other (Left femur rodding), tracheostomy, other ( Left upper extremity AV fistula) Additional surgical history: trach. gtube - Social History Smoking Status: Former smoker Alcohol use: none Drug use: none - Family History Mother Family Member Ethnicity: Non- Living Status: Hx Family Cardiac Disorders: Yes (CAD) Father Family Member Ethnicity: Non- Living Status: Hx Family Cardiac Disorders: Yes (HD) Brother Family Member Ethnicity: Non- Living Status: Hx Family Autoimmune Disorders: Yes (AIDS) All Systems: The remainder of the systems were reviewed and are negative - Constitutional Constitutional: weakness, no chills, no fever(s) - EENT Nose, mouth and throat: no dizziness, no headache(s) - Cardiovascular Cardiovascular: no chest pain, no dyspnea, no lightheadedness - Respiratory Respiratory: dyspnea - Gastrointestinal Gastrointestinal: no abdominal pain, no nausea, no vomiting - Musculoskeletal Musculoskeletal: muscle weakness, no weakness - Neurological Neurological: weakness, no dizziness, no headache(s) - Psychiatric Psychiatric: as per HPI Physical Examination Vital Signs: Vital Signs, Last 4 Hours Temp Pulse Resp BP Pulse Ox 03/23/18 11:06 97.9 F 70 24 120/62 94 General appearance: no acute distress, other (Currently on mechanical ventilation via trach) Eyes: nonicteric ENT: oropharynx moist Neck: supple, other (Tracheostomy in place) Effort: normal Inspection: normal Auscultation: bilateral: clear Percussion: bilateral: not dull Tactile fremitus: bilateral: normal Cardiovascular: regular rate and rhythm Gastrointestinal: normoactive bowel sounds, soft, non-tender, non-distended, other (G-tube in place.) Integumentary: normal Extremities: no cyanosis, no clubbing, pulses normal, no ischemia or petechiae, edema (+2 pedal pitting edema of left lower extremity.), other (Atrophy of right leg.) Musculoskeletal: other (Atrophy of right leg) normal mental status mood appropriate, affect normal Ventilator Settings Ventilator Settings: Ventilator Settings, Last 8 Hours Ventilator Tidal Volume 400 Setting Ventilator Respiratory Rate 12 Setting Actual Respiratory Rate 24 Positive End Expiratory 5 Pressure Results - Laboratory Findings CBC and BMP: 03/23/18 12:48 03/23/18 12:48
[2018-03-23 12:04] LABS: VBG HCO3 24 mEq/L (21-27); VBG PCO2 33 mmHg (41-51); VBG PH 7.47 pH Units (7.32-7.42); VBG PO2 204 mmHg (25-50)
[2018-03-23 13:25] LABS: Basophils % 0.1 %; Hematocrit 25.9 % (37.5-50.1); Hemoglobin 8.6 g/dL (12.9-16.9); Immature Granulocytes % 1.2 % (0-4); Lymphocytes # 0.5 K/mcL (0.6-4.6); Mean Corpuscular HGB Conc 33.2 g/dL (31.6-35.5); Mean Corpuscular Hemoglobin 32.6 pg (28.0-33.3); Mean Corpuscular Volume 98.1 fL (83.0-100.0); Mean Platelet Volume 10.6 fL (9.4-12.4); Monocytes # 0.3 K/mcL (0.0-1.3); Monocytes % 1.5 %; Neutrophils # 16.9 K/mcL (1.6-8.9); Platelet Count 488 K/mcL (140-400); Red Blood Count 2.64 M/mcL (4.19-5.50); Red Cell Distribution Width 19.1 % (11.5-14.5); Segmented Neutrophils % 94.2 %
[2018-03-23 13:40] LABS: Potassium 5.2 mEq/L (3.5-5.1)
--- NOTE | 2018-03-23 16:18 | Internal Med History&Physical ---
Date of Encounter: 03/23/18 Time of Encounter: 11:00 Internal Medicine - H&P: HPI Chief complaint: Shortness of breath Admitted From: Emergency Dept Plans for Post Hospital Care: Home History of present illness: Patient is a 57-year-old male with past medical history significant for chronic respiratory failure with trach, recent history of ESBL Klebsiella/Acinetobacter pneumonia, recurrent pleural effusions, end-stage renal disease (Dr. Mahoney) , chronic anemia, hypertension, hyperlipidemia and diabetes who presents from [facility] due to shortness of breath. Patient was found to have bilateral pleural effusions and was transferred to [facility] for management. Pulmonology was consulted for recommendations for possible Pleurx catheter. On labs done at [facility] on patients arrival, patient was found to have leukocytosis with white blood cell count of 20.9 Will also consult infectious disease due to patient's recent sputum culture being positive for baumannii and Klebsiella pneumonia ESBL. Past Med Surg Social Fam HX - Past Medical History Medical history: cardiomyopathy, CVA, diabetes, dialysis, GERD, hyperlipidemia, hypertension, liver disease, renal disease, thyroid disease, other Additional medical history: ANEMIA Psychiatric history: anxiety - Past Surgical History Surgical History: orthopedic, other (Left femur rodding), tracheostomy, other ( Left upper extremity AV fistula) Additional surgical history: trach. gtube - Social History Smoking Status: Former smoker Alcohol use: none Drug use: none - Family History Mother Family Member Ethnicity: Non- Living Status: Hx Family Cardiac Disorders: Yes (CAD) Father Family Member Ethnicity: Non- Living Status: Hx Family Cardiac Disorders: Yes (HD) Brother Family Member Ethnicity: Non- Living Status: Hx Family Autoimmune Disorders: Yes (AIDS) Internal Medicine - H&P: Meds Amlodipine Besylate 10 mg GTUBE DAILY 11/25/17 [History] Atorvastatin Calcium [Lipitor] 40 mg GTUBE DAILY 11/25/17 [History] Cyanocobalamin (B-12) [Vitamin B12] 1,000 mcg GTUBE DAILY 11/25/17 [History] Docusate [Colace] 50 mg GTUBE DAILY 11/25/17 [History] Folic Acid 1 mg GTUBE DAILY 11/25/17 [History] Levothyroxine Sodium [Synthroid] 300 mcg GTUBE DAILY 11/25/17 [History] Pantoprazole Sodium [Protonix] 40 mg GTUBE DAILY 11/25/17 [History] Sennosides/Docusate Sodium [Senna-S Tablet] 1 each GTUBE BID 11/25/17 [History] cloNIDine HCl [CloNIDine HCl] 0.1 mg GTUBE TID 11/25/17 [History] hydrOXYzine HCl [Hydroxyzine HCl] 25 mg GTUBE Q6H PRN 11/25/17 [History] Aspirin [Lo-Dose Aspirin EC] 81 mg GTUBE DAILY 02/21/18 [History] Carvedilol [Coreg] 25 mg GTUBE BID 02/21/18 [History] Renal Vitamin [Renal Caps Softgel] 1 mg GTUBE DAILY 02/21/18 [History] Ticagrelor [Brilinta] 90 mg GTUBE BID 02/21/18 [History] hydrALAZINE [HydrALAZINE] 50 mg PO Q6HR 02/21/18 [History] Ipratropium/Albuterol Neb [Duoneb] 3 ml IH [id number] PRN inhsol 03/06/18 [Rx] LORazepam [Ativan] 0.5 mg GTUBE Q6H PRN 3 Days #10 03/06/18 [Rx] Oxycodone HCl [Oxaydo] 5 mg GTUBE Q6H PRN 5 Days #10 03/06/18 [Rx] Insulin Glargine,Hum.rec.anlog [Lantus Solostar] 15 unit SQ QAM 03/23/18 [ History] Insulin Regular Human [HumuLIN R] 0 - 10 unit SQ TIDWM 03/23/18 [History] predniSONE [PredniSONE] See Taper PO DAILY 03/23/18 [History] 3 Allergy/AdvReac Type Severity Reaction Status Date / Time No Known Allergies Allergy Verified 03/23/18 12:09 ROS unobtainable: due to mental status All Systems PM: A 10-system review of systems was performed and is negative for pertinent findings except as documented above in the HPI. - Constitutional Vitals: Temp Pulse Resp BP Pulse Ox 98.4 F 70 22 144/65 96 03/23/18 15:48 03/23/18 15:48 03/23/18 15:49 03/23/18 15:49 03/23/18 15:49 General appearance: Present: no acute distress - Respiratory Respiratory exam: Present: CTAB. Absent: accessory muscle use, rales, rhonchi, wheezes - Cardiovascular Cardiovascular exam: Present: RRR, +S1, +S2. Absent: diastolic murmur, gallop, rubs, systolic murmur - GI/Abdominal GI/Abdominal exam: Present: normal bowel sounds, soft, no peritoneal signs. Absent: distended, tenderness - Extremities Exam Extremities exam: Absent: pedal edema - Neurological Exam Neurological exam: Present: no focal deficits - Psychiatric Psychiatric exam: Present: normal mood - Skin Skin exam: Present: normal color Internal Med - H&P Results - Labs CBC & Chem 7: 03/23/18 12:48 03/23/18 12:48 Labs: Short CBC 03/23/18 Range/Units 12:48 WBC 17.9 H (4.3-11.1) K/mcL Hgb 8.6 L (12.9-16.9) g/dL Hct 25.9 L (37.5-50.1) % Plt Count 488 H (140-400) K/mcL Neutrophils # 16.9 H (1.6-8.9) K/mcL BMP 03/23/18 12:48 Sodium 132 L Potassium 5.2 H Chloride 98 Carbon Dioxide 23 BUN 92 H Creatinine 2.74 H Glucose 353 H Calcium 8.0 L - ABG Interpretation ABG results: 03/23/18 12:02 VBG pH 7.47 H VBG pCO2 33 L VBG pO2 204 H VBG HCO3 24 - Assessment and plan (1) Leukocytosis Current Visit: No Status: Acute Assessment and plan: Patient with elevated white blood cell count of 20.9 on admission Patient with history of sputum culture which was positive for Acinetobacter and Klebsiella pneumonia ESBL Patient required Colistin and etapenem last visit in January 2018. Infectious disease consulted and appreciate recommendations Qualifiers: Leukocytosis type: unspecified Qualified Code(s): D72.829 - Elevated white blood cell count, unspecified (2) Pleural effusion Current Visit: No Status: Acute Assessment and plan: Patient with recurrent pleural effusions Pulmonary consulted for consideration of Pleurx catheter (3) ESRD on dialysis Current Visit: No Status: Acute Assessment and plan: Will consult nephrology (Dr. Mahoney) (4) Anemia in CKD (chronic kidney disease) Current Visit: No Status: Acute Assessment and plan: Hemoglobin stable; continue to monitor Qualifiers: Chronic kidney disease stage: on chronic dialysis Qualified Code(s): N18.6 - End stage renal disease; D63.1 - Anemia in chronic kidney disease; Z99.2 - Dependence on renal dialysis (5) CHF (congestive heart failure) Current Visit: No Status: Chronic Assessment and plan: Continue home medications Qualifiers: Heart failure type: combined systolic and diastolic Heart failure chronicity: acute on chronic Qualified Code(s): I50.43 - Acute on chronic combined systolic (congestive) and diastolic (congestive) heart failure (6) HLD (hyperlipidemia) Current Visit: No Status: Chronic Assessment and plan: Continue home medications Qualifiers: Hyperlipidemia type: unspecified Qualified Code(s): E78.5 - Hyperlipidemia , unspecified (7) HTN (hypertension) Current Visit: No Status: Chronic Assessment and plan: Continue home medications Qualifiers: Hypertension type: essential hypertension Qualified Code(s): I10 - Essential (primary) hypertension (8) Tracheostomy in place Current Visit: No Status: Chronic Assessment and plan: Pulmonology following and appreciate recommendations (9) DVT prophylaxis Current Visit: No Status: Acute Assessment and plan: Subcutaneous heparin - Time Spent With Patient Total time spent is greater than 50% in coordination of care (as documented) at patient's floor/unit and/or counseling patient:
[2018-03-23] MEDS ORDERED: Naloxone 0.4 MG/ML INJ IVP PRN (16:37)
[2018-03-23] MEDS: hydrALAZINE 25 MG TABLET GTUBE SCH ×2 (17:04→23:23)
[2018-03-23] MEDS ORDERED: Insulin LISPRO 300 UNITS/3 ML VIAL SQ ONE (20:08)
[2018-03-23] MEDS ORDERED: Dextrose Gel 15 GM/37.5 ML TUBE PO PRN (20:15)
[2018-03-23] MEDS: *HR* Ticagrelor 90 MG TABLET GTUBE SCH (20:19)
[2018-03-23] MEDS: Sennosides/Docusate Sodium TABLET GTUBE SCH (20:19)
[2018-03-23] MEDS: cloNIDine HCl 0.1 MG TABLET GTUBE SCH (20:19)
[2018-03-23] MEDS: Insulin LISPRO 300 UNITS/3 ML VIAL SQ SCH (20:52)
[2018-03-23] MEDS: *HR* LORazepam 0.5 MG TABLET GTUBE PRN (23:23)
[2018-03-23] MEDS: *HR* OxyCODONE Immed Rel 5 MG TABLET GTUBE PRN (23:23)
[2018-03-24] MEDS: hydrALAZINE 25 MG TABLET GTUBE SCH ×3 (04:08→16:51)
[2018-03-24 04:19] LABS: Eosinophils # 0.1 K/mcL (0.0-0.6); Eosinophils % 0.8 %; Hematocrit 23.8 % (37.5-50.1); Hemoglobin 7.8 g/dL (12.9-16.9); Lymphocytes # 1.5 K/mcL (0.6-4.6); Lymphocytes % 12.5 %; Mean Corpuscular HGB Conc 32.8 g/dL (31.6-35.5); Mean Corpuscular Hemoglobin 31.7 pg (28.0-33.3); Mean Corpuscular Volume 96.7 fL (83.0-100.0); Mean Platelet Volume 10.3 fL (9.4-12.4); Monocytes # 0.8 K/mcL (0.0-1.3); Monocytes % 6.7 %; Neutrophils # 9.4 K/mcL (1.6-8.9); Platelet Count 464 K/mcL (140-400); Red Blood Count 2.46 M/mcL (4.19-5.50)
[2018-03-24 04:31] LABS: Calcium 7.6 mg/dL (8.6-10.3); Potassium 5.2 mEq/L (3.5-5.1)
--- NOTE | 2018-03-24 08:18 | Nephrology Consult Note ---
Date of Encounter: 03/24/18 Time of Encounter: 08:15 Assessment and Plan (1) End stage renal disease Current Visit: No Status: Chronic Patient will undergo dialysis today. He will be on a 2K bath. He will be placed on Aranesp for his anemia. (2) Pleural effusion Current Visit: No Status: Acute (3) Anemia in CKD (chronic kidney disease) Current Visit: No Status: Acute Qualifiers: Chronic kidney disease stage: on chronic dialysis Qualified Code(s): N18.6 - End stage renal disease; D63.1 - Anemia in chronic kidney disease; Z99.2 - Dependence on renal dialysis History of Present Illness - History of Present Illness This is a 57-year-old male who has end-stage renal disease. He dialyzes and [place] [facility]. Patient presented dialysis yesterday. He has chronic respiratory failure with a trach. He is noted to be hypoxic. His oxygen saturations could only improve with bagging. He subsequently was sent to the emergency room. He was once again found to be hypoxic. He is noted to have recurrent pleural effusions. He has been admitted to the hospital for further evaluation and management. Currently the patient is on the ventilator. The respiratory therapist indicates they are suctioning copious amounts of secretions from the patient's trach. Patient says he still feels short of breath. He will undergo dialysis today. He does have a history of recurrent pleural effusions and has required thoracentesis in the past. Past Med Surg Social Fam HX - Past Medical History Medical history: cardiomyopathy, CVA, diabetes, dialysis, GERD, hyperlipidemia, hypertension, liver disease, renal disease, thyroid disease, other Additional medical history: ANEMIA Psychiatric history: anxiety - Past Surgical History Surgical History: orthopedic, other (Left femur rodding), tracheostomy, other ( Left upper extremity AV fistula) Additional surgical history: trach. gtube - Social History Smoking Status: Former smoker Alcohol use: none Drug use: none - Family History Mother Family Member Ethnicity: Non- Living Status: Hx Family Cardiac Disorders: Yes (CAD) Father Family Member Ethnicity: Non- Living Status: Hx Family Cardiac Disorders: Yes (HD) Brother Family Member Ethnicity: Non- Living Status: Hx Family Autoimmune Disorders: Yes (AIDS) Medications and Allergies Amlodipine Besylate 10 mg GTUBE DAILY 11/25/17 [History] Atorvastatin Calcium [Lipitor] 40 mg GTUBE DAILY 11/25/17 [History] Cyanocobalamin (B-12) [Vitamin B12] 1,000 mcg GTUBE DAILY 11/25/17 [History] Docusate [Colace] 50 mg GTUBE DAILY 11/25/17 [History] Folic Acid 1 mg GTUBE DAILY 11/25/17 [History] Levothyroxine Sodium [Synthroid] 300 mcg GTUBE DAILY 11/25/17 [History] Pantoprazole Sodium [Protonix] 40 mg GTUBE DAILY 11/25/17 [History] Sennosides/Docusate Sodium [Senna-S Tablet] 1 each GTUBE BID 11/25/17 [History] cloNIDine HCl [CloNIDine HCl] 0.1 mg GTUBE TID 11/25/17 [History] hydrOXYzine HCl [Hydroxyzine HCl] 25 mg GTUBE Q6H PRN 11/25/17 [History] Aspirin [Lo-Dose Aspirin EC] 81 mg GTUBE DAILY 02/21/18 [History] Carvedilol [Coreg] 25 mg GTUBE BID 02/21/18 [History] Renal Vitamin [Renal Caps Softgel] 1 mg GTUBE DAILY 02/21/18 [History] Ticagrelor [Brilinta] 90 mg GTUBE BID 02/21/18 [History] hydrALAZINE [HydrALAZINE] 50 mg PO Q6HR 02/21/18 [History] Ipratropium/Albuterol Neb [Duoneb] 3 ml IH [id number] PRN inhsol 03/06/18 [Rx] LORazepam [Ativan] 0.5 mg GTUBE Q6H PRN 3 Days #10 03/06/18 [Rx] Oxycodone HCl [Oxaydo] 5 mg GTUBE Q6H PRN 5 Days #10 03/06/18 [Rx] Insulin Glargine,Hum.rec.anlog [Lantus Solostar] 15 unit SQ QAM 03/23/18 [ History] Insulin Regular Human [HumuLIN R] 0 - 10 unit SQ TIDWM 03/23/18 [History] predniSONE [PredniSONE] See Taper PO DAILY 03/23/18 [History] 3 Allergy/AdvReac Type Severity Reaction Status Date / Time No Known Allergies Allergy Verified 03/23/18 12:09 Review of Systems Constitutional: as per HPI, weakness Nose, mouth and throat: no dizziness, no headache(s) Cardiovascular: dyspnea, dyspnea on exertion Respiratory: as per HPI, dyspnea, dyspnea on exertion Gastrointestinal: no abdominal pain, no change in bowel habits Musculoskeletal: no muscle weakness, no numbness Integumentary: no hirsutism, no striae Neurological: weakness Psychiatric: no depression, no difficulty concentrating Endocrine: as per HPI Hematologic/Lymphatic: no easy bruising, no lymphadenopathy Exam - Vital Signs Vital signs: Initial Vital Signs Temp Pulse Resp BP Pulse Ox 97.9 F 70 24 120/62 94 03/23/18 11:06 03/23/18 11:06 03/23/18 11:06 03/23/18 11:06 03/23/18 11:06 Vital Signs - Last 8 Hours Temp Pulse Resp BP Pulse Ox 03/24/18 07:39 97.8 F 70 20 145/74 97 03/24/18 04:17 97.6 F 65 20 115/76 99 03/24/18 03:44 22 99 Intake and Output 03/23/18 03/24/18 03/24/18 23:59 07:59 15:59 Intake Total 570 / 570 200 / 200 Output Total 0 / 0 0 / 0 Balance 570 / 570 200 / 200 Intake: Oral 100 / 100 Free Water 200 / 200 Free Water Intake Amount 270 / 270 200 / 200 Output: Urine 0 / 0 0 / 0 Catheter 0 / 0 0 / 0 Other: # Voids 1 Weight 74.3 kg 74.2 kg Blood Glucose* 322 264 Patient Weight 03/24/18 23:59 Weight 74.2 kg - General Appearance Exam: Patient is alert and oriented. He appears chronically ill. He is in no acute distress. Tracheostomy is in place. He is on the ventilator. There is a tunnel dialysis catheter in the right chest. There is an immature AV fistula in the left upper extremity. Lungs bilateral rhonchi and wheezing. Heart regular rate and rhythm with a systolic murmur. Abdomen is soft. There is no tenderness. A PEG tube is present. There is some mild lower extremity swelling. Results - Lab Results 03/24/18 03:55 03/24/18 03:55 Most recent lab results Calcium 7.6 mg/dL (8.6-10.3) L 03/24/18 03:55 Consult Discharge Plan - Plan Referrals: Paco Sheikh MD [Primary Care Provider] -
[2018-03-24] MEDS ORDERED: 0.9 % Sodium Chloride 250 ML IVC PRN (08:19)
[2018-03-24] MEDS ORDERED: Darbepoetin 100 MCG/0.5 ML SYRINGE SQ SCH (08:30)
[2018-03-24] MEDS: Cyanocobalamin (B-12) 1,000 MCG TABLET GTUBE SCH (08:42)
[2018-03-24] MEDS: Sennosides/Docusate Sodium TABLET GTUBE SCH ×2 (08:42→21:25)
[2018-03-24] MEDS: Insulin DETEMIR 100 UNIT/ML X5UNITS SQ SCH (08:43)
[2018-03-24] MEDS: predniSONE 10 MG TABLET PO SCH (08:43)
[2018-03-24] MEDS: cloNIDine HCl 0.1 MG TABLET GTUBE SCH ×3 (08:43→21:26)
[2018-03-24] MEDS: Folic Acid 1 MG TABLET GTUBE SCH (08:43)
[2018-03-24] MEDS: *HR* Ticagrelor 90 MG TABLET GTUBE SCH ×2 (08:43→21:25)
[2018-03-24] MEDS ORDERED: 0.9 % Sodium Chloride 1,000 ML ONE (08:45)
[2018-03-24] MEDS: amLODIPine 5 MG TABLET GTUBE SCH (09:17)
--- NOTE | 2018-03-24 09:26 | Pulmonology Progress Note ---
Date of Encounter: 03/24/18 Time of Encounter: 07:55 Assessment and Plan (1) Chronic respiratory failure with hypoxia Current Visit: Yes Status: Chronic Patient is not in any distress and he feels comfortable, continue vent support and lowered FiO2 to keep SPO2 above 88%. (2) Pleural effusion Current Visit: No Status: Chronic Patient with multiple comorbidities and recurrent transudative pleural effusion and I have explained to patient about Pleurx pleural catheter and I feel risk of infection and bleeding is higher in this patient comparing with other patients and since he is not in any distress and he does not feel needs to be drained, it is reasonable to monitor and continue his hemodialysis. Patient has evidence of bleeding from his skin tear and I am concerned with intervention such as a tunnel catheter might be a problem with bleeding. Recommend to have intervention if he has more distressed/larger pleural effusions. Please call for any questions. (3) End stage renal disease Current Visit: No Status: Chronic Subjective Principal diagnosis: Chronic respirator failure Interval history: Patient is asking to eat and denies any worsening of his breathing Objective PUL Vital signs: Last Vital Signs Temp 97.8 F 03/24/18 07:39 Pulse 70 03/24/18 07:39 Resp 20 03/24/18 07:39 BP 145/74 03/24/18 07:39 Pulse Ox 97 03/24/18 07:39 General appearance: no acute distress Eyes: nonicteric ENT: oropharynx dry Neck: other (trach) Effort: normal Auscultation: bilateral: diminished breath sounds Percussion: bilateral: dull Cardiovascular: murmur noted Gastrointestinal: normoactive bowel sounds, non-distended Integumentary: other (skin tear in the left upper ext and it is bleeding) Extremities: no cyanosis, edema normal mental status depressed Ventilator Settings Ventilator Settings: Ventilator Settings, Last 8 Hours Ventilator Tidal Volume 400 Setting Ventilator Respiratory Rate 12 Setting Actual Respiratory Rate 22 Positive End Expiratory 5 Pressure Peak Inspiratory Airway 10 Pressure Results - Laboratory Findings CBC and BMP: 03/24/18 03:55 03/24/18 03:55 Abnormal lab findings: Abnormal lab results WBC 11.9 K/mcL (4.3-11.1) H 03/24/18 03:55 RBC 2.46 M/mcL (4.19-5.50) L 03/24/18 03:55 Hgb 7.8 g/dL (12.9-16.9) L 03/24/18 03:55 Hct 23.8 % (37.5-50.1) L 03/24/18 03:55 RDW 19.0 % (11.5-14.5) H 03/24/18 03:55 Plt Count 464 K/mcL (140-400) H 03/24/18 03:55 Neutrophils # 9.4 K/mcL (1.6-8.9) H 03/24/18 03:55 VBG pH 7.47 pH Units (7.32-7.42) H 03/23/18 12:02 VBG pCO2 33 mmHg (41-51) L 03/23/18 12:02 VBG pO2 204 mmHg (25-50) H 03/23/18 12:02 Sodium 131 mEq/L (136-145) L 03/24/18 03:55 Potassium 5.2 mEq/L (3.5-5.1) H 03/24/18 03:55 BUN 103 mg/dL (6-20) H 03/24/18 03:55 Creatinine 2.94 mg/dL (0.70-1.30) H 03/24/18 03:55 Est GFR ( Amer) 27 (> 60) L 03/24/18 03:55 Est GFR (Non-Af Amer) 22 (> 60) L 03/24/18 03:55 BUN/Creatinine Ratio 35 (6-26) H 03/24/18 03:55 Glucose 257 mg/dL (70-105) H 03/24/18 03:55 POC Glucose 264 mg/dL (70-99) H 03/24/18 05:06 Calculated Osmolality 313 (280-300) H 03/24/18 03:55 Calcium 7.6 mg/dL (8.6-10.3) L 03/24/18 03:55 - Diagnostic Findings Chest x-ray: report reviewed, image reviewed - Clinical Findings Intake & Output: Intake & Output 03/23/18 03/24/18 03/24/18 23:59 07:59 15:59 Intake Total 570 / 570 200 / 200 Output Total 0 / 0 0 / 0 Balance 570 / 570 200 / 200 Weight 74.3 kg 74.2 kg Consult Discharge Plan - Plan Referrals: Paco Sheikh MD [Primary Care Provider] -
[2018-03-24] MEDS ORDERED: *HR* Heparin 10,000 UNIT/10 ML VIAL IV PRN (09:58)
--- NOTE | 2018-03-24 11:34 | Infectious Disease Consult ---
Date of Encounter: 03/24/18 Time of Encounter: 11:10 Assessment and Plan (1) Acute and chronic respiratory failure with hypoxia Status: Acute Assessment and plan: Likely secondary to fluid overloaded as seen on chest x-ray No obvious infection or consolidation seen to suggest pneumonia Patient currently not on any antibiotics We will obtain blood cultures 2, pro calcitonin, urinalysis for further evaluation If patient were to become septic, recommend starting colistin and ertapenem given his history of multidrug resistant organisms (2) Pleural effusion Status: Chronic Assessment and plan: Bilateral pleural effusions seen on chest x-ray Pulmonology consult, appreciate recommendations (3) Systolic CHF Status: Acute Assessment and plan: Echocardiogram obtained during last visit showed ejection fraction of 30% Diuresis and fluid management per primary Qualifiers: Heart failure chronicity: acute on chronic Qualified Code(s): I50.23 - Acute on chronic systolic (congestive) heart failure (4) Leukocytosis Status: Acute Assessment and plan: Patient's initial white count was 20.9, but this has resolved to 11.9 today He is currently on steroids as well Will obtain peripheral blood smear Qualifiers: Leukocytosis type: unspecified Qualified Code(s): D72.829 - Elevated white blood cell count, unspecified (5) Anemia Status: Chronic Qualifiers: Anemia type: unspecified type Qualified Code(s): D64.9 - Anemia, unspecified (6) ESRD on dialysis Status: Acute (7) Tracheostomy care Status: Acute Infectious Disease HPI - Data of Consult Patient: known to practice within the last 3 years Consult date: 03/24/18 Requesting Physician: Kendrick Salgado Primary Care Provider: Paco Sheikh MD - Consult Narrative Reason for consult: history of ESBL Klebsiella and MDR Acinetobacter pneumonia History of present illness: Mr. Landaverde is a 57 year old male who was admitted on 03/23 with shortness of breath in setting of hypoxemia and hypotension while undergoing dialysis. We are consulted today for leukocytosis after recent admission for pneumonia with ESBL Klebsiella and MDR Acinetobacter baumanii. Patient has past medical history of cardiomyopathy, CVA, diabetes, end-stage renal disease with a past surgical history of a tracheostomy and is unable to speak. He was undergoing hemodialysis yesterday morning and became hypoxemic and hypotensive and was transferred to [facility] and subsequently transferred to [facility]. He was normotensive and saturating in mid 90's upon arrival, and was non- tachycardic and afebrile. He did have a white count of 20.9 but lactic acid was 1.8. CXR revealed pulmonary edema and bilateral pleural effusion. Pulmonology was consulted for consideration of pleurex catheter but felt the risks outweighed the benefits at the time. He was not started on antibiotics and no blood cultures have been collected yet. He was recently admitted here last month on 02/21 also for shortness of breath. He was found to have multifocal pneumonia on CT and sputum culture was positive for SBL Klebsiella and MDR Acinetobacter baumanii. Infectious disease was consulted during this visit and he was prescribed 14 day course of Colistin and Ertapenem. He also had pleural effusion during this visit and underwent 3 thoracenteses, which fluid revealed transudative fluid. He was discharged on 03/08 to [facility] but was admitted the following day to [facility] for hypotension and hypoxemia and was discharged on 03/20. Today patient is currently undergoing hemodialysis and his blood pressure is well controlled. His white count has downtrended and is 11.9 this morning and he has remained afebrile and non-tachycardic during his stay so far. Patient shakes his head when asked if he was having any pain, and states his breathing feels about the same as his baseline. He did not report any fever, nausea, vomiting or diarrhea. Per RN, he had minimal secretions when suctioning this morning. CC: Kendrick Salgado Past Med Surg Social Fam HX - Past Medical History Medical history: cardiomyopathy, CVA, diabetes, dialysis, GERD, hyperlipidemia, hypertension, liver disease, renal disease, thyroid disease, other Additional medical history: ANEMIA Psychiatric history: anxiety - Past Surgical History Surgical History: orthopedic, other (Left femur rodding), tracheostomy, other ( Left upper extremity AV fistula) Additional surgical history: trach. gtube - Social History Smoking Status: Former smoker Alcohol use: none Drug use: none - Family History Mother Family Member Ethnicity: Non- Living Status: Hx Family Cardiac Disorders: Yes (CAD) Father Family Member Ethnicity: Non- Living Status: Hx Family Cardiac Disorders: Yes (HD) Brother Family Member Ethnicity: Non- Living Status: Hx Family Autoimmune Disorders: Yes (AIDS) Infectious Disease-CN:Meds Amlodipine Besylate 10 mg GTUBE DAILY 11/25/17 [History] Atorvastatin Calcium [Lipitor] 40 mg GTUBE DAILY 11/25/17 [History] Cyanocobalamin (B-12) [Vitamin B12] 1,000 mcg GTUBE DAILY 11/25/17 [History] Docusate [Colace] 50 mg GTUBE DAILY 11/25/17 [History] Folic Acid 1 mg GTUBE DAILY 11/25/17 [History] Levothyroxine Sodium [Synthroid] 300 mcg GTUBE DAILY 11/25/17 [History] Pantoprazole Sodium [Protonix] 40 mg GTUBE DAILY 11/25/17 [History] Sennosides/Docusate Sodium [Senna-S Tablet] 1 each GTUBE BID 11/25/17 [History] cloNIDine HCl [CloNIDine HCl] 0.1 mg GTUBE TID 11/25/17 [History] hydrOXYzine HCl [Hydroxyzine HCl] 25 mg GTUBE Q6H PRN 11/25/17 [History] Aspirin [Lo-Dose Aspirin EC] 81 mg GTUBE DAILY 02/21/18 [History] Carvedilol [Coreg] 25 mg GTUBE BID 02/21/18 [History] Renal Vitamin [Renal Caps Softgel] 1 mg GTUBE DAILY 02/21/18 [History] Ticagrelor [Brilinta] 90 mg GTUBE BID 02/21/18 [History] hydrALAZINE [HydrALAZINE] 50 mg PO Q6HR 02/21/18 [History] Ipratropium/Albuterol Neb [Duoneb] 3 ml IH [id number] PRN inhsol 03/06/18 [Rx] LORazepam [Ativan] 0.5 mg GTUBE Q6H PRN 3 Days #10 03/06/18 [Rx] Oxycodone HCl [Oxaydo] 5 mg GTUBE Q6H PRN 5 Days #10 03/06/18 [Rx] Insulin Glargine,Hum.rec.anlog [Lantus Solostar] 15 unit SQ QAM 03/23/18 [ History] Insulin Regular Human [HumuLIN R] 0 - 10 unit SQ TIDWM 03/23/18 [History] predniSONE [PredniSONE] See Taper PO DAILY 03/23/18 [History] 3 Allergy/AdvReac Type Severity Reaction Status Date / Time No Known Allergies Allergy Verified 03/23/18 12:09 ROS unobtainable: other (due to tracheostomy tube) Exam - Constitutional Vitals: Temp Pulse Resp BP Pulse Ox 97.8 F 70 20 145/74 97 03/24/18 07:39 03/24/18 07:39 03/24/18 07:39 03/24/18 07:39 03/24/18 07:39 General appearance: cooperative, no acute distress, no febrile - Head Head exam: Present: atraumatic, normocephalic - Respiratory Respiratory exam: Present: decreased breath sounds. Absent: accessory muscle use, respiratory distress Additional comments: tracheostomy in place - Cardiovascular Cardiovascular exam: Present: RRR. Absent: bradycardia, irregular rhythm, tachycardia - GI/Abdominal GI/Abdominal exam: Present: normal bowel sounds, soft. Absent: tenderness - Extremities Exam Extremities exam: Present: pedal edema Additional comments: left AV fistula Infectious Disease CN: Results - Labs CBC & Chem 7: 03/24/18 03:55 03/24/18 03:55 Consult Discharge Plan - Plan Referrals: Paco Sheikh MD [Primary Care Provider] - (This patient is from [facility], [facility] no PCP appointment needed) - Attending Attestation I examined this patient and my medical decision-making was reviewed with the Resident Physician. I agree with the documented findings, disposition and treatment plan as described except to the extent set forth below. This is an addendum to original report dictated by resident physician. Please refer to residents note for full detail. Assessment and plan: Acute and chronic respiratory failure with hypoxia Pleural effusion Systolic CHF Leukocytosis Anemia End-stage renal disease on hemodialysis His tracheostomy care Recommendations: Patient well-known to my service and had tracheobronchitis with Acinetobacter ball mind that was multidrug resistant and ESBL Proteus in the past. I treated him for 2 weeks with IV colistin ertapenem. Patient was discharged to [facility] and in day or 2 was transferred to [place] where he had another 10 day hospital stay. Records are not available. At this point patient appears stable anigbo have an obvious pneumonia. He probably is colonized. Agree with droplet and contact precautions. I will hold off antibiotics for now until further notice. If patients is having any signs of sepsis recommend starting antibiotics colistin and ertapenem in the meantime we are think we should just watch.
--- NOTE | 2018-03-24 12:49 | Internal Med Progress Note ---
Date of Encounter: 03/24/18 Time of Encounter: 12:44 - Assessment and plan (1) Pleural effusion Current Visit: No Status: Chronic Assessment and plan: Patient with recurrent pleural effusions. Pulmonary consulted for consideration of Pleurx catheter but felt risk outweighed the benefit at this time. Advised to monitor continuously and continue routine hemodialysis (2) Leukocytosis Current Visit: No Status: Acute Assessment and plan: Patient with elevated white blood cell count but not trending down. Patient with history of sputum culture which was positive for Acinetobacter and Klebsiella pneumonia ESBL and required Colistin and etapenem last visit in January 2018. ID on board and appreciate recommendations. Chest x-ray ordered Qualifiers: Leukocytosis type: unspecified Qualified Code(s): D72.829 - Elevated white blood cell count, unspecified (3) Tracheostomy in place Current Visit: No Status: Chronic Assessment and plan: Pulmonologists on board and is started ventilatory management. Decreased FiO2 40%. Pulmonology following and appreciate recommendations (4) ESRD on dialysis Current Visit: No Status: Acute Assessment and plan: SD done today. Final Inspection Supervisor on board. Continue routine hemodialysis that will help and reducing volume overload and pleural effusion. (5) CHF (congestive heart failure) Current Visit: No Status: Chronic Assessment and plan: Severe cardiomyopathy with EF 30%. EKG to get volume overloaded due to underlying CK D as well. Continue home medications Qualifiers: Heart failure type: combined systolic and diastolic Heart failure chronicity: acute on chronic Qualified Code(s): I50.43 - Acute on chronic combined systolic (congestive) and diastolic (congestive) heart failure (6) HTN (hypertension) Current Visit: No Status: Chronic Assessment and plan: Continue home medications Qualifiers: Hypertension type: essential hypertension Qualified Code(s): I10 - Essential (primary) hypertension (7) HLD (hyperlipidemia) Current Visit: No Status: Chronic Assessment and plan: Continue home medications Qualifiers: Hyperlipidemia type: unspecified Qualified Code(s): E78.5 - Hyperlipidemia , unspecified (8) Anemia in CKD (chronic kidney disease) Current Visit: No Status: Acute Assessment and plan: Chronic anemia. Hemoglobin stable; continue to monitor Qualifiers: Chronic kidney disease stage: on chronic dialysis Qualified Code(s): N18.6 - End stage renal disease; D63.1 - Anemia in chronic kidney disease; Z99.2 - Dependence on renal dialysis (9) DVT prophylaxis Current Visit: No Status: Acute Assessment and plan: Subcutaneous heparin - Time Spent With Patient Total time spent is greater than 50% in coordination of care (as documented) at patient's floor/unit and/or counseling patient: 25 - 35 minutes - Subjective Interval history: Patient lying comfortably on bed. Ventilator machine with trach. Denies fever, vomiting, diarrhea, abdominal pain, headache Review of the lab-trending down white count - Constitutional Vitals: Temp Pulse Resp BP Pulse Ox 97.2 F L 70 17 99/54 97 03/24/18 10:10 03/24/18 07:39 03/24/18 10:10 03/24/18 12:25 03/24/18 07:39 General appearance: Present: no acute distress Exam: General appearance: No acute distress, A 2 oriented, ventilatory machine with trach Head exam: Atraumatic Eye exam: EOMI, PERRLA ENT exam: Moist oral mucosa Neck nontender, supple Respiratory exam: Decreased breath sound bibasilar with few rales Cardiovascular exam: Regular rate and rhythm, no systolic murmur Abdominal exam: Soft, nontender, nondistended, positive bowel sounds Extremities exam: No calf tenderness, trace pedal edema Skin-, warm, dry, intact Neurological exam: Grossly intact. CN II-XII intact, no focal deficits. No facial droop. Internal Medicine: Result - Labs CBC & Chem 7: 03/24/18 03:55 03/24/18 03:55 Labs: Short CBC 03/23/18 03/24/18 Range/Units 12:48 03:55 WBC 17.9 H 11.9 H (4.3-11.1) K/mcL Hgb 8.6 L 7.8 L (12.9-16.9) g/dL Hct 25.9 L 23.8 L (37.5-50.1) % Plt Count 488 H 464 H (140-400) K/mcL Neutrophils # 16.9 H 9.4 H (1.6-8.9) K/mcL BMP 03/23/18 03/24/18 12:48 03:55 Sodium 132 L 131 L Potassium 5.2 H 5.2 H Chloride 98 98 Carbon Dioxide 23 23 BUN 92 H 103 H Creatinine 2.74 H 2.94 H Glucose 353 H 257 H Calcium 8.0 L 7.6 L Consult Discharge Plan - Plan Referrals: Paco Sheikh MD [Primary Care Provider] - (This patient is from [facility] no PCP appointment needed)
[2018-03-24] MEDS: *HR* Dextrose 50 % in Water (Syg) 50 ML SYRINGE IVP PRN ×2 (17:09→20:40)
[2018-03-24] MEDS: D5% in Water 1,000 ML IVC PRN (20:45)
[2018-03-24] MEDS: Insulin LISPRO 300 UNITS/3 ML VIAL SQ SCH (21:26)
[2018-03-24] MEDS: *HR* OxyCODONE Immed Rel 5 MG TABLET GTUBE PRN (21:29)
[2018-03-24] MEDS: *HR* LORazepam 0.5 MG TABLET GTUBE PRN (21:29)
[2018-03-25] MEDS: Insulin LISPRO 300 UNITS/3 ML VIAL SQ SCH ×5 (00:12→23:47)
[2018-03-25] MEDS: hydrALAZINE 25 MG TABLET GTUBE SCH ×5 (00:17→23:47)
[2018-03-25] MEDS: *HR* LORazepam 0.5 MG TABLET GTUBE PRN ×3 (04:04→20:59)
[2018-03-25] MEDS: *HR* OxyCODONE Immed Rel 5 MG TABLET GTUBE PRN ×2 (04:04→20:59)
[2018-03-25] MEDS: D5% in Water 1,000 ML IVC PRN (06:46)
[2018-03-25] MEDS: Insulin DETEMIR 100 UNIT/ML X5UNITS SQ SCH (08:18)
[2018-03-25] MEDS: *HR* Ticagrelor 90 MG TABLET GTUBE SCH ×2 (08:18→20:59)
[2018-03-25] MEDS: amLODIPine 5 MG TABLET GTUBE SCH (08:19)
[2018-03-25] MEDS: Sennosides/Docusate Sodium TABLET GTUBE SCH ×2 (08:19→20:59)
[2018-03-25] MEDS: Cyanocobalamin (B-12) 1,000 MCG TABLET GTUBE SCH (08:19)
[2018-03-25] MEDS: Folic Acid 1 MG TABLET GTUBE SCH (08:19)
[2018-03-25] MEDS: predniSONE 10 MG TABLET PO SCH (08:19)
[2018-03-25] MEDS: cloNIDine HCl 0.1 MG TABLET GTUBE SCH ×3 (08:19→20:58)
[2018-03-25] MEDS: Ipratropium/Albuterol Neb 3 ML IH PRN (13:45)
--- NOTE | 2018-03-25 14:45 | Internal Med Progress Note ---
Date of Encounter: 03/25/18 Time of Encounter: 14:29 - Assessment and plan (1) Pleural effusion Current Visit: No Status: Chronic Assessment and plan: Patient with recurrent pleural effusions. Pulmonary consulted for consideration of Pleurx catheter but felt risk outweighed the benefit at this time and Advised to continue routine hemodialysis and monitor closely. Continue to manage ventilator ventilator by records tech. repeat cxr tomorrow (2) Leukocytosis Current Visit: No Status: Acute Assessment and plan: Patient with elevated white blood cell count but now trending down. Patient with history of sputum culture which was positive for Acinetobacter and Klebsiella pneumonia ESBL and required Colistin and etapenem last visit in January 2018. ID on board and does not appreciate obvious infection or consolidation to suggest pneumonia. Patient currently not on any antibiotics. Blood culture 2 ordered and no growth yet. ID recommended starting colistin and ertapenem given the history of multidrug-resistant organism if any concern of sepsis. Qualifiers: Leukocytosis type: unspecified Qualified Code(s): D72.829 - Elevated white blood cell count, unspecified (3) Tracheostomy in place Current Visit: No Status: Chronic Assessment and plan: Pulmonologists on board during ventilatory management. Decreased FiO2 40%. Pulmonology following and appreciate recommendations (4) ESRD on dialysis Current Visit: No Status: Acute Assessment and plan: Patients Transporter on board. Continue routine hemodialysis that will help in reducing volume overload and pleural effusion. (5) CHF (congestive heart failure) Current Visit: No Status: Chronic Assessment and plan: Severe cardiomyopathy with EF 30%. easy to get volume overloaded due to underlying CK D as well. Continue home medications Qualifiers: Heart failure type: combined systolic and diastolic Heart failure chronicity: acute on chronic Qualified Code(s): I50.43 - Acute on chronic combined systolic (congestive) and diastolic (congestive) heart failure (6) HTN (hypertension) Current Visit: No Status: Chronic Assessment and plan: Continue home medications Qualifiers: Hypertension type: essential hypertension Qualified Code(s): I10 - Essential (primary) hypertension (7) HLD (hyperlipidemia) Current Visit: No Status: Chronic Assessment and plan: Continue home medications Qualifiers: Hyperlipidemia type: unspecified Qualified Code(s): E78.5 - Hyperlipidemia , unspecified (8) Anemia in CKD (chronic kidney disease) Current Visit: No Status: Acute Assessment and plan: Chronic anemia. Hemoglobin stable; continue to monitor Qualifiers: Chronic kidney disease stage: on chronic dialysis Qualified Code(s): N18.6 - End stage renal disease; D63.1 - Anemia in chronic kidney disease; Z99.2 - Dependence on renal dialysis (9) Dysphagia Current Visit: Yes Status: Acute Assessment and plan: High risk for aspiration. A speech evaluation ordered. Will also consult civil engineering designer. Continue peg feeding Qualifiers: Dysphagia type: unspecified Qualified Code(s): R13.10 - Dysphagia, unspecified (10) DVT prophylaxis Current Visit: No Status: Acute Assessment and plan: Subcutaneous heparin, SCDs - Time Spent With Patient Total time spent is greater than 50% in coordination of care (as documented) at patient's floor/unit and/or counseling patient: 25 - 35 minutes - Subjective Interval history: Patient lying comfortably on bed. Ventilator machine with trach. Feeding through PEG tube in continuation. Patient is requesting to eat by mouth but I have concern about aspiration. Denies fever, vomiting, diarrhea, abdominal pain, headache - Constitutional Vitals: Temp Pulse Resp BP Pulse Ox 97.9 F 57 18 143/91 100 03/25/18 12:00 03/25/18 12:00 03/25/18 13:45 03/25/18 12:27 03/25/18 13:45 General appearance: Present: no acute distress Exam: General appearance: No acute distress, A&O X 3, ventilatory machine with tach, Head exam: Atraumatic Eye exam: EOMI, PERRLA ENT exam: Moist oral mucosa Neck nontender, supple Respiratory exam:Decreased breath sound bibasilar with few rales Cardiovascular exam: Regular rate and rhythm, no systolic murmur Abdominal exam: Soft, nontender, nondistended, positive bowel sounds. PEG tube in place Extremities exam: No calf tenderness,+1 pedal edema left side Skin- warm, dry, intact Neurological exam: Alert, awake, oriented 3, CN II-XII intact, no focal deficits. No facial droop. Internal Medicine: Result - Labs CBC & Chem 7: 03/24/18 03:55 03/24/18 03:55 - Impressions Impressions Chest X-Ray 03/24/18 15:40 IMPRESSION: Persistent moderate pleural effusions and associated lung base opacities. Mild pulmonary edema. D/ / 03/24/2018 21:57:23 Izaiah Fernandes MD / nitesh Interpreting Provider: Izaiah Fernandes MD Consult Discharge Plan - Plan Referrals: Paco Sheikh MD [Primary Care Provider] - (This patient is from [facility] no PCP appointment needed)
[2018-03-25] MEDS: *HR* Dextrose 50 % in Water (Syg) 50 ML SYRINGE IVP PRN (18:56)
[2018-03-26] MEDS: D5% in Water 1,000 ML IVC PRN (01:30)
[2018-03-26 02:15] LABS: Basophils % 0.1 %; Eosinophils # 0.8 K/mcL (0.0-0.6); Eosinophils % 7.4 %; Hematocrit 24.8 % (37.5-50.1); Hemoglobin 8.2 g/dL (12.9-16.9); Immature Granulocytes % 0.4 % (0-4); Lymphocytes # 1.2 K/mcL (0.6-4.6); Lymphocytes % 10.5 %; Mean Corpuscular HGB Conc 33.1 g/dL (31.6-35.5); Mean Corpuscular Hemoglobin 31.8 pg (28.0-33.3); Mean Corpuscular Volume 96.1 fL (83.0-100.0); Mean Platelet Volume 10.1 fL (9.4-12.4); Monocytes # 0.7 K/mcL (0.0-1.3); Monocytes % 6.2 %; Neutrophils # 8.6 K/mcL (1.6-8.9); Platelet Count 420 K/mcL (140-400); Red Blood Count 2.58 M/mcL (4.19-5.50); Red Cell Distribution Width 18.9 % (11.5-14.5); Segmented Neutrophils % 75.4 %
[2018-03-26 02:33] LABS: Potassium 4.4 mEq/L (3.5-5.1)
[2018-03-26] MEDS: *HR* LORazepam 0.5 MG TABLET GTUBE PRN ×3 (03:18→19:53)
[2018-03-26] MEDS: *HR* OxyCODONE Immed Rel 5 MG TABLET GTUBE PRN ×3 (03:18→19:53)
[2018-03-26] MEDS: Ipratropium/Albuterol Neb 3 ML IH PRN (03:20)
[2018-03-26] MEDS: Insulin LISPRO 300 UNITS/3 ML VIAL SQ SCH ×4 (05:20→23:00)
[2018-03-26] MEDS: hydrALAZINE 25 MG TABLET GTUBE SCH ×4 (05:20→23:00)
[2018-03-26] MEDS: Folic Acid 1 MG TABLET GTUBE SCH (09:38)
[2018-03-26] MEDS: Sennosides/Docusate Sodium TABLET GTUBE SCH ×2 (09:38→19:48)
[2018-03-26] MEDS: cloNIDine HCl 0.1 MG TABLET GTUBE SCH ×3 (09:39→19:53)
[2018-03-26] MEDS: Cyanocobalamin (B-12) 1,000 MCG TABLET GTUBE SCH (09:39)
[2018-03-26] MEDS: amLODIPine 5 MG TABLET GTUBE SCH (09:39)
[2018-03-26] MEDS: predniSONE 10 MG TABLET PO SCH (09:39)
[2018-03-26] MEDS: *HR* Ticagrelor 90 MG TABLET GTUBE SCH ×2 (09:39→19:53)
[2018-03-26] MEDS: Insulin DETEMIR 100 UNIT/ML X5UNITS SQ SCH ×2 (10:08→10:51)
[2018-03-26] MEDS ORDERED: Ondansetron 4 MG/2 ML VIAL IVP ONE (10:13)
[2018-03-26 11:11] LABS: Enterococcus by PCR Not Detected (Not Detect); Staphylococcus aureus by PCR Not Detected (Not Detect); Streptococcus agalactiae(B)PCR Not Detected (Not Detect); Streptococcus by PCR Not Detected (Not Detect); Streptococcus pneumoniae PCR Not Detected (Not Detect); blaKPC Carbapenem-Resist Gene Not Detected (Not Detect)
[2018-03-26 11:12] LABS: Acinetobacter baumannii by PCR Not Detected (Not Detect); Candida albicans by PCR Not Detected (Not Detect); Candida glabrata by PCR Not Detected (Not Detect); Candida krusei by PCR Not Detected (Not Detect); Candida parapsilosis by PCR Not Detected (Not Detect); Candida tropicalis by PCR Not Detected (Not Detect); Escherichia coli by PCR Not Detected (Not Detect); Klebsiella oxytoca by PCR Not Detected (Not Detect); Klebsiella pneumoniae by PCR ***DETECTED*** (Not Detect); Pseudomonas aeruginosa by PCR Not Detected (Not Detect); Serratia marcescens by PCR Not Detected (Not Detect); Streptococcus pyogenes (A) PCR Not Detected (Not Detect)
--- NOTE | 2018-03-26 11:37 | Internal Med Progress Note ---
Date of Encounter: 03/26/18 Time of Encounter: 11:34 - Assessment and plan (1) Bacteremia due to Enterobacter species Current Visit: Yes Status: Acute Assessment and plan: Gram-negative Enterobacter and blood culture. Patient has history of MDR in previous Saline Escherichia coli and Acinetobacter infection. IV on board and recommended to start ertapenem and colistin based on previous sensitivity report. Will repeat blood culture tomorrow (2) Pleural effusion Current Visit: No Status: Chronic Assessment and plan: Patient with recurrent pleural effusions. Pulmonary consulted for consideration of Pleurx catheter but felt risk outweighed the benefit at this time and Advised to continue routine hemodialysis and monitor closely. Continue to manage ventilator ventilator by cashier host/hostess. repeat cxr revealed with no significant change (3) Leukocytosis Current Visit: No Status: Acute Assessment and plan: Patient with elevated white blood cell count but now trending down. Patient with history of sputum culture which was positive for Acinetobacter and Klebsiella pneumonia ESBL and required Colistin and etapenem last visit in January 2018. ID on board and does not appreciate obvious infection or consolidation to suggest pneumonia therefore initially no antibiotic is started. But now blood culture positive for Enterobacter therefore heart up and him and colistin is started. Will repeat blood culture tomorrow. ID on board. Qualifiers: Leukocytosis type: unspecified Qualified Code(s): D72.829 - Elevated white blood cell count, unspecified (4) Tracheostomy in place Current Visit: No Status: Chronic Assessment and plan: Pulmonologists on board during ventilatory management. I talked to on-call pulmonologists to follow the patient and further recommendation. Appreciate their help in management. (5) ESRD on dialysis Current Visit: No Status: Acute Assessment and plan: Nurse Discharge on board. Continue routine hemodialysis that will help in reducing volume overload and pleural effusion as per kinder teacher advice. Patient gets hemodialysis Tuesday, and Tuesday routinely (6) CHF (congestive heart failure) Current Visit: No Status: Chronic Assessment and plan: Severe cardiomyopathy with EF 30%. easy to get volume overloaded due to underlying CK D as well. Continue home medications Qualifiers: Heart failure type: combined systolic and diastolic Heart failure chronicity: acute on chronic Qualified Code(s): I50.43 - Acute on chronic combined systolic (congestive) and diastolic (congestive) heart failure (7) HTN (hypertension) Current Visit: No Status: Chronic Assessment and plan: Continue home medications Qualifiers: Hypertension type: essential hypertension Qualified Code(s): I10 - Essential (primary) hypertension (8) Anemia in CKD (chronic kidney disease) Current Visit: No Status: Acute Qualifiers: Chronic kidney disease stage: on chronic dialysis Qualified Code(s): N18.6 - End stage renal disease; D63.1 - Anemia in chronic kidney disease; Z99.2 - Dependence on renal dialysis (9) Dysphagia Current Visit: Yes Status: Acute Assessment and plan: High risk for aspiration. A speech evaluation and pivot end polisher consultation ordered but not done yet due to weekend. Continue peg feeding Qualifiers: Dysphagia type: unspecified Qualified Code(s): R13.10 - Dysphagia, unspecified (10) Diabetes mellitus Current Visit: Yes Status: Acute Assessment and plan: Patient is getting hypoglycemic event at the evening for last 2 days. Therefore long-acting insulin decrease to 50% of current dose started Levemir 8 units subcutaneous in the morning. If patient is still has hypoglycemic event then will hold Levemir. Continue sliding scale. Qualifiers: Diabetes mellitus type: type 2 Diabetes mellitus utility pipe layer insulin use: with custodial use Diabetes mellitus complication status: with kidney complications Chronic kidney disease stage: on chronic dialysis Qualified Code(s): E11.22 - Type 2 diabetes mellitus with diabetic chronic kidney disease ; N18.6 - End stage renal disease; Z79.4 - senior care (current) use of insulin; Z99.2 - Dependence on renal dialysis (11) DVT prophylaxis Current Visit: No Status: Acute Assessment and plan: Subcutaneous heparin, SCDs - Time Spent With Patient Total time spent is greater than 50% in coordination of care (as documented) at patient's floor/unit and/or counseling patient: Greater than 35 minutes (More than 35 minute inpatient care. Communication with nursing is stopped, patient, pulmonologists, ID specialist) - Subjective Interval history: Patient lying comfortably on bed. Ventilator machine with trach on FiO2 40%. Feeding through PEG tube in continuation. Patient is requesting to eat by mouth but I have concern about aspiration. No other complaint. Denies fever, vomiting, diarrhea, abdominal pain, headache - Constitutional Vitals: Temp Pulse Resp BP Pulse Ox 97.9 F 52 18 120/64 97 03/26/18 11:22 03/26/18 11:22 03/26/18 11:22 03/26/18 11:22 03/26/18 11:22 General appearance: Present: no acute distress Exam: General appearance: No acute distress, A&O X 3, ventilator machine with trach Head exam: Atraumatic Eye exam: EOMI, PERRLA ENT exam: Moist oral mucosa Neck nontender, supple Respiratory exam: Decreased breath sounds bibasilar with few rales Cardiovascular exam: Regular rate and rhythm, no systolic murmur Abdominal exam: Soft, nontender, nondistended, positive bowel sounds . PEG tube in place Extremities exam: No calf tenderness, no pedal edema Present: Skin-no rash, warm, dry, intact Neurological exam: Alert, awake, oriented 3, CN II-XII intact, no focal deficits. No facial droop. Internal Medicine: Result - Labs CBC & Chem 7: 03/26/18 02:01 03/26/18 02:01 Labs: Short CBC 03/26/18 Range/Units 02:01 WBC 11.3 H (4.3-11.1) K/mcL Hgb 8.2 L (12.9-16.9) g/dL Hct 24.8 L (37.5-50.1) % Plt Count 420 H (140-400) K/mcL Neutrophils # 8.6 (1.6-8.9) K/mcL BMP 03/26/18 02:01 Sodium 126 L Potassium 4.4 Chloride 91 L Carbon Dioxide 28 BUN 73 H Creatinine 2.51 H Glucose 154 H Calcium 7.0 L - Impressions Impressions Chest X-Ray 03/26/18 09:00 IMPRESSION: No significant change in the appearance of the chest. D/ / Frank Huang MD / Frank Huang MD Interpreting Provider: Frank Huang MD - VTE Documentation of Mechanical Device: Intermittent pneumatic compression device Consult Discharge Plan - Plan Referrals: Paco Sheikh MD [Primary Care Provider] - (This patient is from [facility] no PCP appointment needed)
[2018-03-26] MEDS ORDERED: Colistin (Colistimethate) 150 MG in 0.9 % Sodium Chloride 50 ML IVPB SCH (12:00)
[2018-03-26] MEDS ORDERED: Ertapenem 1,000 MG in 0.9 % Sodium Chloride Mini Bag 100 ML IVPB SCH ×2 (12:00→13:30)
[2018-03-26] MEDS: *HR* Dextrose 50 % in Water (Syg) 50 ML SYRINGE IVP PRN (19:53)
[2018-03-27] MEDS: *HR* LORazepam 0.5 MG TABLET GTUBE PRN ×2 (01:55→16:10)
[2018-03-27] MEDS: *HR* OxyCODONE Immed Rel 5 MG TABLET GTUBE PRN ×2 (01:55→16:05)
[2018-03-27] MEDS: Ipratropium/Albuterol Neb 3 ML IH PRN (03:13)
[2018-03-27] MEDS: Insulin LISPRO 300 UNITS/3 ML VIAL SQ SCH ×3 (05:30→18:09)
[2018-03-27] MEDS: hydrALAZINE 25 MG TABLET GTUBE SCH ×3 (05:32→18:08)
[2018-03-27] MEDS: Folic Acid 1 MG TABLET GTUBE SCH (08:22)
[2018-03-27] MEDS: cloNIDine HCl 0.1 MG TABLET GTUBE SCH ×3 (08:22→20:38)
[2018-03-27] MEDS: amLODIPine 5 MG TABLET GTUBE SCH (08:22)
[2018-03-27] MEDS: *HR* Ticagrelor 90 MG TABLET GTUBE SCH ×2 (08:22→20:38)
[2018-03-27] MEDS: predniSONE 10 MG TABLET PO SCH (08:23)
[2018-03-27] MEDS: Sennosides/Docusate Sodium TABLET GTUBE SCH ×2 (08:23→20:38)
[2018-03-27] MEDS: Insulin DETEMIR 100 UNIT/ML X5UNITS SQ SCH (08:24)
[2018-03-27] MEDS: Cyanocobalamin (B-12) 1,000 MCG TABLET GTUBE SCH (08:24)
[2018-03-27] MEDS ORDERED: 0.9 % Sodium Chloride 1,000 ML ONE (08:29)
--- NOTE | 2018-03-27 10:09 | Infectious Disease Progress No ---
Date of Encounter: 03/27/18 Time of Encounter: 10:07 - Assessment and Plan (1) Bacteremia due to Klebsiella pneumoniae Current Visit: Yes Status: Acute 1 out of 2 blood cultures positive for GNR with PCR identifying as Klebsiella Source likely pneumonia Patient did have sputum growing ESBL Klebsiella during last admission Agree with continuing patient on Colistin and Ertanepenen given recent MDR organisms Await final culture results prior to de-escalation Will obtain repeat cultures Treatment duration based on clinical picture, but likely minimum of 2 weeks (2) HCAP (healthcare-associated pneumonia) Current Visit: No Status: Acute CXR demonstrated bibasilar opacities Given patient had ESBL Klebsiella and MDR Acinetobacter in previous sputum, continue on Colistin and Ertapenem Await repeat culture results (3) Acute and chronic respiratory failure with hypoxia Current Visit: No Status: Acute Likely secondary to fluid overloaded as seen on chest x-ray CXR did demonstrate bibasilar opacities Continue tracheostomy and supportive care (4) Pleural effusion Current Visit: No Status: Chronic (5) Systolic CHF Current Visit: Yes Status: Acute Qualifiers: Heart failure chronicity: acute on chronic Qualified Code(s): I50.23 - Acute on chronic systolic (congestive) heart failure (6) Leukocytosis Current Visit: No Status: Acute Qualifiers: Leukocytosis type: unspecified Qualified Code(s): D72.829 - Elevated white blood cell count, unspecified (7) Anemia Current Visit: No Status: Chronic Qualifiers: Anemia type: unspecified type Qualified Code(s): D64.9 - Anemia, unspecified (8) ESRD on dialysis Current Visit: No Status: Acute (9) Tracheostomy care Current Visit: No Status: Acute - Subjective Interval history: Pt seen and examined. He is awake and alert this morning. He is non-verbal sp tracheostomy but shakes his head when asked when asked if he was in any pain or difficulty breathing. He did not report any fever, chills, nausea, vomiting. States he is hungry and wants something to eat by mouth. Infect Dis PN-Objective Data - Labs CBC & Chem 7: 03/27/18 11:07 03/27/18 11:07 Labs: Laboratory Results - last 24 hr 03/24/18 03/26/18 03/26/18 13:57 00:03 04:30 POC Glucose 123 H 203 H A. baumannii (PCR) Not Detected Tomasa albicans (PCR) Not Detected C. glabrata (PCR) Not Detected C. krusei (PCR) Not Detected C. parapsilosis (PCR) Not Detected C. tropicalis (PCR) Not Detected Enterobacteriac sp PCR DETECTED A E. cloacae complex PCR Not Detected Enterococcus sp PCR Not Detected E. coli (PCR) Not Detected H. influenzae (PCR) Not Detected Klebsiella oxytoca PCR Not Detected Klebsiella pneumoniae DETECTED A List. monocytogenes PCR Not Detected N. meningitidis (PCR) Not Detected Proteus species (PCR) Not Detected Serratia marcescens PCR Not Detected Staphylococcus sp PCR Not Detected Staph aureus (PCR) Not Detected mecA-Methicil Res Gene N/A Streptococcus sp PCR Not Detected Group A Strep DNA Not Detected Group B Strep (PCR) Not Detected Strep pneumoniae (PCR) Not Detected P. aeruginosa (PCR) Not Detected Joel/B-Vanco Res Genes N/A KPC (blaKPC) Detect PCR Not Detected 03/26/18 03/26/18 03/26/18 07:28 11:20 17:34 POC Glucose 269 H 307 H 111 H A. baumannii (PCR) Tomasa albicans (PCR) C. glabrata (PCR) C. krusei (PCR) C. parapsilosis (PCR) C. tropicalis (PCR) Enterobacteriac sp PCR E. cloacae complex PCR Enterococcus sp PCR E. coli (PCR) H. influenzae (PCR) Klebsiella oxytoca PCR Klebsiella pneumoniae List. monocytogenes PCR N. meningitidis (PCR) Proteus species (PCR) Serratia marcescens PCR Staphylococcus sp PCR Staph aureus (PCR) mecA-Methicil Res Gene Streptococcus sp PCR Group A Strep DNA Group B Strep (PCR) Strep pneumoniae (PCR) P. aeruginosa (PCR) Joel/B-Vanco Res Genes KPC (blaKPC) Detect PCR 03/26/18 03/26/18 19:48 23:53 POC Glucose 65 L 76 A. baumannii (PCR) Tomasa albicans (PCR) C. glabrata (PCR) C. krusei (PCR) C. parapsilosis (PCR) C. tropicalis (PCR) Enterobacteriac sp PCR E. cloacae complex PCR Enterococcus sp PCR E. coli (PCR) H. influenzae (PCR) Klebsiella oxytoca PCR Klebsiella pneumoniae List. monocytogenes PCR N. meningitidis (PCR) Proteus species (PCR) Serratia marcescens PCR Staphylococcus sp PCR Staph aureus (PCR) mecA-Methicil Res Gene Streptococcus sp PCR Group A Strep DNA Group B Strep (PCR) Strep pneumoniae (PCR) P. aeruginosa (PCR) Joel/B-Vanco Res Genes KPC (blaKPC) Detect PCR Cultures: Cultures 03/24/18 13:57 Blood Culture - Preliminary Peripheral Venipuncture Gram Negative Anatoliy 03/24/18 13:59 Blood Culture - Preliminary Peripheral Venipuncture Culture is incubating and being continuously monitored for growth. Final report to follow. Serology 03/24/18 Range/Units 13:57 A. baumannii (PCR) Not Detected (Not Detect) Tomasa albicans (PCR) Not Detected (Not Detect) C. glabrata (PCR) Not Detected (Not Detect) C. krusei (PCR) Not Detected (Not Detect) C. parapsilosis (PCR) Not Detected (Not Detect) C. tropicalis (PCR) Not Detected (Not Detect) Enterobacteriac sp PCR DETECTED A (Not Detect) E. cloacae complex PCR Not Detected (Not Detect) Enterococcus sp PCR Not Detected (Not Detect) E. coli (PCR) Not Detected (Not Detect) H. influenzae (PCR) Not Detected (Not Detect) Klebsiella oxytoca PCR Not Detected (Not Detect) Klebsiella pneumoniae DETECTED A (Not Detect) List. monocytogenes PCR Not Detected (Not Detect) N. meningitidis (PCR) Not Detected (Not Detect) Proteus species (PCR) Not Detected (Not Detect) Serratia marcescens PCR Not Detected (Not Detect) Staphylococcus sp PCR Not Detected (Not Detect) Staph aureus (PCR) Not Detected (Not Detect) mecA-Methicil Res Gene N/A (Not Detect) Streptococcus sp PCR Not Detected (Not Detect) Group A Strep DNA Not Detected (Not Detect) Group B Strep (PCR) Not Detected (Not Detect) Strep pneumoniae (PCR) Not Detected (Not Detect) P. aeruginosa (PCR) Not Detected (Not Detect) Joel/B-Vanco Res Genes N/A (Not Detect) KPC (blaKPC) Detect PCR Not Detected (Not Detect) Exam - Constitutional Vitals: Temp Pulse Resp BP Pulse Ox 97.8 F 57 18 135/69 97 03/27/18 06:46 03/27/18 06:46 03/27/18 07:34 03/27/18 06:46 03/27/18 07:34 General appearance: cooperative, no acute distress, no febrile - Head Head exam: Present: atraumatic, normocephalic - Respiratory Respiratory exam: Present: rales (bases). Absent: decreased breath sounds, respiratory distress, rhonchi - Cardiovascular Cardiovascular exam: Present: RRR. Absent: irregular rhythm, systolic murmur, tachycardia - GI/Abdominal GI/Abdominal exam: Present: normal bowel sounds, soft. Absent: tenderness - Extremities Exam Extremities exam: Present: pedal edema - VTE Documentation of Mechanical Device: Intermittent pneumatic compression device Consult Discharge Plan - Plan Referrals: Paco Sheikh MD [Primary Care Provider] - (This patient is from [facility] no PCP appointment needed) - Attending Attestation I examined this patient and my medical decision-making was reviewed with the Resident Physician. I agree with the documented findings, disposition and treatment plan as described except to the extent set forth below.
[2018-03-27] MEDS ORDERED: 0.9 % Sodium Chloride 250 ML IVC PRN (10:42)
[2018-03-27] MEDS ORDERED: *HR* Heparin 10,000 UNIT/10 ML VIAL IV PRN (10:42)
[2018-03-27] MEDS ORDERED: 0.9 % Sodium Chloride 1,000 ML PRIME SCH (10:45)
[2018-03-27 11:21] LABS: Hematocrit 26.4 % (37.5-50.1); Hemoglobin 8.8 g/dL (12.9-16.9); Mean Corpuscular HGB Conc 33.3 g/dL (31.6-35.5); Mean Corpuscular Hemoglobin 31.9 pg (28.0-33.3); Mean Corpuscular Volume 95.7 fL (83.0-100.0); Mean Platelet Volume 10.4 fL (9.4-12.4); Platelet Count 428 K/mcL (140-400); Red Blood Count 2.76 M/mcL (4.19-5.50); Red Cell Distribution Width 18.5 % (11.5-14.5)
[2018-03-27 11:39] LABS: Calcium 7.2 mg/dL (8.6-10.3); Potassium 4.9 mEq/L (3.5-5.1)
--- NOTE | 2018-03-27 11:49 | Nephrology Progress Note ---
Date of Encounter: 03/27/18 Time of Encounter: 11:25 - Assessment and Plan (1) ESRD on dialysis Current Visit: No Status: Chronic HD today, orders given. Subjective Principal diagnosis: Chronic respirator failure Interval history: Awake. trach>vent. Nursing repositioning patient Objective - Vital Signs Vital signs: Vital Signs Temp Pulse Resp BP Pulse Ox 03/27/18 07:34 18 97 03/27/18 06:46 97.8 F 57 16 135/69 99 03/27/18 03:58 56 03/27/18 03:14 56 16 149/71 99 03/27/18 03:13 18 99 03/26/18 23:53 22 100 03/26/18 23:16 56 03/26/18 22:49 52 19 144/73 99 03/26/18 19:58 20 100 03/26/18 19:50 55 03/26/18 19:34 56 12 142/77 100 03/26/18 16:57 16 120/66 100 03/26/18 16:36 97.9 F 51 16 120/66 100 03/26/18 15:00 52 17 138/79 100 03/26/18 12:40 52 17 95 Intake and Output 03/26/18 03/27/18 03/27/18 23:59 07:59 15:59 Intake Total 1531 / 1531 854 / 854 120 / 120 Balance 1531 / 1531 854 / 854 120 / 120 Intake: IV Fluids 200 / 200 Dextrose 5% 1,000 ML @ 100 mls/ 100 / 100 hr IVC .Q10H PRN Rx#:[id number] INVanz 1,000 MG In 0.9 % Sodium 100 / 100 Chloride (Mini-Bag +) 100 ML @ 100 mls/hr IVPB DAILY LAMIN Rx#: [id number] Tube Feeding 1041 / 1041 614 / 614 Free Water 50 / 50 120 / 120 Free Water Intake Amount 240 / 240 240 / 240 Other: Meal NPO Percent of Meal Consumed 0% Blood Glucose* 76 139 - General Appearance General appearance: Present: well-developed, well-nourished, appears started age EENT: Present: mucous membranes moist Neck: Present: no JVD Additional Comments: diminished, rhonchi Cardiology: Present: edema, regular rate, regular rhythm Additional Comments: mild Gastrointestinal: Present: normoactive bowel sounds Integumentary: Present: warm and dry Psychiatric: Present: mood/affect appropriate, cooperative - Lab 03/27/18 11:07 03/27/18 11:07 Most recent lab results Calcium 7.2 mg/dL (8.6-10.3) L 03/27/18 11:07 - VTE Documentation of Mechanical Device: Intermittent pneumatic compression device Consult Discharge Plan - Plan Referrals: Paco Sheikh MD [Primary Care Provider] - (This patient is from [facility] no PCP appointment needed)
[2018-03-27] MEDS ORDERED: Colistin (Colistimethate) 100 MG in 0.9 % Sodium Chloride 50 ML IVPB SCH (15:00)
--- NOTE | 2018-03-27 18:01 | Internal Med Progress Note ---
Date of Encounter: 03/27/18 Time of Encounter: 18:14 - Assessment and plan (1) Bacteremia due to Enterobacter species Current Visit: Yes Status: Acute Assessment and plan: Gram-negative Enterobacter Klebsiella pneumoniae and blood culture but no final sensitivity report available. Patient has history of MDR in previous admission Escherichia coli and Acinetobacter infection. ID on board and recommended to start ertapenem and colistin based on previous sensitivity report. Repeat blood culture ordered (2) Pleural effusion Current Visit: No Status: Chronic Assessment and plan: Patient with recurrent pleural effusions. Pulmonary consulted for consideration of Pleurx catheter but felt risk outweighed the benefit at this time and Advised to continue routine hemodialysis and monitor closely. Continue to manage ventilator ventilator by distributing clerk. repeat cxr revealed with no significant change (3) Leukocytosis Current Visit: No Status: Acute Assessment and plan: Due to bacteremia. Patient with elevated white blood cell count but now trending down. Patient with history of sputum culture which was positive for Acinetobacter and Klebsiella pneumonia ESBL and required Colistin and etapenem last visit in January 2018. Qualifiers: Leukocytosis type: unspecified Qualified Code(s): D72.829 - Elevated white blood cell count, unspecified (4) Tracheostomy in place Current Visit: No Status: Chronic Assessment and plan: Pulmonologists on board during ventilatory management. Appreciate their help in management. (5) ESRD on dialysis Current Visit: No Status: Acute Assessment and plan: Sound Engineer Audio Control on board. Patient had dialysis today. Continue routine hemodialysis that will help in reducing volume overload and pleural effusion as per casino runner advice. Patient gets hemodialysis Tuesday, and Tuesday routinely (6) CHF (congestive heart failure) Current Visit: No Status: Chronic Assessment and plan: Severe cardiomyopathy with EF 30%. easy to get volume overloaded due to underlying CK D as well. Continue home medications Qualifiers: Heart failure type: combined systolic and diastolic Heart failure chronicity: acute on chronic Qualified Code(s): I50.43 - Acute on chronic combined systolic (congestive) and diastolic (congestive) heart failure (7) HTN (hypertension) Current Visit: No Status: Chronic Assessment and plan: Continue home medications Qualifiers: Hypertension type: essential hypertension Qualified Code(s): I10 - Essential (primary) hypertension (8) Anemia in CKD (chronic kidney disease) Current Visit: No Status: Acute Assessment and plan: Chronic anemia. Hemoglobin stable; continue to monitor Qualifiers: Chronic kidney disease stage: on chronic dialysis Qualified Code(s): N18.6 - End stage renal disease; D63.1 - Anemia in chronic kidney disease; Z99.2 - Dependence on renal dialysis (9) Dysphagia Current Visit: Yes Status: Acute Assessment and plan: High risk for aspiration. A speech evaluation and recommended for MBS tomorrow. wafer fabricator consultation done and recommended increased feeding rate to 5 mL additional per hour. Continue peg feeding Qualifiers: Dysphagia type: unspecified Qualified Code(s): R13.10 - Dysphagia, unspecified (10) Diabetes mellitus Current Visit: Yes Status: Acute Assessment and plan: Patient is getting hypoglycemic event at the evening for last 2 days. Decreased long-acting insulin to 50% of current dose but is still low normal blood glucose level therefore will decrease Levemir 5 units subcutaneous and if still episode of low blood glucose level then will hold Levemir. Qualifiers: Diabetes mellitus type: type 2 Diabetes mellitus group home insulin use: with group home use Diabetes mellitus complication status: with kidney complications Chronic kidney disease stage: on chronic dialysis Qualified Code(s): E11.22 - Type 2 diabetes mellitus with diabetic chronic kidney disease ; N18.6 - End stage renal disease; Z79.4 - custodial (current) use of insulin; Z99.2 - Dependence on renal dialysis (11) DVT prophylaxis Current Visit: No Status: Acute Assessment and plan: Subcutaneous heparin, SCDs - Time Spent With Patient Total time spent is greater than 50% in coordination of care (as documented) at patient's floor/unit and/or counseling patient: 25 - 35 minutes - Subjective Interval history: Patient lying comfortably on bed. No new complain Ventilator machine with trach on FiO2 40%. Feeding through PEG tube in continuation. Speech evaluation done and recommended for MBS. No other complaint. Denies fever, vomiting, diarrhea, abdominal pain, chest pain. Shortness of breath better - Constitutional Vitals: Temp Pulse Resp BP Pulse Ox 98.2 F 57 23 138/74 97 03/27/18 16:05 03/27/18 16:05 03/27/18 16:13 03/27/18 16:13 03/27/18 16:13 General appearance: Present: no acute distress Exam: General appearance: No acute distress, A&O X 3, ventilator machine with trach Head exam: Atraumatic Eye exam: EOMI, PERRLA ENT exam: Moist oral mucosa Neck nontender, supple Respiratory exam: Decreased breath sounds bibasilar with few rales-better Cardiovascular exam: Regular rate and rhythm, no systolic murmur Abdominal exam: Soft, nontender, nondistended, positive bowel sounds . PEG tube in place Extremities exam: No calf tenderness, no pedal edema Present: Skin-no rash, warm, dry, intact Neurological exam: Alert, awake, oriented 3, CN II-XII intact, no focal deficits. No facial droop. Internal Medicine: Result - Labs CBC & Chem 7: 03/27/18 11:07 03/27/18 11:07 Labs: Short CBC 03/27/18 Range/Units 11:07 WBC 12.2 H (4.3-11.1) K/mcL Hgb 8.8 L (12.9-16.9) g/dL Hct 26.4 L (37.5-50.1) % Plt Count 428 H (140-400) K/mcL [facility] 03/27/18 11:07 Sodium 125 L Potassium 4.9 Chloride 90 L Carbon Dioxide 25 BUN 88 H Creatinine 3.22 H Glucose 162 H Calcium 7.2 L - VTE Documentation of Mechanical Device: Intermittent pneumatic compression device Consult Discharge Plan - Plan Referrals: Paco Sheikh MD [Primary Care Provider] - (This patient is from [facility] no PCP appointment needed)
[2018-03-27] MEDS: Aspirin 81 MG TAB.CHEW GTUBE SCH (18:07)
[2018-03-27] MEDS: Dextrose Gel 15 GM/37.5 ML TUBE PO PRN (18:08)
[2018-03-28] MEDS: hydrALAZINE 25 MG TABLET GTUBE SCH ×5 (00:27→23:29)
[2018-03-28] MEDS: Insulin LISPRO 300 UNITS/3 ML VIAL SQ SCH ×4 (00:27→16:51)
[2018-03-28] MEDS: *HR* OxyCODONE Oral Soln 5 MG/5 ML UD.LIQ GTUBE PRN (00:27)
[2018-03-28] MEDS: *HR* LORazepam 0.5 MG TABLET GTUBE PRN (00:54)
[2018-03-28 06:02] LABS: Basophils % 0.1 %; Eosinophils # 1.4 K/mcL (0.0-0.6); Hematocrit 26.3 % (37.5-50.1); Hemoglobin 8.6 g/dL (12.9-16.9); Immature Granulocytes % 0.3 % (0-4); Lymphocytes # 1.3 K/mcL (0.6-4.6); Mean Corpuscular HGB Conc 32.7 g/dL (31.6-35.5); Mean Corpuscular Hemoglobin 31.7 pg (28.0-33.3); Mean Platelet Volume 10.5 fL (9.4-12.4); Monocytes # 0.9 K/mcL (0.0-1.3); Monocytes % 10.7 %; Neutrophils # 5.1 K/mcL (1.6-8.9); Platelet Count 388 K/mcL (140-400); Red Blood Count 2.71 M/mcL (4.19-5.50); Red Cell Distribution Width 18.9 % (11.5-14.5); Segmented Neutrophils % 57.9 %
[2018-03-28 06:24] LABS: Calcium 7.2 mg/dL (8.6-10.3)
[2018-03-28] MEDS: Cyanocobalamin (B-12) 1,000 MCG TABLET GTUBE SCH (08:24)
[2018-03-28] MEDS: Folic Acid 1 MG TABLET GTUBE SCH (08:25)
[2018-03-28] MEDS: Aspirin 81 MG TAB.CHEW GTUBE SCH (08:25)
[2018-03-28] MEDS: amLODIPine 5 MG TABLET GTUBE SCH (08:25)
[2018-03-28] MEDS: Insulin DETEMIR 100 UNIT/ML X5UNITS SQ SCH (08:25)
[2018-03-28] MEDS: cloNIDine HCl 0.1 MG TABLET GTUBE SCH ×3 (08:25→20:49)
[2018-03-28] MEDS: *HR* Ticagrelor 90 MG TABLET GTUBE SCH ×2 (08:25→20:49)
[2018-03-28] MEDS: Sennosides/Docusate Sodium TABLET GTUBE SCH ×2 (08:25→20:49)
[2018-03-28] MEDS: predniSONE 10 MG TABLET PO SCH (08:25)
--- NOTE | 2018-03-28 08:33 | Nephrology Progress Note ---
Date of Encounter: 03/28/18 Time of Encounter: 08:32 - Assessment and Plan (1) End stage renal disease Current Visit: No Status: Chronic Patient is stable from a renal standpoint. He will continue to be supported with 3 times per week dialysis. (2) Pleural effusion Current Visit: No Status: Chronic (3) Anemia in CKD (chronic kidney disease) Current Visit: No Status: Acute Qualifiers: Chronic kidney disease stage: on chronic dialysis Qualified Code(s): N18.6 - End stage renal disease; D63.1 - Anemia in chronic kidney disease; Z99.2 - Dependence on renal dialysis Subjective Principal diagnosis: Chronic respirator failure Interval history: The patient is resting comfortably on the ventilator. He denies any new complaints. He did have dialysis yesterday. Objective - Vital Signs Vital signs: Vital Signs Temp Pulse Resp BP Pulse Ox 03/28/18 07:57 17 150/58 96 03/28/18 07:07 98.0 F 60 17 150/58 100 03/28/18 04:34 18 156/83 98 03/28/18 03:52 98.1 F 59 19 156/83 96 03/28/18 02:43 18 153/67 99 03/28/18 00:09 98.4 F 62 18 153/67 94 03/27/18 19:55 98.2 F 58 16 156/69 98 03/27/18 16:13 23 138/74 97 03/27/18 16:05 98.2 F 57 22 138/74 97 03/27/18 15:40 97.4 F L 22 141/69 03/27/18 15:15 124/69 03/27/18 15:00 143/67 03/27/18 14:45 130/59 03/27/18 14:30 122/64 03/27/18 14:15 109/63 03/27/18 14:00 112/50 03/27/18 13:45 123/54 03/27/18 13:30 109/66 03/27/18 13:15 103/67 03/27/18 13:00 110/50 03/27/18 12:45 121/60 03/27/18 12:30 123/56 03/27/18 12:15 97.4 F L 18 136/62 03/27/18 12:11 98.0 F 61 28 137/70 03/27/18 12:09 98.0 F 61 20 137/70 98 Intake and Output 03/27/18 03/28/18 03/28/18 23:59 07:59 15:59 Intake Total 684 / 684 471 / 471 Output Total Balance 684 / 684 446 / 446 Intake: Tube Feeding 624 / 624 351 / 351 Free Water 60 / 60 120 / 120 Output: Urine Other: Meal NPO Percent of Meal Consumed 0% Blood Glucose* 128 115 - General Appearance Exam: Patient is on the ventilator. He is in no acute distress. Lungs diminished breath sounds with occasional rhonchi. Heart regular rate and rhythm. Abdomen is benign. A PEG tube is present. There is no lower extremity swelling. There is a tunnel dialysis catheter in the right chest and an immature AV fistula in the left upper extremity. - Lab 03/28/18 05:35 03/28/18 05:35 Most recent lab results Calcium 7.2 mg/dL (8.6-10.3) L 03/28/18 05:35 - VTE Documentation of Mechanical Device: Intermittent pneumatic compression device Consult Discharge Plan - Plan Referrals: Paco Sheikh MD [Primary Care Provider] - (This patient is from [facility] no PCP appointment needed)
[2018-03-28 09:32] LABS: Bilirubin,Urine Negative (Negative); Blood,Urine Negative (Negative); Clarity,Urine Clear (Clear); Color,Urine Yellow (Yellow); Glucose,Urine (UA) Normal (Normal); Ketones,Urine Negative (Negative); Leukocyte Esterase,Urine Negative (Negative); Nitrite,Urine Negative (Negative); Protein,Urine 100 mg/dL (Neg-Trace); Specific Gravity,Urine 1.011 (1.010-1.025); Urobilinogen,Urine Normal (Normal)
[2018-03-28 09:34] LABS: Bacteria,Urine None Seen per hpf (None-Few); Hyaline Casts,Urine None Seen per lpf (None-Few); Squamous Epithelial Cell,Urine None Seen per lpf (None-Few); WBC,Urine 0-3 per hpf (0-3)
--- NOTE | 2018-03-28 09:49 | Infectious Disease Progress No ---
Date of Encounter: 03/28/18 Time of Encounter: 09:48 - Assessment and Plan (1) Bacteremia due to Klebsiella pneumoniae Current Visit: Yes Status: Acute 1 out of 2 blood cultures positive for ESBL Klebsiella Source likely pneumonia Patient did have sputum growing ESBL Klebsiella during last admission Continue Ertapenen Discontinue Colistin Repeat cultures negative so far Treatment duration based on clinical picture, but likely minimum of 2 weeks (2) HCAP (healthcare-associated pneumonia) Current Visit: No Status: Acute CXR demonstrated bibasilar opacities Given patient had ESBL Klebsiella and MDR Acinetobacter in previous sputum, continue on Colistin and Ertapenem Await repeat culture results (3) Acute and chronic respiratory failure with hypoxia Current Visit: No Status: Acute Likely secondary to fluid overloaded as seen on chest x-ray CXR did demonstrate bibasilar opacities Continue tracheostomy and supportive care (4) Pleural effusion Current Visit: No Status: Chronic (5) Systolic CHF Current Visit: Yes Status: Acute Qualifiers: Heart failure chronicity: acute on chronic Qualified Code(s): I50.23 - Acute on chronic systolic (congestive) heart failure (6) Leukocytosis Current Visit: No Status: Acute Qualifiers: Leukocytosis type: unspecified Qualified Code(s): D72.829 - Elevated white blood cell count, unspecified (7) Anemia Current Visit: No Status: Chronic Qualifiers: Anemia type: unspecified type Qualified Code(s): D64.9 - Anemia, unspecified (8) ESRD on dialysis Current Visit: No Status: Acute (9) Tracheostomy care Current Visit: No Status: Acute - Subjective Interval history: Pt seen and examined. He was sleeping upon entering room but easily arousable. He shakes his head when asking if he had any difficulty breathing or having any pain or nausea. Infect Dis PN-Objective Data - Labs CBC & Chem 7: 03/28/18 05:35 03/28/18 05:35 Labs: Laboratory Results - last 24 hr 03/24/18 03/27/18 03/27/18 13:57 03:12 05:59 WBC RBC Hgb Hct MCV MCH MCHC RDW Plt Count MPV Immature Gran % Seg Neutrophils % Lymphocytes % Monocytes % Eosinophils % Basophils % Neutrophils # Lymphocytes # Monocytes # Eosinophils # Basophils # Sodium Potassium Chloride Carbon Dioxide BUN Creatinine Est GFR ( Amer) Est GFR (Non-Af Amer) BUN/Creatinine Ratio Glucose POC Glucose 88 132 H Calculated Osmolality Calcium Procalcitonin 13.40 H Urine Color Urine Clarity Urine pH Ur Specific [place] Urine Protein Urine Glucose (UA) Urine Ketones Urine Blood Urine Nitrite Urine Bilirubin Urine Urobilinogen Ur Leukocyte Esterase Urine Microscopic RBC Urine Microscopic WBC Ur Squamous Epith Cells Urine Bacteria Hyaline Casts Ur Culture Indicated? 03/27/18 03/27/18 03/27/18 06:45 11:07 11:07 WBC 12.2 H RBC 2.76 L Hgb 8.8 L Hct 26.4 L MCV 95.7 MCH 31.9 MCHC 33.3 RDW 18.5 H Plt Count 428 H MPV 10.4 Immature Gran % Seg Neutrophils % Lymphocytes % Monocytes % Eosinophils % Basophils % Neutrophils # Lymphocytes # Monocytes # Eosinophils # Basophils # Sodium 125 L Potassium 4.9 Chloride 90 L Carbon Dioxide 25 BUN 88 H Creatinine 3.22 H Est GFR ( Amer) 24 L Est GFR (Non-Af Amer) 20 L BUN/Creatinine Ratio 27 H Glucose 162 H POC Glucose 138 H Calculated Osmolality 290 Calcium 7.2 L Procalcitonin Urine Color Urine Clarity Urine pH Ur Specific [place] Urine Protein Urine Glucose (UA) Urine Ketones Urine Blood Urine Nitrite Urine Bilirubin Urine Urobilinogen Ur Leukocyte Esterase Urine Microscopic RBC Urine Microscopic WBC Ur Squamous Epith Cells Urine Bacteria Hyaline Casts Ur Culture Indicated? 03/27/18 03/27/18 03/27/18 12:07 17:15 19:47 WBC RBC Hgb Hct MCV MCH MCHC RDW Plt Count MPV Immature Gran % Seg Neutrophils % Lymphocytes % Monocytes % Eosinophils % Basophils % Neutrophils # Lymphocytes # Monocytes # Eosinophils # Basophils # Sodium Potassium Chloride Carbon Dioxide BUN Creatinine Est GFR ( Amer) Est GFR (Non-Af Amer) BUN/Creatinine Ratio Glucose POC Glucose 116 H 69 L 128 H Calculated Osmolality Calcium Procalcitonin Urine Color Urine Clarity Urine pH Ur Specific [place] Urine Protein Urine Glucose (UA) Urine Ketones Urine Blood Urine Nitrite Urine Bilirubin Urine Urobilinogen Ur Leukocyte Esterase Urine Microscopic RBC Urine Microscopic WBC Ur Squamous Epith Cells Urine Bacteria Hyaline Casts Ur Culture Indicated? 03/28/18 03/28/18 03/28/18 05:35 05:35 05:51 WBC 8.8 RBC 2.71 L Hgb 8.6 L Hct 26.3 L MCV 97.0 MCH 31.7 MCHC 32.7 RDW 18.9 H Plt Count 388 MPV 10.5 Immature Gran % 0.3 Seg Neutrophils % 57.9 Lymphocytes % 15.0 Monocytes % 10.7 Eosinophils % 16.0 Basophils % 0.1 Neutrophils # 5.1 Lymphocytes # 1.3 Monocytes # 0.9 Eosinophils # 1.4 H Basophils # 0.0 Sodium 131 L Potassium 4.0 Chloride 94 L Carbon Dioxide 31 H BUN 54 H Creatinine 2.39 H Est GFR ( Amer) 34 L Est GFR (Non-Af Amer) 28 L BUN/Creatinine Ratio 23 Glucose 116 H POC Glucose 115 H Calculated Osmolality 288 Calcium 7.2 L Procalcitonin Urine Color Urine Clarity Urine pH Ur Specific [place] Urine Protein Urine Glucose (UA) Urine Ketones Urine Blood Urine Nitrite Urine Bilirubin Urine Urobilinogen Ur Leukocyte Esterase Urine Microscopic RBC Urine Microscopic WBC Ur Squamous Epith Cells Urine Bacteria Hyaline Casts Ur Culture Indicated? 03/28/18 09:00 WBC RBC Hgb Hct MCV MCH MCHC RDW Plt Count MPV Immature Gran % Seg Neutrophils % Lymphocytes % Monocytes % Eosinophils % Basophils % Neutrophils # Lymphocytes # Monocytes # Eosinophils # Basophils # Sodium Potassium Chloride Carbon Dioxide BUN Creatinine Est GFR ( Amer) Est GFR (Non-Af Amer) BUN/Creatinine Ratio Glucose POC Glucose Calculated Osmolality Calcium Procalcitonin Urine Color Yellow Urine Clarity Clear Urine pH 7.0 Ur Specific [place] 1.011 Urine Protein 100 H Urine Glucose (UA) Normal Urine Ketones Negative Urine Blood Negative Urine Nitrite Negative Urine Bilirubin Negative Urine Urobilinogen Normal Ur Leukocyte Esterase Negative Urine Microscopic RBC 5-15 H Urine Microscopic WBC 0-3 Ur Squamous Epith Cells None Seen Urine Bacteria None Seen Hyaline Casts None Seen Ur Culture Indicated? NO Cultures: Cultures 03/24/18 13:57 Blood Culture - Final Peripheral Venipuncture Klebsiella pneumoniae ESBL 03/27/18 15:59 Blood Culture - Preliminary Peripheral Venipuncture Culture is incubating and being continuously monitored for growth. Final report to follow. 03/27/18 14:50 Blood Culture - Preliminary Peripheral Venipuncture Culture is incubating and being continuously monitored for growth. Final report to follow. 03/24/18 13:59 Blood Culture - Preliminary Peripheral Venipuncture Culture is incubating and being continuously monitored for growth. Final report to follow. Serology 03/28/18 03/24/18 Range/Units 09:00 13:57 Urine Color Yellow (Yellow) Urine Clarity Clear (Clear) Urine pH 7.0 (5.0-8.0) pH Units Ur Specific [place] 1.011 (1.010-1.025) Urine Protein 100 H (Neg-Trace) mg/dL Urine Glucose (UA) Normal (Normal) mg/dL Urine Ketones Negative (Negative) mg/dL Urine Blood Negative (Negative) Urine Nitrite Negative (Negative) Urine Bilirubin Negative (Negative) Urine Urobilinogen Normal (Normal) mg/dL Ur Leukocyte Esterase Negative (Negative) Urine Microscopic RBC 5-15 H (0-3) per hpf Urine Microscopic WBC 0-3 (0-3) per hpf Ur Squamous Epith Cells None Seen (None-Few) per lpf Urine Bacteria None Seen (None-Few) per hpf Hyaline Casts None Seen (None-Few) per lpf Ur Culture Indicated? NO (NO) A. baumannii (PCR) Not Detected (Not Detect) Tomasa albicans (PCR) Not Detected (Not Detect) C. glabrata (PCR) Not Detected (Not Detect) C. krusei (PCR) Not Detected (Not Detect) C. parapsilosis (PCR) Not Detected (Not Detect) C. tropicalis (PCR) Not Detected (Not Detect) Enterobacteriac sp PCR DETECTED A (Not Detect) E. cloacae complex PCR Not Detected (Not Detect) Enterococcus sp PCR Not Detected (Not Detect) E. coli (PCR) Not Detected (Not Detect) H. influenzae (PCR) Not Detected (Not Detect) Klebsiella oxytoca PCR Not Detected (Not Detect) Klebsiella pneumoniae DETECTED A (Not Detect) List. monocytogenes PCR Not Detected (Not Detect) N. meningitidis (PCR) Not Detected (Not Detect) Proteus species (PCR) Not Detected (Not Detect) Serratia marcescens PCR Not Detected (Not Detect) Staphylococcus sp PCR Not Detected (Not Detect) Staph aureus (PCR) Not Detected (Not Detect) mecA-Methicil Res Gene N/A (Not Detect) Streptococcus sp PCR Not Detected (Not Detect) Group A Strep DNA Not Detected (Not Detect) Group B Strep (PCR) Not Detected (Not Detect) Strep pneumoniae (PCR) Not Detected (Not Detect) P. aeruginosa (PCR) Not Detected (Not Detect) Joel/B-Vanco Res Genes N/A (Not Detect) KPC (blaKPC) Detect PCR Not Detected (Not Detect) Exam - Constitutional Vitals: Temp Pulse Resp BP Pulse Ox 98.0 F 58 17 150/58 96 03/28/18 07:07 03/28/18 09:04 03/28/18 07:57 03/28/18 07:57 03/28/18 07:57 General appearance: cooperative, no acute distress - Head Head exam: Present: atraumatic, normocephalic - Respiratory Respiratory exam: Present: decreased breath sounds. Absent: accessory muscle use, respiratory distress - Cardiovascular Cardiovascular exam: Present: RRR. Absent: irregular rhythm, systolic murmur, tachycardia - GI/Abdominal GI/Abdominal exam: Present: normal bowel sounds, soft. Absent: tenderness - Extremities Exam Extremities exam: Absent: pedal edema - VTE Documentation of Mechanical Device: Intermittent pneumatic compression device Consult Discharge Plan - Plan Referrals: Paco Sheikh MD [Primary Care Provider] - (This patient is from [facility] no PCP appointment needed) - Attending Attestation I examined this patient and my medical decision-making was reviewed with the Resident Physician. I agree with the documented findings, disposition and treatment plan as described except to the extent set forth below.
--- NOTE | 2018-03-28 12:08 | Internal Med Progress Note ---
Date of Encounter: 03/28/18 Time of Encounter: 12:05 - Assessment and plan (1) Bacteremia due to Enterobacter species Current Visit: Yes Status: Acute Assessment and plan: blood cx growing Klebsiella pneumoniae sensitive to current medication. Further change in antibiotic based on ID recommendation.a Patient has history of MDR in previous admission Escherichia coli and Acinetobacter infection. ID on board and recommended to start ertapenem and colistin based on previous sensitivity report. Repeat blood culture with no growth yet (2) Pleural effusion Current Visit: No Status: Chronic Assessment and plan: Patient with recurrent pleural effusions. Pulmonary consulted for consideration of Pleurx catheter but felt risk outweighed the benefit at this time and Advised to continue routine hemodialysis and monitor closely. Continue to manage ventilator ventilator by ring spinner. repeat cxr revealed with no significant change (3) Leukocytosis Current Visit: No Status: Acute Assessment and plan: Due to bacteremia. Patient with elevated white blood cell count but now trending down. Patient with history of sputum culture which was positive for Acinetobacter and Klebsiella pneumonia ESBL and required Colistin and etapenem last visit in January 2018. Qualifiers: Leukocytosis type: unspecified Qualified Code(s): D72.829 - Elevated white blood cell count, unspecified (4) Tracheostomy in place Current Visit: No Status: Chronic Assessment and plan: Pulmonologists on board during ventilatory management. Appreciate their help in management. (5) ESRD on dialysis Current Visit: No Status: Acute Assessment and plan: Receiving Dock Checker on board. Patient had dialysis yesterday and plan for tomorrow. Continue routine hemodialysis that will help in reducing volume overload and pleural effusion as per die maker apprentice advice. Patient was getting hemodialysis Tuesday, and Tuesday routinely (6) CHF (congestive heart failure) Current Visit: No Status: Chronic Assessment and plan: Severe cardiomyopathy with EF 30%. easy to get volume overloaded due to underlying CK D as well. Continue home medications Qualifiers: Heart failure type: combined systolic and diastolic Heart failure chronicity: acute on chronic Qualified Code(s): I50.43 - Acute on chronic combined systolic (congestive) and diastolic (congestive) heart failure (7) HTN (hypertension) Current Visit: No Status: Chronic Assessment and plan: Continue home medications Qualifiers: Hypertension type: essential hypertension Qualified Code(s): I10 - Essential (primary) hypertension (8) Anemia in CKD (chronic kidney disease) Current Visit: No Status: Acute Assessment and plan: Chronic anemia. Hemoglobin stable; continue to monitor Qualifiers: Chronic kidney disease stage: on chronic dialysis Qualified Code(s): N18.6 - End stage renal disease; D63.1 - Anemia in chronic kidney disease; Z99.2 - Dependence on renal dialysis (9) Dysphagia Current Visit: Yes Status: Acute Assessment and plan: High risk for aspiration. A speech evaluation and recommended for MBS - plan for today. home delivery driver consultation done and recommended increased feeding rate to 5 mL additional per hour. Continue peg feeding Qualifiers: Dysphagia type: unspecified Qualified Code(s): R13.10 - Dysphagia, unspecified (10) Diabetes mellitus Current Visit: Yes Status: Acute Assessment and plan: better BGL control. Patient is getting hypoglycemic event at the evening for last 2 days. therefore decreased Levemir 5 units subcutaneous . Qualifiers: Diabetes mellitus type: type 2 Diabetes mellitus longterm insulin use: with longterm use Diabetes mellitus complication status: with kidney complications Chronic kidney disease stage: on chronic dialysis Qualified Code(s): E11.22 - Type 2 diabetes mellitus with diabetic chronic kidney disease ; N18.6 - End stage renal disease; Z79.4 - MCFP (current) use of insulin; Z99.2 - Dependence on renal dialysis (11) DVT prophylaxis Current Visit: No Status: Acute Assessment and plan: Subcutaneous heparin, SCDs - Time Spent With Patient Total time spent is greater than 50% in coordination of care (as documented) at patient's floor/unit and/or counseling patient: 25 - 35 minutes - Subjective Interval history: Patient lying comfortably on bed. No new complain Ventilator machine with trach on FiO2 40%. Feeding through PEG tube in continuation. Speech evaluation done and recommended for MBS- plan today. had HD yesterday Denies fever, vomiting, diarrhea, abdominal pain, chest pain. Shortness of breath better - Constitutional Vitals: Temp Pulse Resp BP Pulse Ox 98.2 F 56 18 138/47 100 03/28/18 11:46 03/28/18 11:46 03/28/18 11:46 03/28/18 11:46 03/28/18 11:46 General appearance: Present: no acute distress Exam: General appearance: Sleeping but arousable. No acute distress, A&O X 3, ventilator machine with trach FiO2 40% Head exam: Atraumatic Eye exam: EOMI, PERRLA ENT exam: Moist oral mucosa Neck nontender, supple Respiratory exam: Decreased breath sounds bibasilar with few rales-better Cardiovascular exam: Regular rate and rhythm, no systolic murmur Abdominal exam: Soft, nontender, nondistended, positive bowel sounds . PEG tube in place Extremities exam: No calf tenderness, no pedal edema Present: Skin- warm, dry, intact Neurological exam: Grossly intact, no focal deficits. No facial droop. Internal Medicine: Result - Labs CBC & Chem 7: 03/28/18 05:35 03/28/18 05:35 Labs: Short CBC 03/28/18 Range/Units 05:35 WBC 8.8 (4.3-11.1) K/mcL Hgb 8.6 L (12.9-16.9) g/dL Hct 26.3 L (37.5-50.1) % Plt Count 388 (140-400) K/mcL Neutrophils # 5.1 (1.6-8.9) K/mcL BMP 03/28/18 05:35 Sodium 131 L Potassium 4.0 Chloride 94 L Carbon Dioxide 31 H BUN 54 H Creatinine 2.39 H Glucose 116 H Calcium 7.2 L Urine 03/28/18 Range/Units 09:00 Urine Color Yellow (Yellow) Urine Clarity Clear (Clear) Urine pH 7.0 (5.0-8.0) pH Units Ur Specific [place] 1.011 (1.010-1.025) Urine Protein 100 H (Neg-Trace) mg/dL Urine Glucose (UA) Normal (Normal) mg/dL - VTE Documentation of Mechanical Device: Intermittent pneumatic compression device Consult Discharge Plan - Plan Referrals: Paco Sheikh MD [Primary Care Provider] - (This patient is from [facility] no PCP appointment needed)
[2018-03-28] MEDS: *HR* Heparin 5,000 UNIT/ML VIAL SQ SCH (16:54)
[2018-03-29] MEDS: Insulin LISPRO 300 UNITS/3 ML VIAL SQ SCH ×4 (00:51→18:47)
[2018-03-29] MEDS: Ipratropium/Albuterol Neb 3 ML IH PRN (03:33)
[2018-03-29 05:04] LABS: Basophils % 0.1 %; Eosinophils # 1.8 K/mcL (0.0-0.6); Hematocrit 26.9 % (37.5-50.1); Hemoglobin 8.7 g/dL (12.9-16.9); Immature Granulocytes % 0.3 % (0-4); Lymphocytes # 1.6 K/mcL (0.6-4.6); Lymphocytes % 17.6 %; Mean Corpuscular HGB Conc 32.3 g/dL (31.6-35.5); Mean Corpuscular Hemoglobin 31.8 pg (28.0-33.3); Mean Corpuscular Volume 98.2 fL (83.0-100.0); Mean Platelet Volume 10.8 fL (9.4-12.4); Monocytes # 1.1 K/mcL (0.0-1.3); Monocytes % 12.3 %; Neutrophils # 4.6 K/mcL (1.6-8.9); Platelet Count 397 K/mcL (140-400); Red Blood Count 2.74 M/mcL (4.19-5.50); Red Cell Distribution Width 18.6 % (11.5-14.5); Segmented Neutrophils % 49.7 %
[2018-03-29 05:25] LABS: Calcium 7.3 mg/dL (8.6-10.3); Potassium 4.4 mEq/L (3.5-5.1)
[2018-03-29] MEDS: hydrALAZINE 25 MG TABLET GTUBE SCH ×3 (06:06→18:55)
[2018-03-29] MEDS: *HR* Heparin 5,000 UNIT/ML VIAL SQ SCH ×2 (06:07→18:56)
[2018-03-29] MEDS: *HR* Ticagrelor 90 MG TABLET GTUBE SCH ×2 (09:05→20:05)
[2018-03-29] MEDS: Aspirin 81 MG TAB.CHEW GTUBE SCH (09:05)
[2018-03-29] MEDS: *HR* LORazepam 0.5 MG TABLET GTUBE PRN ×2 (09:05→20:05)
[2018-03-29] MEDS: predniSONE 10 MG TABLET PO SCH (09:05)
[2018-03-29] MEDS: cloNIDine HCl 0.1 MG TABLET GTUBE SCH ×3 (09:05→20:05)
[2018-03-29] MEDS: Cyanocobalamin (B-12) 1,000 MCG TABLET GTUBE SCH (09:05)
[2018-03-29] MEDS: amLODIPine 5 MG TABLET GTUBE SCH (09:06)
[2018-03-29] MEDS: Insulin DETEMIR 100 UNIT/ML X5UNITS SQ SCH (09:06)
[2018-03-29] MEDS: *HR* OxyCODONE Oral Soln 5 MG/5 ML UD.LIQ GTUBE PRN ×2 (09:06→16:30)
[2018-03-29] MEDS: Sennosides/Docusate Sodium TABLET GTUBE SCH ×2 (09:06→20:05)
[2018-03-29] MEDS: Folic Acid 1 MG TABLET GTUBE SCH (09:06)
[2018-03-29] MEDS ORDERED: 0.9 % Sodium Chloride 250 ML IVC PRN (09:28)
[2018-03-29] MEDS ORDERED: *HR* Heparin 10,000 UNIT/10 ML VIAL IV PRN (09:28)
--- NOTE | 2018-03-29 10:18 | Infectious Disease Progress No ---
Date of Encounter: 03/29/18 Time of Encounter: 09:40 - Assessment and Plan (1) Bacteremia due to Klebsiella pneumoniae Current Visit: Yes Status: Acute 1 out of 2 blood cultures positive for ESBL Klebsiella Source likely pneumonia Patient did have sputum growing ESBL Klebsiella during last admission Continue Ertapenen for now, but considering switching to oral therapy tomorrow if he remains clinically stable Discontinued Colistin on 03/28 Repeat cultures negative so far Treatment duration based on clinical picture, but likely minimum of 2 weeks from negative culture, tentative end date April 10 (2) HCAP (healthcare-associated pneumonia) Current Visit: No Status: Acute CXR demonstrated bibasilar opacities Given patient had ESBL Klebsiella and MDR Acinetobacter in previous sputum, continue on Ertapenem Await repeat culture results (3) Constipation Current Visit: Yes Status: Acute Patient reports he has not had a bowel movement since admission Management per primary team Qualifiers: Constipation type: unspecified constipation type Qualified Code(s): K59.00 - Constipation, unspecified (4) Acute and chronic respiratory failure with hypoxia Current Visit: No Status: Acute Likely secondary to fluid overloaded as seen on chest x-ray CXR did demonstrate bibasilar opacities Continue tracheostomy and supportive care (5) Pleural effusion Current Visit: Yes Status: Chronic (6) Systolic CHF Current Visit: Yes Status: Acute Qualifiers: Heart failure chronicity: acute on chronic Qualified Code(s): I50.23 - Acute on chronic systolic (congestive) heart failure (7) Leukocytosis Current Visit: No Status: Acute Qualifiers: Leukocytosis type: unspecified Qualified Code(s): D72.829 - Elevated white blood cell count, unspecified (8) Anemia Current Visit: No Status: Chronic Qualifiers: Anemia type: unspecified type Qualified Code(s): D64.9 - Anemia, unspecified (9) ESRD on dialysis Current Visit: Yes Status: Chronic (10) Tracheostomy care Current Visit: No Status: Acute - Subjective Interval history: Pt seen and examined. He is awake and alert and able to speak this morning. He states his breathing is unchanged and near his baseline. He does have some complaints of chest discomfort and states it is midsternal and dull in nature. Denies any fever, nausea, vomiting. Has not had a bowel movement since coming in. Per RN, he has had more secretions from his trach tube. Infect Dis PN-Objective Data - Labs CBC & Chem 7: 03/29/18 04:35 03/29/18 04:35 Labs: Laboratory Results - last 24 hr 03/28/18 03/28/18 03/28/18 00:14 11:48 16:13 WBC RBC Hgb Hct MCV MCH MCHC RDW Plt Count MPV Immature Gran % Seg Neutrophils % Lymphocytes % Monocytes % Eosinophils % Basophils % Neutrophils # Lymphocytes # Monocytes # Eosinophils # Basophils # Sodium Potassium Chloride Carbon Dioxide BUN Creatinine Est GFR ( Amer) Est GFR (Non-Af Amer) BUN/Creatinine Ratio Glucose POC Glucose 176 H 111 H 48 L* Calculated Osmolality Calcium 03/28/18 03/28/18 03/29/18 16:15 19:23 04:35 WBC 9.2 RBC 2.74 L Hgb 8.7 L Hct 26.9 L MCV 98.2 MCH 31.8 MCHC 32.3 RDW 18.6 H Plt Count 397 MPV 10.8 Immature Gran % 0.3 Seg Neutrophils % 49.7 Lymphocytes % 17.6 Monocytes % 12.3 Eosinophils % 20.0 Basophils % 0.1 Neutrophils # 4.6 Lymphocytes # 1.6 Monocytes # 1.1 Eosinophils # 1.8 H Basophils # 0.0 Sodium Potassium Chloride Carbon Dioxide BUN Creatinine Est GFR ( Amer) Est GFR (Non-Af Amer) BUN/Creatinine Ratio Glucose POC Glucose 47 L* 101 H Calculated Osmolality Calcium 03/29/18 03/29/18 04:35 05:44 WBC RBC Hgb Hct MCV MCH MCHC RDW Plt Count MPV Immature Gran % Seg Neutrophils % Lymphocytes % Monocytes % Eosinophils % Basophils % Neutrophils # Lymphocytes # Monocytes # Eosinophils # Basophils # Sodium 129 L Potassium 4.4 Chloride 92 L Carbon Dioxide 28 BUN 70 H Creatinine 2.94 H Est GFR ( Amer) 27 L Est GFR (Non-Af Amer) 22 L BUN/Creatinine Ratio 24 Glucose 154 H POC Glucose 137 H Calculated Osmolality 292 Calcium 7.3 L Cultures: Cultures 03/24/18 13:57 Blood Culture - Final Peripheral Venipuncture Klebsiella pneumoniae ESBL 03/27/18 15:59 Blood Culture - Preliminary Peripheral Venipuncture Culture is incubating and being continuously monitored for growth. Final report to follow. 03/27/18 14:50 Blood Culture - Preliminary Peripheral Venipuncture Culture is incubating and being continuously monitored for growth. Final report to follow. 03/24/18 13:59 Blood Culture - Preliminary Peripheral Venipuncture Culture is incubating and being continuously monitored for growth. Final report to follow. Serology 03/28/18 03/24/18 Range/Units 09:00 13:57 Urine Color Yellow (Yellow) Urine Clarity Clear (Clear) Urine pH 7.0 (5.0-8.0) pH Units Ur Specific [place] 1.011 (1.010-1.025) Urine Protein 100 H (Neg-Trace) mg/dL Urine Glucose (UA) Normal (Normal) mg/dL Urine Ketones Negative (Negative) mg/dL Urine Blood Negative (Negative) Urine Nitrite Negative (Negative) Urine Bilirubin Negative (Negative) Urine Urobilinogen Normal (Normal) mg/dL Ur Leukocyte Esterase Negative (Negative) Urine Microscopic RBC 5-15 H (0-3) per hpf Urine Microscopic WBC 0-3 (0-3) per hpf Ur Squamous Epith Cells None Seen (None-Few) per lpf Urine Bacteria None Seen (None-Few) per hpf Hyaline Casts None Seen (None-Few) per lpf Ur Culture Indicated? NO (NO) A. baumannii (PCR) Not Detected (Not Detect) Tomasa albicans (PCR) Not Detected (Not Detect) C. glabrata (PCR) Not Detected (Not Detect) C. krusei (PCR) Not Detected (Not Detect) C. parapsilosis (PCR) Not Detected (Not Detect) C. tropicalis (PCR) Not Detected (Not Detect) Enterobacteriac sp PCR DETECTED A (Not Detect) E. cloacae complex PCR Not Detected (Not Detect) Enterococcus sp PCR Not Detected (Not Detect) E. coli (PCR) Not Detected (Not Detect) H. influenzae (PCR) Not Detected (Not Detect) Klebsiella oxytoca PCR Not Detected (Not Detect) Klebsiella pneumoniae DETECTED A (Not Detect) List. monocytogenes PCR Not Detected (Not Detect) N. meningitidis (PCR) Not Detected (Not Detect) Proteus species (PCR) Not Detected (Not Detect) Serratia marcescens PCR Not Detected (Not Detect) Staphylococcus sp PCR Not Detected (Not Detect) Staph aureus (PCR) Not Detected (Not Detect) mecA-Methicil Res Gene N/A (Not Detect) Streptococcus sp PCR Not Detected (Not Detect) Group A Strep DNA Not Detected (Not Detect) Group B Strep (PCR) Not Detected (Not Detect) Strep pneumoniae (PCR) Not Detected (Not Detect) P. aeruginosa (PCR) Not Detected (Not Detect) Joel/B-Vanco Res Genes N/A (Not Detect) KPC (blaKPC) Detect PCR Not Detected (Not Detect) - Impressions Impressions Videofluoroscopic Swallow 03/28/18 00:01 IMPRESSION: Swallowing mechanism grossly within normal limits without evidence of aspiration. Please see separate speech pathology report for full discussion of findings and recommendations. D/ / 03/28/2018 14:58:00 Zandra Mendoza MD / hui Interpreting Provider: Zandra Mendoza MD Exam - Constitutional Vitals: Temp Pulse Resp BP Pulse Ox 98.8 F 63 18 135/64 97 03/29/18 07:40 03/29/18 07:40 03/29/18 07:40 03/29/18 07:40 03/29/18 07:40 General appearance: cooperative, no acute distress, no febrile - Head Head exam: Present: atraumatic, normocephalic - Respiratory Respiratory exam: Present: rhonchi (R>L). Absent: accessory muscle use - Cardiovascular Cardiovascular exam: Present: RRR. Absent: irregular rhythm, systolic murmur, tachycardia - GI/Abdominal GI/Abdominal exam: Present: normal bowel sounds, soft. Absent: tenderness - Extremities Exam Extremities exam: Present: pedal edema - VTE Documentation of Mechanical Device: Intermittent pneumatic compression device Consult Discharge Plan - Plan Referrals: Paco Sheikh MD [Primary Care Provider] - (This patient is from [facility] no PCP appointment needed) - Attending Attestation I examined this patient and my medical decision-making was reviewed with the Resident Physician. I agree with the documented findings, disposition and treatment plan as described except to the extent set forth below.
[2018-03-29] MEDS ORDERED: 0.9 % Sodium Chloride 1,000 ML ONE (10:30)
--- NOTE | 2018-03-29 13:50 | Nephrology Progress Note ---
Date of Encounter: 03/29/18 Time of Encounter: 13:30 - Assessment and Plan (1) ESRD on dialysis Current Visit: No Status: Chronic HD today, orders given. Subjective Principal diagnosis: Chronic respirator failure Interval history: Seen on HD. trach>vent. Objective - Vital Signs Vital signs: Vital Signs Temp Pulse Resp BP Pulse Ox 03/29/18 13:37 97.3 F L 20 127/45 03/29/18 13:20 121/45 03/29/18 13:05 120/53 03/29/18 12:50 123/55 03/29/18 12:35 116/51 03/29/18 12:20 120/53 03/29/18 12:05 117/51 03/29/18 11:55 56 03/29/18 11:50 105/50 03/29/18 11:35 106/48 03/29/18 11:20 108/52 03/29/18 11:05 105/47 03/29/18 10:50 106/48 03/29/18 10:35 115/52 03/29/18 10:20 98.1 F 18 121/55 03/29/18 09:10 58 98 03/29/18 07:40 98.8 F 63 18 135/64 97 03/29/18 03:41 98.6 F 54 18 142/68 99 03/29/18 03:37 28 99 03/29/18 01:16 23 97 03/28/18 23:16 18 128/64 96 03/28/18 23:03 98.0 F 57 18 120/64 97 03/28/18 20:50 60 03/28/18 19:17 97.4 F L 56 18 136/70 100 03/28/18 16:20 98.2 F 62 18 146/51 95 03/28/18 16:03 58 Intake and Output 03/28/18 03/29/18 03/29/18 23:59 07:59 15:59 Intake Total 540 / 540 60 / 60 2160 / 2160 Output Total 3600 / 3600 Balance 540 / 540 60 / 60 -1440 / -1440 Intake: Oral 360 / 360 400 / 400 Tube Feeding 1000 / 1000 Intake, Rinseback and Flushes 600 / 600 Free Water Intake Amount 180 / 180 60 / 60 160 / 160 Output: Urine 0 / 0 Total Dialysis (HD) Output 3600 / 3600 Other: Meal Dinner Breakfast Percent of Meal Consumed 70% 30% Blood Glucose* 199 137 117 Hemodialysis Net Fluid Removed 3000 (mL) - General Appearance General appearance: Present: well-developed, well-nourished, appears started age EENT: Present: mucous membranes moist Neck: Present: no JVD Respiratory: Present: rhonchi Cardiology: Present: edema, regular rate, regular rhythm Additional Comments: mild ankle/pedal Dialysis Vascular Access: Arteriovenous Fistula thrill: Yes bruit: Yes Gastrointestinal: Present: normoactive bowel sounds, no tenderness Integumentary: Present: warm and dry Psychiatric: Present: mood/affect appropriate, cooperative - Lab 03/29/18 04:35 03/29/18 04:35 Most recent lab results Calcium 7.3 mg/dL (8.6-10.3) L 03/29/18 04:35 - VTE Documentation of Mechanical Device: Intermittent pneumatic compression device Consult Discharge Plan - Plan Referrals: Paco Sheikh MD [Primary Care Provider] - (This patient is from [facility] no PCP appointment needed)
--- NOTE | 2018-03-29 15:18 | Internal Med Progress Note ---
Date of Encounter: 03/29/18 Time of Encounter: 14:10 - Assessment and plan (1) Bacteremia due to Enterobacter species Current Visit: Yes Status: Acute Assessment and plan: Gram-negative bacteremia, probably secondary to pneumonia. One out of 2 initial blood cultures grew ESBL Klebsiella, repeat blood cultures are negative. Infectious diseases recommendations appreciated, continue IV ertapenem. (2) Pleural effusion Current Visit: Yes Status: Chronic Assessment and plan: Patient has recurrent bilateral pleural effusions, recurrent admission for similar complaints. Pulmonology has been consulted, risks of placing Pleurx catheter outweigh benefits, hence this is deferred. Continue fluid removal with hemodialysis. Supportive care and supplemental oxygen via trach collar. (3) HTN (hypertension) Current Visit: Yes Status: Chronic Qualifiers: Hypertension type: essential hypertension Qualified Code(s): I10 - Essential (primary) hypertension (4) DVT prophylaxis Current Visit: Yes Status: Acute (5) Anemia in CKD (chronic kidney disease) Current Visit: Yes Status: Chronic Assessment and plan: Hemoglobin stable, at around 8.6. Receives Epogen during dialysis. Qualifiers: Chronic kidney disease stage: on chronic dialysis Qualified Code(s): N18.6 - End stage renal disease; D63.1 - Anemia in chronic kidney disease; Z99.2 - Dependence on renal dialysis (6) CHF (congestive heart failure) Current Visit: Yes Status: Chronic Assessment and plan: Echocardiogram from last month shows significant combined CHF with EF 30%. Continue beta vicyk and fluid restriction, fluid removal through hemodialysis. Telemetry monitoring. Qualifiers: Heart failure type: combined systolic and diastolic Heart failure chronicity: acute on chronic Qualified Code(s): I50.43 - Acute on chronic combined systolic (congestive) and diastolic (congestive) heart failure (7) ESRD on dialysis Current Visit: Yes Status: Chronic Assessment and plan: Nephrology on board for dialysis needs. Underwent hemodialysis today. (8) Tracheostomy in place Current Visit: Yes Status: Chronic (9) Dysphagia Current Visit: Yes Status: Ruled-out Assessment and plan: Speech therapy was consulted for reported dysphagia, underwent modified barium swallow study, no evidence of aspiration. Continue mechanical soft diet. Qualifiers: Dysphagia type: unspecified Qualified Code(s): R13.10 - Dysphagia, unspecified (10) Diabetes mellitus Current Visit: Yes Status: Chronic Assessment and plan: Blood sugars noted to be better controlled. Continue Accu-Chek blood glucose monitoring with basal bolus insulin regimen. The patient is at risk for hypoglycemia with multiple previous episodes. Continue tube feedings along with oral diet as tolerated. Qualifiers: Diabetes mellitus type: type 2 Diabetes mellitus stockroom associate insulin use: with halfway use Diabetes mellitus complication status: with kidney complications Chronic kidney disease stage: on chronic dialysis Qualified Code(s): E11.22 - Type 2 diabetes mellitus with diabetic chronic kidney disease ; N18.6 - End stage renal disease; Z79.4 - prison (current) use of insulin; Z99.2 - Dependence on renal dialysis (11) Chronic respiratory failure with hypoxia Current Visit: Yes Status: Chronic Assessment and plan: Patient is on trach collar with supplemental oxygen in the daytime and vent support at nighttime. - Time Spent With Patient Total time spent is greater than 50% in coordination of care (as documented) at patient's floor/unit and/or counseling patient: - Subjective Interval history: Return from dialysis, feels tired. No chest pain, shortness of breath, palpitations. Speaks minimally. - Constitutional Vitals: Temp Pulse Resp BP Pulse Ox 97.6 F 64 19 134/64 95 03/29/18 14:14 03/29/18 14:14 03/29/18 14:14 03/29/18 14:14 03/29/18 14:14 General appearance: Present: A&O X 2, answers questions appropriately (By head nodding) - Respiratory Respiratory exam: Present: decreased breath sounds (At left base), CTAB. Absent : accessory muscle use, rales, rhonchi, wheezes - Cardiovascular Cardiovascular exam: Present: diastolic murmur, RRR, +S1, +S2. Absent: gallop, rubs, systolic murmur - GI/Abdominal GI/Abdominal exam: Present: normal bowel sounds, soft (G-tube in place), no peritoneal signs. Absent: distended, tenderness - Extremities Exam Extremities exam: Present: pedal edema (1+ B/L ankle edema), warm, radial pulses palpable and symmetrical. Absent: calf tenderness, cyanotic - Neurological Exam Neurological exam: Present: CN II-XII intact, oriented X3, no focal deficits. Absent: pronater drift, facial droop, speech deficit Internal Medicine: Result - Labs CBC & Chem 7: 03/29/18 04:35 03/29/18 04:35 Labs: Short CBC 03/29/18 Range/Units 04:35 WBC 9.2 (4.3-11.1) K/mcL Hgb 8.7 L (12.9-16.9) g/dL Hct 26.9 L (37.5-50.1) % Plt Count 397 (140-400) K/mcL Neutrophils # 4.6 (1.6-8.9) K/mcL BMP 03/29/18 04:35 Sodium 129 L Potassium 4.4 Chloride 92 L Carbon Dioxide 28 BUN 70 H Creatinine 2.94 H Glucose 154 H Calcium 7.3 L - VTE Documentation of Mechanical Device: Intermittent pneumatic compression device Consult Discharge Plan - Plan Referrals: Paco Sheikh MD [Primary Care Provider] - (This patient is from [facility] no PCP appointment needed)
[2018-03-29] MEDS: *HR* Dextrose 50 % in Water (Syg) 50 ML SYRINGE IVP PRN ×2 (17:14→18:09)
[2018-03-29] MEDS: Dextrose Gel 15 GM/37.5 ML TUBE PO PRN (17:43)
[2018-03-30] MEDS: Insulin LISPRO 300 UNITS/3 ML VIAL SQ SCH ×3 (00:06→12:07)
[2018-03-30] MEDS: hydrALAZINE 25 MG TABLET GTUBE SCH ×3 (00:08→12:07)
[2018-03-30] MEDS: *HR* Heparin 5,000 UNIT/ML VIAL SQ SCH (06:31)
[2018-03-30] MEDS: Sennosides/Docusate Sodium TABLET GTUBE SCH (09:18)
[2018-03-30] MEDS: *HR* Ticagrelor 90 MG TABLET GTUBE SCH (09:18)
[2018-03-30] MEDS: Cyanocobalamin (B-12) 1,000 MCG TABLET GTUBE SCH (09:18)
[2018-03-30] MEDS: Folic Acid 1 MG TABLET GTUBE SCH (09:19)
[2018-03-30] MEDS: Aspirin 81 MG TAB.CHEW GTUBE SCH (09:19)
[2018-03-30] MEDS: cloNIDine HCl 0.1 MG TABLET GTUBE SCH (09:19)
[2018-03-30] MEDS: amLODIPine 5 MG TABLET GTUBE SCH (09:19)
[2018-03-30] MEDS: predniSONE 10 MG TABLET PO SCH (09:19)
--- NOTE | 2018-03-30 09:31 | Infectious Disease Progress No ---
Date of Encounter: 03/30/18 Time of Encounter: 09:30 - Assessment and Plan (1) Bacteremia due to Klebsiella pneumoniae Status: Acute 1 out of 2 blood cultures positive for ESBL Klebsiella Source likely pneumonia Patient did have sputum growing ESBL Klebsiella during last admission Continue Ertapenen for now, but considering switching to oral therapy tomorrow if he remains clinically stable Discontinued Colistin on 03/28 Repeat cultures negative so far Recommend discharging with Levaquin 500 mg q48 with stop date 04/07 (2) HCAP (healthcare-associated pneumonia) Status: Acute CXR demonstrated bibasilar opacities Given patient had ESBL Klebsiella and MDR Acinetobacter in previous sputum, continue on Ertapenem Await repeat culture results (3) Constipation Status: Acute Patient reports he has not had a bowel movement since admission Management per primary team Qualifiers: Constipation type: unspecified constipation type Qualified Code(s): K59.00 - Constipation, unspecified (4) Acute and chronic respiratory failure with hypoxia Status: Acute Likely secondary to fluid overloaded as seen on chest x-ray CXR did demonstrate bibasilar opacities Continue tracheostomy and supportive care (5) Pleural effusion Status: Chronic (6) Systolic CHF Status: Acute Qualifiers: Heart failure chronicity: acute on chronic Qualified Code(s): I50.23 - Acute on chronic systolic (congestive) heart failure (7) Leukocytosis Status: Acute Qualifiers: Leukocytosis type: unspecified Qualified Code(s): D72.829 - Elevated white blood cell count, unspecified (8) Anemia Status: Chronic Qualifiers: Anemia type: unspecified type Qualified Code(s): D64.9 - Anemia, unspecified (9) ESRD on dialysis Status: Chronic (10) Tracheostomy care Status: Acute - Subjective Interval history: Pt seen and examined. He states his breathing is about the same as yesterday and he still feels some chest pressure/congestion. Still has not had a bowel movement since admission and points the the middle of his abdomen when asked if he had any belly pains. Per RN, he has been tolerating his diet but still has moderate amount of secretions from his trach. He was switched to his trach collar this morning after being on the vent overnight. Infect Dis PN-Objective Data - Labs CBC & Chem 7: 03/29/18 04:35 03/29/18 04:35 Labs: Laboratory Results - last 24 hr 03/28/18 03/29/18 03/29/18 23:42 18:50 23:59 POC Glucose 199 H 115 H 111 H Cultures: Cultures 03/24/18 13:59 Blood Culture - Final Peripheral Venipuncture No growth. Final report. 03/24/18 13:57 Blood Culture - Final Peripheral Venipuncture Klebsiella pneumoniae ESBL 03/27/18 15:59 Blood Culture - Preliminary Peripheral Venipuncture Culture is incubating and being continuously monitored for growth. Final report to follow. 03/27/18 14:50 Blood Culture - Preliminary Peripheral Venipuncture Culture is incubating and being continuously monitored for growth. Final report to follow. Serology 03/28/18 03/24/18 Range/Units 09:00 13:57 Urine Color Yellow (Yellow) Urine Clarity Clear (Clear) Urine pH 7.0 (5.0-8.0) pH Units Ur Specific [place] 1.011 (1.010-1.025) Urine Protein 100 H (Neg-Trace) mg/dL Urine Glucose (UA) Normal (Normal) mg/dL Urine Ketones Negative (Negative) mg/dL Urine Blood Negative (Negative) Urine Nitrite Negative (Negative) Urine Bilirubin Negative (Negative) Urine Urobilinogen Normal (Normal) mg/dL Ur Leukocyte Esterase Negative (Negative) Urine Microscopic RBC 5-15 H (0-3) per hpf Urine Microscopic WBC 0-3 (0-3) per hpf Ur Squamous Epith Cells None Seen (None-Few) per lpf Urine Bacteria None Seen (None-Few) per hpf Hyaline Casts None Seen (None-Few) per lpf Ur Culture Indicated? NO (NO) A. baumannii (PCR) Not Detected (Not Detect) Tomasa albicans (PCR) Not Detected (Not Detect) C. glabrata (PCR) Not Detected (Not Detect) C. krusei (PCR) Not Detected (Not Detect) C. parapsilosis (PCR) Not Detected (Not Detect) C. tropicalis (PCR) Not Detected (Not Detect) Enterobacteriac sp PCR DETECTED A (Not Detect) E. cloacae complex PCR Not Detected (Not Detect) Enterococcus sp PCR Not Detected (Not Detect) E. coli (PCR) Not Detected (Not Detect) H. influenzae (PCR) Not Detected (Not Detect) Klebsiella oxytoca PCR Not Detected (Not Detect) Klebsiella pneumoniae DETECTED A (Not Detect) List. monocytogenes PCR Not Detected (Not Detect) N. meningitidis (PCR) Not Detected (Not Detect) Proteus species (PCR) Not Detected (Not Detect) Serratia marcescens PCR Not Detected (Not Detect) Staphylococcus sp PCR Not Detected (Not Detect) Staph aureus (PCR) Not Detected (Not Detect) mecA-Methicil Res Gene N/A (Not Detect) Streptococcus sp PCR Not Detected (Not Detect) Group A Strep DNA Not Detected (Not Detect) Group B Strep (PCR) Not Detected (Not Detect) Strep pneumoniae (PCR) Not Detected (Not Detect) P. aeruginosa (PCR) Not Detected (Not Detect) Joel/B-Vanco Res Genes N/A (Not Detect) KPC (blaKPC) Detect PCR Not Detected (Not Detect) Exam - Constitutional Vitals: Temp Pulse Resp BP Pulse Ox 98.3 F 64 16 138/64 95 03/30/18 08:05 03/30/18 08:05 03/30/18 08:05 03/30/18 08:05 03/30/18 08:05 General appearance: cooperative, no acute distress, no febrile - Head Head exam: Present: atraumatic, normocephalic - Respiratory Respiratory exam: Present: rhonchi. Absent: accessory muscle use, respiratory distress - Cardiovascular Cardiovascular exam: Present: RRR. Absent: irregular rhythm, systolic murmur, tachycardia - GI/Abdominal GI/Abdominal exam: Present: normal bowel sounds, soft, tenderness - Extremities Exam Extremities exam: Present: pedal edema - VTE Documentation of Mechanical Device: Intermittent pneumatic compression device Consult Discharge Plan - Plan Additional Instructions: F/up with PCP in 1-2 weeks F/up with HD 3 times/week- [facility] Referrals: Paco Sheikh MD [Primary Care Provider] - (This patient is from [facility] no PCP appointment needed) Prescriptions: levoFLOXacin [Levaquin] 500 mg GTUBE Q48H #5 tablet LORazepam [Ativan] 0.5 mg GTUBE Q6H PRN 3 Days #10 tablet PRN Reason: Anxiety Oxycodone HCl [Oxaydo] 5 mg GTUBE Q6H PRN 5 Days #10 tablet.orl PRN Reason: Severe Pain - Attending Attestation I examined this patient and my medical decision-making was reviewed with the Resident Physician. I agree with the documented findings, disposition and treatment plan as described except to the extent set forth below.
--- NOTE | 2018-03-30 10:24 | Nephrology Progress Note ---
Date of Encounter: 03/30/18 Time of Encounter: 10:05 - Assessment and Plan (1) ESRD on dialysis Current Visit: No Status: Chronic No HD today, keeping MWF schedule. Subjective Principal diagnosis: Chronic respirator failure Interval history: Seen on HD. trach>vent. Complain of abdominal tendersness. Abdomen soft. Objective - Vital Signs Vital signs: Vital Signs Temp Pulse Resp BP Pulse Ox 03/30/18 08:05 98.3 F 64 16 138/64 95 03/30/18 05:39 98.1 F 63 20 137/63 96 03/30/18 04:39 17 147/57 96 03/30/18 00:28 18 147/57 91 03/30/18 00:10 60 03/30/18 00:00 97.2 F L 57 20 147/57 92 03/29/18 20:10 58 03/29/18 18:39 96.8 F L 59 18 133/62 97 03/29/18 17:08 97.8 F 62 18 135/64 96 03/29/18 16:30 58 135/64 95 03/29/18 14:14 97.6 F 64 19 134/64 95 03/29/18 13:37 97.3 F L 20 127/45 03/29/18 13:20 121/45 03/29/18 13:05 120/53 03/29/18 12:50 123/55 03/29/18 12:35 116/51 03/29/18 12:20 120/53 03/29/18 12:05 117/51 03/29/18 11:55 56 03/29/18 11:50 105/50 03/29/18 11:35 106/48 03/29/18 11:20 108/52 03/29/18 11:05 105/47 03/29/18 10:50 106/48 03/29/18 10:35 115/52 Intake and Output 03/29/18 03/30/18 03/30/18 23:59 07:59 15:59 Intake Total 990 / 990 120 / 120 240 / 240 Balance 990 / 990 120 / 120 240 / 240 Intake: IV Fluids 100 / 100 INVanz 500 MG In 0.9 % Sodium 100 / 100 Chloride 100 ML @ 100 mls/hr IVPB Q24H [facility] Rx#:[id number] Oral 410 / 410 240 / 240 Free Water 100 / 100 Free Water Intake Amount 380 / 380 120 / 120 Other: Meal Dinner Breakfast Percent of Meal Consumed 40% 25% Stool Size Large Stool Consistency liquid Stool Characteristics Normal for Patient Stool Color Brown Yellow Blood Glucose* 115 235 - General Appearance General appearance: Present: well-developed, well-nourished, appears started age EENT: Present: mucous membranes moist Neck: Present: no JVD Respiratory: Present: rhonchi Cardiology: Present: edema, regular rate, regular rhythm Additional Comments: ankle Dialysis Vascular Access: Arteriovenous Fistula Gastrointestinal: Present: normoactive bowel sounds, tenderness Integumentary: Present: warm and dry Psychiatric: Present: mood/affect appropriate, cooperative - Lab 03/29/18 04:35 03/29/18 04:35 Most recent lab results Calcium 7.3 mg/dL (8.6-10.3) L 03/29/18 04:35 - VTE Documentation of Mechanical Device: Intermittent pneumatic compression device Consult Discharge Plan - Plan Referrals: Paco Sheikh MD [Primary Care Provider] - (This patient is from [facility] no PCP appointment needed)
[2018-03-30] MEDS: Insulin DETEMIR 100 UNIT/ML X5UNITS SQ SCH (12:08)
--- NOTE | 2018-03-30 15:18 | Discharge Summary ---
- NOTES TO OUTPATIENT PROVIDER Notes to Outpatient Provider: Recurrent pleural effusion, ESBL Klebsiella bacteremia; now on PO Levaquin; Orders not resulted at time of discharge: Pending orders 03/27/18 15:59 Culture,Blood [BC] Routine Date of Encounter: 03/30/18 Time of Encounter: 15:17 - Discharge Diagnosis (1) Bacteremia due to Enterobacter species Priority: Primary Status: Acute (2) Pleural effusion Priority: Primary Status: Chronic (3) HTN (hypertension) Priority: Secondary Status: Chronic Qualifiers: Hypertension type: essential hypertension Qualified Code(s): I10 - Essential (primary) hypertension (4) Anemia in CKD (chronic kidney disease) Priority: Secondary Status: Chronic Qualifiers: Chronic kidney disease stage: on chronic dialysis Qualified Code(s): N18.6 - End stage renal disease; D63.1 - Anemia in chronic kidney disease; Z99.2 - Dependence on renal dialysis (5) CHF (congestive heart failure) Priority: Secondary Status: Chronic Qualifiers: Heart failure type: combined systolic and diastolic Heart failure chronicity: acute on chronic Qualified Code(s): I50.43 - Acute on chronic combined systolic (congestive) and diastolic (congestive) heart failure (6) ESRD on dialysis Priority: Secondary Status: Chronic (7) Tracheostomy in place Priority: Secondary Status: Chronic (8) Dysphagia Priority: Primary Status: Ruled-out Qualifiers: Dysphagia type: unspecified Qualified Code(s): R13.10 - Dysphagia, unspecified (9) Diabetes mellitus Priority: Secondary Status: Chronic Qualifiers: Diabetes mellitus type: type 2 Diabetes mellitus senior care insulin use: with senior care use Diabetes mellitus complication status: with kidney complications Diabetes mellitus complication detail: with chronic kidney disease Chronic kidney disease stage: on chronic dialysis Qualified Code(s) : E11.22 - Type 2 diabetes mellitus with diabetic chronic kidney disease; N18.6 - End stage renal disease; Z79.4 - [facility] (current) use of insulin; Z99.2 - Dependence on renal dialysis (10) Chronic respiratory failure with hypoxia Priority: Secondary Status: Chronic Hospital course: Mr. Landaverde is a 57 year old male with the above medical problems, including chronic tracheostomy, who was sent from half-way due to respiratory distress and shortness of breath. Patient was noted to have bilateral moderate pleural effusion, which is recurrent and he did have similar previous admission recently. Pulmonology was consulted for possible Pleurx catheter placement, however this is deferred due to the risks of bleeding outweighing benefits. Nephrology was consulted and patient underwent regular hemodialysis sessions with significant improvement in symptoms. One out of 2 initial blood cultures grew MDR Klebsiella pneumoniae. Infectious diseases was consulted, patient was initially on IV colistin and ertapenem, later continued only on ertapenem. He does have history of previous pneumonia with drug-resistant organisms. He is currently medically stable for discharge with oral antibiotics. Patient was also evaluated by speech therapy during this admission for suspected dysphagia, however modified barium Swallow showed no evidence of aspiration. He is cleared for mechanical soft diet and thin liquids, along with his usual PEG tube feeds. Discharge discussed with: nurse, accounting consultant - Time Spent with Patient Total time spent providing and/or coordinating discharge services: Greater than 30 minutes (45 min) - Discharge Medications Prescriptions: levoFLOXacin [Levaquin] 500 mg GTUBE Q48H #5 tablet LORazepam [Ativan] 0.5 mg GTUBE Q6H PRN 3 Days #10 tablet PRN Reason: Anxiety Oxycodone HCl [Oxaydo] 5 mg GTUBE Q6H PRN 5 Days #10 tablet.orl PRN Reason: Severe Pain Home Medications: Amlodipine Besylate 10 mg GTUBE DAILY 11/25/17 [History] Atorvastatin Calcium [Lipitor] 40 mg GTUBE DAILY 11/25/17 [History] Cyanocobalamin (B-12) [Vitamin B12] 1,000 mcg GTUBE DAILY 11/25/17 [History] Docusate [Colace] 50 mg GTUBE DAILY 11/25/17 [History] Folic Acid 1 mg GTUBE DAILY 11/25/17 [History] Levothyroxine Sodium [Synthroid] 300 mcg GTUBE DAILY 11/25/17 [History] Pantoprazole Sodium [Protonix] 40 mg GTUBE DAILY 11/25/17 [History] Sennosides/Docusate Sodium [Senna-S Tablet] 1 each GTUBE BID 11/25/17 [History] cloNIDine HCl [CloNIDine HCl] 0.1 mg GTUBE TID 11/25/17 [History] hydrOXYzine HCl [Hydroxyzine HCl] 25 mg GTUBE Q6H PRN 11/25/17 [History] Aspirin [Lo-Dose Aspirin EC] 81 mg GTUBE DAILY 02/21/18 [History] Carvedilol [Coreg] 25 mg GTUBE BID 02/21/18 [History] Renal Vitamin [Renal Caps Softgel] 1 mg GTUBE DAILY 02/21/18 [History] Ticagrelor [Brilinta] 90 mg GTUBE BID 02/21/18 [History] hydrALAZINE [HydrALAZINE] 50 mg PO Q6HR 02/21/18 [History] Ipratropium/Albuterol Neb [Duoneb] 3 ml IH [id number] PRN inhsol 03/06/18 [Rx] Insulin Glargine,Hum.rec.anlog [Lantus Solostar] 15 unit SQ QAM 03/23/18 [ History] Insulin Regular Human [Humulin R] 0 - 10 unit SQ TIDWM 03/23/18 [History] predniSONE [PredniSONE] See Taper PO DAILY 03/23/18 [History] LORazepam [Ativan] 0.5 mg GTUBE Q6H PRN 3 Days #10 tablet 03/30/18 [Rx] Oxycodone HCl [Oxaydo] 5 mg GTUBE Q6H PRN 5 Days #10 tablet.orl 03/30/18 [Rx] Polyethylene Glycol 3350 [MiraLAX] 17 gm PO DAILY powd.pack 03/30/18 [Rx] levoFLOXacin [Levaquin] 500 mg GTUBE Q48H #5 tablet 03/30/18 [Rx] Allergies/Adverse Reactions: 3 Allergy/AdvReac Type Severity Reaction Status Date / Time No Known Allergies Allergy Verified 03/23/18 12:09 Date of admission: 03/23/18 10:57 Primary care physician: Paco Sheikh MD Consults: 03/23/18 13:55 Consult Oncology Dietitian/Nutrtition [CONS] Routine 03/23/18 15:58 Consult to Nephrology [CONS] Routine Consulting Provider: Kid[facility] HTN [facility] YOANDY Reason for Consult: End-stage renal disease Call Completed: No 03/23/18 16:40 Consult to Pulmonology [CONS] Routine Consulting Provider: [facility] [place] Reason for Consult: Recurrenct pulmonary effusions Call Completed: Yes 03/24/18 08:30 Consult to Dialysis [CONS] ONCE 03/24/18 09:32 Consult to Infectious Diseases [CONS] Routine Consulting Provider: Infectious Disease [place] Reason for Consult: Patient with history of ESBL Klebsiella and Acinetobacter pneumonia Call Completed: Yes 03/25/18 14:34 Consult to Speech Therapy [CONS] Routine Comment: Evaluate, develop and implement POC Reason for Consult: swallow eval. Call Completed: No 03/25/18 14:39 Consult to Nutrition [CONS] Routine Comment: Consulting Provider: NUTRITION Reason for Dietary Consult: Other 03/27/18 10:45 Consult to Dialysis [CONS] ONCE 03/29/18 09:45 Consult to Dialysis [CONS] ONCE Discharging clinician: Aimee Brenner Anticipated date of discharge: 03/30/18 - Constitutional Vitals: Temp Pulse Resp BP Pulse Ox 98.3 F 64 16 152/63 95 03/30/18 08:05 03/30/18 11:36 03/30/18 11:36 03/30/18 11:36 03/30/18 11:36 General appearance: Present: A&O X 2, answers questions appropriately (patient has certain days when he is uncooperative and rests with his eyes closed; ) - Cardiovascular Cardiovascular exam: Present: RRR, +S1, +S2. Absent: diastolic murmur, gallop, rubs, systolic murmur - Patient Status Disposition: Transfer SNF Condition: Fair Functional capacity at discharge: bed bound Overall status at discharge: patient is progressing back to baseline - Discharge Instructions Follow Up With: Paco Sheikh MD [Primary Care Provider] - (This patient is from [facility] no PCP appointment needed) Additional Instructions: F/up with PCP in 1-2 weeks F/up with HD 3 times/week- [facility] - Diet and Activity Activity: as per physical therapy, wear oxygen at all times (via trach collar and ventilator at night) Diet: diabetic diet (mechanical soft diet), low fat, low cholesterol, low salt diet - VTE Documentation of Mechanical Device: Intermittent pneumatic compression device
--- NOTE | 2018-03-30 15:30 | Physician Discharge Referral ---
ExtendedCare Referral Info Transfer To: [facility] Provider in Charge: Aimee Brenner Provider in Charge after Transfer: PCP Institutional Level of Care: Skilled - Diagnosis (1) Bacteremia due to Enterobacter species Priority: Primary Status: Acute (2) Pleural effusion Priority: Primary Status: Chronic (3) HTN (hypertension) Priority: Secondary Status: Chronic (4) Anemia in CKD (chronic kidney disease) Priority: Secondary Status: Chronic (5) CHF (congestive heart failure) Priority: Secondary Status: Chronic (6) ESRD on dialysis Priority: Secondary Status: Chronic (7) Tracheostomy in place Priority: Secondary Status: Chronic (8) Dysphagia Priority: Primary Status: Ruled-out (9) Diabetes mellitus Priority: Secondary Status: Chronic (10) Chronic respiratory failure with hypoxia Priority: Secondary Status: Chronic 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 Prognosis: Poor - Transfer Medications Prescriptions: levoFLOXacin [Levaquin] 500 mg GTUBE Q48H #5 tablet LORazepam [Ativan] 0.5 mg GTUBE Q6H PRN 3 Days #10 tablet PRN Reason: Anxiety Oxycodone HCl [Oxaydo] 5 mg GTUBE Q6H PRN 5 Days #10 tablet.orl PRN Reason: Severe Pain Home Medications: Amlodipine Besylate 10 mg GTUBE DAILY 11/25/17 [History] Atorvastatin Calcium [Lipitor] 40 mg GTUBE DAILY 11/25/17 [History] Cyanocobalamin (B-12) [Vitamin B12] 1,000 mcg GTUBE DAILY 11/25/17 [History] Docusate [Colace] 50 mg GTUBE DAILY 11/25/17 [History] Folic Acid 1 mg GTUBE DAILY 11/25/17 [History] Levothyroxine Sodium [Synthroid] 300 mcg GTUBE DAILY 11/25/17 [History] Pantoprazole Sodium [Protonix] 40 mg GTUBE DAILY 11/25/17 [History] Sennosides/Docusate Sodium [Senna-S Tablet] 1 each GTUBE BID 11/25/17 [History] cloNIDine HCl [CloNIDine HCl] 0.1 mg GTUBE TID 11/25/17 [History] hydrOXYzine HCl [Hydroxyzine HCl] 25 mg GTUBE Q6H PRN 11/25/17 [History] Aspirin [Lo-Dose Aspirin EC] 81 mg GTUBE DAILY 02/21/18 [History] Carvedilol [Coreg] 25 mg GTUBE BID 02/21/18 [History] Renal Vitamin [Renal Caps Softgel] 1 mg GTUBE DAILY 02/21/18 [History] Ticagrelor [Brilinta] 90 mg GTUBE BID 02/21/18 [History] hydrALAZINE [HydrALAZINE] 50 mg PO Q6HR 02/21/18 [History] Ipratropium/Albuterol Neb [Duoneb] 3 ml IH [id number] PRN inhsol 03/06/18 [Rx] Insulin Glargine,Hum.rec.anlog [Lantus Solostar] 15 unit SQ QAM 03/23/18 [ History] Insulin Regular Human [Humulin R] 0 - 10 unit SQ TIDWM 03/23/18 [History] predniSONE [PredniSONE] See Taper PO DAILY 03/23/18 [History] LORazepam [Ativan] 0.5 mg GTUBE Q6H PRN 3 Days #10 tablet 03/30/18 [Rx] Oxycodone HCl [Oxaydo] 5 mg GTUBE Q6H PRN 5 Days #10 tablet.orl 03/30/18 [Rx] Polyethylene Glycol 3350 [MiraLAX] 17 gm PO DAILY powd.pack 03/30/18 [Rx] levoFLOXacin [Levaquin] 500 mg GTUBE Q48H #5 tablet 03/30/18 [Rx] Allergies/Adverse Reactions: 3 Allergy/AdvReac Type Severity Reaction Status Date / Time No Known Allergies Allergy Verified 03/23/18 12:09 - Respiratory Orders Oxygen / L per min (8L/min via TC, on vent support at night) Smoking Cessation: Smoking cessation has been advised. For more information, call the [place] Tobacco Quit Line at 7-981-HCFN-NOW. - Advance Directives Power of Production Metal Sprayer: Yes Code Status: Full Code - Mobility Orders Bedrest - Rehabiliation Orders Rehab Potential: Poor Rehab Orders: Sternal Precautions, ROM Exercises, Evaluation for Physical Therapy, Evaluation for Occupational Therapy - Diet Orders Mechanical Soft, No Concentrated Sweets (diabetic), Renal, Cardiac Tube Feedings (type/amount/rate): Nepro, continuous via PEG tube, at 50ml/hr; may substitute with other feeds per ECF preference; CERTIFICATION: I certify that the transfer of the above named patient to an Extended Care Facility is necessary for the continuing treatment of the diagnosis listed. The above information is true and accurate reflection of patient's current condition. Confidential - Redisclosure prohibited without a patient's written consent.
[2018-03-30 15:49] VITALS: BP 129/59
[2018-03-31] MEDS ORDERED: Darbepoetin 100 MCG/0.5 ML SYRINGE SQ SCH (09:00)
== END 2018-03-30 17:10 | DRG 207 ==
LOC: ICNU 10:57 → SUATTDRO 10:57 → 2NNU 18:44
PROVIDERS: ADMIT Hospitalist; ATTEND Internal Medicine

== ENCOUNTER 2018-05-06 08:29 | Inpatient (IN) ==
--- NOTE | 2018-05-06 11:33 | Pulmonology Consult Note ---
<Vicky Husain M - Last Filed: 05/06/18 11:53> Date of Encounter: 05/06/18 Medications and Allergies Amlodipine Besylate 10 mg GTUBE DAILY 11/25/17 [History] Atorvastatin Calcium [Lipitor] 40 mg GTUBE DAILY 11/25/17 [History] Cyanocobalamin (B-12) [Vitamin B12] 1,000 mcg GTUBE DAILY 11/25/17 [History] Docusate [Colace] 50 mg GTUBE DAILY 11/25/17 [History] Folic Acid 1 mg GTUBE DAILY 11/25/17 [History] Levothyroxine Sodium [Synthroid] 300 mcg GTUBE DAILY 11/25/17 [History] Pantoprazole Sodium [Protonix] 40 mg GTUBE DAILY 11/25/17 [History] Sennosides/Docusate Sodium [Senna-S Tablet] 1 each GTUBE BID 11/25/17 [History] cloNIDine HCl [CloNIDine HCl] 0.1 mg GTUBE TID 11/25/17 [History] Aspirin [Lo-Dose Aspirin EC] 81 mg GTUBE DAILY 02/21/18 [History] Carvedilol [Coreg] 25 mg GTUBE BID 02/21/18 [History] Renal Vitamin [Renal Caps Softgel] 1 mg GTUBE DAILY 02/21/18 [History] Ticagrelor [Brilinta] 90 mg GTUBE BID 02/21/18 [History] hydrALAZINE [HydrALAZINE] 50 mg PO Q6HR 02/21/18 [History] Ipratropium/Albuterol Neb [Duoneb] 3 ml IH [id number] PRN inhsol 03/06/18 [Rx] Insulin Regular Human [Humulin R] 0 - 10 unit SQ TIDWM 03/23/18 [History] Oxycodone HCl [Oxaydo] 5 mg GTUBE Q6H PRN 5 Days #10 tablet.orl 03/30/18 [Rx] Polyethylene Glycol 3350 [MiraLAX] 17 gm PO DAILY powd.pack 03/30/18 [Rx] Acetaminophen [Acetaminophen ER] 650 mg PO Q4H PRN 05/06/18 [History] Calcitriol [Rocaltrol] 0.25 mcg PO MOWEFR 05/06/18 [History] Dextrose [Glucose Gel] 15 gm PO NOW PRN 05/06/18 [History] Glucagon,Human Recombinant [Glucagon Emergency Kit] 1 mg IJ NOW 05/06/18 [ History] LORazepam [Ativan] 1 mg GTUBE Q4H 05/06/18 [History] Hgzquvrolzbn-Dnar-Gelcfhgg,Iso [Zosyn 3.375 gm/50 ml Galaxy] 3.375 gm IV Q8H 01/18 [History] Quetiapine Fumarate [SEROquel] 25 mg PO BID 05/06/18 [History] Vancomycin HCl 500 mg IV 3XW 05/06/18 [History] 3 Allergy/AdvReac Type Severity Reaction Status Date / Time No Known Allergies Allergy Verified 03/23/18 12:09 All Systems: The remainder of the systems were reviewed and are negative Physical Examination Vital Signs: Vital Signs, Last 4 Hours Temp Pulse Resp BP Pulse Ox 05/06/18 10:30 94.3 F L 50 21 176/89 100 05/06/18 10:25 21 100 Ventilator Settings Ventilator Settings: Ventilator Settings, Last 8 Hours Ventilator Tidal Volume 500 Setting Ventilator Tidal Volume 500 Setting Ventilator Respiratory Rate 20 Setting Ventilator Respiratory Rate 20 Setting Actual Respiratory Rate 24 Actual Respiratory Rate 21 Positive End Expiratory 5 Pressure Positive End Expiratory 5 Pressure Peak Inspiratory Airway 28 Pressure Peak Inspiratory Airway 35 Pressure Results - Clinical Findings Intake & Output: Intake & Output 05/05/18 05/06/18 05/06/18 23:59 07:59 15:59 Intake Total 0 / 0 Output Total 0 / 0 Balance 0 / 0 Weight 71.5 kg Consult Discharge Plan - Plan Referrals: Paco Sheikh MD [Primary Care Provider] - - Attending Attestation I examined this patient and my medical decision-making was reviewed with the Resident Physician. I agree with the documented findings, disposition and treatment plan as described except to the extent set forth below. Patient seen and examined. Labs, radiology, chart personally reviewed. Agree with resident's history and physical, assessment, plan with following comments: SIDER MECHANIC: Patient follows commands, Pulmonary: Acceptable oxygenation and ventilation and hospitalist asked for vent management. Patient has evidence of what looks like acute on chronic respiratory acidosis and vent setting changed with increasing tidal volume and lowering respiratory rate and FiO2. We will have a follow-up ABG. My suspicion for infection is low since patient is hemodynamically stable and unfortunately patients like him are susceptible for multiple infections and will have low threshold for sepsis. Discussed with the centrifugal casting machine tender and patient most likely will need hemodialysis. Thank you for the consultation. Cardiovascular: stable <Bladimir Bates - Last Filed: 05/06/18 22:47> Date of Encounter: 05/06/18 Time of Encounter: 11:30 Assessment and Plan (1) Acute and chronic respiratory failure with hypercapnia Current Visit: Yes Status: Acute likely due to his Hx of recurrent pleural effusion, bacteremia, fluid overloaded status - patient's ABG in the ED showed a partially compensated respiratory acidosis : pH 7.22,, CO2: 78, O2: 409, HCO3- 32. - patient currently on ventilator, FiO2 : 50% - goal is to increase his minute ventilation: decrease his resp rate and increase tidal volume (2) Pneumonia Current Visit: Yes Status: Acute - likely due to his Hx of bacteremia, multiple admissions to the hospital for recurrent pleural effusions - patient is currently in ICU for airway management - he's being empirically treated with Vanc/Zosyn. - we will continue to monitor his respiratory status Qualifiers: Qualified Code(s): J18.9 - Pneumonia, unspecified organism History of Present Illness Consult date: 05/06/18 Chief complaint: Respiratory failure History of present illness: Patient is a 57-year-old male with PMHx of chronic respiratory failure with trach ventilation, CVA, ischemic cardiomyopathy, hypertension, hyperlipidemia and hypothyroid who presents from [facility] with concerns of decreased mental status. He was found to have acute on chronic hypercapnic respiratory failure with respiratory acidosis. Pulmonology was consulted for airway management Past Med Surg Social Fam HX - Past Medical History Medical history: cardiomyopathy, CVA, diabetes, dialysis, GERD, hyperlipidemia, hypertension, liver disease, renal disease, thyroid disease, other Additional medical history: ANEMIA Psychiatric history: anxiety - Past Surgical History Surgical History: orthopedic, other (Left femur rodding), tracheostomy, other ( Left upper extremity AV fistula) Additional surgical history: trach. gtube - Social History Smoking Status: Former smoker Smokeless Tobacco Status: (UNknown) Alcohol use: none Drug use: none - Family History Mother Family Member Ethnicity: Non- Living Status: Hx Family Cardiac Disorders: Yes (CAD) Father Family Member Ethnicity: Non- Living Status: Hx Family Cardiac Disorders: Yes (HD) Brother Family Member Ethnicity: Non- Living Status: Hx Family Autoimmune Disorders: Yes (AIDS) All Systems: The remainder of the systems were reviewed and are negative Physical Examination Vital Signs: Vital Signs, Last 4 Hours Temp Pulse Resp BP Pulse Ox 05/06/18 10:30 94.3 F L 50 21 176/89 100 05/06/18 10:25 21 100 Auscultation: bilateral: other (course breath sounds, a trach is in place) Percussion: bilateral: not dull Tactile fremitus: bilateral: normal Cardiovascular: regular rate and rhythm, other (no edema, regular rate) Ventilator Settings Ventilator Settings: Ventilator Settings, Last 8 Hours Ventilator Tidal Volume 500 Setting Ventilator Tidal Volume 500 Setting Ventilator Respiratory Rate 20 Setting Ventilator Respiratory Rate 20 Setting Actual Respiratory Rate 24 Actual Respiratory Rate 21 Positive End Expiratory 5 Pressure Positive End Expiratory 5 Pressure Peak Inspiratory Airway 28 Pressure Peak Inspiratory Airway 35 Pressure Results - Clinical Findings Intake & Output: Intake & Output 05/05/18 05/06/18 05/06/18 23:59 07:59 15:59 Intake Total 0 / 0 Output Total 0 / 0 Balance 0 / 0 Weight 71.5 kg
[2018-05-06] MEDS ORDERED: *HR* Dextrose 50 % in Water (Syg) 50 ML SYRINGE IVP PRN (13:12)
[2018-05-06] MEDS ORDERED: D5% in Water 1,000 ML IVC PRN (13:12)
[2018-05-06] MEDS ORDERED: Dextrose Gel 15 GM/37.5 ML TUBE PO PRN ×3 (13:12→16:53)
[2018-05-06] MEDS ORDERED: 0.9 % Sodium Chloride 1,000 ML ONE (15:00)
[2018-05-06] MEDS ORDERED: *HR* Heparin 10,000 UNIT/10 ML VIAL IV PRN (15:18)
[2018-05-06] MEDS ORDERED: 0.9 % Sodium Chloride 250 ML IVC PRN (15:18)
--- NOTE | 2018-05-06 15:18 | Nephrology Consult Note ---
Date of Encounter: 05/06/18 Time of Encounter: 15:15 Assessment and Plan (1) ESRD on dialysis Current Visit: No Status: Chronic HD MWF. Renal vitamins. Renal dose medications. Renal diet. Additional dialysis and ultrafiltration as needed. Plan for dialysis today to manage hyperkalemia. At the time of this dictation I am currently awaiting a set of labs here [facility] to help guide dialysis therapy. History of Present Illness - Reason for Consult Consult date: 05/06/18 end stage renal disease - Chief Complaint esrd - History of Present Illness Mr. Carrion 57-year-old gentleman with end-stage renal disease. [place] [facility] was consulted for ongoing dialysis management. At the time my evaluation the patient was being turned. He had no specific complaints. The patient has a trach and is on the ventilator. The patient is a poor historian and unable to add additional information to the history. We will be able to add more information as more information becomes available. Past Med Surg Social Fam HX - Past Medical History Medical history: cardiomyopathy, CVA, diabetes, dialysis, GERD, hyperlipidemia, hypertension, liver disease, renal disease, thyroid disease, other Additional medical history: ANEMIA Psychiatric history: anxiety - Past Surgical History Surgical History: orthopedic, other (Left femur rodding), tracheostomy, other ( Left upper extremity AV fistula) Additional surgical history: trach. gtube - Social History Smoking Status: Former smoker Smokeless Tobacco Status: (UNknown) Alcohol use: none Drug use: none - Family History Mother Family Member Ethnicity: Non- Living Status: Hx Family Cardiac Disorders: Yes (CAD) Father Family Member Ethnicity: Non- Living Status: Hx Family Cardiac Disorders: Yes (HD) Brother Family Member Ethnicity: Non- Living Status: Hx Family Autoimmune Disorders: Yes (AIDS) Medications and Allergies Amlodipine Besylate 10 mg GTUBE DAILY 11/25/17 [History] Atorvastatin Calcium [Lipitor] 40 mg GTUBE DAILY 11/25/17 [History] Cyanocobalamin (B-12) [Vitamin B12] 1,000 mcg GTUBE DAILY 11/25/17 [History] Docusate [Colace] 50 mg GTUBE DAILY 11/25/17 [History] Folic Acid 1 mg GTUBE DAILY 11/25/17 [History] Levothyroxine Sodium [Synthroid] 300 mcg GTUBE DAILY 11/25/17 [History] Pantoprazole Sodium [Protonix] 40 mg GTUBE DAILY 11/25/17 [History] Sennosides/Docusate Sodium [Senna-S Tablet] 1 each GTUBE BID 11/25/17 [History] cloNIDine HCl [CloNIDine HCl] 0.1 mg GTUBE TID 11/25/17 [History] Aspirin [Lo-Dose Aspirin EC] 81 mg GTUBE DAILY 02/21/18 [History] Carvedilol [Coreg] 25 mg GTUBE BID 02/21/18 [History] Renal Vitamin [Renal Caps Softgel] 1 mg GTUBE DAILY 02/21/18 [History] Ticagrelor [Brilinta] 90 mg GTUBE BID 02/21/18 [History] hydrALAZINE [HydrALAZINE] 50 mg PO Q6HR 02/21/18 [History] Ipratropium/Albuterol Neb [Duoneb] 3 ml IH [id number] PRN inhsol 03/06/18 [Rx] Insulin Regular Human [Humulin R] 0 - 10 unit SQ TIDWM 03/23/18 [History] Oxycodone HCl [Oxaydo] 5 mg GTUBE Q6H PRN 5 Days #10 tablet.orl 03/30/18 [Rx] Polyethylene Glycol 3350 [MiraLAX] 17 gm PO DAILY powd.pack 03/30/18 [Rx] Acetaminophen [Acetaminophen ER] 650 mg PO Q4H PRN 05/06/18 [History] Calcitriol [Rocaltrol] 0.25 mcg PO MOWEFR 05/06/18 [History] Dextrose [Glucose Gel] 15 gm PO NOW PRN 05/06/18 [History] Glucagon,Human Recombinant [Glucagon Emergency Kit] 1 mg IJ NOW 05/06/18 [ History] LORazepam [Ativan] 1 mg GTUBE Q4H 05/06/18 [History] Whdkrairricw-Xgxi-Btnqblte,Iso [Zosyn 3.375 gm/50 ml Galaxy] 3.375 gm IV Q8H 01/18 [History] Quetiapine Fumarate [SEROquel] 25 mg PO BID 05/06/18 [History] Vancomycin HCl 500 mg IV 3XW 05/06/18 [History] 3 Allergy/AdvReac Type Severity Reaction Status Date / Time No Known Allergies Allergy Verified 03/23/18 12:09 Review of Systems ROS unobtainable: due to mental status Exam - Vital Signs Vital signs: Initial Vital Signs Resp Pulse Ox 21 100 05/06/18 10:25 05/06/18 10:25 Vital Signs - Last 8 Hours Temp Pulse Resp BP Pulse Ox 05/06/18 13:08 23 176/89 99 05/06/18 10:30 94.3 F L 50 21 176/89 100 05/06/18 10:25 21 100 Intake and Output 05/05/18 05/06/18 05/06/18 23:59 07:59 15:59 Intake Total 240 / 240 Output Total 0 / 0 Balance 240 / 240 Intake: Oral 0 / 0 Free Water 240 / 240 Output: Urine 0 / 0 Other: Weight 71.5 kg Blood Glucose* 156 Patient Weight 05/06/18 23:59 Weight 71.5 kg - General Appearance General appearance: well-developed, well-nourished, chronically ill EENT: ATNC Additional Comments: A trach is in place. Respiratory: course breath sounds Cardiology: no edema, regular rate - Dialysis Access Dialysis Vascular Access: Venous Catheter Integumentary: warm and dry Musculoskeletal: no cyanosis Consult Discharge Plan - Plan Referrals: Paco Sheikh MD [Primary Care Provider] -
[2018-05-06] MEDS ORDERED: 0.9 % Sodium Chloride 1,000 ML PRIME SCH (15:30)
[2018-05-06] MEDS: *HR* OxyCODONE Oral Soln 5 MG/5 ML UD.LIQ GTUBE PRN ×2 (16:22→23:38)
[2018-05-06] MEDS: *HR* LORazepam 1 MG TABLET PO PRN ×2 (16:30→20:46)
[2018-05-06] MEDS ORDERED: Ipratropium/Albuterol Neb 3 ML IH PRN (16:53)
[2018-05-06] MEDS ORDERED: Naloxone 0.4 MG/ML INJ IVP PRN (16:57)
[2018-05-06] MEDS ORDERED: NON-FORMULARY MEDICATION 1 EACH EACH (Piperacillin-Tazo-Dextrose,Iso [Zosyn 3.375 Gm/50 Ml IV SCH (17:00)
--- NOTE | 2018-05-06 17:12 | Internal Med History&Physical ---
Date of Encounter: 05/06/18 Time of Encounter: 11:00 Internal Medicine - H&P: HPI Chief complaint: Altered mental status Admitted From: Hospital to Hospital Transfer Plans for Post Hospital Care: [facility] History of present illness: Patient is a 57-year-old male with past medical history significant for chronic respiratory failure with trach ventilation, CVA, ischemic cardiomyopathy, hypertension, hyperlipidemia and hypothyroid who presents from [facility] due to decreased mental status. At [facility], patient was found to have acute on chronic hypercapnic respiratory failure with respiratory acidosis. Patient was also found to have acute on chronic anemia in addition to acute on chronic renal failure with progressive anemia. Patient was transferred to [facility] ICU for further management and evaluation. Past Med Surg Social Fam HX - Past Medical History Medical history: cardiomyopathy, CVA, diabetes, dialysis, GERD, hyperlipidemia, hypertension, liver disease, renal disease, thyroid disease, other Additional medical history: ANEMIA Psychiatric history: anxiety - Past Surgical History Surgical History: orthopedic, other (Left femur rodding), tracheostomy, other ( Left upper extremity AV fistula) Additional surgical history: trach. gtube - Social History Smoking Status: Former smoker Smokeless Tobacco Status: (UNknown) Alcohol use: none Drug use: none - Family History Mother Family Member Ethnicity: Non- Living Status: Hx Family Cardiac Disorders: Yes (CAD) Father Family Member Ethnicity: Non- Living Status: Hx Family Cardiac Disorders: Yes (HD) Brother Family Member Ethnicity: Non- Living Status: Hx Family Autoimmune Disorders: Yes (AIDS) Internal Medicine - H&P: Meds Amlodipine Besylate 10 mg GTUBE DAILY 11/25/17 [History] Atorvastatin Calcium [Lipitor] 40 mg GTUBE DAILY 11/25/17 [History] Cyanocobalamin (B-12) [Vitamin B12] 1,000 mcg GTUBE DAILY 11/25/17 [History] Docusate [Colace] 50 mg GTUBE DAILY 11/25/17 [History] Folic Acid 1 mg GTUBE DAILY 11/25/17 [History] Levothyroxine Sodium [Synthroid] 300 mcg GTUBE DAILY 11/25/17 [History] Pantoprazole Sodium [Protonix] 40 mg GTUBE DAILY 11/25/17 [History] Sennosides/Docusate Sodium [Senna-S Tablet] 1 each GTUBE BID 11/25/17 [History] cloNIDine HCl [CloNIDine HCl] 0.1 mg GTUBE TID 11/25/17 [History] Aspirin [Lo-Dose Aspirin EC] 81 mg GTUBE DAILY 02/21/18 [History] Carvedilol [Coreg] 25 mg GTUBE BID 02/21/18 [History] Renal Vitamin [Renal Caps Softgel] 1 mg GTUBE DAILY 02/21/18 [History] Ticagrelor [Brilinta] 90 mg GTUBE BID 02/21/18 [History] hydrALAZINE [HydrALAZINE] 50 mg PO Q6HR 02/21/18 [History] Ipratropium/Albuterol Neb [Duoneb] 3 ml IH [id number] PRN inhsol 03/06/18 [Rx] Insulin Regular Human [Humulin R] 0 - 10 unit SQ TIDWM 03/23/18 [History] Oxycodone HCl [Oxaydo] 5 mg GTUBE Q6H PRN 5 Days #10 tablet.orl 03/30/18 [Rx] Polyethylene Glycol 3350 [MiraLAX] 17 gm PO DAILY powd.pack 03/30/18 [Rx] Acetaminophen [Acetaminophen ER] 650 mg PO Q4H PRN 05/06/18 [History] Calcitriol [Rocaltrol] 0.25 mcg PO MOWEFR 05/06/18 [History] Dextrose [Glucose Gel] 15 gm PO NOW PRN 05/06/18 [History] Glucagon,Human Recombinant [Glucagon Emergency Kit] 1 mg IJ NOW 05/06/18 [ History] LORazepam [Ativan] 1 mg GTUBE Q4H 05/06/18 [History] Dsxfijlwtutj-Qtkt-Sltvryfl,Iso [Zosyn 3.375 gm/50 ml Galaxy] 3.375 gm IV Q8H 01/18 [History] Quetiapine Fumarate [SEROquel] 25 mg PO BID 05/06/18 [History] Vancomycin HCl 500 mg IV 3XW 05/06/18 [History] 3 Allergy/AdvReac Type Severity Reaction Status Date / Time No Known Allergies Allergy Verified 03/23/18 12:09 ROS unobtainable: due to mental status All Systems PM: A 10-system review of systems was performed and is negative for pertinent findings except as documented above in the HPI. - Constitutional Vitals: Temp Pulse Resp BP Pulse Ox 102.1 F H 66 18 221/111 97 05/06/18 16:48 05/06/18 16:48 05/06/18 16:48 05/06/18 16:48 05/06/18 16:48 General appearance: Present: no acute distress - Eye Eye exam: Present: normal appearance - ENT ENT exam: Present: mucous membranes dry - Cardiovascular Cardiovascular exam: Present: RRR, +S1, +S2. Absent: diastolic murmur, gallop, rubs, systolic murmur - GI/Abdominal GI/Abdominal exam: Present: soft (G-tube in place). Absent: distended - Extremities Exam Extremities exam: Absent: pedal edema - Neurological Exam Neurological exam: Present: oriented X3 - Psychiatric Psychiatric exam: Present: normal mood - Skin Skin exam: Present: pallor - Assessment and plan (1) Altered mental status Current Visit: No Status: Acute Assessment and plan: Patient was reported of having decreased mentation at the senior living but appears to be at baseline at bedside Suspect secondary to acute on chronic hypercapnic respiratory failure as below which has now corrected after ventilator settings adjusted Continue to monitor Qualifiers: Altered mental status type: unspecified Qualified Code(s): R41.82 - Altered mental status, unspecified (2) Acute on chronic respiratory failure with hypoxia and hypercapnia Current Visit: Yes Status: Acute Assessment and plan: At [facility] patient was found to have a pH of 7.22 and a PCO2 of 78 Patient's ventilatory settings adjusted and repeat ABG showed a PCO2 of 40 and pH of 7.41 Pulmonology is following and appreciate recommendations (3) Acute on chronic anemia Current Visit: Yes Status: Acute Assessment and plan: She also found to have acute on chronic anemia with a hemoglobin of 6.8 Transfuse 2 units of packed red blood cells and monitor (4) Hyperkalemia Current Visit: No Status: Acute Assessment and plan: Patient with hyperkalemia with a potassium of 5.9 secondary to not receiving hemodialysis earlier today Nephrology consulted for management of hemodialysis which is scheduled for today. Appreciate any further recommendations. (5) ESRD on dialysis Current Visit: No Status: Chronic Assessment and plan: Nephrology managing as above (6) HTN (hypertension) Current Visit: No Status: Chronic Assessment and plan: Continue home medications Qualifiers: Hypertension type: essential hypertension Qualified Code(s): I10 - Essential (primary) hypertension (7) Hypothyroidism Current Visit: No Status: Chronic Assessment and plan: Continue home medications Qualifiers: Hypothyroidism type: acquired Qualified Code(s): E03.9 - Hypothyroidism, unspecified (8) Tracheostomy in place Current Visit: No Status: Chronic Assessment and plan: Patient on chronic ventilator with trach Pulmonology managing as above (9) Dysphagia Current Visit: No Status: Ruled-out Assessment and plan: Patient with G-tube due to dysphagia [employer] consulted for help with tube feeds and appreciate recommendations. Qualifiers: Dysphagia type: unspecified Qualified Code(s): R13.10 - Dysphagia, unspecified (10) DVT prophylaxis Current Visit: No Status: Acute Assessment and plan: Subcutaneous heparin - Time Spent With Patient Total time spent is greater than 50% in coordination of care (as documented) at patient's floor/unit and/or counseling patient:
[2018-05-06] MEDS: hydrALAZINE 25 MG TABLET PO SCH ×2 (17:18→23:42)
[2018-05-06] MEDS: Acetaminophen 325 MG TABLET PO PRN (17:18)
[2018-05-06] MEDS: Insulin LISPRO 300 UNITS/3 ML VIAL SQ SCH ×2 (17:19→21:12)
[2018-05-06] MEDS: *HR* Heparin 5,000 UNIT/ML VIAL SQ SCH (17:36)
[2018-05-06] MEDS: cloNIDine HCl 0.1 MG TABLET GTUBE SCH (20:46)
[2018-05-06] MEDS: *HR* OxyCODONE Immed Rel 5 MG TABLET GTUBE PRN (20:46)
[2018-05-06] MEDS: *HR* Ticagrelor 90 MG TABLET GTUBE SCH (20:46)
[2018-05-06] MEDS: Piperacillin/Tazobactam 3.375 GM in 0.9 % Sodium Chloride Mini Bag 100 ML IVPB SCH (20:47)
[2018-05-06] MEDS: Sennosides/Docusate Sodium TABLET GTUBE SCH (20:47)
[2018-05-07] MEDS: Acetaminophen 325 MG TABLET PO PRN (01:23)
[2018-05-07] MEDS: *HR* LORazepam 1 MG TABLET PO PRN ×2 (01:23→05:15)
[2018-05-07] MEDS: *HR* OxyCODONE Immed Rel 5 MG TABLET GTUBE PRN (03:05)
[2018-05-07 03:26] LABS: Basophils % 0.1 %; Eosinophils # 0.1 K/mcL (0.0-0.6); Eosinophils % 0.8 %; Hematocrit 24.8 % (37.5-50.1); Hemoglobin 8.4 g/dL (12.9-16.9); Immature Granulocytes % 0.5 % (0-4); Lymphocytes # 1.1 K/mcL (0.6-4.6); Lymphocytes % 8.1 %; Mean Corpuscular HGB Conc 33.9 g/dL (31.6-35.5); Mean Corpuscular Hemoglobin 32.1 pg (28.0-33.3); Mean Corpuscular Volume 94.7 fL (83.0-100.0); Mean Platelet Volume 10.2 fL (9.4-12.4); Monocytes # 0.7 K/mcL (0.0-1.3); Monocytes % 5.2 %; Neutrophils # 11.7 K/mcL (1.6-8.9); Platelet Count 189 K/mcL (140-400); Red Blood Count 2.62 M/mcL (4.19-5.50); Red Cell Distribution Width 16.3 % (11.5-14.5); Segmented Neutrophils % 85.3 %
[2018-05-07 03:49] LABS: Calcium 7.8 mg/dL (8.6-10.3); Potassium 3.7 mEq/L (3.5-5.1)
[2018-05-07] MEDS: hydrALAZINE 25 MG TABLET PO SCH ×4 (05:15→23:46)
[2018-05-07] MEDS: *HR* OxyCODONE Oral Soln 5 MG/5 ML UD.LIQ GTUBE PRN ×2 (05:15→20:48)
[2018-05-07] MEDS: *HR* Heparin 5,000 UNIT/ML VIAL SQ SCH ×2 (05:15→17:04)
--- NOTE | 2018-05-07 07:50 | Pulmonology Progress Note ---
<SeandelfinaVicky pedro M - Last Filed: 05/07/18 09:48> Date of Encounter: 05/07/18 Objective PUL Vital signs: Last Vital Signs Temp 99.1 F 05/07/18 05:00 Pulse 62 05/07/18 08:00 Resp 16 05/07/18 08:00 BP 181/74 05/07/18 08:00 Pulse Ox 100 05/07/18 08:00 Ventilator Settings Ventilator Settings: Ventilator Settings, Last 8 Hours Ventilator Tidal Volume 550 Setting Ventilator Tidal Volume 550 Setting Ventilator Tidal Volume 550 Setting Ventilator Tidal Volume 550 Setting Ventilator Tidal Volume 550 Setting Ventilator Tidal Volume 550 Setting Ventilator Tidal Volume 550 Setting Ventilator Tidal Volume 550 Setting Ventilator Respiratory Rate 16 Setting Ventilator Respiratory Rate 16 Setting Ventilator Respiratory Rate 16 Setting Ventilator Respiratory Rate 16 Setting Ventilator Respiratory Rate 16 Setting Ventilator Respiratory Rate 16 Setting Ventilator Respiratory Rate 16 Setting Ventilator Respiratory Rate 16 Setting Actual Respiratory Rate 16 Actual Respiratory Rate 16 Actual Respiratory Rate 16 Actual Respiratory Rate 16 Actual Respiratory Rate 17 Actual Respiratory Rate 16 Actual Respiratory Rate 16 Actual Respiratory Rate 16 Positive End Expiratory 5 Pressure Positive End Expiratory 5 Pressure Positive End Expiratory 5 Pressure Positive End Expiratory 5 Pressure Positive End Expiratory 5 Pressure Positive End Expiratory 5 Pressure Positive End Expiratory 5 Pressure Positive End Expiratory 5 Pressure Peak Inspiratory Airway 22 Pressure Peak Inspiratory Airway 26 Pressure Peak Inspiratory Airway 25 Pressure Peak Inspiratory Airway 25 Pressure Peak Inspiratory Airway 26 Pressure Peak Inspiratory Airway 27 Pressure Peak Inspiratory Airway 25 Pressure Peak Inspiratory Airway 26 Pressure Results - Laboratory Findings CBC and BMP: 05/07/18 03:10 05/07/18 03:10 ABG ABG pH 7.58 pH Units (7.32-7.45) H 05/07/18 08:25 ABG pCO2 26 mmHg (35-45) L 05/07/18 08:25 ABG pO2 59 mmHg (85-104) L 05/07/18 08:25 ABG O2 Saturation 94 % (95-98) L 05/07/18 08:25 Abnormal lab findings: Abnormal lab results WBC 13.8 K/mcL (4.3-11.1) H 05/07/18 03:10 RBC 2.62 M/mcL (4.19-5.50) L 05/07/18 03:10 Hgb 8.4 g/dL (12.9-16.9) L D 05/07/18 03:10 Hct 24.8 % (37.5-50.1) L 05/07/18 03:10 RDW 16.3 % (11.5-14.5) H 05/07/18 03:10 Neutrophils # 11.7 K/mcL (1.6-8.9) H 05/07/18 03:10 ABG pH 7.58 pH Units (7.32-7.45) H 05/07/18 08:25 ABG pCO2 26 mmHg (35-45) L 05/07/18 08:25 ABG pO2 59 mmHg (85-104) L 05/07/18 08:25 ABG O2 Saturation 94 % (95-98) L 05/07/18 08:25 Sodium 130 mEq/L (136-145) L 05/07/18 03:10 Chloride 96 mEq/L (98-107) L 05/07/18 03:10 BUN 32 mg/dL (6-20) H 05/07/18 03:10 Creatinine 2.00 mg/dL (0.70-1.30) H 05/07/18 03:10 Est GFR ( Amer) 42 (> 60) L 05/07/18 03:10 Est GFR (Non-Af Amer) 34 (> 60) L 05/07/18 03:10 Glucose 139 mg/dL (70-105) H 05/07/18 03:10 POC Glucose 100 mg/dL (70-99) H 05/06/18 21:11 Calculated Osmolality 279 (280-300) L 05/07/18 03:10 Calcium 7.8 mg/dL (8.6-10.3) L 05/07/18 03:10 - Clinical Findings Intake & Output: Intake & Output 05/06/18 05/07/18 05/07/18 23:59 07:59 15:59 Intake Total 2337 / 2337 340 / 340 Output Total 5300 / 5300 0 / 0 Balance -2963 / -2963 340 / 340 Weight 68.6 kg Consult Discharge Plan - Plan Referrals: Paco Sheikh MD [Primary Care Provider] - - Attending Attestation I examined this patient and my medical decision-making was reviewed with the Resident Physician. I agree with the documented findings, disposition and treatment plan as described except to the extent set forth below. Patient seen and examined. Labs, radiology, chart personally reviewed. Agree with resident's history and physical, assessment, plan with following comments: MANAGER ER: Patient follows commands, Pulmonary: Acceptable oxygenation and ventilation and patient with chronic respiratory failure vent dependent. This morning there is evidence of acute respiratory alkalosis and minute ventilation changes on the ventilator with lowering respiratory rate and tidal volume. Continue trach care. Cardiovascular: stable GI: Nutrition per dietary and GI prophylaxis per routine Heme: DVT prophylaxis per routine ID: Continue antibiotics and plan to de-escalation. Consider infectious disease consultation. Renal; patient on hemodialysis Endorcine: blood glucose is monitored Lines: all lines checked and no evidence of infections Skin: skin care to prevent pressure ulcers per nursing routine care <Sharron Moore - Last Filed: 05/07/18 17:22> Date of Encounter: 05/07/18 Time of Encounter: 07:50 Assessment and Plan (1) Acute and chronic respiratory failure with hypercapnia Current Visit: Yes Status: Acute Had respiratory acidosis with partial metabolic compensation. History of tracehostomy and on ventilators, his current FiO2 is 50%, with tidal volume of 550. Will continue to decrease -Continue duonebs -Continue mechanical ventilation -Continue vancomycin and zosyn, day 2 (2) Pneumonia Current Visit: Yes Status: Acute He presented with respiratory acidosis and was recently admitted a week ago and had bacteremia with klebsiella pneumoniae. His recent blood cultures are negative. Chest x-ray show blunting of costopherenic angles and increased opacity of the bilateral lower lobes. No consolidation noted. He has a tracheostomy and is on ventilators, and pneumonia is a risk factor for him. -Continue adequate ventilation, this morning he had respiratory alkalosis likely due to increased minute ventilation, his RR is 16 -Continue zosyn and vancomycin, day 2 -Continue duonebs Qualifiers: Pneumonia type: due to unspecified organism Laterality: bilateral Lung location: lower lobe of lung Qualified Code(s): J18.1 - Lobar pneumonia, unspecified organism Subjective Principal diagnosis: respiratory failure Interval history: Mr. Landaverde was seen at bedside this morning, He was presented yesterday due to acute on chronic hypercapnic respiratory failure with respiratory acidosis and was found to have acute on chronic anemia. This morning he did not elicit any complaints. We were consulted yesterday for ventilator management. He is on 50% FiO2, PEEP of 5 and tidal volume of 550 with oxygen saturation of 100%. this morning he has respiratory alkalosis likely due to mechanical ventilation. Objective PUL Vital signs: Last Vital Signs Temp 99.1 F 05/07/18 05:00 Pulse 62 05/07/18 06:00 Resp 16 05/07/18 06:15 BP 172/69 05/07/18 06:15 Pulse Ox 100 05/07/18 06:15 General appearance: no acute distress Eyes: nonicteric Neck: other (Treachea apparatus intact) Auscultation: bilateral: diminished breath sounds (diminished on lower lung bases), other (coarse breath sounds bilaterally) Cardiovascular: regular rate and rhythm Gastrointestinal: soft (G-tube in place) Integumentary: normal Extremities: edema (trace pedal edema) non-focal exam (awake and alert) mood appropriate, affect normal Ventilator Settings Ventilator Settings: Ventilator Settings, Last 8 Hours Ventilator Tidal Volume 550 Setting Ventilator Tidal Volume 550 Setting Ventilator Tidal Volume 550 Setting Ventilator Tidal Volume 550 Setting Ventilator Tidal Volume 550 Setting Ventilator Tidal Volume 550 Setting Ventilator Tidal Volume 550 Setting Ventilator Tidal Volume 550 Setting Ventilator Tidal Volume 550 Setting Ventilator Tidal Volume 550 Setting Ventilator Respiratory Rate 16 Setting Ventilator Respiratory Rate 16 Setting Ventilator Respiratory Rate 16 Setting Ventilator Respiratory Rate 16 Setting Ventilator Respiratory Rate 16 Setting Ventilator Respiratory Rate 16 Setting Ventilator Respiratory Rate 16 Setting Ventilator Respiratory Rate 16 Setting Ventilator Respiratory Rate 16 Setting Ventilator Respiratory Rate 16 Setting Actual Respiratory Rate 16 Actual Respiratory Rate 16 Actual Respiratory Rate 16 Actual Respiratory Rate 17 Actual Respiratory Rate 16 Actual Respiratory Rate 16 Actual Respiratory Rate 16 Actual Respiratory Rate 17 Actual Respiratory Rate 23 Actual Respiratory Rate 22 Positive End Expiratory 5 Pressure Positive End Expiratory 5 Pressure Positive End Expiratory 5 Pressure Positive End Expiratory 5 Pressure Positive End Expiratory 5 Pressure Positive End Expiratory 5 Pressure Positive End Expiratory 5 Pressure Positive End Expiratory 5 Pressure Positive End Expiratory 5 Pressure Positive End Expiratory 5 Pressure Peak Inspiratory Airway 26 Pressure Peak Inspiratory Airway 25 Pressure Peak Inspiratory Airway 25 Pressure Peak Inspiratory Airway 26 Pressure Peak Inspiratory Airway 27 Pressure Peak Inspiratory Airway 25 Pressure Peak Inspiratory Airway 26 Pressure Peak Inspiratory Airway 30 Pressure Peak Inspiratory Airway 31 Pressure Peak Inspiratory Airway 30 Pressure Results - Laboratory Findings CBC and BMP: 05/07/18 03:10 05/07/18 03:10 Abnormal lab findings: Abnormal lab results WBC 13.8 K/mcL (4.3-11.1) H 05/07/18 03:10 RBC 2.62 M/mcL (4.19-5.50) L 05/07/18 03:10 Hgb 8.4 g/dL (12.9-16.9) L D 05/07/18 03:10 Hct 24.8 % (37.5-50.1) L 05/07/18 03:10 RDW 16.3 % (11.5-14.5) H 05/07/18 03:10 Neutrophils # 11.7 K/mcL (1.6-8.9) H 05/07/18 03:10 Sodium 130 mEq/L (136-145) L 05/07/18 03:10 Chloride 96 mEq/L (98-107) L 05/07/18 03:10 BUN 32 mg/dL (6-20) H 05/07/18 03:10 Creatinine 2.00 mg/dL (0.70-1.30) H 05/07/18 03:10 Est GFR ( Amer) 42 (> 60) L 05/07/18 03:10 Est GFR (Non-Af Amer) 34 (> 60) L 05/07/18 03:10 Glucose 139 mg/dL (70-105) H 05/07/18 03:10 POC Glucose 100 mg/dL (70-99) H 05/06/18 21:11 Calculated Osmolality 279 (280-300) L 05/07/18 03:10 Calcium 7.8 mg/dL (8.6-10.3) L 05/07/18 03:10 - Clinical Findings Intake & Output: Intake & Output 05/06/18 05/06/18 05/07/18 15:59 23:59 07:59 Intake Total 240 / 240 2337 / 2337 Output Total 0 / 0 5300 / 5300 0 / 0 Balance 240 / 240 -2963 / -2963 0 / 0 Weight 71.5 kg 68.6 kg
[2018-05-07 08:31] LABS: ABG Base Excess 3 mEq/L (-2 to 3); ABG HCO3 25 mEq/L (21-27); ABG Oxygen Saturation 94 % (95-98); ABG PCO2 26 mmHg (35-45); ABG PH 7.58 pH Units (7.32-7.45); ABG PO2 59 mmHg (85-104); ABG TCO2 26 mEq/L (20-26); Blood Gas Modality AF; Blood Gas PEEP 5 cm H2O; Blood Gas Respiration Rate 16; Blood Gas VT 550 cc
[2018-05-07] MEDS ORDERED: Aspirin Enteric Coated 81 MG Tablet PO SCH (09:00)
[2018-05-07] MEDS: Docusate Oral Soln 100 MG/10 ML UDC PO SCH (09:08)
[2018-05-07] MEDS: Insulin LISPRO 300 UNITS/3 ML VIAL SQ SCH ×4 (09:11→21:09)
[2018-05-07] MEDS: amLODIPine 5 MG TABLET GTUBE SCH (09:12)
[2018-05-07] MEDS: Folic Acid 1 MG TABLET GTUBE SCH (09:12)
[2018-05-07] MEDS: cloNIDine HCl 0.1 MG TABLET GTUBE SCH ×3 (09:12→19:48)
[2018-05-07] MEDS: Cyanocobalamin (B-12) 1,000 MCG TABLET GTUBE SCH (09:12)
[2018-05-07] MEDS: *HR* Ticagrelor 90 MG TABLET GTUBE SCH ×2 (09:13→19:51)
[2018-05-07] MEDS: Renal Vitamin 1 CAP CAPSULE PO SCH (09:13)
[2018-05-07] MEDS: Sennosides/Docusate Sodium TABLET GTUBE SCH ×2 (09:13→19:48)
[2018-05-07] MEDS: Piperacillin/Tazobactam 3.375 GM in 0.9 % Sodium Chloride Mini Bag 100 ML IVPB SCH ×2 (09:14→17:15)
[2018-05-07] MEDS ORDERED: Vancomycin 250 MG in 0.9 % Sodium Chloride Mini Bag 100 ML IVPB ONE (11:05)
[2018-05-08] MEDS: *HR* OxyCODONE Oral Soln 5 MG/5 ML UD.LIQ GTUBE PRN (02:30)
[2018-05-08] MEDS: Piperacillin/Tazobactam 3.375 GM in 0.9 % Sodium Chloride Mini Bag 100 ML IVPB SCH ×2 (05:44→17:51)
[2018-05-08] MEDS: hydrALAZINE 25 MG TABLET PO SCH ×3 (05:44→17:50)
[2018-05-08] MEDS: *HR* Heparin 5,000 UNIT/ML VIAL SQ SCH ×2 (05:46→17:50)
[2018-05-08] MEDS: Folic Acid 1 MG TABLET GTUBE SCH (08:45)
[2018-05-08] MEDS: Docusate Oral Soln 100 MG/10 ML UDC PO SCH (08:46)
[2018-05-08] MEDS: cloNIDine HCl 0.1 MG TABLET GTUBE SCH ×3 (08:46→20:35)
[2018-05-08] MEDS: Cyanocobalamin (B-12) 1,000 MCG TABLET GTUBE SCH (08:46)
[2018-05-08] MEDS: Aspirin 81 MG TAB.CHEW GTUBE SCH (08:46)
[2018-05-08] MEDS: *HR* Ticagrelor 90 MG TABLET GTUBE SCH ×2 (08:46→20:35)
[2018-05-08] MEDS: amLODIPine 5 MG TABLET GTUBE SCH (08:47)
[2018-05-08 08:48] LABS: Basophils # 0.1 K/mcL (0.0-0.2); Basophils % 0.5 %; Eosinophils # 0.5 K/mcL (0.0-0.6); Eosinophils % 5.2 %; Hematocrit 25.1 % (37.5-50.1); Hemoglobin 8.3 g/dL (12.9-16.9); Immature Granulocytes % 0.5 % (0-4); Lymphocytes # 1.2 K/mcL (0.6-4.6); Mean Corpuscular HGB Conc 33.1 g/dL (31.6-35.5); Mean Corpuscular Hemoglobin 32.3 pg (28.0-33.3); Mean Corpuscular Volume 97.7 fL (83.0-100.0); Mean Platelet Volume 10.3 fL (9.4-12.4); Monocytes # 0.6 K/mcL (0.0-1.3); Monocytes % 5.4 %; Neutrophils # 7.7 K/mcL (1.6-8.9); Platelet Count 177 K/mcL (140-400); Red Blood Count 2.57 M/mcL (4.19-5.50); Segmented Neutrophils % 76.4 %
[2018-05-08] MEDS: Renal Vitamin 1 CAP CAPSULE PO SCH (08:48)
[2018-05-08] MEDS: Sennosides/Docusate Sodium TABLET GTUBE SCH ×2 (08:49→20:35)
[2018-05-08] MEDS: Insulin LISPRO 300 UNITS/3 ML VIAL SQ SCH ×4 (08:59→20:35)
[2018-05-08 09:07] LABS: Calcium 7.4 mg/dL (8.6-10.3); Potassium 4.1 mEq/L (3.5-5.1)
--- NOTE | 2018-05-08 10:46 | Internal Med Progress Note ---
Hospitalist Progress Note - Encounter Date of Encounter: 05/08/18 Time of Encounter: 10:41 - Subjective Interval History: Patient is a 57-year-old male with past medical history significant for chronic respiratory failure with trach ventilation, CVA, ischemic cardiomyopathy, hypertension, hyperlipidemia and hypothyroid who presents from [facility] due to decreased mental status. At [facility], patient was found to have acute on chronic hypercapnic respiratory failure with respiratory acidosis. Patient was also found to have acute on chronic anemia in addition to acute on chronic renal failure with progressive anemia. Patient was transferred to [facility] ICU for further management and evaluation. Patient was admitted on 05/06 for VAP. Patient is doing better, he is still on full vent support. Alert, able to follow command. He has left-sided weakness from stroke. And also left leg is smaller very swelling. contineu ATB check duplex to r/o DVT appreciate pulmonary input sepsis POA with fever 101.2 WBC 13.8 - Exam Vitals: Temp Pulse Resp BP Pulse Ox 98.7 F 58 15 125/40 99 05/08/18 06:37 05/08/18 09:18 05/08/18 07:34 05/08/18 07:34 05/08/18 07:34 Exam: CONSTITUTIONAL: patient appears as an age appropriate male in no acute distress. EYES Clear sclerae, bilateral pupils are equal, reactive to light. EMOI. RESPIRATORY: No accessory muscle use, bilateral clear to auscultation, no wheezing, + crackles/rales. CARDIOVASCULAR: Regular heart rate, normal S1 and S2, no murmurs GASTROINTESTINAL: bowel sounds present, soft, no tenderness. MUSCULOSKELETAL: Joints in normal range of motion, no clubbing, no edema, no cyanosis. Bilateral peripheral pulses 2+. NEUROLOGIC: CN II to XII are grossly intact, left sided weakness and swelling - Assessment and Plan (1) Acute and chronic respiratory failure with hypercapnia Current Visit: Yes Status: Acute Assessment and Plan: s/p trachostomy, on full vent support, pulmonary is on board, weaning Vent per pulmonary (2) Pneumonia Current Visit: Yes Status: Acute Assessment and Plan: VAP, possible gram negative bacterial and MRSA pneumonia, contineu iV zosyn and vancomycin, check sputum culture (3) Sepsis Current Visit: Yes Status: Acute Assessment and Plan: POA with fever and leukocytosis from pneumnia (4) History of CVA (cerebrovascular accident) Current Visit: Yes Status: Chronic Assessment and Plan: with left sided weakness, on ASA and statin patient has significant swelling from left leg and arm, will check duplex to r/ o DVT (5) Diabetes Current Visit: Yes Status: Chronic Assessment and Plan: on SSI (6) ESRD on dialysis Current Visit: Yes Status: Chronic Assessment and Plan: HD TTF (7) GERD (gastroesophageal reflux disease) Current Visit: No Status: Chronic (8) HTN (hypertension) Current Visit: No Status: Chronic (9) Hypothyroidism Current Visit: No Status: Chronic (10) Tracheostomy in place Current Visit: No Status: Chronic (11) Systolic CHF Current Visit: Yes Status: Chronic Assessment and Plan: EF 30% in 01/2018, continue BB, not on AISSATOU due to CKD and hyperkalemia. (12) Dysphagia Current Visit: No Status: Ruled-out Assessment and Plan: s/p PEG placement (13) Acute on chronic anemia Current Visit: Yes Status: Chronic DVT Prophylaxis: heparin SC - Summary of Assessment and Plan Summary of Assessment and Plan: pending sputum culture, continue ATB, weaning Vent doppler for leg swelling - Time Spent with Patient Total time spent is greater than 50% in coordination of care (as documented) at patient's floor/unit and/or counseling patient: Greater than 35 minutes Internal Medicine: Result - Labs CBC & Chem 7: 05/08/18 08:25 05/08/18 08:25 Labs: Short CBC 05/08/18 Range/Units 08:25 WBC 10.1 (4.3-11.1) K/mcL Hgb 8.3 L (12.9-16.9) g/dL Hct 25.1 L (37.5-50.1) % Plt Count 177 (140-400) K/mcL Neutrophils # 7.7 (1.6-8.9) K/mcL BMP 05/08/18 08:25 Sodium 128 L Potassium 4.1 Chloride 95 L Carbon Dioxide 28 BUN 45 H Creatinine 2.48 H Glucose 231 H Calcium 7.4 L - ABG Interpretation ABG results: ABG ABG pH 7.58 pH Units (7.32-7.45) H 05/07/18 08:25 ABG pCO2 26 mmHg (35-45) L 05/07/18 08:25 ABG pO2 59 mmHg (85-104) L 05/07/18 08:25 ABG O2 Saturation 94 % (95-98) L 05/07/18 08:25 Consult Discharge Plan - Plan Referrals: Paco Sheikh MD [Primary Care Provider] - (Patient is from [facility] no PCP appointment needed) (2) Pneumonia Qualifiers: Pneumonia type: due to methicillin-resistant Staphylococcus aureus (MRSA) Laterality: bilateral Lung location: unspecified part of lung Qualified Code(s ): J15.212 - Pneumonia due to Methicillin resistant Staphylococcus aureus (3) Sepsis Qualifiers: Sepsis type: sepsis due to unspecified organism (5) Diabetes Qualifiers: Diabetes mellitus type: type 2 Diabetes mellitus jail insulin use: without jail use Diabetes mellitus complication status: with kidney complications Diabetes mellitus complication detail: with chronic kidney disease Chronic kidney disease stage: on chronic dialysis Qualified Code(s): E11.22 - Type 2 diabetes mellitus with diabetic chronic kidney disease; N18.6 - End stage renal disease; Z99.2 - Dependence on renal dialysis (7) GERD (gastroesophageal reflux disease) Qualifiers: Esophagitis presence: esophagitis presence not specified Qualified Code(s): K21.9 - Gastro-esophageal reflux disease without esophagitis (8) HTN (hypertension) Qualifiers: Hypertension type: essential hypertension Qualified Code(s): I10 - Essential (primary) hypertension (9) Hypothyroidism Qualifiers: Hypothyroidism type: acquired Qualified Code(s): E03.9 - Hypothyroidism, unspecified (11) Systolic CHF Qualifiers: Heart failure chronicity: acute on chronic Qualified Code(s): I50.23 - Acute on chronic systolic (congestive) heart failure (12) Dysphagia Qualifiers: Dysphagia type: unspecified Qualified Code(s): R13.10 - Dysphagia, unspecified
--- NOTE | 2018-05-08 11:16 | Pulmonology Progress Note ---
Date of Encounter: 05/08/18 Time of Encounter: 10:00 Assessment and Plan (1) Acute on chronic respiratory failure with hypoxia and hypercapnia Current Visit: Yes Status: Acute Patient currently on mechanical ventilation with adequate oxygenation and ventilation reviewed the blood gas patient is on Lithobid on the alkalotic side will drop as tidal volume 30 segmental ventilation. Patient was worsening of pulmonary status is complicated by his systolic heart failure, his end-stage renal disease and superimposed pneumonia. Patient is getting his regular dialysis, is getting antibiotic therapy. Patient V/Q mismatch is slowly getting better. (2) Pneumonia Current Visit: Yes Status: Acute Patient has symptoms of pneumonia and radiological imaging patient grew out Klebsiella pneumonia in the blood sensitive to Zosyn patient getting better on the current treatment. Qualifiers: Pneumonia type: due to Klebsiella pneumoniae Laterality: bilateral Lung location: unspecified part of lung Qualified Code(s): J15.0 - Pneumonia due to Klebsiella pneumoniae Subjective Principal diagnosis: respiratory failure Interval history: Patient is awake completely following commands denies any current complaints says his breathing is lot better. Objective PUL Vital signs: Last Vital Signs Temp 98.7 F 05/08/18 06:37 Pulse 58 05/08/18 09:18 Resp 14 05/08/18 11:11 BP 125/40 05/08/18 07:34 Pulse Ox 100 05/08/18 11:11 Auscultation: bilateral: diminished breath sounds, rales (scattered rales more in the base ) other (looks like patient is at baseline ) Ventilator Settings Ventilator Settings: Ventilator Settings, Last 8 Hours Ventilator Tidal Volume 500 Setting Ventilator Tidal Volume 500 Setting Ventilator Tidal Volume 514 Setting Ventilator Tidal Volume 500 Setting Ventilator Tidal Volume 500 Setting Ventilator Respiratory Rate 12 Setting Ventilator Respiratory Rate 12 Setting Ventilator Respiratory Rate 12 Setting Ventilator Respiratory Rate 12 Setting Ventilator Respiratory Rate 12 Setting Actual Respiratory Rate 14 Actual Respiratory Rate 13 Actual Respiratory Rate 19 Actual Respiratory Rate 12 Actual Respiratory Rate 12 Positive End Expiratory 5 Pressure Positive End Expiratory 5 Pressure Positive End Expiratory 5 Pressure Positive End Expiratory 5 Pressure Positive End Expiratory 5 Pressure Peak Inspiratory Airway 9 Pressure Peak Inspiratory Airway 21 Pressure Peak Inspiratory Airway 23 Pressure Peak Inspiratory Airway 31 Pressure Peak Inspiratory Airway 22 Pressure Results - Laboratory Findings CBC and BMP: 05/08/18 08:25 05/08/18 08:25 ABG ABG pH 7.58 pH Units (7.32-7.45) H 05/07/18 08:25 ABG pCO2 26 mmHg (35-45) L 05/07/18 08:25 ABG pO2 59 mmHg (85-104) L 05/07/18 08:25 ABG O2 Saturation 94 % (95-98) L 05/07/18 08:25 Abnormal lab findings: Abnormal lab results RBC 2.57 M/mcL (4.19-5.50) L 05/08/18 08:25 Hgb 8.3 g/dL (12.9-16.9) L 05/08/18 08:25 Hct 25.1 % (37.5-50.1) L 05/08/18 08:25 RDW 16.0 % (11.5-14.5) H 05/08/18 08:25 ABG pH 7.58 pH Units (7.32-7.45) H 05/07/18 08:25 ABG pCO2 26 mmHg (35-45) L 05/07/18 08:25 ABG pO2 59 mmHg (85-104) L 05/07/18 08:25 ABG O2 Saturation 94 % (95-98) L 05/07/18 08:25 Sodium 128 mEq/L (136-145) L 05/08/18 08:25 Chloride 95 mEq/L (98-107) L 05/08/18 08:25 BUN 45 mg/dL (6-20) H 05/08/18 08:25 Creatinine 2.48 mg/dL (0.70-1.30) H 05/08/18 08:25 Est GFR ( Amer) 33 (> 60) L 05/08/18 08:25 Est GFR (Non-Af Amer) 27 (> 60) L 05/08/18 08:25 Glucose 231 mg/dL (70-105) H 05/08/18 08:25 POC Glucose 111 mg/dL (70-99) H 05/07/18 20:00 Calcium 7.4 mg/dL (8.6-10.3) L 05/08/18 08:25 - Clinical Findings Intake & Output: Intake & Output 05/07/18 05/08/18 05/08/18 23:59 07:59 15:59 Intake Total 730 / 730 30 / 30 270 / 270 Balance 730 / 730 30 / 30 270 / 270 Weight 69.1 kg Consult Discharge Plan - Plan Referrals: Paco Sheikh MD [Primary Care Provider] - (Patient is from [facility] no PCP appointment needed)
[2018-05-08 11:44] LABS: ABG Base Excess 1 mEq/L (-2 to 3); ABG HCO3 25 mEq/L (21-27); ABG Oxygen Saturation 98 % (95-98); ABG PCO2 35 mmHg (35-45); ABG PH 7.46 pH Units (7.32-7.45); ABG PO2 90 mmHg (85-104); ABG TCO2 26 mEq/L (20-26); Blood Gas Modality PRVC; Blood Gas PEEP 5 cm H2O; Blood Gas Respiration Rate 12; Blood Gas VT 500 cc
--- NOTE | 2018-05-08 11:55 | Nephrology Progress Note ---
Date of Encounter: 05/08/18 Time of Encounter: 11:00 - Assessment and Plan (1) ESRD on dialysis Current Visit: Yes Status: Chronic Patient reports HD on MWF, unable to state his last HD prior to admission. Obtain run sheet to confirm dialysis dates and reason for not using left upper extremity fistula by contacting Desiree Ramirez. Will not HD today due to last HD on Tuesday. Continue renal diet. HD tomorrow. Avoid nephrotoxins. (2) Acute on chronic anemia Current Visit: Yes Status: Chronic Patient received multiple units of blood product on admission due to Hb < 7.0 currently stable at 8.4; infuse as needed. (3) Hyperkalemia Current Visit: Yes Status: Acute HyperK+ secondary to non-compliance with HD. resolved after HD on tuesday. currently 3.7. (4) HTN (hypertension) Current Visit: No Status: Chronic stable. continue home meds Qualifiers: Hypertension type: essential hypertension Qualified Code(s): I10 - Essential (primary) hypertension (5) Hypothyroidism Current Visit: No Status: Chronic Home meds Qualifiers: Hypothyroidism type: acquired Qualified Code(s): E03.9 - Hypothyroidism, unspecified (6) Tracheostomy in place Current Visit: No Status: Chronic Pulmonology following. (7) Dysphagia Current Visit: No Status: Ruled-out Continue tube feeds, Nutrition following. Qualifiers: Dysphagia type: unspecified Qualified Code(s): R13.10 - Dysphagia, unspecified Subjective Principal diagnosis: respiratory failure Interval history: Patient on chronic tracheostomy, non-verbal. He is able to confirm that his dialysis is MWF by nodding, but records indicate TTS. Patient able to nod to name, place, and time. Unable to tell me when his last HD was prior to admission. Admits to normal BM yesterday night. Denies nausea or vomiting. Objective - Vital Signs Vital signs: Vital Signs Temp Pulse Resp BP Pulse Ox 05/08/18 11:25 97.8 F 57 14 120/42 100 05/08/18 11:11 14 100 05/08/18 09:18 58 05/08/18 07:34 15 125/40 99 05/08/18 06:37 98.7 F 56 21 125/40 100 05/08/18 05:34 16 100 05/08/18 04:21 98.5 F 60 14 111/45 90 05/08/18 00:10 98.2 F 60 15 170/57 90 05/08/18 00:02 18 170/57 100 05/07/18 20:32 21 170/51 100 05/07/18 20:20 97.8 F 58 19 170/51 100 05/07/18 20:00 58 05/07/18 17:19 53 05/07/18 15:56 98 F 86 17 156/54 100 05/07/18 15:45 21 156/54 100 Intake and Output 05/07/18 05/08/18 05/08/18 23:59 07:59 15:59 Intake Total 730 / 730 30 / 30 270 / 270 Balance 730 / 730 30 / 30 270 / 270 Intake: IV Fluids 200 / 200 Zosyn 3.375 GM In 0.9 % Sodium 100 / 100 Chloride (Mini-Bag +) 100 ML @ 25 mls/hr IVPB Q12HR LAMIN Rx#: [id number] Vancocin 250 MG In 0.9 % Sodium 100 / 100 Chloride 100 ML @ 100 mls/hr IVPB ONCE ONE Rx#:[id number] Oral 20 / 20 Free Water Intake Amount 530 / 530 30 / 30 250 / 250 Other: Meal Dinner Breakfast Percent of Meal Consumed 5% 20% Stool Size Large Stool Consistency loose Stool Characteristics Normal for Patient Stool Color Brown # Bowel Movements 1 Weight 69.1 kg Blood Glucose* 111 208 238 Patient Weight 05/08/18 23:59 Weight 69.1 kg - General Appearance General appearance: Present: well-developed, appears started age, cachectic EENT: Present: PERRL. Absent: scleral icterus Additional Comments: chronic tracheotomy in place. Neck: Present: no JVD, no thyromegaly, no carotid bruit, supple Respiratory: Present: no kyphosis, no scoliosis, clear Cardiology: Present: no murmurs, no rub, no gallops, edema (BL lower extremity) , regular rate, regular rhythm, normal S1, normal S2 Dialysis Vascular Access: Arteriovenous Fistula thrill: Yes bruit: Yes Additional Comments: Left AV fistula noted but not in use. Gastrointestinal: Present: normoactive bowel sounds, no tenderness, no guarding , no organomegaly Integumentary: Present: warm and dry, ecchymotic (BL upper extremities) Neurologic: Present: no focal deficit, no asterixis, alert and oriented x3, reflexes 2+ and symmetric, gait normal, strength 5/5, CN 3-12 intact Musculoskeletal: Present: no deformities, no erythema, no cyanosis, no clubbing Psychiatric: Present: mood/affect appropriate, cooperative - Lab 05/08/18 08:25 05/08/18 08:25 Most recent lab results ABG pH 7.46 pH Units (7.32-7.45) H 05/08/18 11:37 ABG pCO2 35 mmHg (35-45) 05/08/18 11:37 ABG pO2 90 mmHg (85-104) 05/08/18 11:37 ABG HCO3 25 mEq/L (21-27) 05/08/18 11:37 ABG O2 Saturation 98 % (95-98) 05/08/18 11:37 Calcium 7.4 mg/dL (8.6-10.3) L 05/08/18 08:25 Consult Discharge Plan - Plan Referrals: Paco Sheikh MD [Primary Care Provider] - (Patient is from [facility] no PCP appointment needed)
[2018-05-09] MEDS: hydrALAZINE 25 MG TABLET PO SCH ×5 (00:01→23:53)
[2018-05-09] MEDS: *HR* Heparin 5,000 UNIT/ML VIAL SQ SCH ×2 (05:12→18:12)
[2018-05-09] MEDS: Piperacillin/Tazobactam 3.375 GM in 0.9 % Sodium Chloride Mini Bag 100 ML IVPB SCH ×2 (05:12→18:13)
[2018-05-09 06:06] LABS: Basophils % 0.5 %; Eosinophils # 0.9 K/mcL (0.0-0.6); Eosinophils % 9.8 %; Hemoglobin 7.5 g/dL (12.9-16.9); Immature Granulocytes % 0.3 % (0-4); Lymphocytes % 11.3 %; Mean Corpuscular HGB Conc 32.6 g/dL (31.6-35.5); Mean Platelet Volume 10.3 fL (9.4-12.4); Monocytes # 0.5 K/mcL (0.0-1.3); Monocytes % 6.1 %; Neutrophils # 6.2 K/mcL (1.6-8.9); Platelet Count 174 K/mcL (140-400); Red Blood Count 2.42 M/mcL (4.19-5.50); Red Cell Distribution Width 15.8 % (11.5-14.5)
[2018-05-09 06:26] LABS: Calcium 7.2 mg/dL (8.6-10.3); Potassium 4.3 mEq/L (3.5-5.1)
[2018-05-09] MEDS ORDERED: 0.9 % Sodium Chloride 250 ML IVC PRN (08:23)
[2018-05-09] MEDS ORDERED: 0.9 % Sodium Chloride 1,000 ML ONE (08:27)
[2018-05-09] MEDS: cloNIDine HCl 0.1 MG TABLET GTUBE SCH ×3 (08:42→20:05)
[2018-05-09] MEDS: Aspirin 81 MG TAB.CHEW GTUBE SCH (08:42)
[2018-05-09] MEDS: Folic Acid 1 MG TABLET GTUBE SCH (08:42)
[2018-05-09] MEDS: Sennosides/Docusate Sodium TABLET GTUBE SCH ×2 (08:42→20:04)
[2018-05-09] MEDS: Renal Vitamin 1 CAP CAPSULE PO SCH (08:42)
[2018-05-09] MEDS: Cyanocobalamin (B-12) 1,000 MCG TABLET GTUBE SCH (08:42)
[2018-05-09] MEDS: Docusate Oral Soln 100 MG/10 ML UDC PO SCH (08:43)
[2018-05-09] MEDS: *HR* Ticagrelor 90 MG TABLET GTUBE SCH ×2 (08:44→20:04)
[2018-05-09] MEDS: Insulin LISPRO 300 UNITS/3 ML VIAL SQ SCH ×4 (08:45→20:15)
--- NOTE | 2018-05-09 09:18 | Pulmonology Progress Note ---
Date of Encounter: 05/09/18 Time of Encounter: 09:00 Assessment and Plan (1) Acute on chronic respiratory failure with hypoxia and hypercapnia Current Visit: Yes Status: Acute Patient currently on mechanical ventilation with adequate oxygenation and ventilation with low tidal volume ventilation strategy. Patient current pulmonary status is complicated by his systolic heart failure, his end-stage renal disease and superimposed pneumonia. Patient is getting his regular dialysis, is getting antibiotic therapy. Patient V/Q mismatch is slowly getting better. Will do Pressure support during the day time and during the night time please put him back on full ventilatory support. (2) Pneumonia Current Visit: Yes Status: Acute Patient has symptoms of pneumonia and radiological imaging patient grew out Klebsiella pneumonia in the blood sensitive to Zosyn patient getting better on the current treatment. Patient still has some secretions . Will need atleast 14 days of antibiotic therapy. Qualifiers: Pneumonia type: due to Klebsiella pneumoniae Laterality: bilateral Lung location: unspecified part of lung Qualified Code(s): J15.0 - Pneumonia due to Klebsiella pneumoniae Subjective Principal diagnosis: respiratory failure Interval history: Patient is awake completely following commands denies any current complaints says his breathing is lot better. Put him on Spontaneous breathing trial. Objective PUL Vital signs: Last Vital Signs Temp 98.3 F 05/09/18 07:54 Pulse 58 05/09/18 07:54 Resp 18 05/09/18 07:54 BP 141/53 05/09/18 07:54 Pulse Ox 99 05/09/18 07:54 Auscultation: bilateral: diminished breath sounds, rales (scattered rales ) Ventilator Settings Ventilator Settings: Ventilator Settings, Last 8 Hours Ventilator Tidal Volume 450 Setting Ventilator Tidal Volume 450 Setting Ventilator Respiratory Rate 12 Setting Ventilator Respiratory Rate 12 Setting Actual Respiratory Rate 19 Actual Respiratory Rate 19 Positive End Expiratory 5 Pressure Positive End Expiratory 5 Pressure Peak Inspiratory Airway 18 Pressure Peak Inspiratory Airway 18 Pressure Results - Laboratory Findings CBC and BMP: 05/09/18 04:00 05/09/18 04:00 ABG ABG pH 7.46 pH Units (7.32-7.45) H 05/08/18 11:37 ABG pCO2 35 mmHg (35-45) 05/08/18 11:37 ABG pO2 90 mmHg (85-104) 05/08/18 11:37 ABG O2 Saturation 98 % (95-98) 05/08/18 11:37 Abnormal lab findings: Abnormal lab results RBC 2.42 M/mcL (4.19-5.50) L 05/09/18 04:00 Hgb 7.5 g/dL (12.9-16.9) L 05/09/18 04:00 Hct 23.0 % (37.5-50.1) L 05/09/18 04:00 RDW 15.8 % (11.5-14.5) H 05/09/18 04:00 Eosinophils # 0.9 K/mcL (0.0-0.6) H 05/09/18 04:00 ABG pH 7.46 pH Units (7.32-7.45) H 05/08/18 11:37 Sodium 127 mEq/L (136-145) L 05/09/18 04:00 Chloride 95 mEq/L (98-107) L 05/09/18 04:00 BUN 53 mg/dL (6-20) H 05/09/18 04:00 Creatinine 3.08 mg/dL (0.70-1.30) H 05/09/18 04:00 Est GFR ( Amer) 25 (> 60) L 05/09/18 04:00 Est GFR (Non-Af Amer) 21 (> 60) L 05/09/18 04:00 Glucose 121 mg/dL (70-105) H 05/09/18 04:00 POC Glucose 216 mg/dL (70-99) H 05/08/18 20:39 Calcium 7.2 mg/dL (8.6-10.3) L 05/09/18 04:00 - Microbiology Findings Microbiology Findings: Microbiology, Last 48 Hours 05/08/18 13:10 Sputum Culture - Preliminary Aspirate - Clinical Findings Intake & Output: Intake & Output 05/08/18 05/09/18 05/09/18 23:59 07:59 15:59 Intake Total 300 / 300 Balance 300 / 300 Weight 68.1 kg Consult Discharge Plan - Plan Referrals: Paco Sheikh MD [Primary Care Provider] - (Patient is from [facility] no PCP appointment needed)
[2018-05-09] MEDS ORDERED: *HR* Heparin 10,000 UNIT/10 ML VIAL IV PRN (09:23)
--- NOTE | 2018-05-09 09:56 | Internal Med Progress Note ---
Hospitalist Progress Note - Encounter Date of Encounter: 05/09/18 Time of Encounter: 10:04 - Subjective Interval History: Patient is a 57-year-old male with past medical history significant for chronic respiratory failure with trach ventilation, CVA, ischemic cardiomyopathy, hypertension, hyperlipidemia and hypothyroid who presents from [facility] due to decreased mental status. At [facility], patient was found to have acute on chronic hypercapnic respiratory failure with respiratory acidosis. Patient was also found to have acute on chronic anemia in addition to acute on chronic renal failure with progressive anemia. Patient was transferred to [facility] ICU for further management and evaluation. Patient was admitted on 05/06 for VAP. Patient is doing better, he is still on full vent support with FI O2 40%, Peep 5. Alert, able to follow command. He has left-sided weakness from stroke. And also left leg is very swelling, had duplex on 05/08 which was negative for DVT, getting dialysis back to back, leg swelling improved today 1. VAP contineu ATB with zosyn, sputum growing K pneumonae, sentive to zosyn 2. chronic hypoxic respiratory failure s/p trachostomy, appreciate pulmonary input 3. sepsis POA with fever 101.2 WBC 13.8, resolved 4. ESRD, on HD TTS 5. acute on chronic systolic CHF with EF 30%, on BB, not on ACEI due to hyperkalemia 6. dysphasia s/p PEG on tube feeds 7. hx of stroke with left hemiplegia, PT consult planning continue IV ATB for pneumonia, weaning Vent discharge back to ECF when pulmonary is ok. - Exam Vitals: Temp Pulse Resp BP Pulse Ox 98.3 F 58 18 141/53 99 05/09/18 07:54 05/09/18 07:54 05/09/18 07:54 05/09/18 07:54 05/09/18 07:54 Exam: CONSTITUTIONAL: patient appears as an age appropriate male in no acute distress. EYES Clear sclerae, bilateral pupils are equal, reactive to light. EMOI. RESPIRATORY: No accessory muscle use, bilateral clear to auscultation, no wheezing, no crackles/rales. CARDIOVASCULAR: Regular heart rate, normal S1 and S2, no murmurs GASTROINTESTINAL: bowel sounds present, soft, no tenderness. MUSCULOSKELETAL: Joints in normal range of motion, no clubbing, no edema, no cyanosis. Bilateral peripheral pulses 2+. NEUROLOGIC: CN II to XII are grossly intact, left hemiplegia - Assessment and Plan (1) Acute and chronic respiratory failure with hypercapnia Current Visit: Yes Status: Acute Assessment and Plan: s/p trachostomy, on full vent support, pulmonary is on board, weaning Vent per pulmonary (2) Pneumonia Current Visit: Yes Status: Acute Assessment and Plan: sputum culture growing klebsiella pneumonia ESBL on April 28. Sensitivity to zosyn, will continue zosyn, levaquin is also the option on discharge (3) Sepsis Current Visit: Yes Status: Acute Assessment and Plan: POA with fever and leukocytosis from pneumnia, now resolved (4) History of CVA (cerebrovascular accident) Current Visit: Yes Status: Chronic Assessment and Plan: with left sided weakness, on ASA and statin patient has significant swelling from left leg and arm, negative for DVT from doppler on 05/08 (5) Diabetes Current Visit: Yes Status: Chronic Assessment and Plan: better controlled, on SSI (6) ESRD on dialysis Current Visit: Yes Status: Chronic Assessment and Plan: HD on TTS (7) GERD (gastroesophageal reflux disease) Current Visit: No Status: Chronic Assessment and Plan: on PPI (8) HTN (hypertension) Current Visit: No Status: Chronic (9) Hypothyroidism Current Visit: No Status: Chronic (10) Tracheostomy in place Current Visit: No Status: Chronic (11) Systolic CHF Current Visit: Yes Status: Chronic Assessment and Plan: EF 30% in 01/2018, continue BB, not on AISSATOU due to CKD and hyperkalemia. (12) Dysphagia Current Visit: No Status: Ruled-out (13) Acute on chronic anemia Current Visit: Yes Status: Chronic DVT Prophylaxis: heparin SC - Summary of Assessment and Plan Summary of Assessment and Plan: continue ATB Zosyn, weaning Vent discharge back to ECF, if pulmonary is ok - Time Spent with Patient Total time spent is greater than 50% in coordination of care (as documented) at patient's floor/unit and/or counseling patient: 25 - 35 minutes Plan of Care Discussed with: patient Internal Medicine: Result - Labs CBC & Chem 7: 05/09/18 04:00 05/09/18 04:00 Labs: Short CBC 05/09/18 Range/Units 04:00 WBC 8.7 (4.3-11.1) K/mcL Hgb 7.5 L (12.9-16.9) g/dL Hct 23.0 L (37.5-50.1) % Plt Count 174 (140-400) K/mcL Neutrophils # 6.2 (1.6-8.9) K/mcL BMP 05/09/18 04:00 Sodium 127 L Potassium 4.3 Chloride 95 L Carbon Dioxide 26 BUN 53 H Creatinine 3.08 H Glucose 121 H Calcium 7.2 L - ABG Interpretation ABG results: ABG ABG pH 7.46 pH Units (7.32-7.45) H 05/08/18 11:37 ABG pCO2 35 mmHg (35-45) 05/08/18 11:37 ABG pO2 90 mmHg (85-104) 05/08/18 11:37 ABG O2 Saturation 98 % (95-98) 05/08/18 11:37 Consult Discharge Plan - Plan Referrals: Paco Sheikh MD [Primary Care Provider] - (Patient is from [facility] no PCP appointment needed) (2) Pneumonia Qualifiers: Pneumonia type: due to Klebsiella pneumoniae Laterality: bilateral Lung location: unspecified part of lung Qualified Code(s): J15.0 - Pneumonia due to Klebsiella pneumoniae (3) Sepsis Qualifiers: Sepsis type: sepsis due to unspecified organism Qualified Code(s): A41.9 - Sepsis, unspecified organism (5) Diabetes Qualifiers: Diabetes mellitus type: type 2 Diabetes mellitus [facility] insulin use: without [facility] use Diabetes mellitus complication status: with kidney complications Diabetes mellitus complication detail: with chronic kidney disease Chronic kidney disease stage: on chronic dialysis Qualified Code(s): E11.22 - Type 2 diabetes mellitus with diabetic chronic kidney disease; N18.6 - End stage renal disease; Z99.2 - Dependence on renal dialysis (7) GERD (gastroesophageal reflux disease) Qualifiers: Esophagitis presence: esophagitis presence not specified Qualified Code(s): K21.9 - Gastro-esophageal reflux disease without esophagitis (8) HTN (hypertension) Qualifiers: Hypertension type: essential hypertension Qualified Code(s): I10 - Essential (primary) hypertension (9) Hypothyroidism Qualifiers: Hypothyroidism type: acquired Qualified Code(s): E03.9 - Hypothyroidism, unspecified (11) Systolic CHF Qualifiers: Heart failure chronicity: acute on chronic Qualified Code(s): I50.23 - Acute on chronic systolic (congestive) heart failure (12) Dysphagia Qualifiers: Dysphagia type: unspecified Qualified Code(s): R13.10 - Dysphagia, unspecified
--- NOTE | 2018-05-09 10:53 | Nephrology Progress Note ---
Date of Encounter: 05/09/18 Time of Encounter: 09:55 - Assessment and Plan (1) ESRD on dialysis Current Visit: No Status: Chronic ESRD and arranged for HD today. See comments from yesterday regarding his LUE AVF vs Permacath. (2) Hyponatremia Current Visit: Yes Status: Acute Suspect from CKD and hypervolemic hyponatremia: will provide UF and correction with dialysis today. (3) Anemia in CKD (chronic kidney disease) Current Visit: No Status: Chronic Goal Hgb is 10-11. His Hgb is trending worse and I'll arrange for a low weekly dose of Aranesp. Qualifiers: Chronic kidney disease stage: on chronic dialysis Qualified Code(s): N18.6 - End stage renal disease; D63.1 - Anemia in chronic kidney disease; Z99.2 - Dependence on renal dialysis Subjective Principal diagnosis: respiratory failure Interval history: Pt was s/e while on HD. He was nonverbal with his trach, thus limiting any subjective history. Objective - Vital Signs Vital signs: Vital Signs Temp Pulse Resp BP Pulse Ox 05/09/18 07:54 98.3 F 58 18 141/53 99 05/09/18 07:39 19 121/49 100 05/09/18 07:00 57 05/09/18 05:17 98.1 F 57 19 121/49 100 05/09/18 04:22 19 100 05/08/18 23:51 98.9 F 51 16 114/46 100 05/08/18 23:11 17 108/42 100 05/08/18 20:45 99.7 F H 60 19 108/42 100 05/08/18 20:20 17 100 05/08/18 17:06 97.7 F 52 18 120/52 100 05/08/18 16:51 22 135/103 100 05/08/18 13:00 52 05/08/18 11:25 97.8 F 57 14 120/42 100 05/08/18 11:11 14 100 Intake and Output 05/08/18 05/09/18 05/09/18 23:59 07:59 15:59 Intake Total 300 / 300 Balance 300 / 300 Intake: IV Fluids 100 / 100 Zosyn 3.375 GM In 0.9 % Sodium 100 / 100 Chloride (Mini-Bag +) 100 ML @ 25 mls/hr IVPB Q12HR [facility] Rx#: [id number] Free Water Intake Amount 200 / 200 Other: Stool Size Smear Moderate Large Stool Consistency soft loose loose Stool Color Yellow Brown # Voids 0 # Bowel Movements 1 Weight 68.1 kg Blood Glucose* 216 128 Patient Weight 05/09/18 23:59 Weight 68.1 kg - General Appearance General appearance: Present: chronically ill, frail EENT: Present: mucous membranes moist Additional Comments: trach Neck: Present: supple Respiratory: Present: clear Cardiology: Present: edema (dependent ankle edema (he appears bed bound)), normal S1, normal S2 Dialysis Vascular Access: Arteriovenous Fistula (LUE AVF with surrounding small ecchymoses) Additional Comments: Right sided Tunneled Dialysis Catheter Gastrointestinal: Present: no tenderness, no guarding Integumentary: Present: warm and dry, ecchymotic Neurologic: Present: no focal deficit, no asterixis Musculoskeletal: Present: no erythema - Lab 05/09/18 04:00 05/09/18 04:00 Most recent lab results ABG pH 7.46 pH Units (7.32-7.45) H 05/08/18 11:37 ABG pCO2 35 mmHg (35-45) 05/08/18 11:37 ABG pO2 90 mmHg (85-104) 05/08/18 11:37 ABG HCO3 25 mEq/L (21-27) 05/08/18 11:37 ABG O2 Saturation 98 % (95-98) 05/08/18 11:37 Calcium 7.2 mg/dL (8.6-10.3) L 05/09/18 04:00 Consult Discharge Plan - Plan Referrals: Paco Sheikh MD [Primary Care Provider] - (Patient is from [facility] no PCP appointment needed)
[2018-05-09] MEDS: *HR* LORazepam 1 MG TABLET PO PRN ×2 (15:54→20:04)
[2018-05-09] MEDS: Acetaminophen 325 MG TABLET PO PRN (15:54)
[2018-05-09] MEDS ORDERED: Vancomycin 500 MG in 0.9 % Sodium Chloride Mini Bag 100 ML IVPB ONE (20:00)
[2018-05-10] MEDS: hydrALAZINE 25 MG TABLET PO SCH ×4 (05:07→23:25)
[2018-05-10] MEDS: *HR* Heparin 5,000 UNIT/ML VIAL SQ SCH ×2 (05:07→17:18)
[2018-05-10] MEDS: Piperacillin/Tazobactam 3.375 GM in 0.9 % Sodium Chloride Mini Bag 100 ML IVPB SCH ×2 (05:08→17:15)
--- NOTE | 2018-05-10 09:09 | Pulmonology Progress Note ---
<Gianni Storey - Last Filed: 05/10/18 09:05> Date of Encounter: 05/10/18 Time of Encounter: 09:06 Assessment and Plan (1) Acute on chronic respiratory failure with hypoxia and hypercapnia Current Visit: Yes Status: Acute Respiratory failure chronic, history of exacerbations, complicated by pneumonia , heart failure and kidney failure requiring dialysis Patient currently ventilating and oxygenating appropriately on spontaneous respirations with CPAP Recommend pressure support wean to 8 during the day and back to full ventilatory support at night Will defer to Nephrology and Primary team for renal failure and heart failure plan of care (2) Pneumonia Current Visit: Yes Status: Acute Clinical and imaging evidence for pneumonia Blood cultures grew Klebsiella pneumoniae Patient improving on Vanc and Zosyn Sputum cultures grew gram negative rods Awaiting specifics and sensitivities Will de-escalate with sensitivities Will continue Vanc and Zosyn for now White count in normal range Qualifiers: Pneumonia type: due to Klebsiella pneumoniae Laterality: bilateral Lung location: unspecified part of lung Qualified Code(s): J15.0 - Pneumonia due to Klebsiella pneumoniae Subjective Principal diagnosis: respiratory failure Interval history: Patient seen and examined this morning, no acute events overnight. Vitals stable. Will attempt to wean pressure support during the day. Objective PUL Vital signs: Last Vital Signs Temp 98.6 F 05/10/18 07:05 Pulse 66 05/10/18 07:05 Resp 18 05/10/18 07:40 BP 156/56 05/10/18 07:05 Pulse Ox 100 05/10/18 07:40 Patient in no acute distress, follows commands and verbalizes requests Patient attached to mechanical ventilator via tracheostomy tube, ventilator set to spontaneous respirations with CPAP Heart in regular rate and rhythm, no murmur or gallop appreciated No rhonchi on auscultation, wheeze in upper right anterior lung field, diminished lung sounds in bilateral bases, no accessory muscle use Ventilator Settings Ventilator Settings: Ventilator Settings, Last 8 Hours Ventilator Tidal Volume 450 Setting Ventilator Tidal Volume 450 Setting Ventilator Respiratory Rate 12 Setting Ventilator Respiratory Rate 12 Setting Actual Respiratory Rate 22 Actual Respiratory Rate 17 Actual Respiratory Rate 16 Positive End Expiratory 5 Pressure Positive End Expiratory 5 Pressure Positive End Expiratory 5 Pressure Peak Inspiratory Airway 15 Pressure Peak Inspiratory Airway 18 Pressure Peak Inspiratory Airway 17 Pressure Results - Laboratory Findings CBC and BMP: 05/09/18 04:00 05/09/18 04:00 ABG ABG pH 7.46 pH Units (7.32-7.45) H 05/08/18 11:37 ABG pCO2 35 mmHg (35-45) 05/08/18 11:37 ABG pO2 90 mmHg (85-104) 05/08/18 11:37 ABG O2 Saturation 98 % (95-98) 05/08/18 11:37 Abnormal lab findings: Abnormal lab results RBC 2.42 M/mcL (4.19-5.50) L 05/09/18 04:00 Hgb 7.5 g/dL (12.9-16.9) L 05/09/18 04:00 Hct 23.0 % (37.5-50.1) L 05/09/18 04:00 RDW 15.8 % (11.5-14.5) H 05/09/18 04:00 Eosinophils # 0.9 K/mcL (0.0-0.6) H 05/09/18 04:00 ABG pH 7.46 pH Units (7.32-7.45) H 05/08/18 11:37 Sodium 127 mEq/L (136-145) L 05/09/18 04:00 Chloride 95 mEq/L (98-107) L 05/09/18 04:00 BUN 53 mg/dL (6-20) H 05/09/18 04:00 Creatinine 3.08 mg/dL (0.70-1.30) H 05/09/18 04:00 Est GFR ( Amer) 25 (> 60) L 05/09/18 04:00 Est GFR (Non-Af Amer) 21 (> 60) L 05/09/18 04:00 Glucose 121 mg/dL (70-105) H 05/09/18 04:00 POC Glucose 206 mg/dL (70-99) H 05/09/18 19:55 Calcium 7.2 mg/dL (8.6-10.3) L 05/09/18 04:00 Nasal Screen MRSA (PCR) Positive (Negative) A 05/10/18 03:38 - Microbiology Findings Microbiology Findings: Microbiology, Last 48 Hours 05/08/18 13:10 Sputum Culture - Preliminary Aspirate Gram Negative Anatoliy - Clinical Findings Intake & Output: Intake & Output 08/07/18 08/08/18 08/08/18 23:59 07:59 15:59 Intake Total 1694 / 1694 437 / 437 Balance 1694 / 1694 437 / 437 Weight 69.9 kg Consult Discharge Plan - Plan Referrals: Paco Sheikh MD [Primary Care Provider] - (Patient is from [facility] no PCP appointment needed) <Vicente Meadows - Last Filed: 05/10/18 12:27> Date of Encounter: 05/10/18 Assessment and Plan (1) Acute on chronic respiratory failure with hypoxia and hypercapnia Current Visit: Yes Status: Acute (2) Pneumonia Current Visit: Yes Status: Acute Qualifiers: Pneumonia type: due to Klebsiella pneumoniae Laterality: bilateral Lung location: unspecified part of lung Qualified Code(s): J15.0 - Pneumonia due to Klebsiella pneumoniae Objective PUL Vital signs: Last Vital Signs Temp 98.5 F 05/10/18 11:16 Pulse 66 05/10/18 11:16 Resp 35 05/10/18 11:17 BP 106/79 05/10/18 11:16 Pulse Ox 100 05/10/18 11:17 Ventilator Settings Ventilator Settings: Ventilator Settings, Last 8 Hours Ventilator Tidal Volume 450 Setting Ventilator Respiratory Rate 12 Setting Actual Respiratory Rate 34 Actual Respiratory Rate 22 Actual Respiratory Rate 17 Positive End Expiratory 5 Pressure Positive End Expiratory 5 Pressure Positive End Expiratory 5 Pressure Peak Inspiratory Airway 15 Pressure Peak Inspiratory Airway 15 Pressure Peak Inspiratory Airway 18 Pressure Results - Laboratory Findings CBC and BMP: 05/09/18 04:00 05/09/18 04:00 ABG ABG pH 7.46 pH Units (7.32-7.45) H 05/08/18 11:37 ABG pCO2 35 mmHg (35-45) 05/08/18 11:37 ABG pO2 90 mmHg (85-104) 05/08/18 11:37 ABG O2 Saturation 98 % (95-98) 05/08/18 11:37 Abnormal lab findings: Abnormal lab results RBC 2.42 M/mcL (4.19-5.50) L 05/09/18 04:00 Hgb 7.5 g/dL (12.9-16.9) L 05/09/18 04:00 Hct 23.0 % (37.5-50.1) L 05/09/18 04:00 RDW 15.8 % (11.5-14.5) H 05/09/18 04:00 Eosinophils # 0.9 K/mcL (0.0-0.6) H 05/09/18 04:00 ABG pH 7.46 pH Units (7.32-7.45) H 05/08/18 11:37 Sodium 127 mEq/L (136-145) L 05/09/18 04:00 Chloride 95 mEq/L (98-107) L 05/09/18 04:00 BUN 53 mg/dL (6-20) H 05/09/18 04:00 Creatinine 3.08 mg/dL (0.70-1.30) H 05/09/18 04:00 Est GFR ( Amer) 25 (> 60) L 05/09/18 04:00 Est GFR (Non-Af Amer) 21 (> 60) L 05/09/18 04:00 Glucose 121 mg/dL (70-105) H 05/09/18 04:00 POC Glucose 206 mg/dL (70-99) H 05/09/18 19:55 Calcium 7.2 mg/dL (8.6-10.3) L 05/09/18 04:00 Nasal Screen MRSA (PCR) Positive (Negative) A 05/10/18 03:38 - Microbiology Findings Microbiology Findings: Microbiology, Last 48 Hours 05/08/18 13:10 Sputum Culture - Preliminary Aspirate Gram Negative Anatoliy - Clinical Findings Intake & Output: Intake & Output 05/09/18 05/10/18 05/10/18 23:59 07:59 15:59 Intake Total 1694 / 1694 437 / 437 480 / 480 Balance 1694 / 1694 437 / 437 480 / 480 Weight 69.9 kg - Attending Attestation I saw and evaluated this patient and my medical decision-making was reviewed with the Resident Physician. I agree with the documented findings, disposition and treatment plan as described except to the extent set forth below. We independently had [id number] contact with the patient Patient seen and examined at bedside Labs, radiology, chart personally reviewed. Management was reviewed during multidisciplinary critical care rounds. [employer]PERATOR: He is conscious following commands same as yesterday. Pulm: Has Klebsiella bacteremia now the sputum cultures growing gram-negative rods most likely the same organism patient secretion is slowly getting better with his current antibiotic regimen VQ mismatches getting better with antibiotics, dialysis . Patient is tolerating spontaneous breathing with pressure support at 10 will wean him down to pressure support of 8 and see how he tolerates. Main goal is to liberate him to trach collar during the day and ventilator at night. ID: He will need at least 14 days of antibiotics. Rest of the management is according to the primary team.
[2018-05-10] MEDS: Sennosides/Docusate Sodium TABLET GTUBE SCH ×2 (09:15→20:43)
--- NOTE | 2018-05-10 09:27 | Nephrology Progress Note ---
Date of Encounter: 05/10/18 Time of Encounter: 09:25 - Assessment and Plan (1) ESRD on dialysis Current Visit: No Status: Chronic See previous note re: LUE AVF vs Permacath. Current regimen is TTS with Dr. Mahoney. HD tomorrow. Avoid nephrotoxins and renal dose all medications. (2) Anemia in CKD (chronic kidney disease) Current Visit: No Status: Chronic Goal Hgb is 10-11. Hgb was 7.5 yesterday, no new labs for today. Aranesp added yesterday. Qualifiers: Chronic kidney disease stage: on chronic dialysis Qualified Code(s): N18.6 - End stage renal disease; D63.1 - Anemia in chronic kidney disease; Z99.2 - Dependence on renal dialysis (3) Hyponatremia Current Visit: Yes Status: Acute Corrected with HD. No new lab for today. Subjective Principal diagnosis: respiratory failure Interval history: Pt seen and examined, doing well. Objective - Vital Signs Vital signs: Vital Signs Temp Pulse Resp BP Pulse Ox 05/10/18 07:40 18 100 05/10/18 07:05 98.6 F 66 16 156/56 100 05/10/18 04:23 19 100 05/10/18 02:45 98.1 F 62 20 150/55 100 05/10/18 00:16 64 20 145/56 100 05/10/18 00:02 16 100 05/09/18 19:51 69 19 165/62 100 05/09/18 19:48 21 100 05/09/18 16:49 98.2 F 75 18 155/65 99 05/09/18 16:24 28 155/65 94 05/09/18 14:24 155/65 05/09/18 14:05 30 99 05/09/18 14:00 97.7 F 20 135/83 05/09/18 13:30 123/68 05/09/18 13:15 132/50 05/09/18 13:00 120/68 05/09/18 12:45 122/60 05/09/18 12:30 119/53 05/09/18 12:15 127/43 05/09/18 12:00 119/49 05/09/18 11:45 131/54 05/09/18 11:30 132/53 05/09/18 11:15 122/52 05/09/18 11:00 116/45 05/09/18 10:45 111/43 05/09/18 10:30 109/52 05/09/18 10:15 113/52 05/09/18 10:00 97.8 F 20 118/51 Intake and Output 05/09/18 05/10/18 05/10/18 23:59 07:59 15:59 Intake Total 1694 / 1694 437 / 437 Balance 1694 / 1694 437 / 437 Intake: IV Fluids 100 / 100 Zosyn 3.375 GM In 0.9 % Sodium 100 / 100 Chloride (Mini-Bag +) 100 ML @ 25 mls/hr IVPB Q12HR [facility] Rx#: [id number] Oral 240 / 240 Tube Feeding 474 / 474 237 / 237 Free Water 440 / 440 200 / 200 Free Water Intake Amount 440 / 440 Other: Stool Size Large Large Stool Consistency loose loose Stool Characteristics Normal for Patient Stool Color Brown Brown Yellow # Bowel Movements 1 # Bowel Movement Diapers 1 Weight 69.9 kg Blood Glucose* 206 263 Patient Weight 05/10/18 23:59 Weight 69.9 kg - General Appearance General appearance: Present: well-developed, well-nourished EENT: Present: ATNC, hearing intact, vision intact Neck: Present: supple Respiratory: Present: clear Cardiology: Present: no edema, normal S1, normal S2 Dialysis Vascular Access: Venous Catheter (Tunneled line drsg c/d/i) Gastrointestinal: Present: normoactive bowel sounds, no tenderness, no guarding Integumentary: Present: no rash, warm and dry Neurologic: Present: alert and oriented x3 Psychiatric: Present: mood/affect appropriate, cooperative - Lab 05/09/18 04:00 05/09/18 04:00 Most recent lab results ABG pH 7.46 pH Units (7.32-7.45) H 05/08/18 11:37 ABG pCO2 35 mmHg (35-45) 05/08/18 11:37 ABG pO2 90 mmHg (85-104) 05/08/18 11:37 ABG HCO3 25 mEq/L (21-27) 05/08/18 11:37 ABG O2 Saturation 98 % (95-98) 05/08/18 11:37 Calcium 7.2 mg/dL (8.6-10.3) L 05/09/18 04:00 Consult Discharge Plan - Plan Referrals: Paco Sheikh MD [Primary Care Provider] - (Patient is from [facility] no PCP appointment needed)
[2018-05-10] MEDS: *HR* Ticagrelor 90 MG TABLET GTUBE SCH ×2 (09:30→20:43)
[2018-05-10] MEDS: Aspirin 81 MG TAB.CHEW GTUBE SCH (09:30)
[2018-05-10] MEDS: cloNIDine HCl 0.1 MG TABLET GTUBE SCH ×3 (09:30→20:43)
[2018-05-10] MEDS: Cyanocobalamin (B-12) 1,000 MCG TABLET GTUBE SCH (09:30)
[2018-05-10] MEDS: Folic Acid 1 MG TABLET GTUBE SCH (09:30)
[2018-05-10] MEDS: Docusate Oral Soln 100 MG/10 ML UDC PO SCH (09:31)
[2018-05-10] MEDS: Insulin LISPRO 300 UNITS/3 ML VIAL SQ SCH ×4 (09:32→20:44)
--- NOTE | 2018-05-10 09:50 | Internal Med Progress Note ---
Hospitalist Progress Note - Encounter Date of Encounter: 05/10/18 Time of Encounter: 09:48 - Subjective Interval History: Patient had no acute events overnight. He denies any fever, chills, chest pain , SOB, nausea, vomiting, or abdominal pain. He has no complaints at this time. - Exam Vitals: Temp Pulse Resp BP Pulse Ox 98.6 F 66 18 156/56 100 05/10/18 07:05 05/10/18 07:05 05/10/18 07:40 05/10/18 07:05 05/10/18 07:40 Exam: Gen - Awake, alert, no acute distress HEENT - NCAT, PERRLA, EOMI, hearing grossly intact CV - RRR, normal S1 and S2, no M/R/G, no BLE edema Resp - Normal WOB, CTAB, no W/R/R GI - Soft, NT/ND, no masses, normal bowel sounds, no HSP Skin - Warm, dry, no rashes/lesions/ulcers Psych - Normal mood and affect, no depression or anxiety - Assessment and Plan (1) Acute on chronic respiratory failure with hypoxia and hypercapnia Current Visit: Yes Status: Acute Assessment and Plan: Pulmonology consulted; appreciate input. S/P tracheostomy on full ventilatory support. Will wean vent per pulmonology. Treating pneumonia as per below. (2) Pneumonia Current Visit: Yes Status: Acute Assessment and Plan: Sputum culture with gram negative rods. MRSA nasal swab positive. Continue IV vancomycin and IV zosyn. Ventilatory support as per above. (3) Acute on chronic anemia Current Visit: Yes Status: Chronic Assessment and Plan: Nephrology consulted; appreciate input. Continue anaresp per nephrology. Transfuse for hemoglobin < 7.0. Recheck CBC in AM. (4) ESRD on dialysis Current Visit: Yes Status: Chronic Assessment and Plan: Nephrology consulted; appreciate input. HD per schedule. (5) HTN (hypertension) Current Visit: Yes Status: Chronic Assessment and Plan: Continue home medications. (6) Hypothyroidism Current Visit: Yes Status: Chronic Assessment and Plan: Continue home medications. (7) Tracheostomy in place Current Visit: Yes Status: Chronic Assessment and Plan: Pulmonology managing as per above. (8) Dysphagia Current Visit: Yes Status: Acute Assessment and Plan: Patient with G-tube due to dysphagia. Turkey Cleaner consulted for help with tube feeds and appreciate recommendations. He is having trouble with pureed PO diet. Will consult ST for reevaluation. (9) Altered mental status Current Visit: Yes Status: Resolved Assessment and Plan: Resolved. (10) Hyperkalemia Current Visit: Yes Status: Resolved Assessment and Plan: Resolved. Nephrology following. Recheck BMP in AM. (11) DVT prophylaxis Current Visit: Yes Status: Acute Assessment and Plan: Continue SQ heparin. - Time Spent with Patient Total time spent is greater than 50% in coordination of care (as documented) at patient's floor/unit and/or counseling patient: less than 15 minutes Plan of Care Discussed with: patient (Nurse, Pharmacist) Internal Medicine: Result - Labs CBC & Chem 7: 05/09/18 04:00 05/09/18 04:00 - ABG Interpretation ABG results: ABG ABG pH 7.46 pH Units (7.32-7.45) H 05/08/18 11:37 ABG pCO2 35 mmHg (35-45) 05/08/18 11:37 ABG pO2 90 mmHg (85-104) 05/08/18 11:37 ABG O2 Saturation 98 % (95-98) 05/08/18 11:37 Consult Discharge Plan - Plan Referrals: Paco Sheikh MD [Primary Care Provider] - (Patient is from [facility] no PCP appointment needed) (2) Pneumonia Qualifiers: Pneumonia type: due to Klebsiella pneumoniae Laterality: bilateral Lung location: unspecified part of lung Qualified Code(s): J15.0 - Pneumonia due to Klebsiella pneumoniae (5) HTN (hypertension) Qualifiers: Hypertension type: essential hypertension Qualified Code(s): I10 - Essential (primary) hypertension (6) Hypothyroidism Qualifiers: Hypothyroidism type: acquired Qualified Code(s): E03.9 - Hypothyroidism, unspecified (8) Dysphagia Qualifiers: Dysphagia type: unspecified Qualified Code(s): R13.10 - Dysphagia, unspecified (9) Altered mental status Qualifiers: Altered mental status type: unspecified Qualified Code(s): R41.82 - Altered mental status, unspecified
[2018-05-10] MEDS: Renal Vitamin 1 CAP CAPSULE PO SCH (10:41)
[2018-05-10] MEDS: Acetaminophen 325 MG TABLET PO PRN (12:00)
[2018-05-10] MEDS: *HR* LORazepam 1 MG TABLET PO PRN (20:44)
[2018-05-10] MEDS: *HR* OxyCODONE Oral Soln 5 MG/5 ML UD.LIQ GTUBE PRN (20:49)
[2018-05-11 04:20] LABS: Basophils % 0.5 %; Eosinophils # 0.9 K/mcL (0.0-0.6); Eosinophils % 11.3 %; Hematocrit 25.7 % (37.5-50.1); Hemoglobin 8.3 g/dL (12.9-16.9); Immature Granulocytes % 0.4 % (0-4); Lymphocytes # 1.1 K/mcL (0.6-4.6); Lymphocytes % 14.2 %; Mean Corpuscular HGB Conc 32.3 g/dL (31.6-35.5); Mean Corpuscular Hemoglobin 31.8 pg (28.0-33.3); Mean Corpuscular Volume 98.5 fL (83.0-100.0); Mean Platelet Volume 10.9 fL (9.4-12.4); Monocytes # 0.7 K/mcL (0.0-1.3); Monocytes % 9.1 %; Neutrophils # 5.1 K/mcL (1.6-8.9); Platelet Count 158 K/mcL (140-400); Red Blood Count 2.61 M/mcL (4.19-5.50); Red Cell Distribution Width 15.5 % (11.5-14.5); Segmented Neutrophils % 64.5 %
[2018-05-11 04:41] LABS: Calcium 7.2 mg/dL (8.6-10.3); Potassium 3.7 mEq/L (3.5-5.1)
[2018-05-11] MEDS: hydrALAZINE 25 MG TABLET PO SCH ×2 (06:25→13:59)
[2018-05-11] MEDS: *HR* Heparin 5,000 UNIT/ML VIAL SQ SCH (06:40)
[2018-05-11] MEDS ORDERED: 0.9 % Sodium Chloride 1,000 ML ONE (07:17)
[2018-05-11] MEDS ORDERED: 0.9 % Sodium Chloride 250 ML IVC PRN (07:35)
[2018-05-11] MEDS ORDERED: *HR* Heparin 10,000 UNIT/10 ML VIAL IV PRN (07:41)
[2018-05-11] MEDS: Piperacillin/Tazobactam 3.375 GM in 0.9 % Sodium Chloride Mini Bag 100 ML IVPB SCH (07:45)
[2018-05-11] MEDS: cloNIDine HCl 0.1 MG TABLET GTUBE SCH ×2 (08:23→14:00)
[2018-05-11] MEDS: Renal Vitamin 1 CAP CAPSULE PO SCH (08:24)
[2018-05-11] MEDS: Insulin LISPRO 300 UNITS/3 ML VIAL SQ SCH ×2 (08:31→13:43)
[2018-05-11] MEDS: Folic Acid 1 MG TABLET GTUBE SCH (08:33)
[2018-05-11] MEDS: Docusate Oral Soln 100 MG/10 ML UDC PO SCH (08:33)
[2018-05-11] MEDS: *HR* Ticagrelor 90 MG TABLET GTUBE SCH (08:33)
[2018-05-11] MEDS: Aspirin 81 MG TAB.CHEW GTUBE SCH (08:33)
[2018-05-11] MEDS: Cyanocobalamin (B-12) 1,000 MCG TABLET GTUBE SCH (08:34)
[2018-05-11] MEDS: Sennosides/Docusate Sodium TABLET GTUBE SCH (08:34)
--- NOTE | 2018-05-11 08:42 | Nephrology Progress Note ---
Date of Encounter: 05/11/18 Time of Encounter: 08:40 - Assessment and Plan (1) ESRD on dialysis Current Visit: No Status: Chronic See previous note re: LUE AVF vs Permacath. Current regimen is TTS with Dr. Mahoney. HD today. Avoid nephrotoxins and renal dose all medications. (2) Anemia in CKD (chronic kidney disease) Current Visit: No Status: Chronic Goal Hgb is 10-11. Hgb was 8.3 today. Qualifiers: Chronic kidney disease stage: on chronic dialysis Qualified Code(s): N18.6 - End stage renal disease; D63.1 - Anemia in chronic kidney disease; Z99.2 - Dependence on renal dialysis (3) Hyponatremia Current Visit: Yes Status: Acute Na is 129. Subjective Principal diagnosis: respiratory failure Interval history: Pt seen and examined, doing well. Objective - Vital Signs Vital signs: Vital Signs Temp Pulse Resp BP Pulse Ox 05/11/18 07:55 16 100 05/11/18 06:48 98.2 F 59 16 163/61 100 05/11/18 04:11 14 100 05/11/18 03:28 98.7 F 58 16 149/62 100 05/10/18 23:44 97.8 F 54 15 150/57 100 05/10/18 23:32 17 100 05/10/18 19:39 21 100 05/10/18 19:24 98.3 F 56 19 142/55 100 05/10/18 16:29 53 18 148/56 100 05/10/18 11:17 35 100 05/10/18 11:16 98.5 F 66 22 106/79 Intake and Output 05/10/18 05/11/18 05/11/18 23:59 07:59 15:59 Intake Total 300 / 300 200 / 200 Output Total 0 / 0 0 / 0 Balance 300 / 300 200 / 200 Intake: IV Fluids 100 / 100 Zosyn 3.375 GM In 0.9 % Sodium 100 / 100 Chloride (Mini-Bag +) 100 ML @ 25 mls/hr IVPB Q12HR [facility] Rx#: [id number] Oral 0 / 0 Free Water Intake Amount 200 / 200 200 / 200 Output: Urine 0 / 0 0 / 0 Other: Meal NPO Weight 74.1 kg Blood Glucose* 180 253 Patient Weight 05/11/18 23:59 Weight 74.1 kg - General Appearance General appearance: Present: well-developed, well-nourished EENT: Present: ATNC, hearing intact, vision intact Neck: Present: supple Respiratory: Present: clear Cardiology: Present: no edema, normal S1, normal S2 Dialysis Vascular Access: Venous Catheter (Tunneled line, DRSG c/D/I) thrill: Yes bruit: Yes Gastrointestinal: Present: normoactive bowel sounds, no tenderness, no guarding Integumentary: Present: no rash, warm and dry Additional Comments: Alert and able to follow commands. Psychiatric: Present: mood/affect appropriate, cooperative - Lab 05/11/18 04:00 05/11/18 04:00 Most recent lab results ABG pH 7.46 pH Units (7.32-7.45) H 05/08/18 11:37 ABG pCO2 35 mmHg (35-45) 05/08/18 11:37 ABG pO2 90 mmHg (85-104) 05/08/18 11:37 ABG HCO3 25 mEq/L (21-27) 05/08/18 11:37 ABG O2 Saturation 98 % (95-98) 05/08/18 11:37 Calcium 7.2 mg/dL (8.6-10.3) L 05/11/18 04:00 Consult Discharge Plan - Plan Referrals: Paoc Sheikh MD [Primary Care Provider] - (Patient is from [facility] no PCP appointment needed)
--- NOTE | 2018-05-11 13:00 | Discharge Summary ---
- NOTES TO OUTPATIENT PROVIDER Notes to Outpatient Provider: Follow up with ECF physician in 2-3 days after discharge. Recheck BMP and CBC at that time. Follow up with nephrology and pulmonlogy as directed. Continue hemodialysis per schedule. Orders not resulted at time of discharge: Pending orders 05/12/18 04:00 Vancomycin,Trough AM 0400 Date of Encounter: 05/11/18 Time of Encounter: 12:57 - Discharge Diagnosis (1) Acute on chronic respiratory failure with hypoxia and hypercapnia Priority: Primary Status: Acute (2) Pneumonia Priority: Secondary Status: Acute Qualifiers: Pneumonia type: due to Klebsiella pneumoniae Laterality: bilateral Lung location: unspecified part of lung Qualified Code(s): J15.0 - Pneumonia due to Klebsiella pneumoniae (3) Acute on chronic anemia Priority: Secondary Status: Chronic (4) ESRD on dialysis Priority: Secondary Status: Chronic (5) HTN (hypertension) Priority: Secondary Status: Chronic Qualifiers: Hypertension type: essential hypertension Qualified Code(s): I10 - Essential (primary) hypertension (6) Hypothyroidism Priority: Secondary Status: Chronic Qualifiers: Hypothyroidism type: acquired Qualified Code(s): E03.9 - Hypothyroidism, unspecified (7) Tracheostomy in place Priority: Secondary Status: Chronic (8) Dysphagia Priority: Secondary Status: Acute Qualifiers: Dysphagia type: unspecified Qualified Code(s): R13.10 - Dysphagia, unspecified (9) Altered mental status Priority: Secondary Status: Resolved Qualifiers: Altered mental status type: unspecified Qualified Code(s): R41.82 - Altered mental status, unspecified (10) Hyperkalemia Priority: Secondary Status: Resolved (11) DVT prophylaxis Priority: Secondary Status: Acute Hospital course: Mr. Landaverde is a 57 year old male admitted for acute on chronic respiratory failure likely secondary to pneumonia. Patient was admitted to step down unit with telemetry. He was started on IV vancomycin and IV zosyn. Pulmonology was consulted, and they managed his vent. They ultimately recommended pressure support during the day and full ventilatory support at night; he will need to be compliant with this at [facility]. Nephrology was also consulted for ESRD, acute on chronic anemia, and electrolyte abnormalities. HD was continued per schedule. He was started on anaresp. He also received 2 units PRBC. Sputum culture grew A. baumannii MDRO, proteus mirabilis, and psudomonas; all sensitive to zosyn. He will be discharged back to [facility] [facility] on IV zosyn (10 total days). He will follow up with LTAC physician in 2-3 days after discharge. Repeat BMP and CBC can be checked at that time. He will follow up with pulmonology and nephrology as directed. He will continue hemodialysis per his regular schedule. Patient has met maximum benefit of this hospitalization and will be discharged to [facility] in stable condition. Discharge discussed with: patient, nurse, case management, absence management consultant ( Diploma Dental Assistant), other (Pharmacist) - Time Spent with Patient Total time spent providing and/or coordinating discharge services: Greater than 30 minutes - Discharge Medications Prescriptions: Xbbpyntfnusf-Cdho-Urtnqtdv,Iso [Zosyn 3.375 gm/50 ml Galaxy] 3.375 gm IV Q8H 6 Days #17 froz.piggy Home Medications: Amlodipine Besylate 10 mg GTUBE DAILY 11/25/17 [History] Atorvastatin Calcium [Lipitor] 40 mg GTUBE DAILY 11/25/17 [History] Cyanocobalamin (B-12) [Vitamin B12] 1,000 mcg GTUBE DAILY 11/25/17 [History] Docusate [Colace] 50 mg GTUBE DAILY 11/25/17 [History] Folic Acid 1 mg GTUBE DAILY 11/25/17 [History] Levothyroxine Sodium [Synthroid] 300 mcg GTUBE DAILY 11/25/17 [History] Pantoprazole Sodium [Protonix] 40 mg GTUBE DAILY 11/25/17 [History] Sennosides/Docusate Sodium [Senna-S Tablet] 1 each GTUBE BID 11/25/17 [History] cloNIDine HCl [CloNIDine HCl] 0.1 mg GTUBE TID 11/25/17 [History] Aspirin [Lo-Dose Aspirin EC] 81 mg GTUBE DAILY 02/21/18 [History] Carvedilol [Coreg] 25 mg GTUBE BID 02/21/18 [History] Renal Vitamin [Renal Caps Softgel] 1 mg GTUBE DAILY 02/21/18 [History] Ticagrelor [Brilinta] 90 mg GTUBE BID 02/21/18 [History] hydrALAZINE [HydrALAZINE] 50 mg PO Q6HR 05/22/18 [History] Ipratropium/Albuterol Neb [Duoneb] 3 ml IH [id number] PRN inhsol 03/06/18 [Rx] Insulin Regular Human [Humulin R] 0 - 10 unit SQ TIDWM 03/23/18 [History] Oxycodone HCl [Oxaydo] 5 mg GTUBE Q6H PRN 5 Days #10 tablet.orl 03/30/18 [Rx] Polyethylene Glycol 3350 [MiraLAX] 17 gm PO DAILY powd.pack 03/30/18 [Rx] Acetaminophen [Acetaminophen ER] 650 mg PO Q4H PRN 05/06/18 [History] Calcitriol [Rocaltrol] 0.25 mcg PO MOWEFR 05/06/18 [History] Dextrose [Glucose Gel] 15 gm PO NOW PRN 05/06/18 [History] Glucagon,Human Recombinant [Glucagon Emergency Kit] 1 mg IJ NOW 05/06/18 [ History] LORazepam [Ativan] 1 mg GTUBE Q4H 05/06/18 [History] Quetiapine Fumarate [Seroquel] 25 mg PO BID 05/06/18 [History] Vaqwunudnszr-Trlp-Ppanudgb,Iso [Zosyn 3.375 gm/50 ml Galaxy] 3.375 gm IV Q8H 6 Days #17 froz.piggy 05/11/18 [Rx] Allergies/Adverse Reactions: 3 Allergy/AdvReac Type Severity Reaction Status Date / Time No Known Allergies Allergy Verified 03/23/18 12:09 Date of admission: 05/06/18 10:15 Primary care physician: Paco Sheikh MD Consults: 05/06/18 13:03 consult to spring former machine [Consult to Nutrition] [CONS] Stat Comment: Consulting Provider: NUTRITION Reason for Dietary Consult: Tube Feed Start & Manage 05/06/18 15:30 Consult to Dialysis [CONS] ONCE 05/06/18 17:45 Consult to Pulmonology [CONS] Routine Consulting Provider: [facility] [place] Reason for Consult: Ventilatory management with acute respiratory failure Call Completed: Yes 05/06/18 17:48 Consult to Nephrology [CONS] Routine Consulting Provider: Kidney Iman/GEMA/KENYA/AYAH Reason for Consult: Acute renal failure Call Completed: Yes 05/09/18 08:30 Consult to Dialysis [CONS] ONCE 05/11/18 07:45 Consult to Dialysis [CONS] ONCE 05/11/18 11:36 Consult to Case Management [CONS] Stat Comment: Discharge planning LTAC Consult to Scratch Polisher [CONS] Stat Reason for SW Consult: Discharge planning LTAC Discharging clinician: Jose Armando Dangelo Anticipated date of discharge: 05/11/18 - Constitutional Vitals: Temp Pulse Resp BP Pulse Ox 98.1 F 66 18 127/62 100 05/11/18 09:00 05/11/18 08:53 05/11/18 09:00 05/11/18 11:45 05/11/18 08:48 General appearance: Present: cooperative, pleasant, no acute distress, answers questions appropriately - Respiratory Respiratory exam: Present: CTAB. Absent: accessory muscle use, rales, rhonchi, wheezes Additional comments: Normal WOB - Cardiovascular Cardiovascular exam: Present: RRR, +S1, +S2. Absent: diastolic murmur, gallop, rubs, systolic murmur Additional comments: No BLE edema - GI/Abdominal GI/Abdominal exam: Present: normal bowel sounds, soft. Absent: distended, hepatomegaly, mass, splenomegaly, tenderness - Psychiatric Psychiatric exam: Present: normal affect, normal mood. Absent: agitated, anxious, depressed - Skin Skin exam: Present: dry, intact, warm. Absent: cyanosis, rash - Patient Status Disposition: Transfer LTC Condition: Good Overall status at discharge: patient is progressing back to baseline - Discharge Instructions Follow Up With: Paco Sheikh MD [Primary Care Provider] - (Patient is from [facility] no PCP appointment needed) Additional Instructions: Follow up with ECF physician in 2-3 days after discharge. Recheck BMP and CBC at that time. Follow up with nephrology and pulmonlogy as directed. Continue hemodialysis per schedule. Pressure support during the day and full ventilatory support at night per pulmonology recommendations. - Diet and Activity Activity: as per physical therapy, resume usual activities as tolerated Diet: other (PEG tube feeding bolus 1 can nepro 4 x day with 250 ml free water flushes QID, and mechanically altered diet ground meat with thin liquids)
--- NOTE | 2018-05-11 14:05 | Physician Discharge Referral ---
ExtendedCare Referral Info Transfer To: [facility] Provider in Charge after Transfer: Other (LTAC Physician) Institutional Level of Care: Skilled - Diagnosis (1) Acute on chronic respiratory failure with hypoxia and hypercapnia Priority: Primary Status: Acute (2) Pneumonia Priority: Secondary Status: Acute (3) Acute on chronic anemia Priority: Secondary Status: Chronic (4) ESRD on dialysis Priority: Secondary Status: Chronic (5) HTN (hypertension) Priority: Secondary Status: Chronic (6) Hypothyroidism Priority: Secondary Status: Chronic (7) Tracheostomy in place Priority: Secondary Status: Chronic (8) Dysphagia Priority: Secondary Status: Acute (9) Altered mental status Priority: Secondary Status: Resolved (10) Hyperkalemia Priority: Secondary Status: Resolved (11) DVT prophylaxis Priority: Secondary Status: Acute Expected Duration of Placement: Indefinitely Prognosis: Fair Aware of Diagnosis: Patient Aware of Prognosis: Patient - Transfer Medications Prescriptions: Qfbczhtdrjkg-Cgzp-Mfcpdkdb,Iso [Zosyn 3.375 gm/50 ml Galaxy] 3.375 gm IV Q8H 6 Days #17 froz.piggy Home Medications: Amlodipine Besylate 10 mg GTUBE DAILY 11/25/17 [History] Atorvastatin Calcium [Lipitor] 40 mg GTUBE DAILY 11/25/17 [History] Cyanocobalamin (B-12) [Vitamin B12] 1,000 mcg GTUBE DAILY 11/25/17 [History] Docusate [Colace] 50 mg GTUBE DAILY 11/25/17 [History] Folic Acid 1 mg GTUBE DAILY 11/25/17 [History] Levothyroxine Sodium [Synthroid] 300 mcg GTUBE DAILY 11/25/17 [History] Pantoprazole Sodium [Protonix] 40 mg GTUBE DAILY 11/25/17 [History] Sennosides/Docusate Sodium [Senna-S Tablet] 1 each GTUBE BID 11/25/17 [History] cloNIDine HCl [CloNIDine HCl] 0.1 mg GTUBE TID 11/25/17 [History] Aspirin [Lo-Dose Aspirin EC] 81 mg GTUBE DAILY 02/21/18 [History] Carvedilol [Coreg] 25 mg GTUBE BID 02/21/18 [History] Renal Vitamin [Renal Caps Softgel] 1 mg GTUBE DAILY 02/21/18 [History] Ticagrelor [Brilinta] 90 mg GTUBE BID 02/21/18 [History] hydrALAZINE [HydrALAZINE] 50 mg PO Q6HR 02/21/18 [History] Ipratropium/Albuterol Neb [Duoneb] 3 ml IH [id number] PRN inhsol 03/06/18 [Rx] Insulin Regular Human [Humulin R] 0 - 10 unit SQ TIDWM 03/23/18 [History] Oxycodone HCl [Oxaydo] 5 mg GTUBE Q6H PRN 5 Days #10 tablet.orl 03/30/18 [Rx] Polyethylene Glycol 3350 [MiraLAX] 17 gm PO DAILY powd.pack 03/30/18 [Rx] Acetaminophen [Acetaminophen ER] 650 mg PO Q4H PRN 05/06/18 [History] Calcitriol [Rocaltrol] 0.25 mcg PO MOWEFR 05/06/18 [History] Dextrose [Glucose Gel] 15 gm PO NOW PRN 05/06/18 [History] Glucagon,Human Recombinant [Glucagon Emergency Kit] 1 mg IJ NOW 05/06/18 [ History] LORazepam [Ativan] 1 mg GTUBE Q4H 05/06/18 [History] Quetiapine Fumarate [Seroquel] 25 mg PO BID 05/06/18 [History] Xmylpiuutbum-Saxn-Itgwmzib,Iso [Zosyn 3.375 gm/50 ml Galaxy] 3.375 gm IV Q8H 6 Days #17 froz.piggy 05/11/18 [Rx] Allergies/Adverse Reactions: 3 Allergy/AdvReac Type Severity Reaction Status Date / Time No Known Allergies Allergy Verified 03/23/18 12:09 - Respiratory Orders Other (Pressure support during the day and full ventilatory support at night.) Smoking Cessation: Smoking cessation has been advised. For more information, call the [place] Tobacco Quit Line at 3-876-JDGR-NOW. - Lab Orders Lab Orders: CBC (in 2-3 days after discharge.), Other (include drug levels w/ frequency) (BMP in 2-3 days after discharge.) - Advance Directives Code Status: Full Code - Mobility Orders Other (Per physical therapy) - Rehabiliation Orders Rehab Orders: ROM Exercises, Evaluation for Physical Therapy, Evaluation for Occupational Therapy, Evaluation for Speech Therapy - Diet Orders Renal (PEG tube feeding bolus 1 can nepro 4 x day with 250 ml free water flushes QID, and mechanically altered diet ground meat with thin liquids) Tube Feedings (type/amount/rate): PEG tube feeding bolus 1 can nepro 4 x day Flush Tube (type/amount/frequency): 250 ml free water flushes QID CERTIFICATION: I certify that the transfer of the above named patient to an Extended Care Facility is necessary for the continuing treatment of the diagnosis listed. The above information is true and accurate reflection of patient's current condition. Confidential - Redisclosure prohibited without a patient's written consent.
[2018-05-11 14:13] VITALS: BP 163/61
--- NOTE | 2018-05-11 15:15 | Pulmonology Progress Note ---
Date of Encounter: 05/11/18 Time of Encounter: 11:30 Assessment and Plan (1) Acute on chronic respiratory failure with hypoxia and hypercapnia Current Visit: Yes Status: Acute Patient currently on mechanical ventilation with adequate oxygenation and ventilation with low tidal volume ventilation strategy. Patient current pulmonary status is complicated by his systolic heart failure, his end-stage renal disease and superimposed pneumonia. Patient is getting his regular dialysis, is getting antibiotic therapy. Patient V/Q mismatch is slowly getting better. Will do Pressure support during the day time and during the night time please put him back on full ventilatory support. 05/11 patient is tolerating well the spontaneous breathing trials with pressure support. He needs to be on nighttime full ventilatory support. Patient liberation process can be done in the long-term acute care facility the goal he should be able to go on trach collar during the daytime and nighttime pressure-support ventilation or full mechanical ventilatory support. (2) Pneumonia Current Visit: Yes Status: Acute Patient has symptoms of pneumonia and radiological imaging patient grew out Klebsiella pneumonia in the blood sensitive to Zosyn patient getting better on the current treatment. Patient still has some secretions . Will need atleast 14 days of antibiotic therapy. Qualifiers: Pneumonia type: due to Klebsiella pneumoniae Laterality: bilateral Lung location: unspecified part of lung Qualified Code(s): J15.0 - Pneumonia due to Klebsiella pneumoniae Subjective Principal diagnosis: respiratory failure Interval history: Patient is awake completely following commands denies any current complaints says his breathing is lot better. Put him on Spontaneous breathing trial. 05/11 patient doing well on the spontaneous breathing trial does not have any complaints. Objective PUL Vital signs: Last Vital Signs Temp 97.6 F 05/11/18 13:30 Pulse 84 05/11/18 13:45 Resp 29 05/11/18 14:08 BP 163/61 05/11/18 14:08 Pulse Ox 100 05/11/18 14:08 Auscultation: bilateral: diminished breath sounds, rales (Scattered) Ventilator Settings Ventilator Settings: Ventilator Settings, Last 8 Hours Ventilator Tidal Volume 450 Setting Ventilator Tidal Volume 450 Setting Ventilator Respiratory Rate 12 Setting Ventilator Respiratory Rate 12 Setting Ventilator Respiratory Rate 12 Setting Actual Respiratory Rate 29 Actual Respiratory Rate 16 Actual Respiratory Rate 16 Actual Respiratory Rate 19 Positive End Expiratory 5 Pressure Positive End Expiratory 5 Pressure Positive End Expiratory 5 Pressure Positive End Expiratory 5 Pressure Peak Inspiratory Airway 21 Pressure Peak Inspiratory Airway 16 Pressure Peak Inspiratory Airway 15 Pressure Peak Inspiratory Airway 19 Pressure Results - Laboratory Findings CBC and BMP: 05/11/18 04:00 05/11/18 04:00 ABG ABG pH 7.46 pH Units (7.32-7.45) H 05/08/18 11:37 ABG pCO2 35 mmHg (35-45) 05/08/18 11:37 ABG pO2 90 mmHg (85-104) 05/08/18 11:37 ABG O2 Saturation 98 % (95-98) 05/08/18 11:37 Abnormal lab findings: Abnormal lab results RBC 2.61 M/mcL (4.19-5.50) L 05/11/18 04:00 Hgb 8.3 g/dL (12.9-16.9) L 05/11/18 04:00 Hct 25.7 % (37.5-50.1) L 05/11/18 04:00 RDW 15.5 % (11.5-14.5) H 05/11/18 04:00 Eosinophils # 0.9 K/mcL (0.0-0.6) H 05/11/18 04:00 ABG pH 7.46 pH Units (7.32-7.45) H 05/08/18 11:37 Sodium 129 mEq/L (136-145) L 05/11/18 04:00 Chloride 95 mEq/L (98-107) L 05/11/18 04:00 BUN 39 mg/dL (6-20) H 05/11/18 04:00 Creatinine 2.33 mg/dL (0.70-1.30) H 05/11/18 04:00 Est GFR ( Amer) 35 (> 60) L 05/11/18 04:00 Est GFR (Non-Af Amer) 29 (> 60) L 05/11/18 04:00 Glucose 172 mg/dL (70-105) H 05/11/18 04:00 POC Glucose 180 mg/dL (70-99) H 05/10/18 19:57 Calcium 7.2 mg/dL (8.6-10.3) L 05/11/18 04:00 Nasal Screen MRSA (PCR) Positive (Negative) A 05/10/18 03:38 - Microbiology Findings Microbiology Findings: Microbiology, Last 48 Hours 05/08/18 13:10 Sputum Culture - Final Aspirate Acinetobacter baumannii MDRO Proteus mirabilis Pseudomonas aeruginosa - Clinical Findings Intake & Output: Intake & Output 05/10/18 05/11/18 05/11/18 23:59 07:59 15:59 Intake Total 300 / 300 200 / 200 800 / 800 Output Total 0 / 0 0 / 0 2600 / 2600 Balance 300 / 300 200 / 200 -1800 / -1800 Weight 74.1 kg Consult Discharge Plan - Plan Additional Instructions: Follow up with ECF physician in 2-3 days after discharge. Recheck BMP and CBC at that time. Follow up with nephrology and pulmonlogy as directed. Continue hemodialysis per schedule. Pressure support during the day and full ventilatory support at night per pulmonology recommendations. Referrals: Paco Sheikh MD [Primary Care Provider] - (Patient is from [facility] no PCP appointment needed) Prescriptions: Kkuhytbkwlaw-Bgqb-Qhkhmliw,Iso [Zosyn 3.375 gm/50 ml Galaxy] 3.375 gm IV Q8H 6 Days #17 magdi
[2018-05-11] MEDS ORDERED: Aminoglycoside Consult 1 EACH MC ONE (17:19)
== END 2018-05-11 17:20 | DRG 870 ==
LOC: ICNU 10:15 → SUATTDRO 10:15 → 2NNU 05-07 10:55
PROVIDERS: ADMIT Hospitalist; ATTEND Hospitalist